=== PATIENT | female | born 1960 | race Caucasian/White ===

== ENCOUNTER 2018-06-04 10:36 | Inpatient (IN) ==
[2018-06-04] MEDS ORDERED: Sod Chloride 0.9% Inj 1,000 ML IV.SIG ONE (10:54)
--- NOTE | 2018-06-04 11:08 | ED ---
HPI General Chief complaint: Extremity Injury, Upper Stated complaint: Fall Time Seen by Provider: 06/04/18 10:48 Source: patient, EMS and old records reviewed History of Present Illness HPI narrative: The patient is a 58-year-old female presenting with complaint of right shoulder pain after a fall. After talking to the patient and her as well as discussing with case management it appears that the patient had some kind of a adverse event in the the facility several year and was either a stroke or a CODE BLUE. Since then the patient has been having multiple falls atrophy of the lower extremities weakness not being able to walk appropriately and falls almost on a daily basis distress she was advised to follow-up with orthopedic surgeon. She was on her way to the. She sustained a fall a few days ago resulting to a fracture of her right humerus. Today she was supposed to follow-up with her orthopedic surgeon but she fell again and was brought in by EMS. Patient is not able to provide much information. She appears confused but nontoxic. did not arrive until 2 hours after she was here. Onset (ago): hour(s) (1) Location: upper extremity Radiation: non-radiation Severity: severe Severity scale (1-10): 9 Quality: sharp Pain Consistency: constant Relieving factors: immobilization Exacerbating factors: movement Associated symptoms: confusion Related Data Home Medications Medication Instructions Recorded Confirmed allopurinol 100 mg PO BID 05/28/18 05/28/18 aspirin 81 mg PO DAILY 05/28/18 05/28/18 buspirone 5 mg PO TID 05/28/18 05/28/18 calcium carbonate [Calcium 600] 600 mg PO BID 05/28/18 05/28/18 divalproex [Depakote] 500 mg PO TID 05/28/18 05/28/18 donepezil 10 mg PO DAILY 05/28/18 06/04/18 hydrocodone-acetaminophen [[place]] 1 tab PO Q6H PRN 05/28/18 06/04/18 levothyroxine 25 mcg PO DAILY 05/28/18 06/04/18 oxybutynin chloride 5 mg PO BID 05/28/18 06/04/18 sotalol 80 mg PO Q12H 05/28/18 06/04/18 thyroid (pork) [[place] Thyroid] 60 mg PO DAILY 05/28/18 06/04/18 tizanidine 2 mg PO TID PRN 05/28/18 06/04/18 venlafaxine [Effexor XR] 75 mg PO DAILY 05/28/18 06/04/18 Allergies Allergy/AdvReac Type Severity Reaction Status Date / Time No Known Allergies Allergy Verified 05/28/18 10:30 Review of Systems ROS Unobtainable ROS Unobtainable: unobtainable due to mental condition [facility] Medical History Medical History Gout (Acute) Thyroid disease (Acute) Back pain (Acute) Alzheimer disease (Acute) Atrial fibrillation (Acute) Social History Social History Substance History: No History of Abuse Smoking Status: Never smoker How Often Do You Have a Drink Containing Alcohol: Never Recent Travel in [facility] within the Last 8 Weeks: No Recent Out of Country Travel within the Last 8 Weeks: No Immunization History Tetanus Immunization: Unsure Exam Narrative Exam Narrative: GENERAL: Awake alert to person but not time or place. SKIN: Focused skin assessment warm/dry. HEAD: Atraumatic. Normocephalic. EYES: Pupils equal and round. No scleral icterus. No injection or drainage. ENT: No nasal bleeding or discharge. Mucous membranes pink and moist. NECK: Trachea midline. No JVD. CARDIOVASCULAR: Regular rate and rhythm. No murmur appreciated. RESPIRATORY: No accessory muscle use. Clear to auscultation. Breath sounds equal bilaterally. GASTROINTESTINAL: Abdomen soft, non-tender, nondistended. Hepatic and splenic margins not palpable. MUSCULOSKELETAL: No obvious deformities. No clubbing. No cyanosis. No edema. PSYCHIATRIC: unable to assess Neuro General: awake and CN's II-XI intact bilaterally Course Consultations Consultation #1: Dr. Blevins orthopedic surgery recommends a CT of the right shoulder. Time: 14:04 Consultation #2: Dr. Blevins return our call he does not feel that the patient is a good candidate for operative repair that will follow as an outpatient. Time: 18:02 Initial Documented Vital Signs Temperature 98.7 F 06/04/18 10:41 Pulse Rate 108 H 06/04/18 10:41 Respiratory Rate 20 06/04/18 10:41 Blood Pressure 114/76 06/04/18 10:41 Last Documented Vital Signs Temperature 98.7 F 06/04/18 10:41 Pulse Rate 90 06/04/18 15:43 Respiratory Rate 18 06/04/18 15:43 Blood Pressure 112/65 06/04/18 15:43 Pulse Oximetry 93 L 06/04/18 15:43 NIH Stroke Scale NIHSS Time Completed NIHSS Time Completed: 10:55 NIH Stroke Scale Level of Consciousness: 0-Alert Orientation Questions: 0-Answers both correct Responds to Commands: 0-Both tasks correct Gaze Eye Movement: 0-Horizontal movement WNL Visual Cid: 0-No visual field defect Facial Movement: 0-Normal Motor Functions Arm LEFT: 0-No drift Motor Functions Arm RIGHT: 0-No drift Motor Functions Leg LEFT: 2-Falls before 5 seconds Motor Functions Leg RIGHT: 2-Falls before 5 seconds Limb Ataxia: 0-No ataxia Sensory Loss: 0-No sensory loss Best Language: 0-Normal Articulation: 0-Normal Extinction or Inattention Sensory: 0-Absent Total: 4 Medical Decision Making MDM Narrative Medical decision making narrative: inconsistent past medical history regarding what has happened to her in the previous hospital. Patient with multiple problems and early onset Alzheimer which is very worrisome in her age. She has a very at this visit as she appears to have a urinary tract infection. Head CT was unremarkable. We did obtain a CT of the right shoulder as per request of orthopod and he does not feel like she needs to be surgically repaired. Medical Screen Exam Complete: Yes Emergency Medical Condition: Yes Medical Records Medical records reviewed: Yes I reviewed the patient's medical records. Lab Data Lab results reviewed: Yes I reviewed the patient's lab results. Result diagrams: 06/04/18 12:00 06/04/18 12:00 Lab Results 06/04/18 06/04/18 06/04/18 Range/Units 12:00 12:00 12:00 WBC 8.3 (4.0-11.0) th/mm3 RBC 2.89 L (4.00-5.30) mil/mm3 Hgb 10.4 L (11.6-15.3) gm/dL Hct 31.5 L (35.0-46.0) % MCV 109.1 H (80.0-100.0) fL MCH 35.9 H (27.0-34.0) pg MCHC 32.9 (32.0-36.0) % RDW 15.2 (11.6-17.2) % Plt Count 191 (150-450) th/mm3 MPV 10.2 (7.0-11.0) fL Neut % (Auto) 56.2 (16.0-70.0) % Lymph % (Auto) 21.4 (9.0-44.0) % [place] % (Auto) 19.8 H (0.0-8.0) % Eos % (Auto) 1.6 (0.0-4.0) % Baso % (Auto) 1.0 (0.0-2.0) % Neut # (Auto) 4.6 (1.8-7.7) th/mm3 Lymph # (Auto) 1.8 (1.0-4.8) th/mm3 [place] # (Auto) 1.6 H (0.0-0.9) th/mm3 Eos # (Auto) 0.1 (0.0-0.4) th/mm3 Baso # (Auto) 0.1 (0.0-0.2) th/mm3 WBC Differential . Differential Comment Auto diff final PT 12.4 H (9.8-11.6) sec INR 1.2 Ratio APTT 29.9 (24.3-30.1) sec Sodium 141 (136-145) meq/L Potassium 3.1 L (3.5-5.1) meq/L Chloride 102 (98-107) meq/L Carbon Dioxide 30.6 (21.0-32.0) meq/L Anion Gap 8 (5-15) meq/L BUN 26 H (7-18) mg/dL Creatinine 0.81 (0.50-1.00) mg/dL Estimated GFR 72 L (>89) mL/min Random Glucose 82 (74-106) mg/dL Calcium 8.7 (8.5-10.1) mg/dL Magnesium 2.1 (1.5-2.5) mg/dL Total Bilirubin 0.7 (0.2-1.0) mg/dL AST 26 (15-37) U/L ALT 20 (10-53) U/L Alkaline Phosphatase 98 (45-117) U/L Troponin I Less than 0.02 L (0.02-0.05) ng/mL B-Natriuretic Peptide (0-100) pg/mL Total Protein 6.9 (6.4-8.2) g/dL Albumin 2.2 L (3.4-5.0) g/dL Urine Color (Yellw/Straw) Urine Clarity (Clear) Urine pH (5.0-8.5) Ur Specific [place] (1.002-1.035) Urine Protein (Neg-Trace) mg/dL Urine Glucose (UA) (Negative) mg/dL Urine Ketones (Negative) mg/dL Urine Occult Blood (Negative) Urine Nitrate (Negative) Urine Bilirubin (Negative) Urine Urobilinogen (Less than 2) mg/dL Ur Leukocyte Esterase (Negative) Urine RBC (0-3) /hpf Urine WBC (0-5) /hpf Ur Squamous Epith Cells (0-5) /hpf Urine Bacteria (None) /hpf Urine Mucus (Occasional) /lpf Micro UA Comment Ur Microscopic Review Urine Culture Comments 06/04/18 06/04/18 Range/Units 12:00 13:33 WBC (4.0-11.0) th/mm3 RBC (4.00-5.30) mil/mm3 Hgb (11.6-15.3) gm/dL Hct (35.0-46.0) % MCV (80.0-100.0) fL MCH (27.0-34.0) pg MCHC (32.0-36.0) % RDW (11.6-17.2) % Plt Count (150-450) th/mm3 MPV (7.0-11.0) fL Neut % (Auto) (16.0-70.0) % Lymph % (Auto) (9.0-44.0) % [place] % (Auto) (0.0-8.0) % Eos % (Auto) (0.0-4.0) % Baso % (Auto) (0.0-2.0) % Neut # (Auto) (1.8-7.7) th/mm3 Lymph # (Auto) (1.0-4.8) th/mm3 [place] # (Auto) (0.0-0.9) th/mm3 Eos # (Auto) (0.0-0.4) th/mm3 Baso # (Auto) (0.0-0.2) th/mm3 WBC Differential Differential Comment PT (9.8-11.6) sec INR Ratio APTT (24.3-30.1) sec Sodium (136-145) meq/L Potassium (3.5-5.1) meq/L Chloride (98-107) meq/L Carbon Dioxide (21.0-32.0) meq/L Anion Gap (5-15) meq/L BUN (7-18) mg/dL Creatinine (0.50-1.00) mg/dL Estimated GFR (>89) mL/min Random Glucose (74-106) mg/dL Calcium (8.5-10.1) mg/dL Magnesium (1.5-2.5) mg/dL Total Bilirubin (0.2-1.0) mg/dL AST (15-37) U/L ALT (10-53) U/L Alkaline Phosphatase (45-117) U/L Troponin I (0.02-0.05) ng/mL B-Natriuretic Peptide 613 H (0-100) pg/mL Total Protein (6.4-8.2) g/dL Albumin (3.4-5.0) g/dL Urine Color Yellow (Yellw/Straw) Urine Clarity Clear (Clear) Urine pH 7.0 (5.0-8.5) Ur Specific [place] 1.016 (1.002-1.035) Urine Protein Negative (Neg-Trace) mg/dL Urine Glucose (UA) Negative (Negative) mg/dL Urine Ketones Trace H (Negative) mg/dL Urine Occult Blood Negative (Negative) Urine Nitrate Positive H (Negative) Urine Bilirubin Negative (Negative) Urine Urobilinogen 4 or greater (Less than 2) mg/dL Ur Leukocyte Esterase Trace H (Negative) Urine RBC 1 (0-3) /hpf Urine WBC 14 H (0-5) /hpf Ur Squamous Epith Cells 1 (0-5) /hpf Urine Bacteria Many H (None) /hpf Urine Mucus Few H (Occasional) /lpf Micro UA Comment Cath-culture ind Ur Microscopic Review Not Reportable Urine Culture Comments Cath-cult indicated Imaging Data Radiologist's impression: Head CT 06/04/18 10:54 CONCLUSION: 1. No acute intracranial abnormality.. 2. Mild periventricular and subcortical white matter small vessel ischemic changes bilaterally. Humerus X-Ray 06/04/18 10:54 CONCLUSION: Oblique slightly comminuted fracture of the right humeral neck and proximal shaft Shoulder X-Ray 06/04/18 10:54 CONCLUSION: Oblique proximal humeral fracture. Acromion clavicular joint is unremarkable Chest X-Ray 06/04/18 10:56 CONCLUSION: Negative examination. Shoulder CT 06/04/18 14:02 CONCLUSION: 1. Impacted humeral neck fracture as described above. There are 2 small bone fragment adjacent to the greater tuberosity. ECG Data Prior ECG tracings: available for review Interpretation: Sinus rhythm 70 bpm left atrial enlargement. Nonspecific ST-T wave abnormalities. No signs of acute ischemia. Discharge Plan Discharge Disposition Patient Disposition: 30 Still Patient Discharge Condition Condition: Good Discharge Details Diagnosis: Acute UTI, Alzheimer disease, Humeral fracture, Encephalopathy, Toxic metabolic encephalopathy Physicians Team ED Provider: Seamus Felipe Primary Care Provider: MARIA EUGENIA, Attending Provider: Jalyn Martin Other Providers: Shai Blevins Dalia Discharge Interventions Interventions: Vital Signs Last Done: 06/04/18 15:43 Status ED Status: Admitted Patient
--- NOTE | 2018-06-04 11:35 | XR ---
EXAM DATE: 06/04/2018 11:32 AM EDT AGE/SEX: 58 years / Female INDICATIONS: Fell today. CLINICAL DATA: This is the patient's initial encounter. Patient reports that signs and symptoms have been present for 1 day and indicates a pain score of 10/10. MEDICAL/SURGICAL HISTORY: . fell also 05-28-18 . broken right shoulder 05/2018 COMPARISON: [facility], SHOULDER LIMITED RIGHT 2V, 05/28/2018. . FINDINGS: There is an oblique fracture involving the right humeral neck. There is a small fracture associated w ith the greater tuberosity. The glenohumeral joint is preserved. CONCLUSION: Oblique slightly comminuted fracture of the right humeral neck and proximal shaft Electronically signed by: Junito Raza MD 06/04/2018 11:34 AM EDT
--- NOTE | 2018-06-04 11:45 | XR ---
EXAM DATE: 06/04/2018 11:41 AM EDT AGE/SEX: 58 years / Female INDICATIONS: Fell today. CLINICAL DATA: This is the patient's initial encounter. Patient reports that signs and symptoms have been present for 1 day and indicates a pain score of 10/10. MEDICAL/SURGICAL HISTORY: . falling lately. . broken shoulder 05-28-18 COMPARISON: No prior exams available for comparison. FINDINGS: A single AP view of the chest demonstrates the lungs to be symmetrically aerated without evidence of mass, infiltrate or effusion. The cardiomediastinal contours are unremarkable. Osseous structures a re intact. CONCLUSION: Negative examination. Electronically signed by: Brian Munson MD 06/04/2018 11:44 AM EDT
--- NOTE | 2018-06-04 11:46 | XR ---
EXAM DATE: 06/04/2018 11:35 AM EDT AGE/SEX: 58 years / Female INDICATIONS: Fell today. CLINICAL DATA: This is the patient's initial encounter. Patient reports that signs and symptoms have been present for 1 day and indicates a pain score of 10/10. MEDICAL/SURGICAL HISTORY: . fell 05/28/18 . broken right shoulder COMPARISON: [facility] [place], HUMERUS RIGHT MIN 2V, 06/04/2018. . FINDINGS: There is an oblique fracture of the proximal humeral shaft with a small bone fragment laterally. CONCLUSION: Oblique proximal humeral fracture. Acromion clavicular joint is unremarkable Electronically signed by: Junito Raza MD 06/04/2018 11:45 AM EDT
--- NOTE | 2018-06-04 11:51 | CT ---
EXAM DATE: 06/04/2018 11:47 AM EDT AGE/SEX: 58 years / Female INDICATIONS: Trauma, patient fell out of bed, hitting head. CLINICAL DATA: This is the patient's initial encounter. Patient reports that signs and symptoms have been present for 1 day and indicates a pain score of 4/10. MEDICAL/SURGICAL HISTORY: Alzheimer's disease. A-fib None. RADIATION DOSE: 66.34 CTDI (mGy) COMPARISON: No prior exams available for comparison. TECHNIQUE: CT of the head without contrast. Using automated exposure control and adjustment of the mA and/or kV according to patient size, radiation dose was kept as low as reasonably achievable to ob tain optimal diagnostic quality images. DICOM format image data is available electronically for revi ew and comparison. FINDINGS: Cerebrum: The ventricles are normal for age. No evidence of midline shift, mass lesion, hemorrhage or acute infarction. No extraaxial fluid collections are seen. Mild periventricular and subcortical white matter small vessel ischemic changes are noted bilaterally. Posterior Fossa: The cerebellum and brainstem are intact. The 4th ventricle is midline. The cerebe llopontine angle is unremarkable. Extracranial: The visualized portion of the orbits is intact. Skull: The calvaria is intact. No evidence of skull fracture. CONCLUSION: 1. No acute intracranial abnormality.. 2. Mild periventricular and subcortical white matter small vessel ischemic changes bilaterally. Electronically signed by: Brian Munson MD 06/04/2018 11:50 AM EDT
[2018-06-04 12:12] LABS: Baso # (Auto) 0.1 th/mm3 (0.0-0.2); Eos # (Auto) 0.1 th/mm3 (0.0-0.4); Eos % (Auto) 1.6 % (0.0-4.0); Hematocrit 31.5 % (35.0-46.0); Hemoglobin 10.4 gm/dL (11.6-15.3); Lymph # (Auto) 1.8 th/mm3 (1.0-4.8); Lymph % (Auto) 21.4 % (9.0-44.0); Mean Corpuscular HGB Conc 32.9 % (32.0-36.0); Mean Corpuscular Hemoglobin 35.9 pg (27.0-34.0); Mean Corpuscular Volume 109.1 fL (80.0-100.0); Mean Platelet Volume 10.2 fL (7.0-11.0); Mono # (Auto) 1.6 th/mm3 (0.0-0.9); Mono % (Auto) 19.8 % (0.0-8.0); Neut # (Auto) 4.6 th/mm3 (1.8-7.7); Neut % (Auto) 56.2 % (16.0-70.0); Platelet Count 191 th/mm3 (150-450); Red Blood Count 2.89 mil/mm3 (4.00-5.30); Red Cell Distribution Width 15.2 % (11.6-17.2); White Blood Count 8.3 th/mm3 (4.0-11.0)
[2018-06-04 12:25] LABS: Activated Partial Thrombo Time 29.9 sec (24.3-30.1); INR 1.2 Ratio; Prothrombin Time 12.4 sec (9.8-11.6)
[2018-06-04 12:37] LABS: Albumin 2.2 g/dL (3.4-5.0); Anion Gap 8 meq/L (5-15); Aspartate Aminotransferase 26 U/L (15-37); Blood Urea Nitrogen 26 mg/dL (7-18); Calcium 8.7 mg/dL (8.5-10.1); Carbon Dioxide 30.6 meq/L (21.0-32.0); Chloride 102 meq/L (98-107); Glomerular Filtration Rate 72 mL/min (>89); Glucose,Random 82 mg/dL (74-106); Magnesium 2.1 mg/dL (1.5-2.5); Potassium 3.1 meq/L (3.5-5.1); Sodium 141 meq/L (136-145)
[2018-06-04 12:39] LABS: Alanine Aminotransferase 20 U/L (10-53)
[2018-06-04 12:42] LABS: Alkaline Phosphatase 98 U/L (45-117); Total Protein 6.9 g/dL (6.4-8.2)
[2018-06-04 13:59] LABS: Bacteria,Urine Many /hpf; Bilirubin,Urine Negative (Negative); Clarity,Urine Clear (Clear); Color,Urine Yellow (Yellw/Straw); Glucose,Urine (UA) Negative (Negative); Leukocyte Esterase,Urine Trace (Negative); Mucus,Urine Few /lpf (Occasional); Nitrite,Urine Positive (Negative); Specific Gravity,Urine 1.016 (1.002-1.035); Squamous Epithelial Cell,Urine 1 /hpf (0-5); Urobilinogen,Urine 4 or Greater mg/dL (Less than 2)
--- NOTE | 2018-06-04 16:01 | CT ---
EXAM DATE: 06/04/2018 3:53 PM EDT AGE/SEX: 58 years / Female INDICATIONS: Fell out of bed, right shoulder pain. CLINICAL DATA: This is the patient's initial encounter. Patient reports that signs and symptoms have been present for 1 day and indicates a pain score of 4/10. MEDICAL/SURGICAL HISTORY: Alzheimer's disease. None. RADIATION DOSE: 12.36 CTDI (mGy) COMPARISON: No prior exams available for comparison. TECHNIQUE: Multiple contiguous axial images were acquired using a multirow detector CT scanner witho ut contrast. Multiplanar reconstruction was performed in the sagittal and coronal planes. Using aut omated exposure control and adjustment of the mA and/or kV according to patient size, radiation dose was kept as low as reasonably achievable to obtain optimal diagnostic quality images. DICOM format i mage data is available electronically for review and comparison. FINDINGS: Bones: There is an impacted oblique fracture of the humeral neck. There is a small bone fragment lat eral to the impacted fracture of the greater tuberosity. The humeral head articulating surface is unr emarkable. The glenoid is intact. The acromioclavicular joint is unremarkable. Joints: No significant arthropathy or bony hypertrophy is seen. Soft Tissues: Grossly unremarkable. Other: No foreign bodies seen. CONCLUSION: 1. Impacted humeral neck fracture as described above. There are 2 small bone fragment adjacent to th e greater tuberosity. Electronically signed by: Junito Raza MD 06/04/2018 4:00 PM EDT
--- NOTE | 2018-06-04 17:18 | P.HP ---
History of Present Illness Primary Care Physician: UNKNOWN History of Present Illness: The patient is a 58-year-old female presenting with complaint of right shoulder pain after a fall. Per family and records it appears that the patient had some kind of a adverse event in the the facility several years ago and was either a stroke or a CODE BLUE. Since then the patient has been having multiple falls atrophy of the lower extremities, weakness, not being able to walk appropriately and falls almost on a daily basis distress she was advised to follow-up with orthopedic surgeon. She sustained a fall a few days ago resulting to a fracture of her right humerus. Today she was supposed to follow- up with her orthopedic surgeon but she fell again and was brought in by EMS. Patient is not able to provide much information. She appears confused but nontoxic. did not arrive until 2 hours after she was in the ED. 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 - Medical History Medical History: Medical History (Last Reviewed 06/05/18 @ 17:03 by Jalyn Martin MD) Gout (Acute) Thyroid disease (Acute) Back pain (Acute) Alzheimer disease (Chronic) Atrial fibrillation (Acute) Bipolar 1 disorder - Surgical History Surgical History: Surgical History (Last Reviewed 06/05/18 @ 17:03 by Jalyn Martin MD) No history of previous surgery - Family History Family History: Family History (Last Updated 06/05/18 @ 17:04 by Jalyn Martin MD) Other HTN (hypertension) - Tobacco History Smoking Status: Never smoker - Alcohol History How Often Do You Have a Drink Containing Alcohol: Never - Substance Use History Substance History: No History of Abuse - Travel History Recent Travel in the [place] Within the Last 8 Weeks: No Recent Travel Out of the Country Within the Last 8 Weeks: No - Immunization History Tetanus Immunization: Unsure Medications and Allergies Active Medications: Active Medications Ceftriaxone Sodium 1,000 mg/ (Sodium Chloride) 100 mls @ 200 mls/hr IV.SIG ONCE ONE Stop: 06/04/18 17:20 Allergies Allergy/AdvReac Type Severity Reaction Status Date / Time No Known Allergies Allergy Verified 05/28/18 10:30 Home Medications Medication Instructions Recorded Confirmed Type allopurinol 100 mg PO BID 05/28/18 05/28/18 History aspirin 81 mg PO DAILY 05/28/18 05/28/18 History buspirone 5 mg PO TID 05/28/18 05/28/18 History calcium carbonate [Calcium 600] 600 mg PO BID 05/28/18 05/28/18 History divalproex [Depakote] 500 mg PO TID 05/28/18 05/28/18 History donepezil 10 mg PO DAILY 05/28/18 06/04/18 History hydrocodone-acetaminophen [[place]] 1 tab PO Q6H PRN 05/28/18 06/04/18 History levothyroxine 25 mcg PO DAILY 05/28/18 06/04/18 History oxybutynin chloride 5 mg PO BID 05/28/18 06/04/18 History sotalol 80 mg PO Q12H 05/28/18 06/04/18 History thyroid (pork) [[place] Thyroid] 60 mg PO DAILY 05/28/18 06/04/18 History tizanidine 2 mg PO TID PRN 05/28/18 06/04/18 History venlafaxine [Effexor XR] 75 mg PO DAILY 05/28/18 06/04/18 History Exam Vital signs: Vital Signs 06/04/18 10:41 06/04/18 10:48 06/04/18 15:43 Temperature 98.7 F Pulse Rate 108 H 94 H 90 Respiratory Rate 20 18 18 Blood Pressure 114/76 119/72 112/65 Pulse Oximetry 96 93 L Intake & Output 06/03/18 06/04/18 06/04/18 18:59 06:59 18:59 Intake Total 1000 / 1000 Balance 1000 / 1000 Weight 65.317 kg Intake: IV 1000 / 1000 NS Inj 1,000 ML @ Wide Open IV. 1000 / 1000 SIG BOLUS ONE Rx#:[id number] Narrative: GENERAL: Awake alert to person but not time or place. Pleasantly confused. SKIN: Focused skin assessment warm/dry. HEAD: Atraumatic. Normocephalic. EYES: Pupils equal and round. No scleral icterus. No injection or drainage. ENT: No nasal bleeding or discharge. Mucous membranes pink and moist. NECK: Trachea midline. No JVD. CARDIOVASCULAR: Regular rate and rhythm. No murmur appreciated. RESPIRATORY: No accessory muscle use. Clear to auscultation. Breath sounds equal bilaterally. GASTROINTESTINAL: Abdomen soft, non-tender, nondistended. Hepatic and splenic margins not palpable. MUSCULOSKELETAL: No obvious deformities. No clubbing. No cyanosis. No edema. Decrease ROM of right shoulder Results - Labs CBC & Chem 7: 06/05/18 07:01 06/05/18 07:01 Labs: Laboratory Results - last 24 hr 06/04/18 06/04/18 06/04/18 12:00 12:00 12:00 WBC 8.3 RBC 2.89 L Hgb 10.4 L Hct 31.5 L MCV 109.1 H MCH 35.9 H MCHC 32.9 RDW 15.2 Plt Count 191 MPV 10.2 Neut % (Auto) 56.2 Lymph % (Auto) 21.4 [place] % (Auto) 19.8 H Eos % (Auto) 1.6 Baso % (Auto) 1.0 Neut # (Auto) 4.6 Lymph # (Auto) 1.8 [place] # (Auto) 1.6 H Eos # (Auto) 0.1 Baso # (Auto) 0.1 WBC Differential . Differential Comment Auto diff final PT 12.4 H INR 1.2 APTT 29.9 Sodium 141 Potassium 3.1 L Chloride 102 Carbon Dioxide 30.6 Anion Gap 8 BUN 26 H Creatinine 0.81 Estimated GFR 72 L Random Glucose 82 Calcium 8.7 Magnesium 2.1 Total Bilirubin 0.7 AST 26 ALT 20 Alkaline Phosphatase 98 Troponin I Less than 0.02 L B-Natriuretic Peptide Total Protein 6.9 Albumin 2.2 L Urine Color Urine Clarity Urine pH Ur Specific [place] Urine Protein Urine Glucose (UA) Urine Ketones Urine Occult Blood Urine Nitrate Urine Bilirubin Urine Urobilinogen Ur Leukocyte Esterase Urine RBC Urine WBC Ur Squamous Epith Cells Urine Bacteria Urine Mucus Micro UA Comment Ur Microscopic Review Urine Culture Comments 06/04/18 06/04/18 12:00 13:33 WBC RBC Hgb Hct MCV MCH MCHC RDW Plt Count MPV Neut % (Auto) Lymph % (Auto) [place] % (Auto) Eos % (Auto) Baso % (Auto) Neut # (Auto) Lymph # (Auto) [place] # (Auto) Eos # (Auto) Baso # (Auto) WBC Differential Differential Comment PT INR APTT Sodium Potassium Chloride Carbon Dioxide Anion Gap BUN Creatinine Estimated GFR Random Glucose Calcium Magnesium Total Bilirubin AST ALT Alkaline Phosphatase Troponin I B-Natriuretic Peptide 613 H Total Protein Albumin Urine Color Yellow Urine Clarity Clear Urine pH 7.0 Ur Specific [place] 1.016 Urine Protein Negative Urine Glucose (UA) Negative Urine Ketones Trace H Urine Occult Blood Negative Urine Nitrate Positive H Urine Bilirubin Negative Urine Urobilinogen 4 or greater Ur Leukocyte Esterase Trace H Urine RBC 1 Urine WBC 14 H Ur Squamous Epith Cells 1 Urine Bacteria Many H Urine Mucus Few H Micro UA Comment Cath-culture ind Ur Microscopic Review Not Reportable Urine Culture Comments Cath-cult indicated - Imaging Impressions Head CT 06/04/18 10:54 CONCLUSION: 1. No acute intracranial abnormality.. 2. Mild periventricular and subcortical white matter small vessel ischemic changes bilaterally. Humerus X-Ray 06/04/18 10:54 CONCLUSION: Oblique slightly comminuted fracture of the right humeral neck and proximal shaft Shoulder X-Ray 06/04/18 10:54 CONCLUSION: Oblique proximal humeral fracture. Acromion clavicular joint is unremarkable Chest X-Ray 06/04/18 10:56 CONCLUSION: Negative examination. Shoulder CT 06/04/18 14:02 CONCLUSION: 1. Impacted humeral neck fracture as described above. There are 2 small bone fragment adjacent to the greater tuberosity. Caprini VTE Risk Assessment Caprini VTE Risk Assessment: Moderate/High Risk (score >= 2) Caprini Risk Assessment Model: Point Value = 1 Point Value = 2 Point Value = 3 Point Value = 5 Age 41-60 Minor surgery BMI > 25 kg/m2 Swollen legs Varicose veins or History of unexplained or recurrent spontaneous Oral contraceptives or hormone replacement Sepsis (< 1 month) Serious lung disease, including pneumonia (< 1 month) Abnormal pulmonary function Acute myocardial infarction Congestive heart failure (< 1 month) History of inflammatory bowel disease Medical patient at bed rest Age 61-74 Arthroscopic surgery Major open surgery (> 45 min) Laparoscopic surgery (> 45 min) Malignancy Confined to bed (> 72 hours) Immobilizing plaster cast Central venous access Age >= 75 History of VTE Family history of VTE Factor V Leiden Prothrombin [id number] Lupus anticoagulant Anticardiolipin antibodies Elevated serum homocysteine Heparin-induced thrombocytopenia Other congenital or acquired thrombophilia Stroke (< 1 month) Elective arthroplasty Hip, pelvis, or leg fracture Acute spinal cord injury (< 1 month) Prophylaxis Regimen: Total Risk Factor Score Risk Level Prophylaxis Regimen 0-1 Low Early ambulation 2 Moderate Order ONE of the following: *Sequential Compression Device (SCD) *Heparin 5000 units SQ BID 3-4 Higher Order ONE of the following medications: *Heparin 5000 units SQ TID *Enoxaparin/Lovenox 40 mg SQ daily (WT < 150 kg, CrCl > 30 mL/min) *Enoxaparin/Lovenox 30 mg SQ daily (WT < 150 kg, CrCl > 10-29 mL/min) *Enoxaparin/Lovenox 30 mg SQ BID (WT < 150 kg, CrCl > 30 mL/min) AND/OR *Sequential Compression Device (SCD) 5 or more Highest Order ONE of the following medications: *Heparin 5000 units SQ TID (Preferred with Epidurals) *Enoxaparin/Lovenox 40 mg SQ daily (WT < 150 kg, CrCl > 30 mL/min) *Enoxaparin/Lovenox 30 mg SQ daily (WT < 150 kg, CrCl > 10-29 mL/min) *Enoxaparin/Lovenox 30 mg SQ BID (WT < 150 kg, CrCl > 30 mL/min) AND *Sequential Compression Device (SCD) Assessment and Plan - Plan Weakness and Multiple falls Acute encephalopathy UTI Seizures on depakote Thyroid disease Back pain Alzheimer disease Atrial fibrillation Depression/anxiety Gout Imaging reviewed Head CT head reviewed 1. No acute intracranial abnormality.. 2. Mild periventricular and subcortical white matter small vessel ischemic changes bilaterally. Humerus X-Ray reviewed Oblique slightly comminuted fracture of the right humeral neck and proximal shaft Shoulder X-Ray reviewed Oblique proximal humeral fracture. Acromion clavicular joint is unremarkable Ortho consulted Chest X-Ray reviewed Negative examination. Will consult neurology PT/OT/ST Monitor on telemetry IVF . Monitor VS Neurochecks and seizure precautions Will do EEG Check depakote level Keep normoglycemic normotensive Start rocephyn IV for UTI , monitor u cultures. Patient with leukocytosis but no signs of urosepsis Hold narcotics or benzos Will check TSH, cbc, lipid profile, a1c, b12 Reconcile meds and Restart home meds as appropriate DVT ppx lovenox Discussed Condition With: pt, nurse. ED physician and CM
[2018-06-04] MEDS ORDERED: Bisacodyl 10 MG Supp RECTAL PRN (17:21)
[2018-06-04] MEDS ORDERED: Acetaminophen 325 MG Tablet PO PRN (17:21)
[2018-06-04] MEDS: Enoxaparin Inj 40 MG/0.4 ML Syringe SQ SCH (19:20)
[2018-06-04] MEDS: Senna/Docusate Sodium 8.6/50 MG Tablet PO SCH (21:37)
[2018-06-04] MEDS: Sod Chloride 0.9% Inj 1,000 ML IV.CONT SCH (22:06)
[2018-06-05] MEDS ORDERED: Dextrose 50% in Water Syringe 50 ML ONE (00:10)
[2018-06-05] MEDS ORDERED: Dextrose 50% in Water 50 ML Vial IV.PUSH PRN (00:11)
[2018-06-05] MEDS ORDERED: Metoprolol Inj 5 MG/5 ML Vial IV.PUSH PRN ×2 (00:25→02:50)
[2018-06-05] MEDS: Dextrose 5%/NaCl 0.9% Inj 1,000 ML IV.CONT SCH ×2 (01:21→13:23)
[2018-06-05] MEDS: Sod Chloride 0.9% Inj 1,000 ML IV.CONT SCH ×2 (06:31→16:53)
[2018-06-05 07:37] LABS: Baso % (Auto) 0.5 % (0.0-2.0); Eos # (Auto) 0.1 th/mm3 (0.0-0.4); Eos % (Auto) 0.8 % (0.0-4.0); Hematocrit 30.2 % (35.0-46.0); Lymph % (Auto) 12.8 % (9.0-44.0); Mean Corpuscular HGB Conc 33.1 % (32.0-36.0); Mean Corpuscular Volume 108.8 fL (80.0-100.0); Mean Platelet Volume 10.1 fL (7.0-11.0); Mono # (Auto) 1.9 th/mm3 (0.0-0.9); Neut % (Auto) 61.9 % (16.0-70.0); Platelet Count 211 th/mm3 (150-450); Red Blood Count 2.78 mil/mm3 (4.00-5.30); Red Cell Distribution Width 15.1 % (11.6-17.2)
[2018-06-05 08:00] LABS: Alanine Aminotransferase 17 U/L (10-53); Alkaline Phosphatase 94 U/L (45-117); Anion Gap 6 meq/L (5-15); Aspartate Aminotransferase 23 U/L (15-37); Blood Urea Nitrogen 17 mg/dL (7-18); Calcium 8.3 mg/dL (8.5-10.1); Carbon Dioxide 29.5 meq/L (21.0-32.0); Chloride 107 meq/L (98-107); Glomerular Filtration Rate 76 mL/min (>89); Glucose,Random 125 mg/dL (74-106); Potassium 3.7 meq/L (3.5-5.1); Sodium 142 meq/L (136-145); Total Protein 6.5 g/dL (6.4-8.2)
--- NOTE | 2018-06-05 09:53 | P.PN ---
Subjective Interval history: The patient is in bed she appears chronically ill. at bedside all questions answered to the best of my ability. The patient was noted tachycardic. She was nothing by mouth and did not receive her sotalol. She had labetalol IV. She passed swallow evaluation and home medications were restarted. No seizures. Patient denies any headaches or change in vision. Still feels with generalized weakness no focal motor deficit. No nausea vomiting no diarrhea or constipation. She is not coughing. Physical Exam Vital signs: Vital Signs 06/04/18 10:41 06/04/18 10:48 06/04/18 15:43 Temperature 98.7 F Pulse Rate 108 H 94 H 90 Respiratory Rate 18 Blood Pressure 114/76 119/72 112/65 Pulse Oximetry 96 93 L 06/04/18 19:33 06/04/18 20:28 06/04/18 21:07 Temperature 98.5 F Pulse Rate 72 76 73 Respiratory Rate 18 17 Blood Pressure 133/65 123/61 Pulse Oximetry 94 L 92 L 06/04/18 21:44 06/05/18 00:00 06/05/18 00:14 Temperature 98.2 F Pulse Rate 75 76 Respiratory Rate 17 Blood Pressure 107/77 Pulse Oximetry 96 96 06/05/18 03:58 06/05/18 04:00 06/05/18 08:00 Temperature 98.0 F Pulse Rate 66 74 Respiratory Rate 17 Blood Pressure 162/70 H Pulse Oximetry 92 L 97 06/05/18 08:39 Temperature Pulse Rate Respiratory Rate 16 Blood Pressure Pulse Oximetry Intake & Output 06/04/18 06/05/18 06/05/18 18:59 06:59 18:59 Intake Total 1100 / 1100 250 / 250 Balance 1100 / 1100 250 / 250 Weight 65.317 kg 65.31 kg Intake: IV 1100 / 1100 250 / 250 [id number] Syringe 50 ML @ 0 mls/hr . 50 / 50 ROUTE .STK-MED ONE Rx#:[id number] NS Inj 1,000 ML @ 100 mls/hr IV 200 / 200 .CONT .Q10H NELLIE Rx#:[id number] NS Inj 1,000 ML @ Wide Open IV. 1000 / 1000 SIG BOLUS ONE Rx#:[id number] Rocephin Inj 1,000 MG In NS Inj 100 / 100 100 ML @ 200 mls/hr IV.SIG ONCE ONE Rx#:[id number] Oral 0 / 0 Other: # Incontinent Voids 5 Date of Last Bowel Movement 06/02/18 06/02/18 # Bowel Movements 0 Weight On Admission 65.31 kg Narrative: GENERAL: Awake alert to person but not time or place. Pleasantly confused. CARDIOVASCULAR: Tachycardic. Regular rate and rhythm. No murmur appreciated. RESPIRATORY: No accessory muscle use. Clear to auscultation. Breath sounds equal bilaterally. GASTROINTESTINAL: Abdomen soft, non-tender, nondistended. Hepatic and splenic margins not palpable. MUSCULOSKELETAL: No obvious deformities. No clubbing. No cyanosis. No edema. Decrease ROM of right shoulder Results - Labs CBC & Chem 7: 06/05/18 07:01 06/05/18 07:01 Laboratory Results - last 24 hr 06/04/18 06/04/18 06/04/18 12:00 12:00 12:00 WBC 8.3 RBC 2.89 L Hgb 10.4 L Hct 31.5 L MCV 109.1 H MCH 35.9 H MCHC 32.9 RDW 15.2 Plt Count 191 MPV 10.2 Neut % (Auto) 56.2 Lymph % (Auto) 21.4 [place] % (Auto) 19.8 H Eos % (Auto) 1.6 Baso % (Auto) 1.0 Neut # (Auto) 4.6 Lymph # (Auto) 1.8 [place] # (Auto) 1.6 H Eos # (Auto) 0.1 Baso # (Auto) 0.1 WBC Differential . Differential Comment Auto diff final PT 12.4 H INR 1.2 APTT 29.9 Sodium 141 Potassium 3.1 L Chloride 102 Carbon Dioxide 30.6 Anion Gap 8 BUN 26 H Creatinine 0.81 Estimated GFR 72 L POC Glucose Random Glucose 82 Calcium 8.7 Magnesium 2.1 Total Bilirubin 0.7 AST 26 ALT 20 Alkaline Phosphatase 98 Troponin I Less than 0.02 L B-Natriuretic Peptide Total Protein 6.9 Albumin 2.2 L Vitamin B12 Urine Color Urine Clarity Urine pH Ur Specific [place] Urine Protein Urine Glucose (UA) Urine Ketones Urine Occult Blood Urine Nitrate Urine Bilirubin Urine Urobilinogen Ur Leukocyte Esterase Urine RBC Urine WBC Ur Squamous Epith Cells Urine Bacteria Urine Mucus Micro UA Comment Ur Microscopic Review Urine Culture Comments 06/04/18 06/04/18 06/04/18 12:00 12:00 13:33 WBC RBC Hgb Hct MCV MCH MCHC RDW Plt Count MPV Neut % (Auto) Lymph % (Auto) [place] % (Auto) Eos % (Auto) Baso % (Auto) Neut # (Auto) Lymph # (Auto) [place] # (Auto) Eos # (Auto) Baso # (Auto) WBC Differential Differential Comment PT INR APTT Sodium Potassium Chloride Carbon Dioxide Anion Gap BUN Creatinine Estimated GFR POC Glucose Random Glucose Calcium Magnesium Total Bilirubin AST ALT Alkaline Phosphatase Troponin I B-Natriuretic Peptide 613 H Total Protein Albumin Vitamin B12 1089 H Urine Color Yellow Urine Clarity Clear Urine pH 7.0 Ur Specific [place] 1.016 Urine Protein Negative Urine Glucose (UA) Negative Urine Ketones Trace H Urine Occult Blood Negative Urine Nitrate Positive H Urine Bilirubin Negative Urine Urobilinogen 4 or greater Ur Leukocyte Esterase Trace H Urine RBC 1 Urine WBC 14 H Ur Squamous Epith Cells 1 Urine Bacteria Many H Urine Mucus Few H Micro UA Comment Cath-culture ind Ur Microscopic Review Not Reportable Urine Culture Comments Cath-cult indicated 06/05/18 06/05/18 06/05/18 00:04 00:06 00:29 WBC RBC Hgb Hct MCV MCH MCHC RDW Plt Count MPV Neut % (Auto) Lymph % (Auto) [place] % (Auto) Eos % (Auto) Baso % (Auto) Neut # (Auto) Lymph # (Auto) [place] # (Auto) Eos # (Auto) Baso # (Auto) WBC Differential Differential Comment PT INR APTT Sodium Potassium Chloride Carbon Dioxide Anion Gap BUN Creatinine Estimated GFR POC Glucose 29 L* 32 L* 49 L* Random Glucose Calcium Magnesium Total Bilirubin AST ALT Alkaline Phosphatase Troponin I B-Natriuretic Peptide Total Protein Albumin Vitamin B12 Urine Color Urine Clarity Urine pH Ur Specific [place] Urine Protein Urine Glucose (UA) Urine Ketones Urine Occult Blood Urine Nitrate Urine Bilirubin Urine Urobilinogen Ur Leukocyte Esterase Urine RBC Urine WBC Ur Squamous Epith Cells Urine Bacteria Urine Mucus Micro UA Comment Ur Microscopic Review Urine Culture Comments 06/05/18 06/05/18 06/05/18 00:46 00:50 01:43 WBC RBC Hgb Hct MCV MCH MCHC RDW Plt Count MPV Neut % (Auto) Lymph % (Auto) [place] % (Auto) Eos % (Auto) Baso % (Auto) Neut # (Auto) Lymph # (Auto) [place] # (Auto) Eos # (Auto) Baso # (Auto) WBC Differential Differential Comment PT INR APTT Sodium Potassium Chloride Carbon Dioxide Anion Gap BUN Creatinine Estimated GFR POC Glucose 68 182 H Random Glucose 229 H D Calcium Magnesium Total Bilirubin AST ALT Alkaline Phosphatase Troponin I B-Natriuretic Peptide Total Protein Albumin Vitamin B12 Urine Color Urine Clarity Urine pH Ur Specific [place] Urine Protein Urine Glucose (UA) Urine Ketones Urine Occult Blood Urine Nitrate Urine Bilirubin Urine Urobilinogen Ur Leukocyte Esterase Urine RBC Urine WBC Ur Squamous Epith Cells Urine Bacteria Urine Mucus Micro UA Comment Ur Microscopic Review Urine Culture Comments 06/05/18 06/05/18 06/05/18 06:08 07:01 07:01 WBC 8.0 RBC 2.78 L Hgb 10.0 L Hct 30.2 L MCV 108.8 H MCH 36.0 H MCHC 33.1 RDW 15.1 Plt Count 211 MPV 10.1 Neut % (Auto) 61.9 Lymph % (Auto) 12.8 [place] % (Auto) 24.0 H Eos % (Auto) 0.8 Baso % (Auto) 0.5 Neut # (Auto) 5.0 Lymph # (Auto) 1.0 [place] # (Auto) 1.9 H Eos # (Auto) 0.1 Baso # (Auto) 0.0 WBC Differential . Differential Comment Auto diff final PT INR APTT Sodium 142 Potassium 3.7 Chloride 107 Carbon Dioxide 29.5 Anion Gap 6 BUN 17 Creatinine 0.78 Estimated GFR 76 L POC Glucose 94 Random Glucose 125 H D Calcium 8.3 L Magnesium Total Bilirubin 0.5 AST 23 ALT 17 Alkaline Phosphatase 94 Troponin I B-Natriuretic Peptide Total Protein 6.5 Albumin 2.0 L Vitamin B12 Urine Color Urine Clarity Urine pH Ur Specific [place] Urine Protein Urine Glucose (UA) Urine Ketones Urine Occult Blood Urine Nitrate Urine Bilirubin Urine Urobilinogen Ur Leukocyte Esterase Urine RBC Urine WBC Ur Squamous Epith Cells Urine Bacteria Urine Mucus Micro UA Comment Ur Microscopic Review Urine Culture Comments - Imaging Impressions Head CT 06/04/18 10:54 CONCLUSION: 1. No acute intracranial abnormality.. 2. Mild periventricular and subcortical white matter small vessel ischemic changes bilaterally. Humerus X-Ray 06/04/18 10:54 CONCLUSION: Oblique slightly comminuted fracture of the right humeral neck and proximal shaft Shoulder X-Ray 06/04/18 10:54 CONCLUSION: Oblique proximal humeral fracture. Acromion clavicular joint is unremarkable Chest X-Ray 06/04/18 10:56 CONCLUSION: Negative examination. Shoulder CT 06/04/18 14:02 CONCLUSION: 1. Impacted humeral neck fracture as described above. There are 2 small bone fragment adjacent to the greater tuberosity. Assessment and Plan - Plan Weakness and Multiple falls Acute encephalopathy UTI Seizures on depakote Thyroid disease Back pain Alzheimer disease Atrial fibrillation Depression/anxiety Gout History of Afib restart sotalol monitor on telemetry Imaging reviewed Head CT head reviewed 1. No acute intracranial abnormality.. 2. Mild periventricular and subcortical white matter small vessel ischemic changes bilaterally. Humerus X-Ray reviewed Oblique slightly comminuted fracture of the right humeral neck and proximal shaft Shoulder X-Ray reviewed Oblique proximal humeral fracture. Acromion clavicular joint is unremarkable Ortho consulted Chest X-Ray reviewed Negative examination. Will consult neurology PT/OT/ST Monitor on telemetry IVF . Monitor VS Neurochecks and seizure precautions Will do EEG Check depakote level therapeutic level. Continue Depakote Keep normoglycemic normotensive Start rocephyn IV for UTI , monitor u cultures. Patient with leukocytosis but no signs of urosepsis Hold narcotics or benzos Will check TSH, cbc, lipid profile, a1c, b12 Past swallow evaluation advance diet per speech therapy recommendations Reconcile meds and Restart home meds as appropriate DVT ppx lovenox Discussed with the patient, at bedside, nurse.
[2018-06-05] MEDS ORDERED: Metoprolol Inj 5 MG/5 ML Vial IV.PUSH ONE (09:55)
[2018-06-05] MEDS: Senna/Docusate Sodium 8.6/50 MG Tablet PO SCH ×2 (09:57→20:06)
[2018-06-05 14:15] LABS: Free T4 (Free Thyroxine) 0.88 ng/dL (0.76-1.46); Thyroid Stimulating Hormone 0.863 uIU/mL (0.358-3.740)
--- NOTE | 2018-06-05 14:34 | P.CONNEU ---
History of Present Illness Service: Neurology Consult date: 06/05/18 Requesting Physician: Jalyn Martin Reason for Consult: Falls Primary Care Provider: UNKNOWN Chief Complaint: Falls History of Present Illness: 58 y/o female presented to hospital with fall. She fell and injured her right arm. She is a poor historian and history is obtained from her and the chart. She had a fall but is unsure how it happened. She has a history of falls starting in 2004. She also notes unsteadiness of gait and memory loss. She is following with a neurologist outpatient. She has tremor with action and at rest. She has never been on a medication for tremors that she is aware of. Her is unsure of her medications as well. She does note some numbness/ tingling in her feet. She has frequent falls. She is unsure if she has loses consciousness. No hx of seizure. No known hx of TIA or stroke. According to the chart she has hx of A-fib Review of Systems unobtainable due to mental condition PMFSH - History History Provided By: Patient - Medical History Medical History: Medical History (Last Reviewed 06/05/18 @ 14:01 by Tejal Silva) Gout (Acute) Thyroid disease (Acute) Back pain (Acute) Alzheimer disease (Chronic) Atrial fibrillation (Acute) - Surgical History Surgical History: Surgical History (Last Reviewed 06/05/18 @ 14:01 by Tejal Silva) No history of previous surgery - Tobacco History Second Hand Smoke Exposure: No Tobacco Use In Past 30 Days: No Smoking Status: Never smoker - Alcohol History How Often Do You Have a Drink Containing Alcohol: Never - Substance Use History Substance History: No History of Abuse - Travel History Recent Travel in the [place] Within the Last 8 Weeks: No Recent Travel Out of the Country Within the Last 8 Weeks: No - Immunization History Tetanus Immunization: Unsure Hx Influenza Vaccine This Season: No Medications and Allergies Allergies Allergy/AdvReac Type Severity Reaction Status Date / Time No Known Allergies Allergy Verified 05/28/18 10:30 Home Medications Medication Instructions Recorded Confirmed Type allopurinol 100 mg PO BID 05/28/18 05/28/18 History aspirin 81 mg PO DAILY 05/28/18 05/28/18 History buspirone 5 mg PO TID 05/28/18 05/28/18 History calcium carbonate [Calcium 600] 600 mg PO BID 05/28/18 05/28/18 History divalproex [Depakote] 500 mg PO TID 05/28/18 05/28/18 History donepezil 10 mg PO DAILY 05/28/18 06/04/18 History hydrocodone-acetaminophen [[place]] 1 tab PO Q6H PRN 05/28/18 06/04/18 History levothyroxine 25 mcg PO DAILY 05/28/18 06/04/18 History oxybutynin chloride 5 mg PO BID 05/28/18 06/04/18 History sotalol 80 mg PO Q12H 05/28/18 06/04/18 History thyroid (pork) [[place] Thyroid] 60 mg PO DAILY 05/28/18 06/04/18 History tizanidine 2 mg PO TID PRN 05/28/18 06/04/18 History venlafaxine [Effexor XR] 75 mg PO DAILY 05/28/18 06/04/18 History Active Medications: Active Medications Acetaminophen (Tylenol) 650 mg PO Q4H PRN PRN Reason: Temp > 100.4 Last Admin: 06/05/18 08:09 Dose: 650 mg Al Hydroxide/Mg Hydroxide (Milk Of Marco Liq) 30 ml PO Q12H PRN PRN Reason: Mild Constipation Aspirin (Aspirin Chew) 81 mg PO DAILY NELLIE Bisacodyl (Dulcolax Supp) 10 mg RECTAL DAILY PRN PRN Reason: SEVERE CONSITIPATION Dextrose (D50w Vial) 50 ml IV.PUSH UNSCH PRN PRN Reason: PER HYPOGLYCEMIA PROTOCOL Divalproex Sodium (Depakote Dr) 500 mg PO TID [facility] Donepezil HCl (Aricept) 10 mg PO DAILY [facility] Enoxaparin Sodium (Lovenox Inj) 40 mg SQ Q24H [facility] Last Admin: 06/04/18 19:20 Dose: 40 mg Glucagon (Glucagon Inj) 1 mg OTHER PRN PRN PRN Reason: for Hypoglycemia Protocol Sodium Chloride (Ns Inj) 1,000 mls @ 100 mls/hr IV.CONT .Q10H [facility] Last Admin: 06/05/18 06:31 Dose: Not Given Dextrose/Sodium Chloride (D5w/Normal Saline Inj) 1,000 mls @ 100 mls/hr IV.CONT .Q10H [facility] Last Admin: 06/05/18 13:23 Dose: 100 mls/hr Lactulose (Lactulose Liq) 30 ml PO DAILY PRN PRN Reason: SEVERE CONSITIPATION Levothyroxine Sodium (Synthroid) 25 mcg PO DAILY@0600 [facility] Metoprolol Tartrate (Lopressor Inj) 5 mg IV.PUSH ONCE PRN PRN Reason: HR sustained > 130 Miscellaneous (Pill Splitter) 1 each OTHER UNSCH [facility] Ondansetron HCl (Zofran Inj) 4 mg IV.PUSH Q6H PRN PRN Reason: NAUSEA OR VOMITING Oxybutynin Chloride (Ditropan) 5 mg PO BID [facility] Senna/Docusate Sodium (Leena-Colace) 1 tab PO BID [facility] Last Admin: 06/05/18 09:57 Dose: Not Given Sennosides (Senokot) 17.2 mg PO Q12H PRN PRN Reason: Moderate Constipation Sodium Chloride (Ns Flush) 2 ml IV.FLUSH BID [facility] Sodium Chloride (Ns Flush) 2 ml IV.FLUSH PRN PRN PRN Reason: FLUSH AFTER USING IV ACCESS Sotalol HCl (Betapace) 80 mg PO Q12HR [facility] Last Admin: 06/05/18 13:38 Dose: 80 mg Thyroid ([place] Thyroid) 60 mg PO DAILY [facility] Tizanidine HCl (Zanaflex) 2 mg PO TID PRN PRN Reason: Anxiety Venlafaxine HCl (Effexor Xr) 75 mg PO DAILY [facility] Exam Vital signs: Vital Signs 06/04/18 15:43 06/04/18 19:33 06/04/18 20:28 Temperature 98.5 F Pulse Rate 90 72 76 Respiratory Rate 18 18 17 Blood Pressure 112/65 133/65 123/61 Pulse Oximetry 93 L 94 L 92 L 06/04/18 21:07 06/04/18 21:44 06/05/18 00:00 Temperature 98.2 F Pulse Rate 73 75 Respiratory Rate 17 Blood Pressure 107/77 Pulse Oximetry 96 96 06/05/18 00:14 06/05/18 03:58 06/05/18 04:00 Temperature 98.0 F Pulse Rate 76 66 74 Respiratory Rate 17 Blood Pressure 162/70 H Pulse Oximetry 92 L 06/05/18 08:00 06/05/18 08:39 Temperature 98 F Pulse Rate 62 Respiratory Rate 18 16 Blood Pressure 146/67 H Pulse Oximetry 96 Intake & Output 06/04/18 06/05/18 06/05/18 18:59 06:59 18:59 Intake Total 1100 / 1100 250 / 250 1000 / 1000 Balance 1100 / 1100 250 / 250 1000 / 1000 Weight 65.317 kg 65.31 kg Intake: IV 1100 / 1100 250 / 250 1000 / 1000 D50W Syringe 50 ML @ 0 mls/hr . 50 / 50 ROUTE .STK-MED ONE Rx#:[id number] D5W/Normal Saline Inj 1,000 ML 1000 / 1000 @ 100 mls/hr IV.CONT .Q10H NELLIE Rx#:[id number] NS Inj 1,000 ML @ 100 mls/hr IV 200 / 200 .CONT .Q10H NELLIE Rx#:[id number] NS Inj 1,000 ML @ Wide Open IV. 1000 / 1000 SIG BOLUS ONE Rx#:[id number] Rocephin Inj 1,000 MG In NS Inj 100 / 100 100 ML @ 200 mls/hr IV.SIG ONCE ONE Rx#:[id number] Oral 0 / 0 Other: # Incontinent Voids 5 Date of Last Bowel Movement 06/02/18 06/02/18 # Bowel Movements 0 Weight On Admission 65.31 kg - Routine Neurological Exam RRR, no bruit, nonlabored respirations She is alert to self, she is unsure of the date or which hospital she is in she knows her anniversary but not the year she was she follows simple commands right UE in sling rest and action tremor noted in LUE, mild rest tremor in RUE CN II-XII intact, no facial asymmetry, eomi, PERRL motor: cannot test RUE, moving all extremities against gravity, increased tone in the LUE reflexes brisk, few beats unsustained clonus at the right ankle, neg meadows's, brisk in uppers as well toes equiv gait withheld sensation unreliable Results - Labs CBC & Chem 7: 06/05/18 07:01 06/05/18 07:01 Labs: Laboratory Results - last 24 hr 06/04/18 06/04/18 06/05/18 12:00 13:33 00:04 WBC RBC Hgb Hct MCV MCH MCHC RDW Plt Count MPV Neut % (Auto) Lymph % (Auto) [place] % (Auto) Eos % (Auto) Baso % (Auto) Neut # (Auto) Lymph # (Auto) [place] # (Auto) Eos # (Auto) Baso # (Auto) WBC Differential Differential Comment Sodium Potassium Chloride Carbon Dioxide Anion Gap BUN Creatinine Estimated GFR POC Glucose 29 L* Random Glucose Calcium Total Bilirubin AST ALT Alkaline Phosphatase Ammonia Total Protein Albumin Vitamin B12 1089 H TSH Free T4 Urine Color Yellow Urine Clarity Clear Urine pH 7.0 Ur Specific [place] 1.016 Urine Protein Negative Urine Glucose (UA) Negative Urine Ketones Trace H Urine Occult Blood Negative Urine Nitrate Positive H Urine Bilirubin Negative Urine Urobilinogen 4 or greater Ur Leukocyte Esterase Trace H Urine RBC 1 Urine WBC 14 H Ur Squamous Epith Cells 1 Urine Bacteria Many H Urine Mucus Few H Micro UA Comment Cath-culture ind Urine Culture Comments Cath-cult indicated 06/05/18 06/05/18 06/05/18 00:06 00:29 00:46 WBC RBC Hgb Hct MCV MCH MCHC RDW Plt Count MPV Neut % (Auto) Lymph % (Auto) [place] % (Auto) Eos % (Auto) Baso % (Auto) Neut # (Auto) Lymph # (Auto) [place] # (Auto) Eos # (Auto) Baso # (Auto) WBC Differential Differential Comment Sodium Potassium Chloride Carbon Dioxide Anion Gap BUN Creatinine Estimated GFR POC Glucose 32 L* 49 L* Random Glucose 229 H D Calcium Total Bilirubin AST ALT Alkaline Phosphatase Ammonia Total Protein Albumin Vitamin B12 TSH Free T4 Urine Color Urine Clarity Urine pH Ur Specific [place] Urine Protein Urine Glucose (UA) Urine Ketones Urine Occult Blood Urine Nitrate Urine Bilirubin Urine Urobilinogen Ur Leukocyte Esterase Urine RBC Urine WBC Ur Squamous Epith Cells Urine Bacteria Urine Mucus Micro UA Comment Urine Culture Comments 06/05/18 06/05/18 06/05/18 00:50 01:43 06:08 WBC RBC Hgb Hct MCV MCH MCHC RDW Plt Count MPV Neut % (Auto) Lymph % (Auto) [place] % (Auto) Eos % (Auto) Baso % (Auto) Neut # (Auto) Lymph # (Auto) [place] # (Auto) Eos # (Auto) Baso # (Auto) WBC Differential Differential Comment Sodium Potassium Chloride Carbon Dioxide Anion Gap BUN Creatinine Estimated GFR POC Glucose 68 182 H 94 Random Glucose Calcium Total Bilirubin AST ALT Alkaline Phosphatase Ammonia Total Protein Albumin Vitamin B12 TSH Free T4 Urine Color Urine Clarity Urine pH Ur Specific [place] Urine Protein Urine Glucose (UA) Urine Ketones Urine Occult Blood Urine Nitrate Urine Bilirubin Urine Urobilinogen Ur Leukocyte Esterase Urine RBC Urine WBC Ur Squamous Epith Cells Urine Bacteria Urine Mucus Micro UA Comment Urine Culture Comments 06/05/18 06/05/18 06/05/18 07:01 07:01 11:57 WBC 8.0 RBC 2.78 L Hgb 10.0 L Hct 30.2 L MCV 108.8 H MCH 36.0 H MCHC 33.1 RDW 15.1 Plt Count 211 MPV 10.1 Neut % (Auto) 61.9 Lymph % (Auto) 12.8 [place] % (Auto) 24.0 H Eos % (Auto) 0.8 Baso % (Auto) 0.5 Neut # (Auto) 5.0 Lymph # (Auto) 1.0 [place] # (Auto) 1.9 H Eos # (Auto) 0.1 Baso # (Auto) 0.0 WBC Differential . Differential Comment Auto diff final Sodium 142 Potassium 3.7 Chloride 107 Carbon Dioxide 29.5 Anion Gap 6 BUN 17 Creatinine 0.78 Estimated GFR 76 L POC Glucose 90 Random Glucose 125 H D Calcium 8.3 L Total Bilirubin 0.5 AST 23 ALT 17 Alkaline Phosphatase 94 Ammonia Total Protein 6.5 Albumin 2.0 L Vitamin B12 TSH Free T4 Urine Color Urine Clarity Urine pH Ur Specific [place] Urine Protein Urine Glucose (UA) Urine Ketones Urine Occult Blood Urine Nitrate Urine Bilirubin Urine Urobilinogen Ur Leukocyte Esterase Urine RBC Urine WBC Ur Squamous Epith Cells Urine Bacteria Urine Mucus Micro UA Comment Urine Culture Comments 06/05/18 06/05/18 13:33 13:33 WBC RBC Hgb Hct MCV MCH MCHC RDW Plt Count MPV Neut % (Auto) Lymph % (Auto) [place] % (Auto) Eos % (Auto) Baso % (Auto) Neut # (Auto) Lymph # (Auto) [place] # (Auto) Eos # (Auto) Baso # (Auto) WBC Differential Differential Comment Sodium Potassium Chloride Carbon Dioxide Anion Gap BUN Creatinine Estimated GFR POC Glucose Random Glucose Calcium Total Bilirubin AST ALT Alkaline Phosphatase Ammonia 13 Total Protein Albumin Vitamin B12 TSH 0.863 Free T4 0.88 Urine Color Urine Clarity Urine pH Ur Specific [place] Urine Protein Urine Glucose (UA) Urine Ketones Urine Occult Blood Urine Nitrate Urine Bilirubin Urine Urobilinogen Ur Leukocyte Esterase Urine RBC Urine WBC Ur Squamous Epith Cells Urine Bacteria Urine Mucus Micro UA Comment Urine Culture Comments - Imaging Impressions Shoulder CT 06/04/18 14:02 CONCLUSION: 1. Impacted humeral neck fracture as described above. There are 2 small bone fragment adjacent to the greater tuberosity. Review/Management - Diagnosis (1) Gait disorder Code(s): R26.9 - Unspecified abnormalities of gait and mobility Status: Chronic Current Visit: Yes (2) Tremor Code(s): R25.1 - Tremor, unspecified Status: Chronic Current Visit: Yes (3) Toxic metabolic encephalopathy Code(s): G92 - Toxic encephalopathy Status: Acute Current Visit: Yes (4) Alzheimer disease Code(s): G30.9 - Alzheimer's disease, unspecified; F02.80 - Dementia in other diseases classified elsewhere without behavioral disturbance Status: Chronic Current Visit: Yes - Review/Management Plan: gait disorder and frequent falls likely multifactoral Reflexes are brisk, pt has resting and action tremor will check MRI brain, MRA brain, CUS check MRI Cspine to rule out myelopathy 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 if parkinsonism is related to VPA- pt unsure why she is taking the VPA monitor orthostatic BP labs for causes of neuropathy and memory loss, check VPA level continue donepezil pt to work with PT Addendum pt seen d/w examined with PA vpa level abx for uti mri brain and c spine consider mysoline 25mg hs x 1 week then bid and increase if tremor improves PT eval for gait. check orthostatics. (4) Alzheimer disease Qualifiers: Alzheimer's disease onset: early-onset Dementia behavioral disturbance: with behavioral disturbance Qualified Code(s): G30.0 - Alzheimer's disease with early onset; F02.81 - Dementia in other diseases classified elsewhere with behavioral disturbance
[2018-06-05] MEDS: Divalproex 500 MG DR Tablet PO SCH ×2 (16:28→17:08)
[2018-06-05] MEDS ORDERED: Labetalol HCl Inj 100 MG/20 ML Vial IV.PUSH ONE (16:30)
[2018-06-05] MEDS: Enoxaparin Inj 40 MG/0.4 ML Syringe SQ SCH (17:06)
--- NOTE | 2018-06-05 17:28 | US ---
EXAM DATE: 06/05/2018 5:21 PM EDT AGE/SEX: 58 years / Female INDICATIONS: Syncope. CLINICAL DATA: This is the patient's initial encounter. Patient reports that signs and symptoms have been present for 1 day and indicates a pain score of 0/10. MEDICAL/SURGICAL HISTORY: Alzheimer's disease. Atrial fibrillation. GOUT. Thyroid disease. Non e. COMPARISON: No prior exams available for comparison. VELOCITY PARAMETERS: ICA/CCA Ratio: Right 1.5 , Left 1.9 ICA: Right 88 cm/sec, Left 74 cm/sec CCA: Right 60 cm/sec, Left 40 cm/sec ECA: Right 35 cm/sec, Left 55 cm/sec Vertebral: Right 33 cm/sec antegrade, Left 31 cm/sec antegrade FINDINGS: Right Carotid: Mild arteriosclerotic plaque is visualized.The waveforms are within normal limits. Left Carotid: No significant plaque is visualized. The waveforms are within normal limits. Other: None. CONCLUSION: 1. Right Internal Carotid Artery: Findings indicate <50% stenosis. 2. Left Internal Carotid Artery: No significant stenosis or atherosclerotic plaque is visualized. Electronically signed by: Junito Raza MD 06/05/2018 5:26 PM EDT
[2018-06-05] MEDS ORDERED: dilTIAZem Inj 125 MG in Sodium Chlor 0.9% Inj 100 ML IV.CONT PRN (18:00)
--- NOTE | 2018-06-05 20:22 | P.PNCC ---
Critical Care Event Note Code activated: No Narrative: I received consult for patient for "medical management". I called Dr. Martin to obtain background information regarding patient and reason for consult. She states patient was transferred for A fib RVR and cardizem drip. She states she did NOT place an hospital carrier consult and believes the consult was ordered in error and requests cancellation. Currently patient is on cardizem drip at 5 mg/ hr and heart rate is not controlled, nurse is titrating up. Patient is alert, with sats 97% on 2 L NC. Will reassess heart rate later and determine if further intervention is necessary. <Na Cagle - Last Filed: 06/05/18 20:22> Code activated: No Narrative: This case had a high probability of a clinically significant, sudden, or life threatening deterioration of this patient's condition which required my full and direct attention, intervention and personal management. Critical care time: less than 30 mins <Jalyn Martin - Last Filed: 06/07/18 15:43>
--- NOTE | 2018-06-05 20:50 | ECG ---
Date Performed: 06/04/2018 Time Performed: 17:50:59 PTAGE: 58 years EKG: Sinus rhythm POSSIBLE LEFT ATRIAL ENLARGEMENT NONSPECIFIC ST ABNORMALITY, CANNOT EXCLUDE ISCHEMIA BORDERLINE ECG NO PREVIOUS TRACING DOCTOR: Theo Nicolas Interpretating Date/Time 06/05/2018 20:50:09
--- NOTE | 2018-06-05 20:51 | ECG ---
Date Performed: 06/05/2018 Time Performed: 10:37:58 PTAGE: 58 years EKG: Sinus rhythm MINIMAL ST DEPRESSION Clinical correlation is recommended for ischemia Since the previous tracing, n o significant change noted BORDERLINE ECG PREVIOUS TRACING : 06/04/2018 17.50 DOCTOR: Theo Nicolas Interpretating Date/Time 06/05/2018 20:50:26
--- NOTE | 2018-06-05 21:20 | MG ---
cc: Casey Barkley MD ELECTROENCEPHALOGRAM RECORD NUMBER: [id number] DESCRIPTION: A 3-4 Hz posterior rhythm of 10-30 microvolts. Frequent movement artifact and eye movement artifact. Mild EEG variability and reactivity. Limited driving with photic stimulation. Single-lead EKG showing possible sinus tachycardia, some premature contractions. INTERPRETATION: Moderate encephalopathy. Myogenic and eye movement artifact. Clinical correlation. MD WARREN Yarbrough/chely , 09:05 PM , 09:09 PM
[2018-06-06] MEDS: Sod Chloride 0.9% Inj 1,000 ML IV.SIG SCH ×2 (00:45→01:50)
[2018-06-06] MEDS ORDERED: Sod Chloride 0.9% Inj 1,000 ML IV.SIG SCH (01:33)
[2018-06-06] MEDS ORDERED: Atropine Inj 1 MG/ML Vial IV.PUSH ONE (01:45)
--- NOTE | 2018-06-06 01:47 | P.CONCC ---
History of Present Illness Service: Critical Care Medicine Consult date: 06/06/18 Requesting Physician: Venessa Durant Reason for Consult: Bradycardia, hypotension Primary Care Provider: UNKNOWN Chief Complaint: Falls History of Present Illness: Date of admission 06/04/18 Date of critical care consult 06/06/18 History obtained from records. Patient is oriented 3 but is not able to provide a lot of detailed history. 58-year-old female with past medical history of Alzheimer's dementia, bipolar disorder, atrial fibrillation, hypothyroidism, gout. She has gait disorder (since 2004 per records) and has experienced multiple falls. She sustained a proximal humerus fracture on 05/28 and was discharged with orthopedic follow-up however she presented again to [facility] on after sustaining another fall at custodial. She was admitted to the [facility] and neurology consult was obtained. MRI and MRA brain and MRI C-spine were recommended and are pending. She has a history of paroxysmal atrial fibrillation for which she takes sotalol 80 mg p.o. twice daily. She is not on chronic anticoagulation, presumably secondary to frequent falls. She was in sinus rhythm upon admission but apparently had an episodes of A fib RVR that initially converted to sinus rhythm after metoprolol 5 mg IV. She then had recurrent A fib RVR that was treated with metoprolol 5 mg IV, labetalol 5 mg IV, Cardizem 15 mg IV and then initiation of Cardizem drip. The Cardizem drip was titrated to 15 mg/h and then she converted to sinus bradycardia with rate 30-40s and she was hypotensive with BP 64/35. Cardizem drip discontinued. BP initially responded to 1 L NS bolus however she became hypotensive again and then remained hypotensive following additional 1 L NS bolus. She denies CP, SOB, n, v, lightheadedness, fever, headache. 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 - Medical History Medical History: Medical History (Last Reviewed 06/06/18 @ 02:47 by Na Cagle MD) Gout (Acute) Thyroid disease (Acute) Back pain (Acute) Alzheimer disease (Chronic) Atrial fibrillation (Acute) Bipolar 1 disorder - Surgical History Surgical History: Surgical History (Last Reviewed 06/06/18 @ 02:47 by Na Cagle MD) No history of previous surgery - Family History Family History: Family History (Last Reviewed 06/26/18 @ 16:46 by Francisco Javier Marks MD) Father CAD (coronary artery disease) Emphysema of lung Mother CAD (coronary artery disease) Cancer - Social History I have reviewed the patient's Social History: Yes - Tobacco History Second Hand Smoke Exposure: No Tobacco Use In Past 30 Days: No Smoking Status: Never smoker - Alcohol History How Often Do You Have a Drink Containing Alcohol: Never - Substance Use History Substance History: No History of Abuse - Travel History Recent Travel in the [place] Within the Last 8 Weeks: No Recent Travel Out of the Country Within the Last 8 Weeks: No - Immunization History Tetanus Immunization: Unsure Hx Influenza Vaccine This Season: No Medications and Allergies Active Medications: Active Medications Acetaminophen (Tylenol) 650 mg PO Q4H PRN PRN Reason: Temp > 100.4 Last Admin: 06/05/18 08:09 Dose: 650 mg Hydrocodone Bitart/Acetaminophen ([place] 5/325) 1 tab PO Q4H PRN PRN Reason: PAIN 4-7 Hydrocodone Bitart/Acetaminophen ([place] 10/325) 2 tab PO Q4H PRN PRN Reason: PAIN 7-10 Al Hydroxide/Mg Hydroxide (Milk Of Magnesia Liq) 30 ml PO Q12H PRN PRN Reason: Mild Constipation Aspirin (Aspirin Chew) 81 mg PO DAILY [facility] Atropine Sulfate (Atropine Inj) 0.5 mg IV.PUSH ONCE ONE Stop: 06/06/18 01:46 Bisacodyl (Dulcolax Supp) 10 mg RECTAL DAILY PRN PRN Reason: SEVERE CONSITIPATION Dextrose (D50w Vial) 50 ml IV.PUSH UNSCH PRN PRN Reason: PER HYPOGLYCEMIA PROTOCOL Divalproex Sodium (Depakote Dr) 500 mg PO TID [facility] Last Admin: 06/05/18 17:08 Dose: 500 mg Donepezil HCl (Aricept) 10 mg PO DAILY [facility] Enoxaparin Sodium (Lovenox Inj) 40 mg SQ Q24H [facility] Last Admin: 06/05/18 17:06 Dose: 40 mg Glucagon (Glucagon Inj) 1 mg OTHER PRN PRN PRN Reason: for Hypoglycemia Protocol Sodium Chloride (Ns Inj) 1,000 mls @ 100 mls/hr IV.CONT .Q10H [facility] Last Admin: 06/05/18 16:53 Dose: 100 mls/hr Dextrose/Sodium Chloride (D5w/Normal Saline Inj) 1,000 mls @ 100 mls/hr IV.CONT .Q10H [facility] Last Admin: 06/05/18 13:23 Dose: 100 mls/hr Diltiazem HCl 125 mg/ Sodium (Chloride) 125 mls @ 5 mls/hr IV.CONT TITRATE PRN ; Protocol PRN Reason: Per Protocol Last Titration: 06/05/18 23:30 Dose: 0 mg/hr, 0 mls/hr Sodium Chloride (Ns Inj) 1,000 mls @ 0 mls/hr IV.SIG BOLUS [facility] Last Admin: 06/06/18 00:45 Dose: 999 mls/hr Sodium Chloride (Ns Inj) 1,000 mls @ 0 mls/hr IV.SIG BOLUS [facility] Lactulose (Lactulose Liq) 30 ml PO DAILY PRN PRN Reason: SEVERE CONSITIPATION Levothyroxine Sodium (Synthroid) 25 mcg PO DAILY@0600 [facility] Metoprolol Tartrate (Lopressor Inj) 5 mg IV.PUSH ONCE PRN PRN Reason: HR sustained > 130 Miscellaneous (Pill Splitter) 1 each OTHER UNSCH [facility] Ondansetron HCl (Zofran Inj) 4 mg IV.PUSH Q6H PRN PRN Reason: NAUSEA OR VOMITING Oxybutynin Chloride (Ditropan) 5 mg PO BID [facility] Last Admin: 06/06/18 00:42 Dose: Not Given Senna/Docusate Sodium (Leena-Colace) 1 tab PO BID [facility] Last Admin: 06/05/18 20:06 Dose: Not Given Sennosides (Senokot) 17.2 mg PO Q12H PRN PRN Reason: Moderate Constipation Sodium Chloride (Ns Flush) 2 ml IV.FLUSH BID [facility] Last Admin: 06/05/18 20:06 Dose: 2 ml Sodium Chloride (Ns Flush) 2 ml IV.FLUSH PRN PRN PRN Reason: FLUSH AFTER USING IV ACCESS Sotalol HCl (Betapace) 80 mg PO Q12HR [facility] Last Admin: 06/05/18 20:05 Dose: 80 mg Thyroid ([place] Thyroid) 60 mg PO DAILY [facility] Tizanidine HCl (Zanaflex) 2 mg PO TID PRN PRN Reason: Anxiety Last Admin: 06/05/18 21:40 Dose: 2 mg Venlafaxine HCl (Effexor Xr) 75 mg PO DAILY [facility] Allergies Allergy/AdvReac Type Severity Reaction Status Date / Time No Known Allergies Allergy Verified 05/28/18 10:30 Home Medications Medication Instructions Recorded Confirmed Type allopurinol 100 mg PO BID 05/28/18 06/25/18 History calcium carbonate [Calcium 600] 600 mg PO BID 05/28/18 06/25/18 History divalproex [Depakote] 500 mg PO TID 05/28/18 06/25/18 History donepezil 10 mg PO DAILY 05/28/18 06/25/18 History hydrocodone-acetaminophen [[place]] 1 tab PO Q6H PRN 05/28/18 06/25/18 History levothyroxine 25 mcg PO DAILY 05/28/18 06/25/18 History oxybutynin chloride 5 mg PO BID 05/28/18 06/25/18 History thyroid (pork) [[place] Thyroid] 60 mg PO DAILY 05/28/18 06/25/18 History venlafaxine [Effexor XR] 75 mg PO DAILY 05/28/18 06/25/18 History amiodarone [Pacerone] 200 mg PO DAILY 06/25/18 06/25/18 History apixaban [Eliquis] 5 mg PO BID 06/25/18 06/25/18 History clonazepam [Klonopin] 0.5 mg PO Q12HR 06/25/18 06/25/18 History ferrous sulfate [FeroSul] 325 mg PO DAILY 06/25/18 06/25/18 History metoprolol tartrate 25 mg PO BID 06/25/18 06/25/18 History Physical Exam Vital signs: Vital Signs 06/05/18 03:58 06/05/18 04:00 06/05/18 08:00 Temperature 98.0 F 98 F Pulse Rate 66 74 62 Respiratory Rate 17 18 Blood Pressure 162/70 H 146/67 H Pulse Oximetry 92 L 96 06/05/18 08:39 06/05/18 12:00 06/05/18 16:00 Temperature 98 F 97.5 F L Pulse Rate 54 L 138 H Respiratory Rate 16 18 16 Blood Pressure 161/72 H 147/85 H Pulse Oximetry 97 06/05/18 19:45 Temperature Pulse Rate Respiratory Rate Blood Pressure Pulse Oximetry 97 Intake & Output 06/05/18 06/05/18 06/06/18 06:59 18:59 06:59 Intake Total 250 / 250 1800 / 1800 Balance 250 / 250 1800 / 1800 Weight 65.31 kg Intake: IV 250 / 250 1800 / 1800 D50W Syringe 50 ML @ 0 mls/hr . 50 / [address] Rx#:[id number] D5W/Normal Saline Inj 1,000 ML 1000 / 1000 @ 100 mls/hr IV.CONT .Q10H [facility] Rx#:[id number] NS Inj 1,000 ML @ 100 mls/hr IV 200 / 200 800 / 800 .CONT .Q10H [facility] Rx#:[id number] Oral 0 / 0 Other: # Voids 1 # Incontinent Voids 5 Date of Last Bowel Movement 06/02/18 06/02/18 # Bowel Movements 0 Weight On Admission 65.31 kg Narrative: GENERAL: Elderly female who [place] [facility] [place], she is awake but lethargic. She is conversant and answers questions of orientation appropriately. SKIN: Warm and dry. HEAD: Atraumatic. Normocephalic. EYES: Pupils equal and round. No scleral icterus. No injection or drainage. ENT: No nasal bleeding or discharge. Mucous membranes dry NECK: Trachea midline. No JVD. CARDIOVASCULAR: Regular rate and rhythm, sinus bradycardia on the monitor.. No murmurs rubs or gallops. RESPIRATORY: No accessory muscle use. Clear to auscultation. Breath sounds equal bilaterally. On 2 L nasal cannula. GASTROINTESTINAL: Abdomen soft, non-tender, nondistended. Bowel sounds present. Hepatic and splenic margins not palpable. MUSCULOSKELETAL: Extremities without clubbing, cyanosis, or edema. Right upper extremity in sling. Ecchymosis right proximal humerus. NEUROLOGICAL: Awake and alert. No obvious cranial nerve deficits. Moves all extremities to command, normal science analyst strength. Strength is 4+ out of 5 plantarflexion bilateral lower extremities. DTRs are 3+ patellar. +clonus. Assessment and Plan - Problem List (1) Atrial fibrillation with RVR Code(s): I48.91 - Unspecified atrial fibrillation Status: Chronic (2) Symptomatic bradycardia Code(s): R00.1 - Bradycardia, unspecified Status: Acute (3) Acute UTI Code(s): N39.0 - Urinary tract infection, site not specified Status: Acute (4) Encephalopathy Code(s): G93.40 - Encephalopathy, unspecified Status: Resolved (5) Gait disorder Code(s): R26.9 - Unspecified abnormalities of gait and mobility Status: Chronic (6) Thyroid disease Code(s): E07.9 - Disorder of thyroid, unspecified Status: Chronic - Assessment and Plan Plan: NEURO: Dementia Continue Aricept 10 mg p.o. daily Bipolar disorder Continue Depakote 500 mg p.o. 3 times daily. This may be for mood although indication is not entirely clear. Continue Zanaflex 2 mg p.o. 3 times daily. Continue Effexor ER 75 mg p.o. daily. Generalized weakness Gait disorder Multiple falls CT brainno acute abnormality. Small vessel ischemic changes. Neurology following. MRI/MRA brain and MRI C-spine pending. EEG 06/05moderate encephalopathy RESP: Nasal cannula wean as tolerated CV: Atrial fibrillation with RVR Now symptomatic sinus bradycardia with hypotension Bradycardia and hypotension immediately upon conversion to sinus rhythm on betablockers and calcium channel blockers. Received atropine 0.5 mg IV, glucagon 2.5 mg IV, and trial transcutaneous pacing. She remained hypotensive even with rate in 70s. Initiated dopamine which ultimately was titrated to 20 mcg/kg/min to maintain mean arterial pressure greater than 65. Holding beta blockers and calcium channel blockers. Cardiology has previously been consulted.. She may ultimately require backup pacemaker in order to tolerate rate control agents. Continue aspirin 81 mg daily. LR 100 mL/h. Follow-up 2D echo. Obtain lactic acid. GI: Heart healthy diet LFT WNL FEN/RENAL: Creatinine normal. Monitor intake and output and BMP. ID: UTI Urine culture 06/04 with gram-negative rods. Blood culture from 06/04 was negative 24 hours. Will obtain new set of blood cultures. Initiate antimicrobial therapy with cefepime 2 g IV every 8 hours. HEME: Monitor CBC. Hemoglobin 7.8 from 10 after receiving 2 L normal saline. Monitor for evidence of bleeding. ENDO: Hypoglycemia Given half an amp of D50 25. Continue diet. f/u cortisol. Hypothyroidism Continue [place] Thyroid 60 milligrams daily. Obtain TSH MSK: Subacute right proximal humerus fracture Noted orthopedic consult has been placed. Upper extremity remains in a sling. PROPH: Lovenox 40 mg subcu daily for DVT prophylaxis. Protonix 40 mg p.o. daily for stress ulcer prophylaxis. ACCESS: Has peripheral IV. Right IJ central venous line placed due to vasopressor requirement 06/06 #1 Discussed with Yanira Cordova. Discussed with bedside nurse. Patient is critically ill with hypotension requiring initiation of vasopressors. CCT 45 minutes exclusive of separately billable procedures
[2018-06-06] MEDS ORDERED: DOPamine 400 MG/250 ML Premix 400 MG/250 ML BAG IV.CONT ONE (03:13)
[2018-06-06 04:35] LABS: Hematocrit 23.8 % (35.0-46.0); Hemoglobin 7.8 gm/dL (11.6-15.3); Mean Corpuscular HGB Conc 32.8 % (32.0-36.0); Mean Corpuscular Hemoglobin 36.2 pg (27.0-34.0); Mean Corpuscular Volume 110.2 fL (80.0-100.0); Mean Platelet Volume 9.6 fL (7.0-11.0); Platelet Count 201 th/mm3 (150-450); Red Blood Count 2.16 mil/mm3 (4.00-5.30); Red Cell Distribution Width 15.1 % (11.6-17.2); White Blood Count 10.6 th/mm3 (4.0-11.0)
[2018-06-06 04:55] LABS: Anion Gap 5 meq/L (5-15); Chloride 119 meq/L (98-107); Potassium 3.5 meq/L (3.5-5.1); Sodium 150 meq/L (136-145)
[2018-06-06 04:57] LABS: Alanine Aminotransferase 15 U/L (10-53); Albumin 1.5 g/dL (3.4-5.0); Aspartate Aminotransferase 25 U/L (15-37); Blood Urea Nitrogen 12 mg/dL (7-18); Calcium 7.1 mg/dL (8.5-10.1); Cholesterol 94 mg/dL (120-200); Glomerular Filtration Rate Greater Than 89 mL/min (>89); Glucose,Random 51 mg/dL (74-106); Triglycerides 75 mg/dL (42-150)
[2018-06-06 04:58] LABS: Alkaline Phosphatase 69 U/L (45-117); HDL Cholesterol 24.7 mg/dL (40.0-60.0); LDL Cholesterol,Calculated 54 mg/dL (0-99); Total Protein 4.8 g/dL (6.4-8.2)
[2018-06-06] MEDS: Dextrose 5%/NaCl 0.9% Inj 1,000 ML IV.CONT SCH ×3 (06:01→18:22)
--- NOTE | 2018-06-06 07:53 | P.PCN ---
Date of procedure: 06/06/18 Procedure: DATE: 06/06/18 CENTRAL LINE PLACEMENT: Right internal jugular vein. INDICATION: Central venous access CONSENT Procedure was done emergently as patient is in shock and in need of central venous access. She does not seem capacitated for medical decision-making. I attempted to contact her but there is no answer. DESCRIPTION OF THE PROCEDURE The patient was placed in supine position, Trendelenburg the skin was cleansed with Chloraprep x3. Additional barrier precautions included large sterile drape, sterile gloves, sterile gown, face mask, and hat. 1 % lidocaine was used for local anesthesia. Under direct ultrasound guidance and on second attempt, the vein was accessed with an introducer needle. The guide wire was advanced and visualized in intravenous position by ultrasound. The tract was dilated. Using Seldinger technique a 7 [place] 20 cm antimicrobial coated triple -lumen catheter was advanced to a depth of 18 centimeters. The guide wire was removed. All ports had good return of dark venous blood and flushed easily with saline. The central line was secured with 2.0 silk because Stat-lock would not adhere adequately due to proximity to the hairline. A sterile dressing with antibiotic disc was applied. ESTIMATED BLOOD LOSS: Minimal COMPLICATIONS: No apparent complications. STAT chest x-ray is pending.
--- NOTE | 2018-06-06 08:08 | MB ---
cc: ,Td Blevins DATE: 06/05/2018 CHIEF COMPLAINT: Right arm pain. CONSULTING PHYSICIAN: Na Cagle MD HISTORY OF PRESENT ILLNESS: Ms. House is a 58-year-old right-hand dominant female with a significant past medical history. This includes generalized weakness, history of multiple falls, seizures, on Depakote. She presents to the [place] emergency department after sustaining another fall. She was previously scheduled to see me as an outpatient for reports of a proximal humerus fracture. She was admitted on 06/04/2018 after she re-presented to the ER with history of recurrent fall history of recurrent fall and altered mental status. Orthopedic consultation was requested. On presentation at bedside, the patient endorses pain rated 8/10 to the right proximal humerus. She denies any other type of musculoskeletal pain. She denies paresthesias to the hand. She denies other complaint. REVIEW OF SYSTEMS: Unable to obtain due to altered mental status. PAST MEDICAL HISTORY: Significant for gout, thyroid disease, back pain, Alzheimer's, chronic atrial fibrillation, acute bipolar disorder, and history of seizures. PAST SURGICAL HISTORY: No history of previous surgery. FAMILY HISTORY: Noncontributory. SOCIAL HISTORY: Denies tobacco or alcohol use. MEDICATIONS: Please see hospital list for a full list of home medications, these include: 1. Allopurinol. 2. Aspirin. 3. Buspirone. 4. Donepezil. 5. Depakote. 6. [place]. 7. Levothyroxine. 8. Oxybutynin. 9. Sotalol. 10. Tizanidine and 11. Venlafaxine. ALLERGIES: NO KNOWN DRUG ALLERGIES PHYSICAL EXAMINATION: VITAL Signs: On 06/05/2018 at 9:20 at time of consult, temperature is 97.5, pulse rate 138, blood pressure 147/75, respiratory rate 16. GENERAL: She is alert. She is not oriented to person or place. She is oriented to time. ABDOMEN: Mild mild diffuse abdominal tenderness on palpation. CARDIAC: In atrial fibrillation with heart rate of 138. LUNGS: Nonlabored breathing. Not tachypneic. NEUROLOGIC: Sensation intact to the upper and lower extremities on screening evaluation. MUSCULOSKELETAL: Screening evaluation of in the bilateral lower extremities demonstrates no tenderness on passive range of motion of the joints and on palpation of the joints. There is tenderness to palpation with surrounding ecchymoses and edema of the right proximal humerus. There is no tenderness about the elbow, wrist or hand. Sensation is intact in the axillary, musculocutaneous, median, radial, ulnar nerve distribution to the right upper extremity. There is a 2+ radial pulse. Motor strength: Distal motor strength is intact with positive EPL/FPL/FDS/FDP/EDC/finger abduction/adduction . IMAGING: Three views of the right shoulder, along with a right shoulder CT scan were reviewed. This demonstrates a surgical neck fracture of the proximal humerus. Overall alignment is preserved. There is proximal migration of the shaft segment into the metaphysis with involution of the shaft segment, there is no involvement of the articular head component. The shoulder joint is well reduced. ASSESSMENT: A 58-year-old right-hand dominant female with multiple medical comorbidities including seizure with recurrent falls, presents to the ER with acute altered mental status. Known history of Alzheimer's. Orthopedic surgery consultation requested for proximal humerus fracture, surgical neck, minimally displaced. PLAN: I had a thorough discussion with Ed and her nursing staff at bedside. On review of the imaging, her proximal wrist remains in acceptable alignment. Given her complicated past medical history, we have elected to proceed with nonoperative management of her fracture. Her fracture is in acceptable alignment and I anticipate that it would heal as such. We do recommend close orthopedic followup. She should follow up in our clinic within 1 week's time for repeat x-rays to ensure that there has been no interval displacement. If there has been significant interval displacement, she may convert to open reduction and internal fixation. However, for now, I would consider that nonoperative treatment would be an appropriate course of action. She should be immobilized in a sling for comfort. She should come out of the sling to work on elbow range of motion. This should be guided by occupational and physical therapy. She should be strict nonweightbearing to the right upper extremity. No use of the right upper extremity. Again, orthopedic surgery to follow her as an outpatient with clinic followup in 1-2 weeks. She should call Dr. Blevins at the orthopedic clinic at [phone] to arrange for a followup appointment. All questions and concerns were addressed at bedside. Td Blevins MD, CM/alicia , 07:13 AM , 07:25 AM
--- NOTE | 2018-06-06 08:20 | XR ---
EXAM DATE: 06/06/2018 8:14 AM EDT AGE/SEX: 58 years / Female INDICATIONS: Central line placement. CLINICAL DATA: This is the patient's initial encounter. Patient reports that signs and symptoms have been present for 1 day and indicates a pain score of 4/10. MEDICAL/SURGICAL HISTORY: . Shoulder fracture, 05-28-18. None. [place] [facility] [place]. . FINDINGS: Right internal jugular central line has its tip in the superior vena cava. There is no pneumothorax. The heart is normal. The pulmonary vascular pattern is normal. The lungs are clear. Degenerative ellis ges are noted throughout the thoracic spine. CONCLUSION: Right internal jugular central line has its tip in superior vena cava. There is no pneumothorax. Electronically signed by: Brian Munson MD 06/06/2018 8:19 AM EDT
[2018-06-06] MEDS: DOPamine 800 MG/500 ML Premix 800 MG/500 ML PLAST..BAG IV.CONT PRN ×2 (11:40→20:11)
[2018-06-06] MEDS: Senna/Docusate Sodium 8.6/50 MG Tablet PO SCH ×2 (11:41→20:08)
[2018-06-06] MEDS: Thyroid 60 MG Tablet PO SCH (11:41)
[2018-06-06] MEDS: Divalproex 500 MG DR Tablet PO SCH ×3 (11:41→17:35)
[2018-06-06] MEDS: Venlafaxine XR 75 MG Capsule PO SCH (11:42)
--- NOTE | 2018-06-06 11:48 | MR ---
EXAM DATE: 06/06/2018 11:39 AM EDT AGE/SEX: 58 years / Female INDICATIONS: . Unsteady gait. CLINICAL DATA: This is the patient's initial encounter. Patient reports that signs and symptoms have been present for 4 - 6 days and indicates a pain score of 0/10. MEDICAL/SURGICAL HISTORY: Alzheimer's disease. Afib. Gout. Thyroid disease. None. COMPARISON: No prior exams available for comparison. TECHNIQUE: Multiplanar, multisequence MRI examination of the cervical spine was performed without co ntrast. FINDINGS: Vertebrae: Normal vertebral body height. Homogeneous marrow signal. Alignment: Normal. Cord: Normal configuration and signal. Post Fossa: The cerebellar tonsils are normal in position. C2-C3: The thecal sac has a normal configuration. There is no evidence of disc herniation or spinal canal stenosis. The neural foramina are patent bilaterally. C3-C4: There is minimal circumferential spinal stenosis secondary to diffuse disc bulge, uncovertebr al joint spurring and facet joint hypertrophy bilaterally. Mild bilateral foraminal narrowing is note d. C4-C5: There is minimal circumferential spinal stenosis secondary to diffuse disc bulge, uncovertebr al joint spurring and facet joint hypertrophy bilaterally. Mild bilateral foraminal narrowing is note d. C5-C6: There is minimal circumferential spinal stenosis secondary to diffuse disc bulge, uncovertebr al joint spurring and facet joint hypertrophy bilaterally. Mild bilateral foraminal narrowing is note d. C6-C7: There is minimal circumferential spinal stenosis secondary to diffuse disc bulge, uncovertebr al joint spurring and facet joint hypertrophy bilaterally. Mild bilateral foraminal narrowing is note d. C7-T1: No epidural impressions seen. CONCLUSION: 1. Minimal circumferential spinal stenosis and mild bilateral foraminal narrowing at C3 3-4, C4-5, C 5-6 and C6-7. Electronically signed by: Brian Munson MD 06/06/2018 11:47 AM EDT
[2018-06-06] MEDS ORDERED: Gadobutrol PF 7.5 MMOL/7.5 ML Vial (for RAD) IV.SIG ONE (11:54)
--- NOTE | 2018-06-06 12:14 | MR ---
EXAM DATE: 06/06/2018 12:01 PM EDT AGE/SEX: 58 years / Female INDICATIONS: Altered mental status. CLINICAL DATA: This is the patient's initial encounter. Patient reports that signs and symptoms have been present for 3 days and indicates a pain score of 0/10. MEDICAL/SURGICAL HISTORY: Alzheimer's disease. A-fib. Thyroid disease. None. COMPARISON: [facility] [place] HEAD W & W/O CONTRAST, 06/06/2018. . TECHNIQUE: 3D [id number] MRA was performed. Source images, multiplanar STS MIP, and 3D volum e MIP reconstructions were reviewed. FINDINGS: There is excellent visualization of the major intracranial arteries out to the second-order branch ve ssels. There is no evidence for aneurysm, vessel truncation or stenosis, and no evidence for vascula r malformation. CONCLUSION: 1. Negative MRA of the brain Electronically signed by: Rickey Montemayor MD 06/06/2018 12:12 PM EDT
[2018-06-06 12:15] LABS: Baso # (Auto) 0.1 th/mm3 (0.0-0.2); Baso % (Auto) 0.5 % (0.0-2.0); Eos # (Auto) 0.2 th/mm3 (0.0-0.4); Eos % (Auto) 1.2 % (0.0-4.0); Hemoglobin 9.3 gm/dL (11.6-15.3); Lymph # (Auto) 1.2 th/mm3 (1.0-4.8); Lymph % (Auto) 8.6 % (9.0-44.0); Mean Corpuscular HGB Conc 33.3 % (32.0-36.0); Mean Corpuscular Hemoglobin 35.8 pg (27.0-34.0); Mean Corpuscular Volume 107.4 fL (80.0-100.0); Mean Platelet Volume 9.5 fL (7.0-11.0); Mono % (Auto) 29.7 % (0.0-8.0); Neut # (Auto) 8.1 th/mm3 (1.8-7.7); Platelet Count 280 th/mm3 (150-450); Red Blood Count 2.61 mil/mm3 (4.00-5.30); White Blood Count 13.5 th/mm3 (4.0-11.0)
--- NOTE | 2018-06-06 12:22 | MR ---
EXAM DATE: 06/06/2018 12:05 PM EDT AGE/SEX: 58 years / Female INDICATIONS: Altered mental status. CLINICAL DATA: This is the patient's initial encounter. Patient reports that signs and symptoms have been present for 4 - 6 days and indicates a pain score of 0/10. MEDICAL/SURGICAL HISTORY: Alzheimer's disease. Thyroid disease. Gout. None. [place] [facility] [place]. [facility] [place], [place]. . TECHNIQUE: Multiplanar, multisequence examination of the brain was performed without and with 6.5 ml Gadavist (gadobutrol) contrast as a single exam dose. FINDINGS: Cerebrum: The ventricles, sulci and cisterns are prominent for the patient's age consistent with atr ophy. No evidence of midline shift, mass lesion, hemorrhage or acute infarction. No extraaxial fluid collections are seen. The pituitary gland and suprasellar cistern are normal in configuration. White Matter: Mild periventricular white matter small vessel ischemic changes are noted bilaterally. Posterior Fossa: The cerebellum and brainstem are intact. The 4th ventricle is midline. The cerebel lopontine angle is unremarkable. The cerebellar tonsils are normal in position. Diffusion Imaging: No focal areas of restricted diffusion are seen. No evidence of acute infarction . Extracranial: The visualized portions of the orbits and paranasal sinuses are unremarkable. Post Contrast: No abnormal areas of parenchymal or dural enhancement. No evidence of blood-brain ba rrier breakdown. CONCLUSION: 1. Cerebral atrophy. 2. Mild periventricular white matter small vessel ischemic changes bilaterally. 3. No acute infarct, acute hemorrhage, midline shift or extra-axial fluid collections. Electronically signed by: Brian Munson MD 06/06/2018 12:21 PM EDT
[2018-06-06 13:20] LABS: Eosinophils 2 % (0-4); Lymphocytes 6 % (9-44); Monocytes 22 % (0-8); Myelocytes 1 % (0-0); Platelet Estimate Normal (Normal); Platelet Morphology Normal (Normal)
[2018-06-06 13:34] LABS: Hemoglobin A1c 5.2 % (4.3-6.0)
--- NOTE | 2018-06-06 13:36 | ECHRPT ---
Indication: afib , aflutter CONCLUSIONS Wall thickness is normal. Normal left ventricular size. The left ventricular systolic function is hyperdynamic with an estimated ejection fraction in the ra nge of 65- 70%. Trace mitral valve regurgitation. There is mild tricuspid valve regurgitation. The estimated pulmonary arterial pressure is 45 mmHg. Trivial pericardial effusion. BP: / HR: Rhythm: MEASUREMENTS (Male / Female) Normal Values Technical Quality: 2D ECHO LV Diastolic Diameter PLAX 3.8 cm 4.2 - 5.9 / 3.9 - 5.3 cm LV Systolic Diameter PLAX 2.2 cm IVS Diastolic Thickness 1.0 cm 0.6 - 1.0 / 0.6 - 0.9 cm LVPW Diastolic Thickness 0.9 cm 0.6 - 1.0 / 0.6 - 0.9 cm LV Relative Wall Thickness 0.5 RV Internal Dim ED PLAX 2.5 cm LVOT Diameter 1.5 cm LV Ejection Fraction MOD 4C 55.2 % LV Ejection Fraction 4C AL 58.5 % M-MODE Aortic Root Diameter MM 2.5 cm LA Systolic Diameter MM 3.7 cm LA Ao Ratio MM 1.5 AV Cusp Separation MM 1.8 cm DOPPLER AV Peak Velocity 129.0 cm/s AV Peak Gradient 6.7 mmHg LVOT Peak Velocity 109.0 cm/s LVOT Peak Gradient 4.8 mmHg AV Area Cont Eq pk 1.5 cm Mitral E Point Velocity 72.6 cm/s Mitral A Point Velocity 75.0 cm/s Mitral E to A Ratio 1.0 LV E' Lateral Velocity 11.7 cm/s Mitral E to LV E' Lateral Ratio 6.2 LV E' Septal Velocity 9.3 cm/s Mitral E to LV E' Septal Ratio 7.8 TR Peak Velocity 296.0 cm/s TR Peak Gradient 35.0 mmHg Right Atrial Pressure 10.0 mmHg Pulmonary Artery Systolic Pressu 45.0 mmHg Right Ventricular Systolic Press 45.0 mmHg PV Peak Velocity 130.0 cm/s PV Peak Gradient 6.8 mmHg FINDINGS LEFT VENTRICLE Wall thickness is normal. Normal left ventricular size. The left ventricular systolic function is hyperdynamic with an estimated ejection fraction in the ra nge of 65- 70%. RIGHT VENTRICLE Normal right ventricular size and systolic function. LEFT ATRIUM The left atrial size is normal. RIGHT ATRIUM The right atrial size is normal. ATRIAL SEPTUM Normal atrial septal thickness without atrial level shunting by limited color doppler interrogation. AORTA The aortic root and proximal ascending aorta are normal in size on limited imaging. MITRAL VALVE Trace mitral valve regurgitation. AORTIC VALVE Trileaflet aortic valve. No aortic valve stenosis or regurgitation. TRICUSPID VALVE There is mild tricuspid valve regurgitation. The estimated pulmonary arterial pressure is 45 mmHg. PULMONARY VALVE No pulmonary valve regurgitation or stenosis. VESSELS The inferior vena cava is normal in size. PERICARDIUM Trivial pericardial effusion. Juinto Calvo MD, FACC (Electronically Signed) Final Date:06 June 2018 13:35
[2018-06-06] MEDS: Sod Chloride 0.9% Inj 1,000 ML IV.CONT SCH ×3 (13:37→23:17)
--- NOTE | 2018-06-06 14:49 | P.CONCA ---
History of Present Illness Service: Cardiology Consult date: 06/06/18 Requesting Physician: Jalyn Martin Reason for Consult: Atrial fib with rapid ventricular response Primary Care Provider: UNKNOWN Chief Complaint: Falls History of Present Illness: This is a 58-year-old female who presented to the emergency department with complaints of right shoulder pain after a fall. She has a history of thyroid disease, back pain, Alzheimer's, atrial fib, bipolar 1 disorder and multiple falls. She is a very poor historian and no family is available at this time, information is retrieved from the chart. She has a history of falling almost on a daily basis, few days ago she fell and fractured her right humerus. Today she was to follow-up with orthopedics but but she fell again and was brought to the emergency department by EMS. At this time she is unavailable to provide much information concerning her health condition, she appears mildly confused. She does deny any chest pain, pressure, palpitations, edema or shortness of breath. She does complain of moderate pain in her right arm and right leg. Right arm is currently ecchymotic and in a sling. 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 - Medical History Medical History: Medical History (Last Reviewed 06/06/18 @ 08:49 by JAI Emanuel) Gout (Acute) Thyroid disease (Acute) Back pain (Acute) Alzheimer disease (Chronic) Atrial fibrillation (Acute) Bipolar 1 disorder - Surgical History Surgical History: Surgical History (Last Reviewed 06/06/18 @ 02:47 by Na Cagle MD) No history of previous surgery - Family History Family History: Family History (Last Updated 06/05/18 @ 17:04 by Jalyn Martin MD) Other HTN (hypertension) - Tobacco History Second Hand Smoke Exposure: No Tobacco Use In Past 30 Days: No Smoking Status: Never smoker - Alcohol History How Often Do You Have a Drink Containing Alcohol: Never - Substance Use History Substance History: No History of Abuse - Travel History Recent Travel in the [place] Within the Last 8 Weeks: No Recent Travel Out of the Country Within the Last 8 Weeks: No - Immunization History Tetanus Immunization: Unsure Hx Influenza Vaccine This Season: No Medications and Allergies Allergies Allergy/AdvReac Type Severity Reaction Status Date / Time No Known Allergies Allergy Verified 05/28/18 10:30 Home Medications Medication Instructions Recorded Confirmed Type allopurinol 100 mg PO BID 05/28/18 05/28/18 History aspirin 81 mg PO DAILY 05/28/18 05/28/18 History buspirone 5 mg PO TID 05/28/18 05/28/18 History calcium carbonate [Calcium 600] 600 mg PO BID 05/28/18 05/28/18 History divalproex [Depakote] 500 mg PO TID 05/28/18 05/28/18 History donepezil 10 mg PO DAILY 05/28/18 06/04/18 History hydrocodone-acetaminophen [[place]] 1 tab PO Q6H PRN 05/28/18 06/04/18 History levothyroxine 25 mcg PO DAILY 05/28/18 06/04/18 History oxybutynin chloride 5 mg PO BID 05/28/18 06/04/18 History sotalol 80 mg PO Q12H 05/28/18 06/04/18 History thyroid (pork) [[address] Thyroid] 60 mg PO DAILY 05/28/18 06/04/18 History tizanidine 2 mg PO TID PRN 05/28/18 06/04/18 History venlafaxine [Effexor XR] 75 mg PO DAILY 05/28/18 06/04/18 History Active Medications: Active Medications Acetaminophen (Tylenol) 650 mg PO Q4H PRN PRN Reason: Temp > 100.4 Last Admin: 06/05/18 08:09 Dose: 650 mg Hydrocodone Bitart/Acetaminophen ([place] 5/325) 1 tab PO Q4H PRN PRN Reason: PAIN 4-7 Hydrocodone Bitart/Acetaminophen ([place] 10/325) 2 tab PO Q4H PRN PRN Reason: PAIN 7-10 Al Hydroxide/Mg Hydroxide (Milk Of Magnesia Liq) 30 ml PO Q12H PRN PRN Reason: Mild Constipation Aspirin (Aspirin Chew) 81 mg PO DAILY [facility] Last Admin: 06/06/18 13:37 Dose: 81 mg Bisacodyl (Dulcolax Supp) 10 mg RECTAL DAILY PRN PRN Reason: SEVERE CONSITIPATION Dextrose (D50w Vial) 50 ml IV.PUSH UNSCH PRN PRN Reason: PER HYPOGLYCEMIA PROTOCOL Last Admin: 06/06/18 06:00 Dose: 50 ml Divalproex Sodium (Depakote Dr) 500 mg PO TID [facility] Last Admin: 06/06/18 13:43 Dose: Not Given Donepezil HCl (Aricept) 10 mg PO DAILY [facility] Last Admin: 06/06/18 11:42 Dose: 10 mg Enoxaparin Sodium (Lovenox Inj) 40 mg SQ Q24H [facility] Last Admin: 06/05/18 17:06 Dose: 40 mg Glucagon (Glucagon Inj) 1 mg OTHER PRN PRN PRN Reason: for Hypoglycemia Protocol Sodium Chloride (Ns Inj) 1,000 mls @ 100 mls/hr IV.CONT .Q10H [facility] Last Admin: 06/06/18 13:38 Dose: Not Given Dextrose/Sodium Chloride (D5w/Normal Saline Inj) 1,000 mls @ 100 mls/hr IV.CONT .Q10H [facility] Last Admin: 06/06/18 11:46 Dose: 100 mls/hr Diltiazem HCl 125 mg/ Sodium (Chloride) 125 mls @ 5 mls/hr IV.CONT TITRATE PRN ; Protocol PRN Reason: Per Protocol Last Titration: 06/05/18 23:30 Dose: 0 mg/hr, 0 mls/hr Sodium Chloride (Ns Inj) 1,000 mls @ 0 mls/hr IV.SIG BOLUS [facility] Last Admin: 06/06/18 01:50 Dose: 999 mls/hr Sodium Chloride (Ns Inj) 1,000 mls @ 0 mls/hr IV.SIG BOLUS [facility] Dopamine HCl/Dextrose (Dopamine 800 Mg/500 Ml Premix) 800 mg in 500 mls @ 2.449 mls/hr IV.CONT TITRATE PRN; Protocol PRN Reason: Per Protocol Last Admin: 06/06/18 11:40 Dose: 1 mcg/kg/min, 2.45 mls/hr Lactated Ringer's (Lr 1000 Ml Inj) 1,000 mls @ 100 mls/hr IV.CONT .Q10H [facility] Last Admin: 06/06/18 13:32 Dose: 100 mls/hr Cefepime HCl 2,000 mg/ Sodium (Chloride) 100 mls @ 200 mls/hr IV.SIG Q8H [facility] Last Admin: 06/06/18 13:43 Dose: 200 mls/hr Lactulose (Lactulose Liq) 30 ml PO DAILY PRN PRN Reason: SEVERE CONSITIPATION Levothyroxine Sodium (Synthroid) 25 mcg PO DAILY@0600 [facility] Last Admin: 06/06/18 13:37 Dose: 25 mcg Metoprolol Tartrate (Lopressor Inj) 5 mg IV.PUSH ONCE PRN PRN Reason: HR sustained > 130 Miscellaneous (Pill Splitter) 1 each OTHER [facility] Ondansetron HCl (Zofran Inj) 4 mg IV.PUSH Q6H PRN PRN Reason: NAUSEA OR VOMITING Oxybutynin Chloride (Ditropan) 5 mg PO BID [facility] Last Admin: 06/06/18 11:41 Dose: 5 mg Pantoprazole Sodium (Protonix) 40 mg PO DAILY [facility] Last Admin: 06/06/18 11:41 Dose: 40 mg Senna/Docusate Sodium (Leena-Colace) 1 tab PO BID [facility] Last Admin: 06/06/18 11:41 Dose: 1 tab Sennosides (Senokot) 17.2 mg PO Q12H PRN PRN Reason: Moderate Constipation Sodium Chloride (Ns Flush) 2 ml IV.FLUSH BID [facility] Last Admin: 06/06/18 11:45 Dose: Not Given Sodium Chloride (Ns Flush) 2 ml IV.FLUSH PRN PRN PRN Reason: FLUSH AFTER USING IV ACCESS Sotalol HCl (Betapace) 80 mg PO Q12HR [facility] Last Admin: 06/05/18 20:05 Dose: 80 mg Terbutaline Sulfate (Brethine Inj) 1 mg SQ ONCE PRN PRN Reason: Extravasation Thyroid ([address] Thyroid) 60 mg PO DAILY [facility] Last Admin: 06/06/18 11:41 Dose: 60 mg Tizanidine HCl (Zanaflex) 2 mg PO TID PRN PRN Reason: Anxiety Last Admin: 06/05/18 21:40 Dose: 2 mg Venlafaxine HCl (Effexor Xr) 75 mg PO DAILY [facility] Last Admin: 06/06/18 11:42 Dose: 75 mg Exam Vital signs: Vital Signs 06/05/18 16:00 06/05/18 19:45 06/05/18 20:00 Temperature 97.5 F L Pulse Rate 138 H 149 H Respiratory Rate 16 Blood Pressure 147/85 H Pulse Oximetry 97 06/06/18 01:19 06/06/18 01:25 06/06/18 01:30 Temperature Pulse Rate 41 L 39 L 40 L Respiratory Rate 28 H 24 28 H Blood Pressure 70/40 L 61/37 L Pulse Oximetry 100 100 100 06/06/18 01:45 06/06/18 01:51 06/06/18 01:55 Temperature Pulse Rate 41 L 43 L 50 L Respiratory Rate 27 H 19 20 Blood Pressure 68/43 L 120/87 178/109 H Pulse Oximetry 100 83 L 06/06/18 02:00 06/06/18 02:03 06/06/18 02:15 Temperature Pulse Rate 55 L 54 L 57 L Respiratory Rate 21 20 23 Blood Pressure 77/46 L 81/52 L Pulse Oximetry 96 100 100 06/06/18 02:30 06/06/18 02:45 06/06/18 03:00 Temperature Pulse Rate 56 L 57 L 52 L Respiratory Rate 16 15 14 Blood Pressure 78/51 L 75/47 L 74/46 L Pulse Oximetry 100 100 100 06/06/18 03:02 06/06/18 03:04 06/06/18 03:05 Temperature Pulse Rate 52 L 90 84 Respiratory Rate 14 19 17 Blood Pressure 70/44 L 75/45 L 80/44 L Pulse Oximetry 100 100 100 06/06/18 03:06 06/06/18 03:21 06/06/18 03:30 Temperature Pulse Rate 66 50 L 50 L Respiratory Rate 17 20 19 Blood Pressure 74/45 L 75/45 L 74/50 L Pulse Oximetry 100 100 100 06/06/18 03:31 06/06/18 03:58 06/06/18 04:00 Temperature 98.1 F Pulse Rate 50 L 49 L 49 L Respiratory Rate 17 19 17 Blood Pressure 73/49 L 78/48 L 79/49 L Pulse Oximetry 100 100 100 06/06/18 04:27 06/06/18 04:30 06/06/18 04:45 Temperature Pulse Rate 59 L 70 75 Respiratory Rate 20 22 25 H Blood Pressure 78/43 L 83/46 L 89/48 L Pulse Oximetry 100 100 100 06/06/18 05:00 06/06/18 05:18 06/06/18 05:30 Temperature Pulse Rate 80 84 78 Respiratory Rate 22 26 H 24 Blood Pressure 84/52 L 89/48 L 77/39 L Pulse Oximetry 100 100 100 06/06/18 05:45 06/06/18 06:00 06/06/18 06:15 Temperature Pulse Rate 78 73 79 Respiratory Rate 17 15 20 Blood Pressure 88/48 L 82/44 L 90/50 L Pulse Oximetry 100 100 98 06/06/18 06:30 06/06/18 06:45 06/06/18 07:00 Temperature Pulse Rate 78 77 79 Respiratory Rate 26 H 27 H 30 H Blood Pressure 97/55 L 93/50 L 96/58 L Pulse Oximetry 100 100 97 06/06/18 07:15 06/06/18 08:08 Temperature Pulse Rate 80 Respiratory Rate 19 Blood Pressure 108/53 L Pulse Oximetry 100 97 Intake & Output 06/05/18 06/06/18 06/06/18 18:59 06:59 18:59 Intake Total 1800 / 1800 3360 / 3360 2100 / 2100 Output Total 350 / 350 Balance 1800 / 1800 3010 / 3010 2100 / 2100 Weight 69.7 kg Intake: IV 1800 / 1800 3000 / 3000 2100 / 2100 D5W/Normal Saline Inj 1,000 ML 1000 / 1000 1000 / 1000 1000 / 1000 @ 100 mls/hr IV.CONT .Q10H [facility] Rx#:[id number] LR 1000 mL Inj 1,000 ML @ 100 1000 / 1000 mls/hr IV.CONT .Q10H [facility] Rx#: [id number] NS Inj 1,000 ML @ 100 mls/hr IV 800 / 800 1000 / 1000 .CONT .Q10H [facility] Rx#:[id number] Maxipime Inj 2,000 MG In NS Inj 100 / 100 100 ML @ 200 mls/hr IV.SIG Q8H [facility] Rx#:[id number] NS Inj 1,000 ML @ Wide Open IV. 1000 / 1000 SIG BOLUS [facility] Rx#:[id number] Oral 360 / 360 Output: Urine 350 / 350 Other: # Voids 1 2 Date of Last Bowel Movement 06/02/18 06/06/18 # Bowel Movements 1 - Constitutional no acute distress - Routine HEENT Exam Head: Present: normocephalic Eye: Present: PERRL ENT: Present: mucous membranes moist - Routine Neck Exam Present: supple - Routine Respiratory Exam Present: CTA bilaterally - Routine Cardiovascular Exam Present: S1, S2. Absent: murmur, gallop, rubs - Routine Abdominal Exam Present: normoactive bowel sounds - Routine Extremities Exam Present: pulses intact, normal capillary refill Comments: Right arm is in a sling with bruising and mild swelling, She has a right fractured humerus. - Routine Skin Exam Comments: multiple bruising all over body due to falls. - Routine Neurological Exam Present: alert mild confusion Results 06/06/18 14:30 06/06/18 07:14 Cardiac Enzymes 06/05/18 06/06/18 06/06/18 Range/Units 07:01 04:18 04:18 AST 23 25 (15-37) U/L Troponin I Less than 0.02 L (0.02-0.05) ng/mL Lipids 06/06/18 Range/Units 04:18 Triglycerides 75 (42-150) mg/dL Cholesterol 94 L (120-200) mg/dL HDL Cholesterol 24.7 L (40.0-60.0) mg/dL Cholesterol/HDL Ratio 3.80 Ratio CBC 06/05/18 06/06/18 06/06/18 Range/Units 07:01 04:18 07:14 WBC 8.0 10.6 (4.0-11.0) th/mm3 RBC 2.78 L 2.16 L (4.00-5.30) mil/mm3 Hgb 10.0 L 7.8 L D 9.6 L (11.6-15.3) gm/dL Hct 30.2 L 23.8 L (35.0-46.0) % Plt Count 211 201 (150-450) th/mm3 Neut # (Auto) 5.0 (1.8-7.7) th/mm3 Lymph # (Auto) 1.0 (1.0-4.8) th/mm3 [place] # (Auto) 1.9 H (0.0-0.9) th/mm3 Eos # (Auto) 0.1 (0.0-0.4) th/mm3 Baso # (Auto) 0.0 (0.0-0.2) th/mm3 06/06/18 Range/Units 11:51 WBC 13.5 H (4.0-11.0) th/mm3 RBC 2.61 L (4.00-5.30) mil/mm3 Hgb 9.3 L (11.6-15.3) gm/dL Hct 28.0 L (35.0-46.0) % Plt Count 280 D (150-450) th/mm3 Neut # (Auto) 8.1 H (1.8-7.7) th/mm3 Lymph # (Auto) 1.2 (1.0-4.8) th/mm3 [place] # (Auto) 4.0 H (0.0-0.9) th/mm3 Eos # (Auto) 0.2 (0.0-0.4) th/mm3 Baso # (Auto) 0.1 (0.0-0.2) th/mm3 Comprehensive Metabolic Panel 06/05/18 06/06/18 06/06/18 Range/Units 07:01 04:18 04:18 Sodium 142 150 H Cancelled (136-145) meq/L Potassium 3.7 3.5 Cancelled (3.5-5.1) meq/L Chloride 107 119 H D Cancelled (98-107) meq/L Carbon Dioxide 29.5 26.0 Cancelled (21.0-32.0) meq/L BUN 17 12 Cancelled (7-18) mg/dL Creatinine 0.78 0.67 Cancelled (0.50-1.00) mg/dL Calcium 8.3 L 7.1 L* D Cancelled (8.5-10.1) mg/dL AST 23 25 (15-37) U/L ALT 17 15 (10-53) U/L Alkaline Phosphatase 94 69 (45-117) U/L Total Protein 6.5 4.8 L D (6.4-8.2) g/dL Albumin 2.0 L 1.5 L (3.4-5.0) g/dL Intake and Output 06/05/18 06/06/18 06/06/18 22:59 06:59 14:59 Intake Total 1800 / 1800 2360 / 2360 2099 Output Total 350 / 350 Balance 1800 / 1800 2009 Intake: IV 1800 / 1800 1999 / 1999 D5W/Normal Saline Inj 1,000 ML 1000 / 1000 1000 / 1000 @ 100 mls/hr IV.CONT .Q10H [facility] Rx#:[id number] LR 1000 mL Inj 1,000 ML @ 100 1000 / 1000 mls/hr IV.CONT .Q10H [facility] Rx#: [id number] NS Inj 1,000 ML @ 100 mls/hr IV 800 / 800 1000 / 1000 .CONT .Q10H [facility] Rx#:[id number] Maxipime Inj 2,000 MG In NS Inj 100 / 100 100 ML @ 200 mls/hr IV.SIG Q8H [facility] Rx#:[id number] NS Inj 1,000 ML @ Wide Open IV. 1000 / 1000 SIG BOLUS [facility] Rx#:[id number] Oral 360 / 360 Output: Urine 350 / 350 Other: # Voids 1 2 Date of Last Bowel Movement 06/05/18 06/06/18 # Bowel Movements 1 Weight 69.7 kg - Imaging and Cardiology Imaging: Impressions Shoulder CT 06/04/18 14:02 CONCLUSION: 1. Impacted humeral neck fracture as described above. There are 2 small bone fragment adjacent to the greater tuberosity. Carotid Doppler Study 06/05/18 00:00 CONCLUSION: 1. Right Internal Carotid Artery: Findings indicate <50% stenosis. 2. Left Internal Carotid Artery: No significant stenosis or atherosclerotic plaque is visualized. Cervical Spine MRI 06/06/18 00:00 CONCLUSION: 1. Minimal circumferential spinal stenosis and mild bilateral foraminal narrowing at C3 3-4, C4-5, C5-6 and C6-7. Head MRI 06/06/18 07:13 CONCLUSION: 1. Cerebral atrophy. 2. Mild periventricular white matter small vessel ischemic changes bilaterally. 3. No acute infarct, acute hemorrhage, midline shift or extra-axial fluid collections. Head MRA 06/06/18 07:14 CONCLUSION: 1. Negative MRA of the brain Chest X-Ray 06/06/18 07:49 CONCLUSION: Right internal jugular central line has its tip in superior vena cava. There is no pneumothorax. Assessment and Plan - Assessment (1) Atrial fibrillation with RVR Code(s): I48.91 - Unspecified atrial fibrillation Status: Acute (2) Humeral fracture Code(s): S42.309A - Unspecified fracture of shaft of humerus, unspecified arm, initial encounter for closed fracture Status: Acute (3) Acute UTI Code(s): N39.0 - Urinary tract infection, site not specified Status: Acute (4) Encephalopathy Code(s): G93.40 - Encephalopathy, unspecified Status: Acute (5) Toxic metabolic encephalopathy Code(s): G92 - Toxic encephalopathy Status: Acute (6) Gait disorder Code(s): R26.9 - Unspecified abnormalities of gait and mobility Status: Chronic (7) Tremor Code(s): R25.1 - Tremor, unspecified Status: Chronic (8) Symptomatic bradycardia Code(s): R00.1 - Bradycardia, unspecified Status: Acute - Plan The patient has recent history of paroxysmal atrial fibrillation with RVR; she is on Lovenox and aspirin. She is currently in sinus rhythm. Echocardiogram 06-06-18 shows ejection fraction 65-70%, trace mitral regurgitation and mild tricuspid valve regurgitation. She was hypotensive last night and is currently on dopamine at 20 mcg/kg/min; we will wean dopamine as tolerated. We will continue with current cardiac treatment plan and adjust as needed. We will continue to monitor on telemetry. Neuro evaluation in progress. Orthopedic evaluation in progress. We will follow during her hospitalization. The patient was seen and evaluated by Dr. Zimmer who participated in care, management and decision-making. - Attending Attestation Patient seen and examined. I reviewed and agree with the evaluation and plan as presented. Continue ICU care. She is back in SR. Wean off dopamine as tolerated. We will continue to follow. (2) Humeral fracture Qualifiers: Encounter type: subsequent encounter Humerus Location: proximal Fracture type: closed Fracture morphology: other fracture Fracture alignment: nondisplaced Laterality: right Fracture healing: with routine healing Qualified Code(s): S42.294D - Other nondisplaced fracture of upper end of right humerus, subsequent encounter for fracture with routine healing
[2018-06-06] MEDS: Enoxaparin Inj 40 MG/0.4 ML Syringe SQ SCH (17:34)
[2018-06-06] MEDS ORDERED: Amiodarone Inj 150 MG in Dextrose 5% in Water Inj 97 ML IV.SIG ONE ×2 (19:07)
[2018-06-07 05:32] LABS: Hematocrit 25.5 % (35.0-46.0); Hemoglobin 8.5 gm/dL (11.6-15.3); Mean Corpuscular HGB Conc 33.3 % (32.0-36.0); Mean Corpuscular Volume 107.9 fL (80.0-100.0); Mean Platelet Volume 9.3 fL (7.0-11.0); Platelet Count 272 th/mm3 (150-450); Red Blood Count 2.36 mil/mm3 (4.00-5.30); Red Cell Distribution Width 15.2 % (11.6-17.2); White Blood Count 12.4 th/mm3 (4.0-11.0)
[2018-06-07 05:51] LABS: Calcium 7.5 mg/dL (8.5-10.1); Carbon Dioxide 25.4 meq/L (21.0-32.0); Magnesium 1.8 mg/dL (1.5-2.5); Potassium 3.2 meq/L (3.5-5.1)
[2018-06-07] MEDS ORDERED: Sodium Phosphate Inj 30 MMOL in Sodium Chlor 0.9% Inj 250 ML IV.SIG PRN (06:35)
[2018-06-07] MEDS ORDERED: Magnesium Oxide 400 MG Tablet PO PRN (06:35)
[2018-06-07] MEDS ORDERED: Magnesium Sulfate Inj 4 GM in Sodium Chlor 0.9% Inj 92 ML IV.SIG PRN (06:35)
[2018-06-07] MEDS ORDERED: Potassium Chloride 25 MEQ Effervescent Tablet PO PRN (06:35)
[2018-06-07] MEDS ORDERED: Magnesium Sulfate Inj 2 GM in Sodium Chlor 0.9% Inj 96 ML IV.SIG PRN (06:35)
[2018-06-07] MEDS ORDERED: Potassium Chlor 40 mEq Premix 40 MEQ/100 ML PIGGYBACK IV.SIG PRN (06:35)
[2018-06-07] MEDS ORDERED: Potassium Phosphate 500 MG Soluble Tablet PO PRN ×2 (06:35)
[2018-06-07] MEDS ORDERED: Potassium Phosphate Inj 30 MMOL in Sodium Chlor 0.9% Inj 250 ML IV.SIG PRN (06:35)
[2018-06-07] MEDS ORDERED: Potassium Chlor 20 mEq Premix 20 MEQ/100 ML PIGGYBACK IV.SIG PRN ×2 (06:35)
[2018-06-07] MEDS: Dextrose 5%/NaCl 0.9% Inj 1,000 ML IV.CONT SCH (07:27)
[2018-06-07] MEDS: Sod Chloride 0.9% Inj 1,000 ML IV.CONT SCH (07:27)
[2018-06-07] MEDS: Senna/Docusate Sodium 8.6/50 MG Tablet PO SCH ×2 (08:13→21:35)
[2018-06-07] MEDS: Potassium Chlor 40 mEq Premix 40 MEQ/100 ML PIGGYBACK IV.SIG PRN ×2 (08:13→12:45)
[2018-06-07] MEDS: Thyroid 60 MG Tablet PO SCH (08:13)
[2018-06-07] MEDS: Venlafaxine XR 75 MG Capsule PO SCH (08:14)
--- NOTE | 2018-06-07 08:16 | P.PNCA ---
Subjective Interval history: 58-year-old female with past medical history of Alzheimer's dementia, bipolar disorder, atrial fibrillation, hypothyroidism, gout. She sustained a proximal humerus fracture on 05/28 and was discharged with orthopedic follow-up however she presented again to [facility] on 06/04 after sustaining another fall at assisted. She has a history of paroxysmal atrial fibrillation for which she takes sotalol 80 mg p.o. twice daily. She is not on chronic anticoagulation, due to increased fall/bleeding risk. She is currently in Afib RVR, on amio drip and dopamine drip. She denies any acute cardiac complaints. Admits to pain all over from recent fall. Medications and Allergies Active Medications: Active Medications Acetaminophen (Tylenol) 650 mg PO Q4H PRN PRN Reason: Temp > 100.4 Last Admin: 06/05/18 08:09 Dose: 650 mg Hydrocodone Bitart/Acetaminophen ([place] 5/325) 1 tab PO Q4H PRN PRN Reason: PAIN 4-7 Last Admin: 06/06/18 17:34 Dose: 1 tab Hydrocodone Bitart/Acetaminophen ([place] 10/325) 2 tab PO Q4H PRN PRN Reason: PAIN 7-10 Last Admin: 06/06/18 22:34 Dose: 2 tab Al Hydroxide/Mg Hydroxide (Milk Of Marco Forman) 30 ml PO Q12H PRN PRN Reason: Mild Constipation Aspirin (Aspirin Chew) 81 mg PO DAILY [facility] Last Admin: 06/06/18 13:37 Dose: 81 mg Bisacodyl (Dulcolax Supp) 10 mg RECTAL DAILY PRN PRN Reason: SEVERE CONSITIPATION Dextrose (D50w Vial) 50 ml IV.PUSH UNSCH PRN PRN Reason: PER HYPOGLYCEMIA PROTOCOL Last Admin: 06/06/18 06:00 Dose: 50 ml Divalproex Sodium (Depakote Dr) 500 mg PO TID [facility] Last Admin: 06/06/18 17:35 Dose: 500 mg Donepezil HCl (Aricept) 10 mg PO DAILY [facility] Last Admin: 06/06/18 11:42 Dose: 10 mg Enoxaparin Sodium (Lovenox Inj) 40 mg SQ Q24H [facility] Last Admin: 06/06/18 17:34 Dose: 40 mg Glucagon (Glucagon Inj) 1 mg OTHER PRN PRN PRN Reason: for Hypoglycemia Protocol Sodium Chloride (Ns Inj) 1,000 mls @ 100 mls/hr IV.CONT .Q10H NELLIE Last Admin: 06/07/18 07:27 Dose: 100 mls/hr Dextrose/Sodium Chloride (D5w/Normal Saline Inj) 1,000 mls @ 100 mls/hr IV.CONT .Q10H NELLIE Last Admin: 06/07/18 07:27 Dose: Not Given Diltiazem HCl 125 mg/ Sodium (Chloride) 125 mls @ 5 mls/hr IV.CONT TITRATE PRN ; Protocol PRN Reason: Per Protocol Last Titration: 06/05/18 23:30 Dose: 0 mg/hr, 0 mls/hr Sodium Chloride (Ns Inj) 1,000 mls @ 0 mls/hr IV.SIG BOLUS NELLIE Last Admin: 06/06/18 01:50 Dose: 999 mls/hr Sodium Chloride (Ns Inj) 1,000 mls @ 0 mls/hr IV.SIG BOLUS NELLIE Dopamine HCl/Dextrose (Dopamine 800 Mg/500 Ml Premix) 800 mg in 500 mls @ 2.449 mls/hr IV.CONT TITRATE PRN; Protocol PRN Reason: Per Protocol Last Titration: 06/07/18 07:00 Dose: 1 mcg/kg/min, 2.45 mls/hr Lactated Ringer's (Lr 1000 Ml Inj) 1,000 mls @ 100 mls/hr IV.CONT .Q10H NELLIE Last Admin: 06/07/18 07:27 Dose: Not Given Cefepime HCl 2,000 mg/ Sodium (Chloride) 100 mls @ 200 mls/hr IV.SIG Q8H NELLIE Last Infusion: 06/07/18 07:00 Dose: Infused Amiodarone HCl 450 mg/ (Dextrose) 250 mls @ 33.33 mls/hr IV.CONT TITRATE PRN; Protocol PRN Reason: Per Protocol Last Admin: 06/07/18 06:01 Dose: 0.5 mg/min, 16.66 mls/hr Potassium Chloride (Kcl 40 Meq Premix Inj) 40 meq in 100 mls @ 25 mls/hr IV.SIG Q2H PRN PRN Reason: For Potassium 2.8 - 3.2 mEq/L Potassium Chloride (Kcl 20 Meq Premix Inj) 20 meq in 100 mls @ 50 mls/hr IV.SIG Q2H PRN PRN Reason: For Potassium 3.3 - 3.5 mEq/L Potassium Chloride (Kcl 40 Meq Premix Inj) 40 meq in 100 mls @ 25 mls/hr IV.SIG UNSCH PRN PRN Reason: For Potassium 3.3 - 3.5 mEq/L Sodium Phosphate 30 mmol/ (Sodium Chloride) 260 mls @ 42 mls/hr IV.SIG UNSCH PRN PRN Reason: For Phosphorus < 2.5 mg/dL Potassium Phosphate 30 mmol/ (Sodium Chloride) 260 mls @ 42 mls/hr IV.SIG UNSCH PRN PRN Reason: SEE LABEL COMMENTS Magnesium Sulfate 4 gm/ Sodium (Chloride) 100 mls @ 50 mls/hr IV.SIG UNSCH PRN PRN Reason: For Magnesium 0.9 - 1.1 mg/dL Potassium Chloride (Kcl 20 Meq Premix Inj) 20 meq in 100 mls @ 50 mls/hr IV.SIG Q2H PRN PRN Reason: For Potassium 2.8 - 3.2 mEq/L Magnesium Sulfate 2 gm/ Sodium (Chloride) 100 mls @ 50 mls/hr IV.SIG UNSCH PRN PRN Reason: For Magnesium 1.2 - 1.6 mg/dL Lactulose (Lactulose Liq) 30 ml PO DAILY PRN PRN Reason: SEVERE CONSITIPATION Levothyroxine Sodium (Synthroid) 25 mcg PO DAILY@0600 [facility] Last Admin: 06/07/18 06:05 Dose: 25 mcg Magnesium Oxide (Mag-Ox) 800 mg PO UNSCH PRN PRN Reason: For Magnesium 1.2 - 1.6 mg/dL Metoprolol Tartrate (Lopressor Inj) 5 mg IV.PUSH ONCE PRN PRN Reason: HR sustained > 130 Miscellaneous (Pill Splitter) 1 each OTHER [facility] Ondansetron HCl (Zofran Inj) 4 mg IV.PUSH Q6H PRN PRN Reason: NAUSEA OR VOMITING Oxybutynin Chloride (Ditropan) 5 mg PO BID [facility] Last Admin: 06/06/18 20:08 Dose: 5 mg Pantoprazole Sodium (Protonix) 40 mg PO DAILY [facility] Last Admin: 06/06/18 11:41 Dose: 40 mg Potassium Bicarb/Potassium Chloride (K-Lyte Cl Eff) 50 meq PO UNSCH PRN PRN Reason: For Potassium 3.3 - 3.5 mEq/L Potassium Phosphate (K-Phos Original) 2,000 mg PO Q4H PRN PRN Reason: Phosphorus Less Than 2.5 mg/dL Potassium Phosphate (K-Phos Original) 2,000 mg PO UNSCH PRN PRN Reason: SEE LABEL COMMENTS Senna/Docusate Sodium (Leena-Colace) 1 tab PO BID [facility] Last Admin: 06/06/18 20:08 Dose: 1 tab Sennosides (Senokot) 17.2 mg PO Q12H PRN PRN Reason: Moderate Constipation Sodium Chloride (Ns Flush) 2 ml IV.FLUSH BID [facility] Last Admin: 06/06/18 20:08 Dose: 2 ml Sodium Chloride (Ns Flush) 2 ml IV.FLUSH PRN PRN PRN Reason: FLUSH AFTER USING IV ACCESS Sotalol HCl (Betapace) 80 mg PO Q12HR [facility] Last Admin: 06/05/18 20:05 Dose: 80 mg Terbutaline Sulfate (Brethine Inj) 1 mg SQ ONCE PRN PRN Reason: Extravasation Thyroid ([place] Thyroid) 60 mg PO DAILY [facility] Last Admin: 06/06/18 11:41 Dose: 60 mg Tizanidine HCl (Zanaflex) 2 mg PO TID PRN PRN Reason: Anxiety Last Admin: 06/05/18 21:40 Dose: 2 mg Venlafaxine HCl (Effexor Xr) 75 mg PO DAILY [facility] Last Admin: 06/06/18 11:42 Dose: 75 mg Allergies Allergy/AdvReac Type Severity Reaction Status Date / Time No Known Allergies Allergy Verified 05/28/18 10:30 Home Medications Medication Instructions Recorded Confirmed Type allopurinol 100 mg PO BID 05/28/18 05/28/18 History aspirin 81 mg PO DAILY 05/28/18 05/28/18 History buspirone 5 mg PO TID 05/28/18 05/28/18 History calcium carbonate [Calcium 600] 600 mg PO BID 05/28/18 05/28/18 History divalproex [Depakote] 500 mg PO TID 05/28/18 05/28/18 History donepezil 10 mg PO DAILY 05/28/18 06/04/18 History hydrocodone-acetaminophen [[place]] 1 tab PO Q6H PRN 05/28/18 06/04/18 History levothyroxine 25 mcg PO DAILY 05/28/18 06/04/18 History oxybutynin chloride 5 mg PO BID 05/28/18 06/04/18 History sotalol 80 mg PO Q12H 05/28/18 06/04/18 History thyroid (pork) [[place] Thyroid] 60 mg PO DAILY 05/28/18 06/04/18 History tizanidine 2 mg PO TID PRN 05/28/18 06/04/18 History venlafaxine [Effexor XR] 75 mg PO DAILY 05/28/18 06/04/18 History Physical Exam Vital signs: Vital Signs 06/06/18 08:25 06/06/18 08:31 06/06/18 08:45 Temperature Pulse Rate 74 73 78 Respiratory Rate 33 H 39 H 46 H Blood Pressure 103/55 L 126/58 L 106/69 Pulse Oximetry 06/06/18 09:00 06/06/18 09:15 06/06/18 09:30 Temperature Pulse Rate 83 82 85 Respiratory Rate 25 H 31 H 26 H Blood Pressure 114/73 122/69 126/60 Pulse Oximetry 06/06/18 09:46 06/06/18 11:21 06/06/18 12:00 Temperature Pulse Rate 91 H 87 97 H Respiratory Rate 20 29 H 28 H Blood Pressure 125/60 Pulse Oximetry 87 L 06/06/18 13:00 06/06/18 14:00 06/06/18 14:18 Temperature Pulse Rate 106 H 87 87 Respiratory Rate 31 H 32 H 26 H Blood Pressure 108/61 Pulse Oximetry 87 L 79 L 82 L 06/06/18 16:00 06/06/18 18:00 06/06/18 18:04 Temperature 98.9 F Pulse Rate 80 72 80 Respiratory Rate 30 H 27 H 28 H Blood Pressure 93/57 L Pulse Oximetry 77 L 78 L 06/06/18 19:00 06/06/18 20:00 06/06/18 20:07 Temperature 98.8 F Pulse Rate 178 H 85 Respiratory Rate 21 24 Blood Pressure 74/52 L 92/51 L Pulse Oximetry 100 98 100 06/06/18 20:30 06/06/18 21:00 06/06/18 21:30 Temperature Pulse Rate 90 92 H 87 Respiratory Rate 27 H 25 H 21 Blood Pressure 98/68 L 116/56 L 99/54 L Pulse Oximetry 98 97 93 L 06/06/18 22:00 06/06/18 22:30 06/06/18 22:34 Temperature Pulse Rate 88 85 Respiratory Rate 26 H 23 20 Blood Pressure 98/55 L 107/57 L Pulse Oximetry 94 L 100 06/06/18 23:00 06/06/18 23:30 06/07/18 00:00 Temperature 97.9 F Pulse Rate 76 76 70 Respiratory Rate 35 H 22 18 Blood Pressure 103/51 L 94/56 L 103/53 L Pulse Oximetry 99 100 99 06/07/18 00:30 06/07/18 01:00 06/07/18 01:30 Temperature Pulse Rate 78 71 59 L Respiratory Rate 28 H 18 23 Blood Pressure 103/55 L 109/56 L 118/56 L Pulse Oximetry 99 99 98 06/07/18 02:00 Temperature Pulse Rate 52 L Respiratory Rate 28 H Blood Pressure 108/54 L Pulse Oximetry 100 Intake & Output 06/06/18 06/07/18 06/07/18 18:59 06:59 18:59 Intake Total 3050 / 3050 1970 / 1970 1100 / 1100 Output Total 300 / 300 450 / 450 Balance 2750 / 2750 1520 / 1520 1100 / 1100 Weight 69.3 kg Intake: IV 2200 / 2200 1850 / 1850 1100 / 1100 Cordarone Inj 450 MG In D5W Inj 250 / 250 241 ML @ 1 MG/MIN 33.33 mls/hr IV.CONT TITRATE PRN Rx#: [id number] DOPamine 800 MG/500 ML Premix 500 / 500 800 mg In 500 ml @ 1 MCG/KG/MIN 2.449 mls/hr IV.CONT TITRATE PRN Rx#:[id number] D5W/Normal Saline Inj 1,000 ML 1000 / 1000 @ 100 mls/hr IV.CONT .Q10H NELLIE Rx#:[id number] LR 1000 mL Inj 1,000 ML @ 100 1000 / 1000 mls/hr IV.CONT .Q10H NELLIE Rx#: [id number] NS Inj 1,000 ML @ 100 mls/hr IV 1000 / 1000 1000 / 1000 .CONT .Q10H NELLIE Rx#:[id number] Maxipime Inj 2,000 MG In NS Inj 200 / 200 100 / 100 100 / 100 100 ML @ 200 mls/hr IV.SIG Q8H [facility] Rx#:[id number] Oral 850 / 850 120 / 120 Output: Urine 300 / 300 450 / 450 Other: # Voids 2 # Incontinent Voids 3 Date of Last Bowel Movement 06/06/18 06/06/18 # Bowel Movements 1 0 - Constitutional mild distress - Routine HEENT Exam Head: Present: normocephalic Eye: Present: PERRL, normal accommodation ENT: Present: mucous membranes moist - Routine Neck Exam Present: supple - Routine Respiratory Exam Present: CTA bilaterally - Routine Cardiovascular Exam Present: tachycardia, irregularly irregular - Routine Abdominal Exam Present: soft - Routine Skin Exam Present: intact, ecchymosis - Routine Neurological Exam Present: alert - Detailed Neurological Exam: Coma Scale Eye Opening: Spontaneous Verbal Response: Oriented Motor Response: Obey commands [place] Coma Scale Total: 15 - Routine Psychiatric Exam Present: normal affect Results 06/07/18 04:38 06/07/18 04:38 Cardiac Enzymes 06/06/18 06/06/18 Range/Units 04:18 04:18 AST 25 (15-37) U/L Troponin I Less than 0.02 L (0.02-0.05) ng/mL Lipids 06/06/18 Range/Units 04:18 Triglycerides 75 (42-150) mg/dL Cholesterol 94 L (120-200) mg/dL HDL Cholesterol 24.7 L (40.0-60.0) mg/dL Cholesterol/HDL Ratio 3.80 Ratio CBC 06/06/18 06/06/18 06/06/18 Range/Units 04:18 07:14 11:51 WBC 10.6 13.5 H (4.0-11.0) th/mm3 RBC 2.16 L 2.61 L (4.00-5.30) mil/mm3 Hgb 7.8 L D 9.6 L 9.3 L (11.6-15.3) gm/dL Hct 23.8 L 28.0 L (35.0-46.0) % Plt Count 201 280 D (150-450) th/mm3 Neut # (Auto) 8.1 H (1.8-7.7) th/mm3 Lymph # (Auto) 1.2 (1.0-4.8) th/mm3 [place] # (Auto) 4.0 H (0.0-0.9) th/mm3 Eos # (Auto) 0.2 (0.0-0.4) th/mm3 Baso # (Auto) 0.1 (0.0-0.2) th/mm3 06/06/18 06/06/18 06/07/18 Range/Units 14:30 19:30 04:38 WBC 12.4 H (4.0-11.0) th/mm3 RBC 2.36 L (4.00-5.30) mil/mm3 Hgb 8.3 L 7.5 L 8.5 L (11.6-15.3) gm/dL Hct 25.5 L (35.0-46.0) % Plt Count 272 (150-450) th/mm3 Neut # (Auto) (1.8-7.7) th/mm3 Lymph # (Auto) (1.0-4.8) th/mm3 [place] # (Auto) (0.0-0.9) th/mm3 Eos # (Auto) (0.0-0.4) th/mm3 Baso # (Auto) (0.0-0.2) th/mm3 Comprehensive Metabolic Panel 06/06/18 06/06/18 06/07/18 Range/Units 04:18 04:18 04:38 Sodium 150 H Cancelled 149 H (136-145) meq/L Potassium 3.5 Cancelled 3.2 L (3.5-5.1) meq/L Chloride 119 H D Cancelled 114 H (98-107) meq/L Carbon Dioxide 26.0 Cancelled 25.4 (21.0-32.0) meq/L BUN 12 Cancelled 12 (7-18) mg/dL Creatinine 0.67 Cancelled 0.74 (0.50-1.00) mg/dL Calcium 7.1 L* D Cancelled 7.5 L (8.5-10.1) mg/dL AST 25 (15-37) U/L ALT 15 (10-53) U/L Alkaline Phosphatase 69 (45-117) U/L Total Protein 4.8 L D (6.4-8.2) g/dL Albumin 1.5 L (3.4-5.0) g/dL Intake and Output 09/06/07/18 06/07/18 22:59 06:59 14:59 Intake Total 1450 / 1450 1370 / 1370 1100 / 1100 Output Total 300 / 300 450 / 450 Balance 1150 / 1150 920 / 920 1100 / 1100 Intake: IV 600 / 600 1250 / 1250 1100 / 1100 Cordarone Inj 450 MG In D5W Inj 250 / 250 241 ML @ 1 MG/MIN 33.33 mls/hr IV.CONT TITRATE PRN Rx#: [id number] DOPamine 800 MG/500 ML Premix 500 / 500 800 mg In 500 ml @ 1 MCG/KG/MIN 2.449 mls/hr IV.CONT TITRATE PRN Rx#:[id number] NS Inj 1,000 ML @ 100 mls/hr IV 1000 / 1000 1000 / 1000 .CONT .Q10H [facility]LL[facility] Rx#:[id number] Maxipime Inj 2,000 MG In NS Inj 100 / 100 100 / 100 100 ML @ 200 mls/hr IV.SIG Q8H [facility] Rx#:[id number] Oral 850 / 850 120 / 120 Output: Urine 300 / 300 450 / 450 Other: # Voids 2 # Incontinent Voids 3 Date of Last Bowel Movement 06/06/18 06/06/18 # Bowel Movements 1 0 Weight 69.3 kg - Imaging and Cardiology Imaging: Impressions Carotid Doppler Study 06/05/18 00:00 CONCLUSION: 1. Right Internal Carotid Artery: Findings indicate <50% stenosis. 2. Left Internal Carotid Artery: No significant stenosis or atherosclerotic plaque is visualized. Cervical Spine MRI 06/06/18 00:00 CONCLUSION: 1. Minimal circumferential spinal stenosis and mild bilateral foraminal narrowing at C3 3-4, C4-5, C5-6 and C6-7. Head MRI 06/06/18 07:13 CONCLUSION: 1. Cerebral atrophy. 2. Mild periventricular white matter small vessel ischemic changes bilaterally. 3. No acute infarct, acute hemorrhage, midline shift or extra-axial fluid collections. Head MRA 06/06/18 07:14 CONCLUSION: 1. Negative MRA of the brain Chest X-Ray 06/06/18 07:49 CONCLUSION: Right internal jugular central line has its tip in superior vena cava. There is no pneumothorax. Assessment and Plan - Plan Assessment Paroxysmal atrial fibrillation with RVR; she is on Lovenox and aspirin. She is currently in sinus rhythm. Mechanical Fall-resulting in right proximal humerus fracture Hypotension Hypokalemia Echocardiogram 06-06-18 shows ejection fraction 65-70%, trace mitral regurgitation and mild tricuspid valve regurgitation. Plan -Currently on Amio drip, aspirin and lovenox injection daily. Telemetry shows Afib RVR. -She was hypotensive last night and is currently on dopamine, will wean to MAP of 65 or SBP of 90. -Replace electrolytes and monitor closely. The patient was seen and evaluated by Dr. Collins who participated in care, management and decision-making. Code Status: Full Code Discussed Condition With: Nurse
[2018-06-07] MEDS: DOPamine 800 MG/500 ML Premix 800 MG/500 ML PLAST..BAG IV.CONT PRN (08:23)
[2018-06-07] MEDS: Divalproex 500 MG DR Tablet PO SCH ×3 (08:35→19:15)
--- NOTE | 2018-06-07 09:03 | P.PNCC ---
Subjective Subjective Remarks/Hospital Course: Hospital Course: 58-year-old female with past medical history of Alzheimer's dementia, bipolar disorder, atrial fibrillation, hypothyroidism, gout. She has gait disorder (since 2004 per records) and has experienced multiple falls. She sustained a proximal humerus fracture on 05/28 and was discharged with orthopedic follow-up however she presented again to [facility] and neurology consult was obtained. MRI and MRA brain and MRI C-spine were recommended and are pending. She has a history of paroxysmal atrial fibrillation for which she takes sotalol 80 mg p.o. twice daily. She is not on chronic anticoagulation, presumably secondary to frequent falls. She was in sinus rhythm upon admission but apparently had an episodes of A fib RVR that initially converted to sinus rhythm after metoprolol 5 mg IV. She then had recurrent A fib RVR that was treated with metoprolol 5 mg IV, labetalol 5 mg IV, Cardizem 15 mg IV and then initiation of Cardizem drip. The Cardizem drip was titrated to 15 mg/h and then she converted to sinus bradycardia with rate 30-40s and she was hypotensive with BP 64/35. Cardizem drip discontinued. BP initially responded to 1 L NS bolus however she became hypotensive again and then remained hypotensive following additional 1 L NS bolus. She denies CP, SOB, n, v, lightheadedness, fever, headache. Subjective: 06/07: on dopamine at 1 mcg/kg/min. back in sinus rhythm. paroxysmal afib throughout the night overnight. complains of shoulder pain on the shoulder that she fell on. hypokalemic this AM and actively replacing. Objective Vital Signs / I&O: Vital Signs 06/06/18 09:00 06/06/18 09:15 06/06/18 09:30 Temperature Pulse Rate 83 82 85 Respiratory Rate 25 H 31 H 26 H Blood Pressure 114/73 122/69 126/60 Pulse Oximetry 06/06/18 09:46 06/06/18 11:21 06/06/18 12:00 Temperature Pulse Rate 91 H 87 97 H Respiratory Rate 20 29 H 28 H Blood Pressure 125/60 Pulse Oximetry 87 L 06/06/18 13:00 06/06/18 14:00 06/06/18 14:18 Temperature Pulse Rate 106 H 87 87 Respiratory Rate 31 H 32 H 26 H Blood Pressure 108/61 Pulse Oximetry 87 L 79 L 82 L 06/06/18 16:00 06/06/18 18:00 06/06/18 18:04 Temperature 37.2 C Pulse Rate 80 72 80 Respiratory Rate 30 H 27 H 28 H Blood Pressure 93/57 L Pulse Oximetry 77 L 78 L 06/06/18 19:00 06/06/18 20:00 06/06/18 20:07 Temperature 37.1 C Pulse Rate 178 H 85 Respiratory Rate 21 24 Blood Pressure 74/52 L 92/51 L Pulse Oximetry 100 98 100 06/06/18 20:30 06/06/18 21:00 06/06/18 21:30 Temperature Pulse Rate 90 92 H 87 Respiratory Rate 27 H 25 H 21 Blood Pressure 98/68 L 116/56 L 99/54 L Pulse Oximetry 98 97 93 L 06/06/18 22:00 06/06/18 22:30 06/06/18 22:34 Temperature Pulse Rate 88 85 Respiratory Rate 26 H 23 20 Blood Pressure 98/55 L 107/57 L Pulse Oximetry 94 L 100 06/06/18 23:00 06/06/18 23:30 06/07/18 00:00 Temperature 36.6 C Pulse Rate 76 76 70 Respiratory Rate 35 H 22 18 Blood Pressure 103/51 L 94/56 L 103/53 L Pulse Oximetry 99 100 99 06/07/18 00:30 06/07/18 01:00 06/07/18 01:30 Temperature Pulse Rate 78 71 59 L Respiratory Rate 28 H 18 23 Blood Pressure 103/55 L 109/56 L 118/56 L Pulse Oximetry 99 99 98 06/07/18 02:00 06/07/18 08:49 Temperature Pulse Rate 52 L Respiratory Rate 28 H 18 Blood Pressure 108/54 L Pulse Oximetry 100 Intake & Output 06/06/18 06/07/18 06/07/18 18:59 06:59 18:59 Intake Total 3050 / 3050 2970 / 2970 1600 / 1600 Output Total 300 / 300 450 / 450 Balance 2750 / 2750 2520 / 2520 1600 / 1600 Weight 69.3 kg Intake: IV 2200 / 2200 2850 / 2850 1600 / 1600 Cordarone Inj 450 MG In D5W Inj 250 / 250 241 ML @ 1 MG/MIN 33.33 mls/hr IV.CONT TITRATE PRN Rx#: [id number] DOPamine 800 MG/500 ML Premix 500 / 500 500 / 500 800 mg In 500 ml @ 1 MCG/KG/MIN 2.449 mls/hr IV.CONT TITRATE PRN Rx#:[id number] D5W/Normal Saline Inj 1,000 ML 1000 / 1000 @ 100 mls/hr IV.CONT .Q10H [facility] Rx#:[id number] LR 1000 mL Inj 1,000 ML @ 100 1000 / 1000 1000 / 1000 mls/hr IV.CONT .Q10H [facility] Rx#: [id number] NS Inj 1,000 ML @ 100 mls/hr IV 1000 / 1000 1000 / 1000 .CONT .Q10H [facility] Rx#:[id number] Maxipime Inj 2,000 MG In NS Inj 200 / 200 100 / 100 100 / 100 100 ML @ 200 mls/hr IV.SIG Q8H [facility] Rx#:[id number] Oral 850 / 850 120 / 120 Output: Urine 300 / 300 450 / 450 Other: # Voids 2 # Incontinent Voids 3 Date of Last Bowel Movement 06/06/18 06/06/18 # Bowel Movements 1 0 Result Diagrams: 06/07/18 04:38 06/07/18 04:38 Objective Remarks: gen: middle-aged female who appears older than stated age, lying in bed heent: bandages to forehead, no active bleeding. mucous membranes moist. pupils equal and reactive. neck: no jvd. trachea midline. chest: equal chest rise. unlabored. nc o2. cv: HR 68, regular rhythm. sinus on my evaluation. dopamine at 1 mcg/kg/min. bp 100/60. abd: soft, nontender, nondistended, no guarding. extr: no edema. distal pulses 2+. neuro: RASS 0. CAM-. follows commands. Assessment and Plan - Problem List (1) Atrial fibrillation with RVR Code(s): I48.91 - Unspecified atrial fibrillation Status: Acute (2) Symptomatic bradycardia Code(s): R00.1 - Bradycardia, unspecified Status: Acute (3) Acute UTI Code(s): N39.0 - Urinary tract infection, site not specified Status: Acute (4) Encephalopathy Code(s): G93.40 - Encephalopathy, unspecified Status: Acute (5) Gait disorder Code(s): R26.9 - Unspecified abnormalities of gait and mobility Status: Chronic (6) Thyroid disease Code(s): E07.9 - Disorder of thyroid, unspecified Status: Acute - Assessment and Plan Plan: Assessment: 58yF with paroxysmal afib and humerus fracture, now more hemodynamically stable. continue to wean off dopamine as tolerated. convert to PO amiodarone. can d/c CVL if off vasopressors. non-operative management for humerus fracture per ortho. OOB with PT. NEURO: Dementia Continue Aricept 10 mg p.o. daily Bipolar disorder Continue Depakote 500 mg p.o. 3 times daily. This may be for mood although indication is not entirely clear. Continue Zanaflex 2 mg p.o. 3 times daily. Continue Effexor ER 75 mg p.o. daily. Generalized weakness Gait disorder Multiple falls CT brainno acute abnormality. Small vessel ischemic changes. Neurology following. MRI/MRA brain and MRI C-spine negative. EEG 06/05moderate encephalopathy RESP: Nasal cannula wean as tolerated CV: Atrial fibrillation with RVR Now symptomatic sinus bradycardia with hypotension- resolving. Bradycardia and hypotension immediately upon conversion to sinus rhythm on betablockers and calcium channel blockers. Received atropine 0.5 mg IV, glucagon 2.5 mg IV, and trial transcutaneous pacing. She remained hypotensive even with rate in 70s. Initiated dopamine which ultimately was titrated to 20 mcg/kg/min to maintain mean arterial pressure greater than 65. Holding beta blockers and calcium channel blockers. Cardiology has previously been consulted. She may ultimately require backup pacemaker in order to tolerate rate control agents. Continue aspirin 81 mg daily. wean off dopamine as tolerated convert to PO amiodarone watch HR carefully aggressive electrolyte replacement. SL IVF GI: Heart healthy diet LFT WNL FEN/RENAL: Creatinine normal. Monitor intake and output and BMP. 2gm mgso4 iv x 1 80 meq kcl iv x 1 1gm cacl2. daily electrolytes aggressive replacement. ID: UTI Urine culture 06/04 with Klebsiella. Blood culture from 06/04 remain negative. d/c cefepime and start rocephin 1gm iv q24h for full 7 day course of abx therapy. HEME: Monitor CBC. Hemoglobin 7.8 from 10 after receiving 2 L normal saline. Monitor for evidence of bleeding. ENDO: Hypoglycemia- resolved. Continue diet. cortisol appropriate. Hypothyroidism Continue [place] Thyroid 60 milligrams daily. TSH elevated, free T4 normal: Sick euthyroid. no changes needed to regimen. needs recheck in outpatient setting in 6 weeks-3 months. MSK: Subacute right proximal humerus fracture Noted orthopedic consult has been placed. Upper extremity remains in a sling. plan for non-operative management per ortho. PROPH: Lovenox 40 mg subcu daily for DVT prophylaxis. Protonix 40 mg p.o. daily for stress ulcer prophylaxis. ACCESS: Has peripheral IV. Right IJ central venous line placed due to vasopressor requirement 06/06 #2: can d/c if off vasopressors. dispo: if she remains off vasopressors, can transfer out of ICU.
[2018-06-07] MEDS ORDERED: Calcium Chloride Inj 1 GM in Dextrose 5% in Water Inj 100 ML IV.SIG ONE ×2 (10:00)
[2018-06-07] MEDS: Mag Sulf 1 gm/100 ml Premix 100 ML IV.SIG SCH ×2 (12:48→19:15)
[2018-06-07] MEDS: Amiodarone 200 MG Tablet PO SCH ×2 (12:49→21:31)
--- NOTE | 2018-06-07 12:56 | ECG ---
Date Performed: 06/06/2018 Time Performed: 02:24:40 PTAGE: 58 years EKG: Sinus rhythm Prolonged QT interval Septal T wave changes are nonspecific Borderline ECG Compared to PREVIOUS TRACING , previously AFib DOCTOR: Herminio Mcneill Interpretating Date/Time 06/07/2018 12:55:30
--- NOTE | 2018-06-07 13:30 | ECG ---
Date Performed: 06/05/2018 Time Performed: 16:21:09 PTAGE: 58 years EKG: ATRIAL FIBRILLATION WITH RAPID VENTRICULAR RESPONSE WITH ABERRANT CONDUCTION OR VENTRICULAR PREMATURE COMPLEXES NONSPECIFIC ST & T-WAVE ABNORMALITY ABNORMAL RHYTHM ECG PREVIOUS TRACING : 06/05/2018 10.37 Compared to previous tracing, now in AFib with RVR DOCTOR: Herminio Mcneill Interpretating Date/Time 06/07/2018 13:29:10
[2018-06-07] MEDS: Enoxaparin Inj 40 MG/0.4 ML Syringe SQ SCH (19:15)
[2018-06-08 04:58] LABS: Hematocrit 27.1 % (35.0-46.0); Hemoglobin 8.8 gm/dL (11.6-15.3); Mean Corpuscular HGB Conc 32.6 % (32.0-36.0); Mean Corpuscular Hemoglobin 35.5 pg (27.0-34.0); Mean Platelet Volume 9.8 fL (7.0-11.0); Platelet Count 313 th/mm3 (150-450); Red Blood Count 2.49 mil/mm3 (4.00-5.30); Red Cell Distribution Width 14.8 % (11.6-17.2); White Blood Count 13.5 th/mm3 (4.0-11.0)
[2018-06-08 05:24] LABS: Calcium 8.2 mg/dL (8.5-10.1); Carbon Dioxide 26.6 meq/L (21.0-32.0); Magnesium 2.2 mg/dL (1.5-2.5); Potassium 4.1 meq/L (3.5-5.1)
[2018-06-08 05:25] LABS: Phosphorus 3.9 mg/dL (2.5-4.9)
[2018-06-08] MEDS ORDERED: Phenylephrine Inj 40 MG in Dextrose 5% in Water Inj 496 ML IV.CONT PRN ×2 (06:23)
--- NOTE | 2018-06-08 06:29 | P.PNCC ---
Subjective Subjective Remarks/Hospital Course: Hospital Course: 58-year-old female with past medical history of Alzheimer's dementia, bipolar disorder, atrial fibrillation, hypothyroidism, gout. She has gait disorder (since 2004 per records) and has experienced multiple falls. She sustained a proximal humerus fracture on 05/28 and was discharged with orthopedic follow-up however she presented again to [facility] on after sustaining another fall at retirement. [facility] and neurology consult was obtained. MRI and MRA brain and MRI C-spine were recommended and are pending. She has a history of paroxysmal atrial fibrillation for which she takes sotalol 80 mg p.o. twice daily. She is not on chronic anticoagulation, presumably secondary to frequent falls. She was in sinus rhythm upon admission but apparently had an episodes of A fib RVR that initially converted to sinus rhythm after metoprolol 5 mg IV. She then had recurrent A fib RVR that was treated with metoprolol 5 mg IV, labetalol 5 mg IV, Cardizem 15 mg IV and then initiation of Cardizem drip. The Cardizem drip was titrated to 15 mg/h and then she converted to sinus bradycardia with rate 30-40s and she was hypotensive with BP 64/35. Cardizem drip discontinued. BP initially responded to 1 L NS bolus however she became hypotensive again and then remained hypotensive following additional 1 L NS bolus. She denies CP, SOB, n, v, lightheadedness, fever, headache. Subjective: 06/07: on dopamine at 1 mcg/kg/min. back in sinus rhythm. paroxysmal afib throughout the night overnight. complains of shoulder pain on the shoulder that she fell on. hypokalemic this AM and actively replacing. 06/08: back into afib RVR and back on vasopressors. I have stopped the dopamine as it appears it is causing the atrial dysrhythmias. started phenylephrine. agree with continuing amiodarone infusion. still on 400mg po q12h amiodarone. cardiology guiding anti-arrhythmic therapy. electrolytes improved. Objective Vital Signs / I&O: Vital Signs 06/07/18 08:00 06/07/18 08:49 06/07/18 12:00 Temperature 36.9 C 36.6 C Pulse Rate 130 H 54 L Respiratory Rate 18 18 22 Blood Pressure 108/70 114/56 L Pulse Oximetry 96 100 06/07/18 12:30 06/07/18 14:30 06/07/18 15:00 Temperature Pulse Rate 137 H 145 H Respiratory Rate 16 19 17 Blood Pressure 112/72 101/66 Pulse Oximetry 97 100 06/07/18 15:30 06/07/18 16:00 06/07/18 16:30 Temperature 37.0 C Pulse Rate 145 H 136 H 63 Respiratory Rate 30 H 12 11 L Blood Pressure 120/56 L 106/74 104/58 L Pulse Oximetry 80 L 99 97 06/07/18 17:00 06/07/18 17:30 06/07/18 18:00 Temperature Pulse Rate 64 63 60 Respiratory Rate 15 15 21 Blood Pressure 104/56 L 106/57 L 87/54 L Pulse Oximetry 100 100 100 06/07/18 18:31 06/07/18 19:00 06/07/18 19:26 Temperature Pulse Rate 57 L 60 61 Respiratory Rate 17 22 20 Blood Pressure 124/66 105/62 100/60 Pulse Oximetry 100 100 100 06/07/18 19:30 06/07/18 19:46 06/07/18 20:00 Temperature Pulse Rate 58 L 63 57 L Respiratory Rate 14 21 21 Blood Pressure 106/57 L 107/67 105/57 L Pulse Oximetry 100 100 100 06/07/18 20:15 06/07/18 20:30 06/07/18 20:45 Temperature Pulse Rate 55 L 54 L 54 L Respiratory Rate 18 26 H 29 H Blood Pressure 96/53 L 96/52 L 103/65 Pulse Oximetry 100 100 100 06/07/18 20:56 06/07/18 21:00 06/07/18 21:15 Temperature Pulse Rate 59 L 55 L 57 L Respiratory Rate 25 H 20 25 H Blood Pressure 95/52 L 89/51 L 89/50 L Pulse Oximetry 99 100 100 06/07/18 21:30 06/07/18 21:45 06/07/18 22:00 Temperature Pulse Rate 70 86 69 Respiratory Rate 19 23 20 Blood Pressure 85/53 L 134/59 L 117/57 L Pulse Oximetry 100 100 100 06/07/18 22:15 06/07/18 22:30 06/07/18 22:45 Temperature Pulse Rate 74 80 83 Respiratory Rate 25 H 18 20 Blood Pressure 116/59 L 118/61 118/61 Pulse Oximetry 100 100 100 06/07/18 23:00 06/07/18 23:15 06/07/18 23:30 Temperature Pulse Rate 83 76 85 Respiratory Rate 23 17 24 Blood Pressure 119/61 120/63 121/64 Pulse Oximetry 100 100 100 06/07/18 23:45 06/08/18 00:00 06/08/18 00:15 Temperature 36.8 C Pulse Rate 77 75 68 Respiratory Rate 15 23 20 Blood Pressure 121/63 118/58 L 119/56 L Pulse Oximetry 100 100 100 06/08/18 00:30 06/08/18 00:45 06/08/18 01:00 Temperature Pulse Rate 79 79 71 Respiratory Rate 20 19 19 Blood Pressure 121/62 126/66 123/64 Pulse Oximetry 100 100 100 06/08/18 01:15 06/08/18 01:30 06/08/18 01:45 Temperature Pulse Rate 71 71 73 Respiratory Rate 23 18 24 Blood Pressure 124/61 119/63 130/64 Pulse Oximetry 100 100 100 06/08/18 02:00 06/08/18 02:15 06/08/18 02:30 Temperature Pulse Rate 67 67 66 Respiratory Rate 19 29 H 24 Blood Pressure 124/64 127/66 127/68 Pulse Oximetry 100 100 100 06/08/18 02:37 06/08/18 02:45 06/08/18 03:00 Temperature Pulse Rate 68 63 Respiratory Rate 20 24 19 Blood Pressure 119/61 108/55 L Pulse Oximetry 100 100 06/08/18 03:15 06/08/18 03:30 06/08/18 03:45 Temperature Pulse Rate 83 64 75 Respiratory Rate 19 16 22 Blood Pressure 116/60 126/60 118/63 Pulse Oximetry 100 99 100 06/08/18 04:00 06/08/18 04:15 06/08/18 04:30 Temperature 36.8 C Pulse Rate 65 68 66 Respiratory Rate 20 17 22 Blood Pressure 137/62 137/65 139/68 Pulse Oximetry 100 100 100 Intake & Output 06/07/18 06/07/18 06/08/18 06:59 18:59 06:59 Intake Total 2970 / 2970 4710 / 4710 Output Total 450 / 450 1999 / 1999 Balance 2520 / 2520 2710 / 2710 Weight 69.3 kg 71.8 kg Intake: IV 2850 / 2850 4110 / 4110 Cordarone Inj 450 MG In D5W Inj 250 / 250 241 ML @ 1 MG/MIN 33.33 mls/hr IV.CONT TITRATE PRN Rx#: [id number] DOPamine 800 MG/500 ML Premix 500 / 500 500 / 500 800 mg In 500 ml @ 1 MCG/KG/MIN 2.449 mls/hr IV.CONT TITRATE PRN Rx#:[id number] LR 1000 mL Inj 1,000 ML @ 100 1000 / 1000 1000 / 1000 mls/hr IV.CONT .Q10H NELLIE Rx#: [id number] NS Inj 1,000 ML @ 100 mls/hr IV 1000 / 1000 1999 / 1999 .CONT .Q10H NELLIE Rx#:[id number] Calcium Chloride Inj 1 GM In 110 / 110 D5W Inj 100 ML @ 110 mls/hr IV. SIG ONCE ONE Rx#:[id number] Maxipime Inj 2,000 MG In NS Inj 100 / 100 100 / 100 100 ML @ 200 mls/hr IV.SIG Q8H NELLIE Rx#:[id number] Magnesium Sulfate 1 gm/D5W 100 100 / 100 ml Premix 100 ML @ 100 mls/hr IV.SIG Q1H NELLIE Rx#:[id number] KCl 40 mEq Premix Inj 40 meq In 200 / 200 100 ml @ 25 mls/hr IV.SIG Q2H PRN Rx#:[id number] Rocephin Inj 1,000 MG In NS Inj 100 / 100 100 ML @ 200 mls/hr IV.SIG Q24H NELLIE Rx#:[id number] Oral 120 / 120 600 / 600 Output: Urine 450 / 450 1999 Other: # Voids 2 Date of Last Bowel Movement 06/06/18 06/06/18 06/06/18 # Bowel Movements 0 0 Result Diagrams: 06/08/18 04:18 06/08/18 04:18 Objective Remarks: gen: middle-aged female who appears older than stated age, lying in bed heent: bandages to forehead, no active bleeding. mucous membranes moist. pupils equal and reactive. neck: no jvd. trachea midline. chest: equal chest rise. unlabored. nc o2. cv: HR 68, regular rhythm. sinus on my evaluation. dopamine at 1 mcg/kg/min. bp 100/60. abd: soft, nontender, nondistended, no guarding. extr: no edema. distal pulses 2+. neuro: RASS 0. CAM-. follows commands. Assessment and Plan - Problem List (1) Atrial fibrillation with RVR Code(s): I48.91 - Unspecified atrial fibrillation Status: Acute (2) Symptomatic bradycardia Code(s): R00.1 - Bradycardia, unspecified Status: Acute (3) Acute UTI Code(s): N39.0 - Urinary tract infection, site not specified Status: Acute (4) Encephalopathy Code(s): G93.40 - Encephalopathy, unspecified Status: Acute (5) Gait disorder Code(s): R26.9 - Unspecified abnormalities of gait and mobility Status: Chronic (6) Thyroid disease Code(s): E07.9 - Disorder of thyroid, unspecified Status: Acute - Assessment and Plan Plan: Assessment: 58yF with paroxysmal afib and humerus fracture. non-operative management for humerus fracture per ortho. OOB with PT. NEURO: Dementia Continue Aricept 10 mg p.o. daily Bipolar disorder Continue Depakote 500 mg p.o. 3 times daily. This may be for mood although indication is not entirely clear. Continue Zanaflex 2 mg p.o. 3 times daily. Continue Effexor ER 75 mg p.o. daily. Generalized weakness Gait disorder Multiple falls CT brainno acute abnormality. Small vessel ischemic changes. Neurology following. MRI/MRA brain and MRI C-spine negative. EEG 06/05moderate encephalopathy RESP: Nasal cannula wean as tolerated CV: Atrial fibrillation with RVR Now symptomatic sinus bradycardia with hypotension- resolving. Bradycardia and hypotension immediately upon conversion to sinus rhythm on betablockers and calcium channel blockers. Received atropine 0.5 mg IV, glucagon 2.5 mg IV, and trial transcutaneous pacing. She remained hypotensive even with rate in 70s. Initiated dopamine which ultimately was titrated to 20 mcg/kg/min to maintain mean arterial pressure greater than 65. Holding beta blockers and calcium channel blockers. Cardiology has previously been consulted. She may ultimately require backup pacemaker in order to tolerate rate control agents. Continue aspirin 81 mg daily. d/c dopamine start phenylephrine continue amio infusion per cardiology remainder of anti-arrhythmics per cardiology continue PO amiodarone 400mg q12h. aggressive electrolyte replacement. SL IVF GI: Heart healthy diet LFT WNL FEN/RENAL: Creatinine normal. Monitor intake and output and BMP. 20 meq kcl po x 1 daily electrolytes aggressive replacement. ID: UTI Urine culture 06/04 with Klebsiella. Blood culture from 06/04 remain negative. rocephin 1gm iv q24h for full 7 day course of abx therapy. HEME: Monitor CBC. Hemoglobin 7.8 from 10 after receiving 2 L normal saline. Monitor for evidence of bleeding. ENDO: Hypoglycemia- resolved. Continue diet. cortisol appropriate. Hypothyroidism Continue [place] Thyroid 60 milligrams daily. TSH elevated, free T4 normal: Sick euthyroid. no changes needed to regimen. needs recheck in outpatient setting in 6 weeks-3 months. MSK: Subacute right proximal humerus fracture Noted orthopedic consult has been placed. Upper extremity remains in a sling. plan for non-operative management per ortho. PROPH: Lovenox 40 mg subcu daily for DVT prophylaxis. Protonix 40 mg p.o. daily for stress ulcer prophylaxis. ACCESS: Has peripheral IV. Right IJ central venous line placed due to vasopressor requirement 06/06 #3: can d/c if off vasopressors. dispo: if she remains off vasopressors, can transfer out of ICU.
[2018-06-08] MEDS: Amiodarone 200 MG Tablet PO SCH ×2 (08:56→20:10)
[2018-06-08] MEDS: Thyroid 60 MG Tablet PO SCH (08:56)
[2018-06-08] MEDS: Divalproex 500 MG DR Tablet PO SCH ×3 (08:56→18:33)
[2018-06-08] MEDS: Senna/Docusate Sodium 8.6/50 MG Tablet PO SCH ×2 (08:57→20:09)
[2018-06-08] MEDS: Venlafaxine XR 75 MG Capsule PO SCH (08:57)
--- NOTE | 2018-06-08 09:04 | P.PNCA ---
Subjective Interval history: Patient sitting up in bed eating breakfast, denies any acute complaints, no chest pain or SOB. Continues in Afib RVR this AM. On Amio drip and PO Amio. BP improved will stop phenylephrine. Medications and Allergies Allergies Allergy/AdvReac Type Severity Reaction Status Date / Time No Known Allergies Allergy Verified 05/28/18 10:30 Home Medications Medication Instructions Recorded Confirmed Type allopurinol 100 mg PO BID 05/28/18 05/28/18 History aspirin 81 mg PO DAILY 05/28/18 05/28/18 History buspirone 5 mg PO TID 05/28/18 05/28/18 History calcium carbonate [Calcium 600] 600 mg PO BID 05/28/18 05/28/18 History divalproex [Depakote] 500 mg PO TID 05/28/18 05/28/18 History donepezil 10 mg PO DAILY 05/28/18 06/04/18 History hydrocodone-acetaminophen [[place]] 1 tab PO Q6H PRN 05/28/18 06/04/18 History levothyroxine 25 mcg PO DAILY 05/28/18 06/04/18 History oxybutynin chloride 5 mg PO BID 05/28/18 06/04/18 History sotalol 80 mg PO Q12H 05/28/18 06/04/18 History thyroid (pork) [[place] Thyroid] 60 mg PO DAILY 05/28/18 06/04/18 History tizanidine 2 mg PO TID PRN 05/28/18 06/04/18 History venlafaxine [Effexor XR] 75 mg PO DAILY 05/28/18 06/04/18 History Active Medications: Active Medications Acetaminophen (Tylenol) 650 mg PO Q4H PRN PRN Reason: Temp > 100.4 Last Admin: 06/05/18 08:09 Dose: 650 mg Hydrocodone Bitart/Acetaminophen ([place] 5/325) 1 tab PO Q4H PRN PRN Reason: PAIN 4-7 Last Admin: 06/06/18 17:34 Dose: 1 tab Hydrocodone Bitart/Acetaminophen ([place] 10/325) 2 tab PO Q4H PRN PRN Reason: PAIN 7-10 Last Admin: 06/08/18 02:37 Dose: 2 tab Al Hydroxide/Mg Hydroxide (Milk Of Magnesia Liq) 30 ml PO Q12H PRN PRN Reason: Mild Constipation Amiodarone HCl (Cordarone) 400 mg PO Q12HR [facility] Last Admin: 06/07/18 21:31 Dose: 400 mg Aspirin (Aspirin Chew) 81 mg PO DAILY [facility] Last Admin: 06/07/18 08:13 Dose: 81 mg Bisacodyl (Dulcolax Supp) 10 mg RECTAL DAILY PRN PRN Reason: SEVERE CONSITIPATION Dextrose (D50w Vial) 50 ml IV.PUSH UNSCH PRN PRN Reason: PER HYPOGLYCEMIA PROTOCOL Last Admin: 06/06/18 06:00 Dose: 50 ml Divalproex Sodium (Depakote Dr) 500 mg PO TID [facility] Last Admin: 06/07/18 19:15 Dose: 500 mg Donepezil HCl (Aricept) 10 mg PO DAILY [facility] Last Admin: 06/07/18 08:13 Dose: 10 mg Enoxaparin Sodium (Lovenox Inj) 40 mg SQ Q24H [facility] Last Admin: 06/07/18 19:15 Dose: 40 mg Glucagon (Glucagon Inj) 1 mg OTHER PRN PRN PRN Reason: for Hypoglycemia Protocol Potassium Chloride (Kcl 40 Meq Premix Inj) 40 meq in 100 mls @ 25 mls/hr IV.SIG Q2H PRN PRN Reason: For Potassium 2.8 - 3.2 mEq/L Last Infusion: 06/07/18 16:45 Dose: Infused Potassium Chloride (Kcl 20 Meq Premix Inj) 20 meq in 100 mls @ 50 mls/hr IV.SIG Q2H PRN PRN Reason: For Potassium 3.3 - 3.5 mEq/L Potassium Chloride (Kcl 40 Meq Premix Inj) 40 meq in 100 mls @ 25 mls/hr IV.SIG UNSCH PRN PRN Reason: For Potassium 3.3 - 3.5 mEq/L Sodium Phosphate 30 mmol/ (Sodium Chloride) 260 mls @ 42 mls/hr IV.SIG UNSCH PRN PRN Reason: For Phosphorus < 2.5 mg/dL Potassium Phosphate 30 mmol/ (Sodium Chloride) 260 mls @ 42 mls/hr IV.SIG UNSCH PRN PRN Reason: SEE LABEL COMMENTS Magnesium Sulfate 4 gm/ Sodium (Chloride) 100 mls @ 50 mls/hr IV.SIG UNSCH PRN PRN Reason: For Magnesium 0.9 - 1.1 mg/dL Potassium Chloride (Kcl 20 Meq Premix Inj) 20 meq in 100 mls @ 50 mls/hr IV.SIG Q2H PRN PRN Reason: For Potassium 2.8 - 3.2 mEq/L Magnesium Sulfate 2 gm/ Sodium (Chloride) 100 mls @ 50 mls/hr IV.SIG UNSCH PRN PRN Reason: For Magnesium 1.2 - 1.6 mg/dL Ceftriaxone Sodium 1,000 mg/ (Sodium Chloride) 100 mls @ 200 mls/hr IV.SIG Q24H [facility] Stop: 06/13/18 09:59 Last Infusion: 06/07/18 13:20 Dose: Infused Amiodarone HCl 450 mg/ (Dextrose) 250 mls @ 33.33 mls/hr IV.CONT TITRATE PRN; Protocol PRN Reason: Per Protocol Last Admin: 06/08/18 01:48 Dose: 1 mg/min, 33.33 mls/hr Phenylephrine HCl 40 mg/ (Dextrose) 500 mls @ 30 mls/hr IV.CONT TITRATE PRN; Protocol PRN Reason: Per Protocol Last Admin: 06/08/18 06:40 Dose: 40 mcg/min, 30 mls/hr Lactulose (Lactulose Liq) 30 ml PO DAILY PRN PRN Reason: SEVERE CONSITIPATION Levothyroxine Sodium (Synthroid) 25 mcg PO DAILY@0600 [facility] Last Admin: 06/08/18 05:31 Dose: 25 mcg Magnesium Oxide (Mag-Ox) 800 mg PO UNSCH PRN PRN Reason: For Magnesium 1.2 - 1.6 mg/dL Miscellaneous (Pill Splitter) 1 each [facility] Ondansetron HCl (Zofran Inj) 4 mg IV.PUSH Q6H PRN PRN Reason: NAUSEA OR VOMITING Last Admin: 06/07/18 21:46 Dose: 4 mg Oxybutynin Chloride (Ditropan) 5 mg PO BID [facility] Last Admin: 06/07/18 21:30 Dose: 5 mg Pantoprazole Sodium (Protonix) 40 mg PO DAILY [facility] Last Admin: 06/07/18 08:14 Dose: 40 mg Potassium Bicarb/Potassium Chloride (K-Lyte Cl Eff) 50 meq PO UNSCH PRN PRN Reason: For Potassium 3.3 - 3.5 mEq/L Potassium Phosphate (K-Phos Original) 2,000 mg PO Q4H PRN PRN Reason: Phosphorus Less Than 2.5 mg/dL Potassium Phosphate (K-Phos Original) 2,000 mg PO UNSCH PRN PRN Reason: SEE LABEL COMMENTS Senna/Docusate Sodium (Leena-Colace) 1 tab PO BID [facility] Last Admin: 06/07/18 21:35 Dose: Not Given Sennosides (Senokot) 17.2 mg PO Q12H PRN PRN Reason: Moderate Constipation Sodium Chloride (Ns Flush) 2 ml IV.FLUSH BID [facility] Last Admin: 06/07/18 21:35 Dose: 2 ml Sodium Chloride (Ns Flush) 2 ml IV.FLUSH PRN PRN PRN Reason: FLUSH AFTER USING IV ACCESS Sotalol HCl (Betapace) 80 mg PO Q12HR [facility] Last Admin: 06/05/18 20:05 Dose: 80 mg Thyroid ([place] Thyroid) 60 mg PO DAILY [facility] Last Admin: 06/07/18 08:13 Dose: 60 mg Tizanidine HCl (Zanaflex) 2 mg PO TID PRN PRN Reason: Anxiety Last Admin: 06/05/18 21:40 Dose: 2 mg Venlafaxine HCl (Effexor Xr) 75 mg PO DAILY [facility] Last Admin: 06/07/18 08:14 Dose: 75 mg Physical Exam Vital signs: Vital Signs 06/07/18 12:00 06/07/18 12:30 06/07/18 14:30 Temperature 98 F Pulse Rate 54 L 137 H Respiratory Rate 22 16 19 Blood Pressure 114/56 L 112/72 Pulse Oximetry 100 97 06/07/18 15:00 06/07/18 15:30 06/07/18 16:00 Temperature 98.6 F Pulse Rate 145 H 145 H 136 H Respiratory Rate 17 30 H 12 Blood Pressure 101/66 120/56 L 106/74 Pulse Oximetry 100 80 L 99 06/07/18 16:30 06/07/18 17:00 06/07/18 17:30 Temperature Pulse Rate 63 64 63 Respiratory Rate 11 L 15 15 Blood Pressure 104/58 L 104/56 L 106/57 L Pulse Oximetry 97 100 100 06/07/18 18:00 06/07/18 18:31 06/07/18 19:00 Temperature Pulse Rate 60 57 L 60 Respiratory Rate 21 17 22 Blood Pressure 87/54 L 124/66 105/62 Pulse Oximetry 100 100 100 06/07/18 19:26 06/07/18 19:30 06/07/18 19:46 Temperature Pulse Rate 61 58 L 63 Respiratory Rate 20 14 21 Blood Pressure 100/60 106/57 L 107/67 Pulse Oximetry 100 100 100 06/07/18 20:00 06/07/18 20:15 06/07/18 20:30 Temperature Pulse Rate 57 L 55 L 54 L Respiratory Rate 21 18 26 H Blood Pressure 105/57 L 96/53 L 96/52 L Pulse Oximetry 100 100 100 06/07/18 20:45 06/07/18 20:56 06/07/18 21:00 Temperature Pulse Rate 54 L 59 L 55 L Respiratory Rate 29 H 25 H 20 Blood Pressure 103/65 95/52 L 89/51 L Pulse Oximetry 100 99 100 06/07/18 21:15 06/07/18 21:30 06/07/18 21:45 Temperature Pulse Rate 57 L 70 86 Respiratory Rate 25 H 19 23 Blood Pressure 89/50 L 85/53 L 134/59 L Pulse Oximetry 100 100 100 06/07/18 22:00 06/07/18 22:15 06/07/18 22:30 Temperature Pulse Rate 69 74 80 Respiratory Rate 20 25 H 18 Blood Pressure 117/57 L 116/59 L 118/61 Pulse Oximetry 100 100 100 06/07/18 22:45 06/07/18 23:00 06/07/18 23:15 Temperature Pulse Rate 83 83 76 Respiratory Rate 20 23 17 Blood Pressure 118/61 119/61 120/63 Pulse Oximetry 100 100 100 06/07/18 23:30 06/07/18 23:45 06/08/18 00:00 Temperature 98.2 F Pulse Rate 85 77 75 Respiratory Rate 24 15 23 Blood Pressure 121/64 121/63 118/58 L Pulse Oximetry 100 100 100 06/08/18 00:15 06/08/18 00:30 06/08/18 00:45 Temperature Pulse Rate 68 79 79 Respiratory Rate 20 20 19 Blood Pressure 119/56 L 121/62 126/66 Pulse Oximetry 100 100 100 06/08/18 01:00 06/08/18 01:15 06/08/18 01:30 Temperature Pulse Rate 71 71 71 Respiratory Rate 19 23 18 Blood Pressure 123/64 124/61 119/63 Pulse Oximetry 100 100 100 06/08/18 01:45 06/08/18 02:00 06/08/18 02:15 Temperature Pulse Rate 73 67 67 Respiratory Rate 24 19 29 H Blood Pressure 130/64 124/64 127/66 Pulse Oximetry 100 100 100 06/08/18 02:30 06/08/18 02:37 06/08/18 02:45 Temperature Pulse Rate 66 68 Respiratory Rate 24 20 24 Blood Pressure 127/68 119/61 Pulse Oximetry 100 100 06/08/18 03:00 06/08/18 03:15 06/08/18 03:30 Temperature Pulse Rate 63 83 64 Respiratory Rate 19 19 16 Blood Pressure 108/55 L 116/60 126/60 Pulse Oximetry 100 100 99 06/08/18 03:45 06/08/18 04:00 06/08/18 04:15 Temperature 98.3 F Pulse Rate 75 65 68 Respiratory Rate 22 20 17 Blood Pressure 118/63 137/62 137/65 Pulse Oximetry 100 100 100 06/08/18 04:30 Temperature Pulse Rate 66 Respiratory Rate 22 Blood Pressure 139/68 Pulse Oximetry 100 Intake & Output 06/07/18 06/08/18 06/08/18 18:59 06:59 18:59 Intake Total 4710 / 4710 240 / 240 Output Total 1999 350 / 350 Balance 2710 / 2710 -110 / -110 Weight 71.8 kg Intake: IV 4110 / 4110 DOPamine 800 MG/500 ML Premix 500 / 500 800 mg In 500 ml @ 1 MCG/KG/MIN 2.449 mls/hr IV.CONT TITRATE PRN Rx#:[id number] LR 1000 mL Inj 1,000 ML @ 100 1000 / 1000 mls/hr IV.CONT .Q10H [facility] Rx#: [id number] NS Inj 1,000 ML @ 100 mls/hr IV 1999 .CONT .Q10H [facility] Rx#:[id number] Calcium Chloride Inj 1 GM In 110 / 110 D5W Inj 100 ML @ 110 mls/hr IV. SIG ONCE ONE Rx#:[id number] Maxipime Inj 2,000 MG In NS Inj 100 / 100 100 ML @ 200 mls/hr IV.SIG Q8H [facility] Rx#:[id number] Magnesium Sulfate 1 gm/D5W 100 100 / 100 ml Premix 100 ML @ 100 mls/hr IV.SIG Q1H [facility] Rx#:[id number] KCl 40 mEq Premix Inj 40 meq In 200 / 200 100 ml @ 25 mls/hr IV.SIG Q2H PRN Rx#:[id number] Rocephin Inj 1,000 MG In NS Inj 100 / 100 100 ML @ 200 mls/hr IV.SIG Q24H [facility] Rx#:[id number] Oral 600 / 600 240 / 240 Output: Urine 2000 / 2000 350 / 350 Other: # Voids 2 Date of Last Bowel Movement 06/06/18 06/06/18 # Bowel Movements 0 0 - Constitutional no acute distress - Routine HEENT Exam Head: Present: normocephalic Eye: Present: PERRL, normal accommodation ENT: Present: mucous membranes moist - Routine Neck Exam Present: supple - Routine Respiratory Exam Present: diminished air movement - Routine Cardiovascular Exam Present: tachycardia, irregularly irregular - Routine Abdominal Exam Present: soft - Routine Extremities Exam Comments: bruising right upper arm - Routine Skin Exam Present: intact - Routine Neurological Exam Present: alert, oriented X3 - Detailed Neurological Exam: Coma Scale Eye Opening: Spontaneous Verbal Response: Oriented Motor Response: Obey commands [place] Coma Scale Total: 15 - Routine Psychiatric Exam Present: normal affect Results 06/08/18 04:18 06/08/18 04:18 CBC 06/06/18 06/06/18 06/06/18 Range/Units 11:51 14:30 19:30 WBC 13.5 H (4.0-11.0) th/mm3 RBC 2.61 L (4.00-5.30) mil/mm3 Hgb 9.3 L 8.3 L 7.5 L (11.6-15.3) gm/dL Hct 28.0 L (35.0-46.0) % Plt Count 280 D (150-450) th/mm3 Neut # (Auto) 8.1 H (1.8-7.7) th/mm3 Lymph # (Auto) 1.2 (1.0-4.8) th/mm3 [place] # (Auto) 4.0 H (0.0-0.9) th/mm3 Eos # (Auto) 0.2 (0.0-0.4) th/mm3 Baso # (Auto) 0.1 (0.0-0.2) th/mm3 06/07/18 06/08/18 Range/Units 04:38 04:18 WBC 12.4 H 13.5 H (4.0-11.0) th/mm3 RBC 2.36 L 2.49 L (4.00-5.30) mil/mm3 Hgb 8.5 L 8.8 L (11.6-15.3) gm/dL Hct 25.5 L 27.1 L (35.0-46.0) % Plt Count 272 313 (150-450) th/mm3 Neut # (Auto) (1.8-7.7) th/mm3 Lymph # (Auto) (1.0-4.8) th/mm3 [place] # (Auto) (0.0-0.9) th/mm3 Eos # (Auto) (0.0-0.4) th/mm3 Baso # (Auto) (0.0-0.2) th/mm3 Comprehensive Metabolic Panel 06/07/18 06/07/18 06/08/18 Range/Units 04:38 22:50 04:18 Sodium 149 H 146 H (136-145) meq/L Potassium 3.2 L 4.1 D 4.1 (3.5-5.1) meq/L Chloride 114 H 110 H (98-107) meq/L Carbon Dioxide 25.4 26.6 (21.0-32.0) meq/L BUN 12 11 (7-18) mg/dL Creatinine 0.74 0.85 (0.50-1.00) mg/dL Calcium 7.5 L 8.2 L (8.5-10.1) mg/dL Intake and Output 06/07/18 06/08/18 06/08/18 22:59 06:59 14:59 Intake Total 2700 / 2700 240 / 240 Output Total 1999 / 1999 350 / 350 Balance 700 / 700 -110 / -110 Intake: IV 2099 / 2099 LR 1000 mL Inj 1,000 ML @ 100 1000 / 1000 mls/hr IV.CONT .Q10H [facility] Rx#: [id number] NS Inj 1,000 ML @ 100 mls/hr IV 1000 / 1000 .CONT .Q10H [facility] Rx#:[id number] KCl 40 mEq Premix Inj 40 meq In 100 / 100 100 ml @ 25 mls/hr IV.SIG Q2H PRN Rx#:[id number] Oral 600 / 600 240 / 240 Output: Urine 2000 / 2000 350 / 350 Other: # Voids 2 Date of Last Bowel Movement 06/06/18 06/06/18 # Bowel Movements 0 0 Weight 71.8 kg - Imaging and Cardiology Imaging: Impressions Cervical Spine MRI 06/06/18 00:00 CONCLUSION: 1. Minimal circumferential spinal stenosis and mild bilateral foraminal narrowing at C3 3-4, C4-5, C5-6 and C6-7. Head MRI 06/06/18 07:13 CONCLUSION: 1. Cerebral atrophy. 2. Mild periventricular white matter small vessel ischemic changes bilaterally. 3. No acute infarct, acute hemorrhage, midline shift or extra-axial fluid collections. Head MRA 06/06/18 07:14 CONCLUSION: 1. Negative MRA of the brain Assessment and Plan - Plan Assessment Paroxysmal atrial fibrillation with RVR; she is on Lovenox and aspirin. She is currently in sinus rhythm. Mechanical Fall-resulting in right proximal humerus fracture Hypotension Hypokalemia Echocardiogram 06-06-18 shows ejection fraction 65-70%, trace mitral regurgitation and mild tricuspid valve regurgitation. Plan - Back in afib RVR and back on vasopressors. 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 Agree with continuing amiodarone infusion. Still on 400mg po q12h amiodarone. c. -Replace electrolytes and monitor closely, electrolytes improving. Dr. Zimmer will see patient tomorrow. The patient was seen and evaluated by Dr. Collins who participated in care, management and decision-making. The exam, history, and the medical decision-making described in the above note were completed with the assistance of the mid-level provider. I reviewed and agree with the findings presented. I attest that I had a [id number] encounter with the patient on the same day, and personally performed and documented my assessment and findings in the medical record. Overall better Afib Code Status: Full Code Discussed Condition With: Nurse
[2018-06-08] MEDS: Enoxaparin Inj 40 MG/0.4 ML Syringe SQ SCH (18:33)
[2018-06-09 05:17] LABS: Hematocrit 22.8 % (35.0-46.0); Hemoglobin 7.4 gm/dL (11.6-15.3); Mean Corpuscular HGB Conc 32.4 % (32.0-36.0); Mean Corpuscular Hemoglobin 35.8 pg (27.0-34.0); Mean Corpuscular Volume 110.3 fL (80.0-100.0); Mean Platelet Volume 9.5 fL (7.0-11.0); Platelet Count 276 th/mm3 (150-450); Red Blood Count 2.07 mil/mm3 (4.00-5.30); Red Cell Distribution Width 15.7 % (11.6-17.2); White Blood Count 12.6 th/mm3 (4.0-11.0)
[2018-06-09 05:43] LABS: Calcium 7.9 mg/dL (8.5-10.1); Carbon Dioxide 28.9 meq/L (21.0-32.0); Magnesium 2.1 mg/dL (1.5-2.5); Phosphorus 3.7 mg/dL (2.5-4.9); Potassium 4.4 meq/L (3.5-5.1)
[2018-06-09] MEDS: Thyroid 60 MG Tablet PO SCH (09:39)
[2018-06-09] MEDS: Senna/Docusate Sodium 8.6/50 MG Tablet PO SCH ×2 (09:39→20:07)
[2018-06-09] MEDS: Venlafaxine XR 75 MG Capsule PO SCH (09:39)
[2018-06-09] MEDS: Divalproex 500 MG DR Tablet PO SCH ×3 (09:39→17:30)
[2018-06-09] MEDS: Amiodarone 200 MG Tablet PO SCH ×2 (09:39→20:10)
--- NOTE | 2018-06-09 09:59 | P.PNIM ---
Subjective Interval history: 58-year-old female with past medical history of Alzheimer's dementia, bipolar disorder, atrial fibrillation, hypothyroidism, gout. She has gait disorder (since 2004 per records) and has experienced multiple falls. She sustained a proximal humerus fracture on 05/28 and was discharged with orthopedic follow-up however she presented again to [facility] on after sustaining another fall at snf. [facility]. MRI and MRA brain and MRI C-spine were recommended and are pending. She has a history of paroxysmal atrial fibrillation for which she takes sotalol 80 mg p.o. twice daily. She is not on chronic anticoagulation, presumably secondary to frequent falls. She was in sinus rhythm upon admission but apparently had an episodes of A fib RVR that initially converted to sinus rhythm after metoprolol 5 mg IV. She then had recurrent A fib RVR that was treated with metoprolol 5 mg IV, labetalol 5 mg IV, Cardizem 15 mg IV and then initiation of Cardizem drip. The Cardizem drip was titrated to 15 mg/h and then she converted to sinus bradycardia with rate 30-40s and she was hypotensive with BP 64/35. Cardizem drip discontinued. BP initially responded to 1 L NS bolus however she became hypotensive again and then remained hypotensive following additional 1 L NS bolus. She denies CP, SOB, n, v, lightheadedness, fever, headache. Subjective: 06/07: on dopamine at 1 mcg/kg/min. back in sinus rhythm. paroxysmal afib throughout the night overnight. complains of shoulder pain on the shoulder that she fell on. hypokalemic this AM and actively replacing. 06/08: back into afib RVR and back on vasopressors. I have stopped the dopamine as it appears it is causing the atrial dysrhythmias. started phenylephrine. agree with continuing amiodarone infusion. still on 400mg po q12h amiodarone. cardiology guiding anti-arrhythmic therapy. electrolytes improved. 06-09 TRANSFERRED BACK TO OUR SERVICE ON PO AMIODARONE NOW NEEDS PT AND OT TRANSFER OUT OF ICU ON TELE DW RN AND PT Physical Exam Vital signs: Vital Signs 06/08/18 10:00 06/08/18 10:01 06/08/18 10:15 Temperature Pulse Rate 125 H 126 H 67 Respiratory Rate 15 13 18 Blood Pressure 101/62 98/58 L Pulse Oximetry 93 L 93 L 96 06/08/18 10:30 06/08/18 10:45 06/08/18 10:56 Temperature Pulse Rate 63 63 Respiratory Rate 18 23 16 Blood Pressure 94/53 L 96/55 L Pulse Oximetry 92 L 98 06/08/18 11:00 06/08/18 11:15 06/08/18 11:30 Temperature Pulse Rate 61 64 62 Respiratory Rate 23 23 19 Blood Pressure 98/55 L 86/54 L 82/52 L Pulse Oximetry 99 97 97 06/08/18 11:45 06/08/18 12:00 06/08/18 12:15 Temperature 98.4 F Pulse Rate 62 63 68 Respiratory Rate 16 18 24 Blood Pressure 84/53 L 86/53 L 86/51 L Pulse Oximetry 96 97 97 06/08/18 12:30 06/08/18 12:45 06/08/18 12:57 Temperature Pulse Rate 62 63 67 Respiratory Rate 18 19 30 H Blood Pressure 86/52 L 78/52 L 81/52 L Pulse Oximetry 96 96 96 06/08/18 14:00 06/08/18 14:01 06/08/18 15:00 Temperature Pulse Rate 63 63 64 Respiratory Rate 23 20 18 Blood Pressure 84/50 L 89/52 L Pulse Oximetry 96 96 96 06/08/18 15:11 06/08/18 16:00 06/08/18 17:00 Temperature Pulse Rate 66 70 Respiratory Rate 16 27 H 23 Blood Pressure 82/47 L 81/46 L Pulse Oximetry 95 95 06/08/18 18:00 06/08/18 19:00 06/08/18 19:03 Temperature Pulse Rate 76 71 72 Respiratory Rate 38 H 15 23 Blood Pressure 75/50 L 77/52 L 80/51 L Pulse Oximetry 96 94 L 95 06/08/18 19:52 06/08/18 20:00 06/08/18 20:01 Temperature 99.3 F Pulse Rate 70 70 Respiratory Rate 27 H 24 Blood Pressure 95/53 L Pulse Oximetry 93 L 94 L 94 L 06/08/18 20:10 06/08/18 21:00 06/08/18 21:48 Temperature Pulse Rate 65 Respiratory Rate 16 20 Blood Pressure 84/48 L Pulse Oximetry 93 L 99 06/08/18 22:00 06/08/18 23:00 06/09/18 00:00 Temperature 99.1 F Pulse Rate 63 62 111 H Respiratory Rate 19 18 17 Blood Pressure 86/54 L 93/52 L 97/63 L Pulse Oximetry 93 L 100 95 06/09/18 01:00 06/09/18 01:30 06/09/18 01:37 Temperature Pulse Rate 115 H 64 Respiratory Rate 16 17 Blood Pressure 101/70 89/54 L Pulse Oximetry 94 L 94 L 99 06/09/18 02:00 06/09/18 02:30 06/09/18 03:00 Temperature Pulse Rate 63 62 115 H Respiratory Rate 23 22 20 Blood Pressure 103/56 L 96/67 L 106/72 Pulse Oximetry 99 100 99 06/09/18 03:30 06/09/18 04:00 06/09/18 04:30 Temperature 99.1 F Pulse Rate 117 H 121 H 64 Respiratory Rate 18 16 22 Blood Pressure 99/72 L 101/66 95/66 L Pulse Oximetry 100 97 93 L 06/09/18 05:00 06/09/18 06:00 06/09/18 08:00 Temperature Pulse Rate 63 59 L Respiratory Rate 24 Blood Pressure 109/56 L Pulse Oximetry 98 95 Intake & Output 06/08/18 06/09/18 06/09/18 18:59 06:59 18:59 Intake Total 3224 / 3224 850 / 850 Output Total 850 / 850 1450 / 1450 Balance 2374 / 2374 -600 / -600 Weight 71.2 kg Intake: IV 2274 / 2274 250 / 250 Cordarone Inj 450 MG In D5W Inj 500 / 500 250 / 250 241 ML @ 1 MG/MIN 33.33 mls/hr IV.CONT TITRATE PRN Rx#: [id number] DOPamine 800 MG/500 ML Premix 277 / 277 800 mg In 500 ml @ 1 MCG/KG/MIN 2.449 mls/hr IV.CONT TITRATE PRN Rx#:[id number] Neosynephrine Inj 40 MG In D5W 147 / 147 Inj 496 ML @ 40 MCG/MIN 30 mls/ hr IV.CONT TITRATE PRN Rx#: [id number] Rocephin Inj 1,000 MG In NS Inj 100 / 100 100 ML @ 200 mls/hr IV.SIG Q24H NELLIE Rx#:[id number] Oral 950 / 950 600 / 600 Output: Urine 850 / 850 1450 / 1450 Other: # Bowel Movements 0 Narrative: GENERAL: Awake alert talkative and cooperative appears older than stated age SKIN: Warm and dry. HEAD: Atraumatic. Normocephalic. EYES: Pupils equal and round. No scleral icterus. No injection or drainage. ENT: No nasal bleeding or discharge. Mucous membranes pink and moist. NECK: Trachea midline. No JVD. CARDIOVASCULAR: IRRegular rate and rhythm. S1-S2 no S3 or S4 RESPIRATORY: No accessory muscle use. Clear to auscultation. Breath sounds equal bilaterally. GASTROINTESTINAL: Abdomen soft, non-tender, nondistended. Hepatic and splenic margins not palpable. MUSCULOSKELETAL: Extremities without clubbing, cyanosis, or edema. No obvious deformities. Right upper extremity in sling NEUROLOGICAL: Awake and alert. No obvious cranial nerve deficits. Motor grossly within normal limits. Five out of 5 muscle strength in the arms and legs. Normal speech. Right upper extremity is in sling PSYCHIATRIC: INAppropriate mood and affect; insight and judgment ABnormal. Results - Labs CBC & Chem 7: 06/09/18 04:50 06/09/18 04:50 Laboratory Results - last 24 hr 06/08/18 06/08/18 06/09/18 12:39 17:47 00:23 WBC RBC Hgb Hct MCV MCH MCHC RDW Plt Count MPV Sodium Potassium Chloride Carbon Dioxide Anion Gap BUN Creatinine Estimated GFR POC Glucose 99 113 H 84 Random Glucose Calcium Phosphorus Magnesium 06/09/18 06/09/18 06/09/18 04:50 04:50 05:14 WBC 12.6 H RBC 2.07 L Hgb 7.4 L Hct 22.8 L MCV 110.3 H MCH 35.8 H MCHC 32.4 RDW 15.7 Plt Count 276 MPV 9.5 Sodium 144 Potassium 4.4 Chloride 107 Carbon Dioxide 28.9 Anion Gap 8 BUN 10 Creatinine 0.86 Estimated GFR 68 L POC Glucose 73 Random Glucose 80 Calcium 7.9 L Phosphorus 3.7 Magnesium 2.1 Microbiology 06/06/18 04:18 Blood - Peripheral Aerobic Blood Culture - Preliminary No growth in 2 days 06/06/18 04:18 Blood - Peripheral Anaerobic Blood Culture - Preliminary No growth in 2 days 06/06/18 04:00 Blood - Peripheral Aerobic Blood Culture - Preliminary No growth in 2 days 06/06/18 04:00 Blood - Peripheral Anaerobic Blood Culture - Preliminary No growth in 2 days 06/04/18 17:05 Blood - Peripheral Aerobic Blood Culture - Preliminary No growth in 4 days 06/04/18 17:05 Blood - Peripheral Anaerobic Blood Culture - Preliminary No growth in 4 days 06/04/18 17:13 Blood - Peripheral Aerobic Blood Culture - Preliminary No growth in 4 days 06/04/18 17:13 Blood - Peripheral Anaerobic Blood Culture - Preliminary No growth in 4 days Assessment and Plan - Plan Assessment: 58yF with paroxysmal afib and humerus fracture. non-operative management for humerus fracture per ortho. OOB with PT. NEURO: Dementia Continue Aricept 10 mg p.o. daily Bipolar disorder Continue Depakote 500 mg p.o. 3 times daily. This may be for mood although indication is not entirely clear. Continue Zanaflex 2 mg p.o. 3 times daily. Continue Effexor ER 75 mg p.o. daily. Generalized weakness Gait disorder Multiple falls CT brainno acute abnormality. Small vessel ischemic changes. Neurology following. MRI/MRA brain and MRI C-spine negative. EEG 06/05moderate encephalopathy RESP: Nasal cannula wean as tolerated CV: Atrial fibrillation with RVR Now symptomatic sinus bradycardia with hypotension- resolving. Bradycardia and hypotension immediately upon conversion to sinus rhythm on betablockers and calcium channel blockers. Received atropine 0.5 mg IV, glucagon 2.5 mg IV, and trial transcutaneous pacing. She remained hypotensive even with rate in 70s. Initiated dopamine which ultimately was titrated to 20 mcg/kg/min to maintain mean arterial pressure greater than 65. Holding beta blockers and calcium channel blockers. Cardiology has previously been consulted. She may ultimately require backup pacemaker in order to tolerate rate control agents. Continue aspirin 81 mg daily. Off pressors off amiodarone drip now on p.o. amiodarone d/c dopamine start phenylephrine--off pressors continue amio infusion per cardiology-switched to p.o. amiodarone remainder of anti-arrhythmics per cardiology continue PO amiodarone 400mg q12h. aggressive electrolyte replacement. SL IVF GI: Heart healthy diet LFT WNL FEN/RENAL: Creatinine normal. Monitor intake and output and BMP. 20 meq kcl po x 1 daily electrolytes aggressive replacement. A.m. labs ID: UTI Urine culture 06/04 with Klebsiella. Blood culture from 06/04 remain negative. Rocephin 1gm iv q24h for full 7 day course of abx therapy. HEME: Monitor CBC. Hemoglobin 7.8 from 10 after receiving 2 L normal saline. Monitor for evidence of bleeding. ENDO: Hypoglycemia- resolved. Continue diet. cortisol appropriate. Hypothyroidism Continue [place] Thyroid 60 milligrams daily. TSH elevated, free T4 normal: Sick euthyroid. no changes needed to regimen. needs recheck in outpatient setting in 6 weeks-3 months. MSK: Subacute right proximal humerus fracture Noted orthopedic consult has been placed. Upper extremity remains in a sling. plan for non-operative management per ortho. PROPH: Lovenox 40 mg subcu daily for DVT prophylaxis. Protonix 40 mg p.o. daily for stress ulcer prophylaxis. ACCESS: Has peripheral IV. Right IJ central venous line placed due to vasopressor requirement 06/06 #3: can d/c if off vasopressors. Code Status: Full code Discussed Condition With: Patient and insurance administrative assistant Planning: Transfer out of ICU
--- NOTE | 2018-06-09 15:55 | P.PNCA ---
Subjective Interval history: Patient denies any chest pain, pressure, palpitations, dizziness or shortness of breath at this time. Patient states that she feels better and is in no acute distress. Patient does appear to be in better spirits today, smiling and laughing. Medications and Allergies Allergies Allergy/AdvReac Type Severity Reaction Status Date / Time No Known Allergies Allergy Verified 05/28/18 10:30 Home Medications Medication Instructions Recorded Confirmed Type allopurinol 100 mg PO BID 05/28/18 05/28/18 History aspirin 81 mg PO DAILY 05/28/18 05/28/18 History buspirone 5 mg PO TID 05/28/18 05/28/18 History calcium carbonate [Calcium 600] 600 mg PO BID 05/28/18 05/28/18 History divalproex [Depakote] 500 mg PO TID 05/28/18 05/28/18 History donepezil 10 mg PO DAILY 05/28/18 06/04/18 History hydrocodone-acetaminophen [[place]] 1 tab PO Q6H PRN 05/28/18 06/04/18 History levothyroxine 25 mcg PO DAILY 05/28/18 06/04/18 History oxybutynin chloride 5 mg PO BID 05/28/18 06/04/18 History sotalol 80 mg PO Q12H 05/28/18 06/04/18 History thyroid (pork) [[place] Thyroid] 60 mg PO DAILY 05/28/18 06/04/18 History tizanidine 2 mg PO TID PRN 05/28/18 06/04/18 History venlafaxine [Effexor XR] 75 mg PO DAILY 05/28/18 06/04/18 History Active Medications: Active Medications Acetaminophen (Tylenol) 650 mg PO Q4H PRN PRN Reason: Temp > 100.4 Last Admin: 06/05/18 08:09 Dose: 650 mg Hydrocodone Bitart/Acetaminophen ([place] 5/325) 1 tab PO Q4H PRN PRN Reason: PAIN 4-7 Last Admin: 06/09/18 09:38 Dose: 1 tab Hydrocodone Bitart/Acetaminophen ([place] 10/325) 1 tab PO Q4H PRN PRN Reason: PAIN 8-10 Last Admin: 06/09/18 11:54 Dose: 1 tab Al Hydroxide/Mg Hydroxide (Milk Of Marco Forman) 30 ml PO Q12H PRN PRN Reason: Mild Constipation Amiodarone HCl (Cordarone) 400 mg PO Q12HR [facility] Last Admin: 06/09/18 09:39 Dose: 400 mg Aspirin (Aspirin Chew) 81 mg PO DAILY [facility] Last Admin: 06/09/18 09:39 Dose: 81 mg Bisacodyl (Dulcolax Supp) 10 mg RECTAL DAILY PRN PRN Reason: SEVERE CONSITIPATION Dextrose (D50w Vial) 50 ml IV.PUSH UNSCH PRN PRN Reason: PER HYPOGLYCEMIA PROTOCOL Last Admin: 06/06/18 06:00 Dose: 50 ml Divalproex Sodium (Depakote Dr) 500 mg PO TID [facility] Last Admin: 06/09/18 13:35 Dose: 500 mg Donepezil HCl (Aricept) 10 mg PO DAILY [facility] Last Admin: 06/09/18 09:39 Dose: 10 mg Enoxaparin Sodium (Lovenox Inj) 40 mg SQ Q24H [facility] Last Admin: 06/08/18 18:33 Dose: 40 mg Glucagon (Glucagon Inj) 1 mg OTHER PRN PRN PRN Reason: for Hypoglycemia Protocol Potassium Chloride (Kcl 40 Meq Premix Inj) 40 meq in 100 mls @ 25 mls/hr IV.SIG Q2H PRN PRN Reason: For Potassium 2.8 - 3.2 mEq/L Last Infusion: 06/07/18 16:45 Dose: Infused Potassium Chloride (Kcl 20 Meq Premix Inj) 20 meq in 100 mls @ 50 mls/hr IV.SIG Q2H PRN PRN Reason: For Potassium 3.3 - 3.5 mEq/L Potassium Chloride (Kcl 40 Meq Premix Inj) 40 meq in 100 mls @ 25 mls/hr IV.SIG UNSCH PRN PRN Reason: For Potassium 3.3 - 3.5 mEq/L Sodium Phosphate 30 mmol/ (Sodium Chloride) 260 mls @ 42 mls/hr IV.SIG UNSCH PRN PRN Reason: For Phosphorus < 2.5 mg/dL Potassium Phosphate 30 mmol/ (Sodium Chloride) 260 mls @ 42 mls/hr IV.SIG UNSCH PRN PRN Reason: SEE LABEL COMMENTS Magnesium Sulfate 4 gm/ Sodium (Chloride) 100 mls @ 50 mls/hr IV.SIG UNSCH PRN PRN Reason: For Magnesium 0.9 - 1.1 mg/dL Potassium Chloride (Kcl 20 Meq Premix Inj) 20 meq in 100 mls @ 50 mls/hr IV.SIG Q2H PRN PRN Reason: For Potassium 2.8 - 3.2 mEq/L Magnesium Sulfate 2 gm/ Sodium (Chloride) 100 mls @ 50 mls/hr IV.SIG UNSCH PRN PRN Reason: For Magnesium 1.2 - 1.6 mg/dL Ceftriaxone Sodium 1,000 mg/ (Sodium Chloride) 100 mls @ 200 mls/hr IV.SIG Q24H [facility] Stop: 06/13/18 09:59 Last Infusion: 06/09/18 10:09 Dose: Infused Amiodarone HCl 450 mg/ (Dextrose) 250 mls @ 33.33 mls/hr IV.CONT TITRATE PRN; Protocol PRN Reason: Per Protocol Last Titration: 06/09/18 10:07 Dose: 0 mg/min, 0 mls/hr Phenylephrine HCl 40 mg/ (Dextrose) 500 mls @ 30 mls/hr IV.CONT TITRATE PRN; Protocol PRN Reason: Per Protocol Last Titration: 06/08/18 11:02 Dose: 0 mcg/min, 0 mls/hr Lactulose (Lactulose Liq) 30 ml PO DAILY PRN PRN Reason: SEVERE CONSITIPATION Levothyroxine Sodium (Synthroid) 25 mcg PO DAILY@0600 [facility] Last Admin: 06/09/18 05:14 Dose: 25 mcg Magnesium Oxide (Mag-Ox) 800 mg PO UNSCH PRN PRN Reason: For Magnesium 1.2 - 1.6 mg/dL Miscellaneous (Pill Splitter) [facility] Ondansetron HCl (Zofran Inj) 4 mg IV.PUSH Q6H PRN PRN Reason: NAUSEA OR VOMITING Last Admin: 06/07/18 21:46 Dose: 4 mg Oxybutynin Chloride (Ditropan) 5 mg PO BID [facility] Last Admin: 06/09/18 09:39 Dose: 5 mg Pantoprazole Sodium (Protonix) 40 mg PO DAILY [facility] Last Admin: 06/09/18 09:39 Dose: 40 mg Potassium Bicarb/Potassium Chloride (K-Lyte Cl Eff) 50 meq PO UNSCH PRN PRN Reason: For Potassium 3.3 - 3.5 mEq/L Potassium Phosphate (K-Phos Original) 2,000 mg PO Q4H PRN PRN Reason: Phosphorus Less Than 2.5 mg/dL Potassium Phosphate (K-Phos Original) 2,000 mg PO UNSCH PRN PRN Reason: SEE LABEL COMMENTS Senna/Docusate Sodium (Leena-Colace) 1 tab PO BID [facility] Last Admin: 06/09/18 09:39 Dose: 1 tab Sennosides (Senokot) 17.2 mg PO Q12H PRN PRN Reason: Moderate Constipation Sodium Chloride (Ns Flush) 2 ml IV.FLUSH BID [facility] Last Admin: 06/09/18 09:39 Dose: 2 ml Sodium Chloride (Ns Flush) 2 ml IV.FLUSH PRN PRN PRN Reason: FLUSH AFTER USING IV ACCESS Sotalol HCl (Betapace) 80 mg PO Q12HR [facility] Last Admin: 06/05/18 20:05 Dose: 80 mg Thyroid ([place] Thyroid) 60 mg PO DAILY [facility] Last Admin: 06/09/18 09:39 Dose: 60 mg Tizanidine HCl (Zanaflex) 2 mg PO TID PRN PRN Reason: Anxiety Last Admin: 06/05/18 21:40 Dose: 2 mg Venlafaxine HCl (Effexor Xr) 75 mg PO DAILY [facility] Last Admin: 06/09/18 09:39 Dose: 75 mg Physical Exam Vital signs: Vital Signs 06/08/18 16:00 06/08/18 17:00 06/08/18 18:00 Temperature Pulse Rate 66 70 76 Respiratory Rate 27 H 23 38 H Blood Pressure 82/47 L 81/46 L 75/50 L Pulse Oximetry 95 95 96 06/08/18 19:00 06/08/18 19:03 06/08/18 19:52 Temperature Pulse Rate 71 72 Respiratory Rate 15 23 Blood Pressure 77/52 L 80/51 L Pulse Oximetry 94 L 95 93 L 06/08/18 20:00 06/08/18 20:01 06/08/18 20:10 Temperature 99.3 F Pulse Rate 70 70 Respiratory Rate 27 H 24 16 Blood Pressure 95/53 L Pulse Oximetry 94 L 94 L 06/08/18 21:00 06/08/18 21:48 06/08/18 22:00 Temperature Pulse Rate 65 63 Respiratory Rate 20 19 Blood Pressure 84/48 L 86/54 L Pulse Oximetry 93 L 99 93 L 06/08/18 23:00 06/09/18 00:00 06/09/18 01:00 Temperature 99.1 F Pulse Rate 62 111 H 115 H Respiratory Rate 18 17 16 Blood Pressure 93/52 L 97/63 L 101/70 Pulse Oximetry 100 95 94 L 06/09/18 01:30 06/09/18 01:37 06/09/18 02:00 Temperature Pulse Rate 64 63 Respiratory Rate 17 23 Blood Pressure 89/54 L 103/56 L Pulse Oximetry 94 L 99 99 06/09/18 02:30 06/09/18 03:00 06/09/18 03:30 Temperature Pulse Rate 62 115 H 117 H Respiratory Rate 22 20 18 Blood Pressure 96/67 L 106/72 99/72 L Pulse Oximetry 100 99 100 06/09/18 04:00 06/09/18 04:30 06/09/18 05:00 Temperature 99.1 F Pulse Rate 121 H 64 63 Respiratory Rate 16 22 24 Blood Pressure 101/66 95/66 L 109/56 L Pulse Oximetry 97 93 L 98 06/09/18 06:00 06/09/18 08:00 06/09/18 10:00 Temperature 98.5 F Pulse Rate 59 L 61 63 Respiratory Rate 19 Blood Pressure 100/66 Pulse Oximetry 99 06/09/18 11:54 06/09/18 12:00 06/09/18 13:07 Temperature 99.4 F Pulse Rate 63 Respiratory Rate 20 21 19 Blood Pressure 108/63 Pulse Oximetry 100 06/09/18 14:00 Temperature Pulse Rate 84 Respiratory Rate Blood Pressure Pulse Oximetry Intake & Output 06/08/18 06/09/18 06/09/18 18:59 06:59 18:59 Intake Total 3224 / 3224 850 / 850 300 / 300 Output Total 850 / 850 1450 / 1450 Balance 2374 / 2374 -600 / -600 300 / 300 Weight 71.2 kg Intake: IV 2274 / 2274 250 / 250 300 / 300 Cordarone Inj 450 MG In D5W Inj 500 / 500 250 / 250 200 / 200 241 ML @ 1 MG/MIN 33.33 mls/hr IV.CONT TITRATE PRN Rx#: [id number] DOPamine 800 MG/500 ML Premix 277 / 277 800 mg In 500 ml @ 1 MCG/KG/MIN 2.449 mls/hr IV.CONT TITRATE PRN Rx#:[id number] Neosynephrine Inj 40 MG In D5W 147 / 147 Inj 496 ML @ 40 MCG/MIN 30 mls/ hr IV.CONT TITRATE PRN Rx#: [id number] Rocephin Inj 1,000 MG In NS Inj 100 / 100 100 / 100 100 ML @ 200 mls/hr IV.SIG Q24H NELLIE Rx#:[id number] Oral 950 / 950 600 / 600 Output: Urine 850 / 850 1450 / 1450 Other: Date of Last Bowel Movement 06/06/18 # Bowel Movements 0 - Constitutional no acute distress - Routine HEENT Exam Head: Present: normocephalic Eye: Present: PERRL ENT: Present: mucous membranes moist - Routine Neck Exam Present: full ROM - Routine Respiratory Exam Present: CTA bilaterally - Routine Cardiovascular Exam Present: S1, S2. Absent: murmur, gallop, rubs, S3, S4 - Routine Abdominal Exam Present: normoactive bowel sounds - Routine Extremities Exam Present: edema, full ROM, pulses intact, normal capillary refill. Absent: cyanosis, clubbing Comments: 1+ edema lower extremities. - Routine Skin Exam Present: intact - Routine Neurological Exam Present: oriented X3 - Detailed Neurological Exam: Coma Scale Eye Opening: Spontaneous Verbal Response: Oriented Motor Response: Obey commands [place] Coma Scale Total: 15 - Routine Psychiatric Exam Present: normal affect Results 06/09/18 04:50 06/09/18 04:50 CBC 06/08/18 06/09/18 Range/Units 04:18 04:50 WBC 13.5 H 12.6 H (4.0-11.0) th/mm3 RBC 2.49 L 2.07 L (4.00-5.30) mil/mm3 Hgb 8.8 L 7.4 L (11.6-15.3) gm/dL Hct 27.1 L 22.8 L (35.0-46.0) % Plt Count 313 276 (150-450) th/mm3 Comprehensive Metabolic Panel 06/07/18 06/08/18 06/09/18 Range/Units 22:50 04:18 04:50 Sodium 146 H 144 (136-145) meq/L Potassium 4.1 D 4.1 4.4 (3.5-5.1) meq/L Chloride 110 H 107 (98-107) meq/L Carbon Dioxide 26.6 28.9 (21.0-32.0) meq/L BUN 11 10 (7-18) mg/dL Creatinine 0.85 0.86 (0.50-1.00) mg/dL Calcium 8.2 L 7.9 L (8.5-10.1) mg/dL Intake and Output 06/09/18 06/09/18 06/09/18 06:59 14:59 22:59 Intake Total 850 / 850 300 / 300 Output Total 1450 / 1450 Balance -600 / -600 300 / 300 Intake: IV 250 / 250 300 / 300 Cordarone Inj 450 MG In D5W Inj 250 / 250 200 / 200 241 ML @ 1 MG/MIN 33.33 mls/hr IV.CONT TITRATE PRN Rx#: [id number] Rocephin Inj 1,000 MG In NS Inj 100 / 100 100 ML @ 200 mls/hr IV.SIG Q24H NELLIE Rx#:[id number] Oral 600 / 600 Output: Urine 1450 / 1450 Other: Date of Last Bowel Movement 06/06/18 # Bowel Movements 0 Weight 71.2 kg Assessment and Plan - Assessment (1) Atrial fibrillation with RVR Code(s): I48.91 - Unspecified atrial fibrillation Status: Acute (2) Symptomatic bradycardia Code(s): R00.1 - Bradycardia, unspecified Status: Acute (3) Humeral fracture Code(s): S42.309A - Unspecified fracture of shaft of humerus, unspecified arm, initial encounter for closed fracture Status: Acute (4) Encephalopathy Code(s): G93.40 - Encephalopathy, unspecified Status: Acute (5) Toxic metabolic encephalopathy Code(s): G92 - Toxic encephalopathy Status: Acute (6) Gait disorder Code(s): R26.9 - Unspecified abnormalities of gait and mobility Status: Chronic (7) Tremor Code(s): R25.1 - Tremor, unspecified Status: Chronic (8) Acute UTI Code(s): N39.0 - Urinary tract infection, site not specified Status: Acute - Plan The patient has paroxysmal atrial fibrillation with RVR, she is on Lovenox and aspirin. She is currently in SR on telemetry. Recent fall which resulted in a right proximal humerus fracture, arm is in a sling. Patient currently on amiodarone drip and was started on amiodarone 400 mg. We will stop amiodarone drip and continue with amiodarone 400 mg twice daily. Echocardiogram 06-06-18 shows ejection fraction 65-70%, trace mitral regurgitation and mild tricuspid valve regurgitation. Continue with current cardiac treatment plan and adjust as needed. We will continue to follow patient during hospitalization. Patient was seen and evaluated by Dr. Zimmer who participated in care, management and decision-making. - Attending Attestation Patient seen and examined. I reviewed and agree with the evaluation and plan as presented. Tele with SR and infrequent episodes of AF. Continue amio loading. Transfer to tele. (3) Humeral fracture Qualifiers: Encounter type: subsequent encounter Humerus Location: proximal Fracture type: closed Fracture morphology: other fracture Fracture alignment: nondisplaced Laterality: right Fracture healing: with routine healing Qualified Code(s): S42.294D - Other nondisplaced fracture of upper end of right humerus, subsequent encounter for fracture with routine healing
[2018-06-09] MEDS: Enoxaparin Inj 40 MG/0.4 ML Syringe SQ SCH (17:31)
[2018-06-10 05:03] LABS: Hematocrit 22.8 % (35.0-46.0); Hemoglobin 7.4 gm/dL (11.6-15.3); Mean Corpuscular HGB Conc 32.5 % (32.0-36.0); Mean Corpuscular Hemoglobin 35.9 pg (27.0-34.0); Mean Corpuscular Volume 110.4 fL (80.0-100.0); Platelet Count 299 th/mm3 (150-450); Red Blood Count 2.07 mil/mm3 (4.00-5.30); Red Cell Distribution Width 15.6 % (11.6-17.2); White Blood Count 11.7 th/mm3 (4.0-11.0)
[2018-06-10 05:23] LABS: Alanine Aminotransferase 16 U/L (10-53); Albumin 1.6 g/dL (3.4-5.0); Anion Gap 7 meq/L (5-15); Aspartate Aminotransferase 23 U/L (15-37); Blood Urea Nitrogen 7 mg/dL (7-18); Calcium 7.7 mg/dL (8.5-10.1); Carbon Dioxide 31.6 meq/L (21.0-32.0); Chloride 106 meq/L (98-107); Glomerular Filtration Rate 77 mL/min (>89); Glucose,Random 77 mg/dL (74-106); Magnesium 2.1 mg/dL (1.5-2.5); Phosphorus 3.6 mg/dL (2.5-4.9); Potassium 4.2 meq/L (3.5-5.1); Sodium 145 meq/L (136-145)
[2018-06-10 05:31] LABS: Alkaline Phosphatase 100 U/L (45-117); Free T4 (Free Thyroxine) 1.32 ng/dL (0.76-1.46); Total Protein 5.2 g/dL (6.4-8.2)
[2018-06-10 06:14] LABS: Eosinophils 3 % (0-4); Lymphocytes 10 % (9-44); Metamyelocytes 1 % (0-1); Monocytes 16 % (0-8); Promyelocyte 1 % (0-0)
[2018-06-10 06:15] LABS: Platelet Estimate Normal (Normal); Platelet Morphology Normal (Normal)
[2018-06-10 06:16] LABS: Spherocytes Occ
[2018-06-10] MEDS: Senna/Docusate Sodium 8.6/50 MG Tablet PO SCH ×2 (09:21→20:44)
[2018-06-10] MEDS: Amiodarone 200 MG Tablet PO SCH ×2 (09:21→20:44)
[2018-06-10] MEDS: Venlafaxine XR 75 MG Capsule PO SCH (09:21)
[2018-06-10] MEDS: Divalproex 500 MG DR Tablet PO SCH ×3 (09:21→18:52)
[2018-06-10] MEDS: Thyroid 60 MG Tablet PO SCH (09:21)
--- NOTE | 2018-06-10 09:35 | P.PNCA ---
Subjective Interval history: Patient is very sleepy this morning. Denies any chest pain, pressure, palpitations, dizziness, edema or shortness of breath. Patient still complains of right arm pain due to fracture. Right arm remains in a sling. Medications and Allergies Allergies Allergy/AdvReac Type Severity Reaction Status Date / Time No Known Allergies Allergy Verified 05/28/18 10:30 Home Medications Medication Instructions Recorded Confirmed Type allopurinol 100 mg PO BID 05/28/18 05/28/18 History aspirin 81 mg PO DAILY 05/28/18 05/28/18 History buspirone 5 mg PO TID 05/28/18 05/28/18 History calcium carbonate [Calcium 600] 600 mg PO BID 05/28/18 05/28/18 History divalproex [Depakote] 500 mg PO TID 05/28/18 05/28/18 History donepezil 10 mg PO DAILY 05/28/18 06/04/18 History hydrocodone-acetaminophen [[place]] 1 tab PO Q6H PRN 05/28/18 06/04/18 History levothyroxine 25 mcg PO DAILY 05/28/18 06/04/18 History oxybutynin chloride 5 mg PO BID 05/28/18 06/04/18 History sotalol 80 mg PO Q12H 05/28/18 06/04/18 History thyroid (pork) [[place] Thyroid] 60 mg PO DAILY 05/28/18 06/04/18 History tizanidine 2 mg PO TID PRN 05/28/18 06/04/18 History venlafaxine [Effexor XR] 75 mg PO DAILY 05/28/18 06/04/18 History Active Medications: Active Medications Acetaminophen (Tylenol) 650 mg PO Q4H PRN PRN Reason: Temp > 100.4 Last Admin: 06/05/18 08:09 Dose: 650 mg Hydrocodone Bitart/Acetaminophen ([place] 5/325) 1 tab PO Q4H PRN PRN Reason: PAIN 4-7 Last Admin: 06/10/18 03:47 Dose: 1 tab Hydrocodone Bitart/Acetaminophen ([place] 10/325) 1 tab PO Q4H PRN PRN Reason: PAIN 8-10 Last Admin: 06/10/18 09:27 Dose: 1 tab Al Hydroxide/Mg Hydroxide (Milk Of Magnesia Liq) 30 ml PO Q12H PRN PRN Reason: Mild Constipation Amiodarone HCl (Cordarone) 400 mg PO Q12HR [facility] Last Admin: 06/10/18 09:21 Dose: 400 mg Aspirin (Aspirin Chew) 81 mg PO DAILY [facility] Last Admin: 06/10/18 09:21 Dose: 81 mg Bisacodyl (Dulcolax Supp) 10 mg RECTAL DAILY PRN PRN Reason: SEVERE CONSITIPATION Dextrose (D50w Vial) 50 ml IV.PUSH UNSCH PRN PRN Reason: PER HYPOGLYCEMIA PROTOCOL Last Admin: 06/06/18 06:00 Dose: 50 ml Divalproex Sodium (Depakote Dr) 500 mg PO TID [facility] Last Admin: 06/10/18 09:21 Dose: 500 mg Donepezil HCl (Aricept) 10 mg PO DAILY [facility] Last Admin: 06/10/18 09:21 Dose: 10 mg Enoxaparin Sodium (Lovenox Inj) 40 mg SQ Q24H [facility] Last Admin: 06/09/18 17:31 Dose: 40 mg Glucagon (Glucagon Inj) 1 mg OTHER PRN PRN PRN Reason: for Hypoglycemia Protocol Potassium Chloride (Kcl 40 Meq Premix Inj) 40 meq in 100 mls @ 25 mls/hr IV.SIG Q2H PRN PRN Reason: For Potassium 2.8 - 3.2 mEq/L Last Infusion: 06/07/18 16:45 Dose: Infused Potassium Chloride (Kcl 20 Meq Premix Inj) 20 meq in 100 mls @ 50 mls/hr IV.SIG Q2H PRN PRN Reason: For Potassium 3.3 - 3.5 mEq/L Potassium Chloride (Kcl 40 Meq Premix Inj) 40 meq in 100 mls @ 25 mls/hr IV.SIG UNSCH PRN PRN Reason: For Potassium 3.3 - 3.5 mEq/L Sodium Phosphate 30 mmol/ (Sodium Chloride) 260 mls @ 42 mls/hr IV.SIG UNSCH PRN PRN Reason: For Phosphorus < 2.5 mg/dL Potassium Phosphate 30 mmol/ (Sodium Chloride) 260 mls @ 42 mls/hr IV.SIG UNSCH PRN PRN Reason: SEE LABEL COMMENTS Magnesium Sulfate 4 gm/ Sodium (Chloride) 100 mls @ 50 mls/hr IV.SIG UNSCH PRN PRN Reason: For Magnesium 0.9 - 1.1 mg/dL Potassium Chloride (Kcl 20 Meq Premix Inj) 20 meq in 100 mls @ 50 mls/hr IV.SIG Q2H PRN PRN Reason: For Potassium 2.8 - 3.2 mEq/L Magnesium Sulfate 2 gm/ Sodium (Chloride) 100 mls @ 50 mls/hr IV.SIG UNSCH PRN PRN Reason: For Magnesium 1.2 - 1.6 mg/dL Ceftriaxone Sodium 1,000 mg/ (Sodium Chloride) 100 mls @ 200 mls/hr IV.SIG Q24H [facility] Stop: 06/13/18 09:59 Last Admin: 06/10/18 09:20 Dose: 200 mls/hr Amiodarone HCl 450 mg/ (Dextrose) 250 mls @ 33.33 mls/hr IV.CONT TITRATE PRN; Protocol PRN Reason: Per Protocol Last Titration: 06/09/18 10:07 Dose: 0 mg/min, 0 mls/hr Phenylephrine HCl 40 mg/ (Dextrose) 500 mls @ 30 mls/hr IV.CONT TITRATE PRN; Protocol PRN Reason: Per Protocol Last Titration: 06/08/18 11:02 Dose: 0 mcg/min, 0 mls/hr Lactulose (Lactulose Liq) 30 ml PO DAILY PRN PRN Reason: SEVERE CONSITIPATION Levothyroxine Sodium (Synthroid) 25 mcg PO DAILY@0600 [facility] Last Admin: 06/10/18 05:39 Dose: 25 mcg Magnesium Oxide (Mag-Ox) 800 mg PO UNSCH PRN PRN Reason: For Magnesium 1.2 - 1.6 mg/dL Miscellaneous (Pill Splitter) 1 each OTHER UNSCH [facility] Ondansetron HCl (Zofran Inj) 4 mg IV.PUSH Q6H PRN PRN Reason: NAUSEA OR VOMITING Last Admin: 06/07/18 21:46 Dose: 4 mg Oxybutynin Chloride (Ditropan) 5 mg PO BID [facility] Last Admin: 06/10/18 09:21 Dose: 5 mg Pantoprazole Sodium (Protonix) 40 mg PO DAILY [facility] Last Admin: 06/10/18 09:21 Dose: 40 mg Potassium Bicarb/Potassium Chloride (K-Lyte Cl Eff) 50 meq PO UNSCH PRN PRN Reason: For Potassium 3.3 - 3.5 mEq/L Potassium Phosphate (K-Phos Original) 2,000 mg PO Q4H PRN PRN Reason: Phosphorus Less Than 2.5 mg/dL Potassium Phosphate (K-Phos Original) 2,000 mg PO UNSCH PRN PRN Reason: SEE LABEL COMMENTS Senna/Docusate Sodium (Leena-Colace) 1 tab PO BID [facility] Last Admin: 06/10/18 09:21 Dose: 1 tab Sennosides (Senokot) 17.2 mg PO Q12H PRN PRN Reason: Moderate Constipation Sodium Chloride (Ns Flush) 2 ml IV.FLUSH BID [facility] Last Admin: 06/10/18 09:22 Dose: 2 ml Sodium Chloride (Ns Flush) 2 ml IV.FLUSH PRN PRN PRN Reason: FLUSH AFTER USING IV ACCESS Sotalol HCl (Betapace) 80 mg PO Q12HR [facility] Last Admin: 06/05/18 20:05 Dose: 80 mg Thyroid ([place] Thyroid) 60 mg PO DAILY [facility] Last Admin: 06/10/18 09:21 Dose: 60 mg Tizanidine HCl (Zanaflex) 2 mg PO TID PRN PRN Reason: Anxiety Last Admin: 06/05/18 21:40 Dose: 2 mg Venlafaxine HCl (Effexor Xr) 75 mg PO DAILY [facility] Last Admin: 06/10/18 09:21 Dose: 75 mg Physical Exam Vital signs: Vital Signs 06/09/18 10:00 06/09/18 11:54 06/09/18 12:00 Temperature 99.4 F Pulse Rate 63 63 Respiratory Rate 20 21 Blood Pressure 108/63 Pulse Oximetry 100 06/09/18 13:00 06/09/18 13:07 06/09/18 13:31 Temperature Pulse Rate 132 H 65 Respiratory Rate 36 H 19 25 H Blood Pressure 119/70 145/63 H Pulse Oximetry 96 93 L 06/09/18 14:00 06/09/18 14:30 06/09/18 15:01 Temperature Pulse Rate 84 76 87 Respiratory Rate 29 H 30 H 26 H Blood Pressure 130/75 116/64 125/67 Pulse Oximetry 96 06/09/18 15:30 06/09/18 16:00 06/09/18 16:01 Temperature 98.1 F Pulse Rate 129 H 140 H 143 H Respiratory Rate 15 30 H 23 Blood Pressure 110/68 107/57 L 121/71 Pulse Oximetry 98 06/09/18 16:12 06/09/18 16:30 06/09/18 17:00 Temperature Pulse Rate 75 74 Respiratory Rate 17 24 26 H Blood Pressure 105/55 L 113/55 L Pulse Oximetry 06/09/18 17:30 06/09/18 18:00 06/09/18 18:01 Temperature Pulse Rate 75 73 76 Respiratory Rate 31 H 21 28 H Blood Pressure 110/62 107/57 L Pulse Oximetry 06/09/18 18:31 06/09/18 19:00 06/09/18 19:30 Temperature Pulse Rate 75 69 72 Respiratory Rate 27 H 35 H 19 Blood Pressure 111/83 105/55 L 106/56 L Pulse Oximetry 95 06/09/18 20:00 06/09/18 20:30 06/09/18 21:01 Temperature 99.1 F Pulse Rate 79 71 73 Respiratory Rate 17 25 H 38 H Blood Pressure 106/55 L 95/57 L 123/58 L Pulse Oximetry 83 L 65 L 79 L 06/09/18 21:30 06/09/18 22:00 06/09/18 22:17 Temperature Pulse Rate 73 76 Respiratory Rate 20 20 Blood Pressure 106/62 100/58 L Pulse Oximetry 86 L 91 L 95 06/09/18 22:30 06/09/18 23:01 06/09/18 23:30 Temperature Pulse Rate 72 72 68 Respiratory Rate 31 H 25 H 22 Blood Pressure 98/61 L 116/58 L 106/63 Pulse Oximetry 94 L 88 L 85 L 06/10/18 00:00 06/10/18 00:30 06/10/18 01:00 Temperature 99 F Pulse Rate 72 80 70 Respiratory Rate 37 H 28 H 19 Blood Pressure 107/63 117/69 112/71 Pulse Oximetry 97 84 L 96 06/10/18 01:30 06/10/18 02:00 06/10/18 02:20 Temperature Pulse Rate 74 74 72 Respiratory Rate 37 H 30 H 16 Blood Pressure 111/57 L 136/63 Pulse Oximetry 96 91 L 06/10/18 02:30 06/10/18 03:00 06/10/18 03:33 Temperature Pulse Rate 68 73 68 Respiratory Rate 57 H 21 16 Blood Pressure 128/63 121/58 L 120/60 Pulse Oximetry 96 97 97 06/10/18 04:00 06/10/18 06:00 06/10/18 07:45 Temperature 99 F Pulse Rate 69 65 Respiratory Rate 21 Blood Pressure 121/79 Pulse Oximetry 97 98 06/10/18 08:00 06/10/18 09:27 Temperature Pulse Rate Respiratory Rate 16 16 Blood Pressure Pulse Oximetry Intake & Output 06/09/18 06/10/18 06/10/18 18:59 06:59 18:59 Intake Total 800 / 800 600 / 600 Output Total 1400 / 1400 1600 / 1600 Balance -600 / -600 -1000 / -1000 Weight 69.6 kg Intake: IV 300 / 300 Cordarone Inj 450 MG In D5W Inj 200 / 200 241 ML @ 1 MG/MIN 33.33 mls/hr IV.CONT TITRATE PRN Rx#: [id number] Rocephin Inj 1,000 MG In NS Inj 100 / 100 100 ML @ 200 mls/hr IV.SIG Q24H [facility] Rx#:[id number] Oral 500 / 500 600 / 600 Output: Urine 1400 / 1400 1600 / 1600 Other: Date of Last Bowel Movement 06/06/18 # Bowel Movements 0 - Constitutional no acute distress - Routine HEENT Exam Head: Present: normocephalic Eye: Present: PERRL ENT: Present: mucous membranes moist - Routine Neck Exam Present: supple - Routine Respiratory Exam Present: CTA bilaterally - Routine Cardiovascular Exam Present: S1, S2. Absent: murmur, gallop, rubs - Routine Abdominal Exam Present: normoactive bowel sounds - Routine Extremities Exam Present: full ROM, pulses intact, normal capillary refill. Absent: cyanosis, clubbing, edema Comments: Patient has limited range of motion on the right arm due to fracture of the humerus. Right arm is in a sling. - Routine Skin Exam Present: intact - Routine Neurological Exam Present: oriented X3 - Detailed Neurological Exam: Coma Scale Eye Opening: Spontaneous Verbal Response: Oriented Motor Response: [place]bey commands [place] Coma Scale Total: 15 - Routine Psychiatric Exam Present: normal affect Results 06/10/18 03:50 06/10/18 03:50 Cardiac Enzymes 06/10/18 Range/Units 03:50 AST 23 (15-37) U/L CBC 06/09/18 06/10/18 Range/Units 04:50 03:50 WBC 12.6 H 11.7 H (4.0-11.0) th/mm3 RBC 2.07 L 2.07 L (4.00-5.30) mil/mm3 Hgb 7.4 L 7.4 L (11.6-15.3) gm/dL Hct 22.8 L 22.8 L (35.0-46.0) % Plt Count 276 299 (150-450) th/mm3 Comprehensive Metabolic Panel 06/09/18 06/10/18 Range/Units 04:50 03:50 Sodium 144 145 (136-145) meq/L Potassium 4.4 4.2 (3.5-5.1) meq/L Chloride 107 106 (98-107) meq/L Carbon Dioxide 28.9 31.6 (21.0-32.0) meq/L BUN 10 7 (7-18) mg/dL Creatinine 0.86 0.77 (0.50-1.00) mg/dL Calcium 7.9 L 7.7 L (8.5-10.1) mg/dL AST 23 (15-37) U/L ALT 16 (10-53) U/L Alkaline Phosphatase 100 (45-117) U/L Total Protein 5.2 L (6.4-8.2) g/dL Albumin 1.6 L (3.4-5.0) g/dL Intake and Output 06/09/18 06/10/18 06/10/18 22:59 06:59 14:59 Intake Total 500 / 500 600 / 600 Output Total 1400 / 1400 1600 / 1600 Balance -900 / -900 -1000 / -1000 Intake: Oral 500 / 500 600 / 600 Output: Urine 1400 / 1400 1600 / 1600 Other: # Bowel Movements 0 Weight 69.6 kg Assessment and Plan - Assessment (1) Atrial fibrillation with RVR Code(s): I48.91 - Unspecified atrial fibrillation Status: Acute (2) Symptomatic bradycardia Code(s): R00.1 - Bradycardia, unspecified Status: Acute (3) Humeral fracture Code(s): S42.309A - Unspecified fracture of shaft of humerus, unspecified arm, initial encounter for closed fracture Status: Acute (4) Encephalopathy Code(s): G93.40 - Encephalopathy, unspecified Status: Acute (5) Toxic metabolic encephalopathy Code(s): G92 - Toxic encephalopathy Status: Acute (6) Gait disorder Code(s): R26.9 - Unspecified abnormalities of gait and mobility Status: Chronic (7) Tremor Code(s): R25.1 - Tremor, unspecified Status: Chronic (8) Acute UTI Code(s): N39.0 - Urinary tract infection, site not specified Status: Acute - Plan Patient is currently in sinus rhythm on telemetry with no episodes of atrial fibrillation with RVR. Continue treatment with Lovenox and aspirin for anticoagulation. Continue amiodarone loading 400 mg twice daily for 7 days, then 200 mg daily. Recent fall which resulted in a right proximal humerus fracture, arm is in a sling. Echocardiogram 06-06-18 shows ejection fraction 65-70%, trace mitral regurgitation and mild tricuspid valve regurgitation. Continue with current cardiac treatment plan and adjust as needed. We will continue to follow patient during her hospitalization. Patient was seen and evaluated by Dr. Zimmer who participated in care, management and decision making. - Attending Attestation Patient seen and examined. I reviewed and agree with the evaluation and plan as presented. Continue amio loading. No recurrent AF. Increase activity. (3) Humeral fracture Qualifiers: Encounter type: subsequent encounter Humerus Location: proximal Fracture type: closed Fracture morphology: other fracture Fracture alignment: nondisplaced Laterality: right Fracture healing: with routine healing Qualified Code(s): S42.294D - Other nondisplaced fracture of upper end of right humerus, subsequent encounter for fracture with routine healing
--- NOTE | 2018-06-10 09:55 | P.PNIM ---
Subjective Interval history: 58-year-old female with past medical history of Alzheimer's dementia, bipolar disorder, atrial fibrillation, hypothyroidism, gout. She has gait disorder (since 2004 per records) and has experienced multiple falls. She sustained a proximal humerus fracture on 05/28 and was discharged with orthopedic follow-up however she presented again to [facility] on after sustaining another fall at correction. She was admitted to the [facility] and neurology consult was obtained. MRI and MRA brain and MRI C-spine were recommended and are pending. She has a history of paroxysmal atrial fibrillation for which she takes sotalol 80 mg p.o. twice daily. She is not on chronic anticoagulation, presumably secondary to frequent falls. She was in sinus rhythm upon admission but apparently had an episodes of A fib RVR that initially converted to sinus rhythm after metoprolol 5 mg IV. She then had recurrent A fib RVR that was treated with metoprolol 5 mg IV, labetalol 5 mg IV, Cardizem 15 mg IV and then initiation of Cardizem drip. The Cardizem drip was titrated to 15 mg/h and then she converted to sinus bradycardia with rate 30-40s and she was hypotensive with BP 64/35. Cardizem drip discontinued. BP initially responded to 1 L NS bolus however she became hypotensive again and then remained hypotensive following additional 1 L NS bolus. She denies CP, SOB, n, v, lightheadedness, fever, headache. Subjective: 06/07: on dopamine at 1 mcg/kg/min. back in sinus rhythm. paroxysmal afib throughout the night overnight. complains of shoulder pain on the shoulder that she fell on. hypokalemic this AM and actively replacing. 06/08: back into afib RVR and back on vasopressors. I have stopped the dopamine as it appears it is causing the atrial dysrhythmias. started phenylephrine. agree with continuing amiodarone infusion. still on 400mg po q12h amiodarone. cardiology guiding anti-arrhythmic therapy. electrolytes improved. 06-09 TRANSFERRED BACK TO OUR SERVICE ON PO AMIODARONE NOW NEEDS PT AND OT TRANSFER OUT OF ICU ON TELE DW RN AND PT 06-10 NEEDS PT AND OT ON PO AMIODARONE INCREASE ACTIVITY MAY NOT HAVE SNF BENEFITS INCREASE ACTIVITY Physical Exam Vital signs: Vital Signs 06/09/18 10:00 06/09/18 11:54 06/09/18 12:00 Temperature 99.4 F Pulse Rate 63 63 Respiratory Rate 20 21 Blood Pressure 108/63 Pulse Oximetry 100 06/09/18 13:00 06/09/18 13:07 06/09/18 13:31 Temperature Pulse Rate 132 H 65 Respiratory Rate 36 H 19 25 H Blood Pressure 119/70 145/63 H Pulse Oximetry 96 93 L 06/09/18 14:00 06/09/18 14:30 06/09/18 15:01 Temperature Pulse Rate 84 76 87 Respiratory Rate 29 H 30 H 26 H Blood Pressure 130/75 116/64 125/67 Pulse Oximetry 96 06/09/18 15:30 06/09/18 16:00 06/09/18 16:01 Temperature 98.1 F Pulse Rate 129 H 140 H 143 H Respiratory Rate 15 30 H 23 Blood Pressure 110/68 107/57 L 121/71 Pulse Oximetry 98 06/09/18 16:12 06/09/18 16:30 06/09/18 17:00 Temperature Pulse Rate 75 74 Respiratory Rate 17 24 26 H Blood Pressure 105/55 L 113/55 L Pulse Oximetry 06/09/18 17:30 06/09/18 18:00 06/09/18 18:01 Temperature Pulse Rate 75 73 76 Respiratory Rate 31 H 21 28 H Blood Pressure 110/62 107/57 L Pulse Oximetry 06/09/18 18:31 06/09/18 19:00 06/09/18 19:30 Temperature Pulse Rate 75 69 72 Respiratory Rate 27 H 35 H 19 Blood Pressure 111/83 105/55 L 106/56 L Pulse Oximetry 95 06/09/18 20:00 06/09/18 20:30 06/09/18 21:01 Temperature 99.1 F Pulse Rate 79 71 73 Respiratory Rate 17 25 H 38 H Blood Pressure 106/55 L 95/57 L 123/58 L Pulse Oximetry 83 L 65 L 79 L 06/09/18 21:30 06/09/18 22:00 06/09/18 22:17 Temperature Pulse Rate 73 76 Respiratory Rate 20 20 Blood Pressure 106/62 100/58 L Pulse Oximetry 86 L 91 L 95 06/09/18 22:30 06/09/18 23:01 06/09/18 23:30 Temperature Pulse Rate 72 72 68 Respiratory Rate 31 H 25 H 22 Blood Pressure 98/61 L 116/58 L 106/63 Pulse Oximetry 94 L 88 L 85 L 06/10/18 00:00 06/10/18 00:30 06/10/18 01:00 Temperature 99 F Pulse Rate 72 80 70 Respiratory Rate 37 H 28 H 19 Blood Pressure 107/63 117/69 112/71 Pulse Oximetry 97 84 L 96 06/10/18 01:30 06/10/18 02:00 06/10/18 02:20 Temperature Pulse Rate 74 74 72 Respiratory Rate 37 H 30 H 16 Blood Pressure 111/57 L 136/63 Pulse Oximetry 96 91 L 06/10/18 02:30 06/10/18 03:00 06/10/18 03:33 Temperature Pulse Rate 68 73 68 Respiratory Rate 57 H 21 16 Blood Pressure 128/63 121/58 L 120/60 Pulse Oximetry 96 97 97 06/10/18 04:00 06/10/18 06:00 06/10/18 07:45 Temperature 99 F Pulse Rate 69 65 Respiratory Rate 21 Blood Pressure 121/79 Pulse Oximetry 97 98 06/10/18 08:00 06/10/18 09:27 Temperature 98.8 F Pulse Rate 58 L Respiratory Rate 18 16 Blood Pressure 107/54 L Pulse Oximetry 95 Intake & Output 06/09/18 06/10/18 06/10/18 18:59 06:59 18:59 Intake Total 800 / 800 600 / 600 Output Total 1400 / 1400 1600 / 1600 Balance -600 / -600 -1000 / -1000 Weight 69.6 kg Intake: IV 300 / 300 Cordarone Inj 450 MG In D5W Inj 200 / 200 241 ML @ 1 MG/MIN 33.33 mls/hr IV.CONT TITRATE PRN Rx#: [id number] Rocephin Inj 1,000 MG In NS Inj 100 / 100 100 ML @ 200 mls/hr IV.SIG Q24H [facility] Rx#:[id number] Oral 500 / 500 600 / 600 Output: Urine 1400 / 1400 1600 / 1600 Other: Date of Last Bowel Movement 06/06/18 # Bowel Movements 0 Narrative: GENERAL: Awake alert talkative and cooperative appears older than stated age SKIN: Warm and dry. HEAD: Atraumatic. Normocephalic. EYES: Pupils equal and round. No scleral icterus. No injection or drainage. ENT: No nasal bleeding or discharge. Mucous membranes pink and moist. NECK: Trachea midline. No JVD. CARDIOVASCULAR: IRRegular rate and rhythm. S1-S2 no S3 or S4 RESPIRATORY: No accessory muscle use. Clear to auscultation. Breath sounds equal bilaterally. GASTROINTESTINAL: Abdomen soft, non-tender, nondistended. Hepatic and splenic margins not palpable. MUSCULOSKELETAL: Extremities without clubbing, cyanosis, or edema. No obvious deformities. Right upper extremity in sling NEUROLOGICAL: Awake and alert. No obvious cranial nerve deficits. Motor grossly within normal limits. Five out of 5 muscle strength in the arms and legs. Normal speech. Right upper extremity is in sling PSYCHIATRIC: INAppropriate mood and affect; insight and judgment ABnormal. Results - Labs CBC & Chem 7: 06/10/18 03:50 06/10/18 03:50 Laboratory Results - last 24 hr 06/09/18 06/09/18 06/10/18 11:46 18:53 00:52 WBC RBC Hgb Hct MCV MCH MCHC RDW Plt Count MPV Prelim Diff (Auto) WBC Differential Seg Neuts % (Manual) Band Neuts % (Manual) Lymphocytes % (Manual) Monocytes % (Manual) Eosinophils % (Manual) Metamyelocytes % (Man) Promyelocytes % (Man) Abs Neuts (Manual) Differential Comment Platelet Estimate Platelet Morphology Spherocytes Sodium Potassium Chloride Carbon Dioxide Anion Gap BUN Creatinine Estimated GFR POC Glucose 74 93 105 Random Glucose Calcium Phosphorus Magnesium Total Bilirubin AST ALT Alkaline Phosphatase Total Protein Albumin TSH Free T4 06/10/18 06/10/18 06/10/18 03:50 03:50 05:38 WBC 11.7 H RBC 2.07 L Hgb 7.4 L Hct 22.8 L MCV 110.4 H MCH 35.9 H MCHC 32.5 RDW 15.6 Plt Count 299 MPV 10.0 Prelim Diff (Auto) Manual diff required WBC Differential Manual diff final Seg Neuts % (Manual) 66 Band Neuts % (Manual) 3 Lymphocytes % (Manual) 10 Monocytes % (Manual) 16 H Eosinophils % (Manual) 3 Metamyelocytes % (Man) 1 Promyelocytes % (Man) 1 H Abs Neuts (Manual) 8.3 H Differential Comment . Platelet Estimate Normal Platelet Morphology Normal Spherocytes Occ H Sodium 145 Potassium 4.2 Chloride 106 Carbon Dioxide 31.6 Anion Gap 7 BUN 7 Creatinine 0.77 Estimated GFR 77 L POC Glucose 97 Random Glucose 77 Calcium 7.7 L Phosphorus 3.6 Magnesium 2.1 Total Bilirubin 0.3 AST 23 ALT 16 Alkaline Phosphatase 100 Total Protein 5.2 L Albumin 1.6 L TSH 3.930 H Free T4 1.32 Microbiology 06/06/18 04:18 Blood - Peripheral Aerobic Blood Culture - Preliminary No growth in 3 days 06/06/18 04:18 Blood - Peripheral Anaerobic Blood Culture - Preliminary No growth in 3 days 06/06/18 04:00 Blood - Peripheral Aerobic Blood Culture - Preliminary No growth in 3 days 06/06/18 04:00 Blood - Peripheral Anaerobic Blood Culture - Preliminary No growth in 3 days 06/04/18 17:05 Blood - Peripheral Aerobic Blood Culture - Final No growth in 5 days 06/04/18 17:05 Blood - Peripheral Anaerobic Blood Culture - Final No growth in 5 days 06/04/18 17:13 Blood - Peripheral Aerobic Blood Culture - Final No growth in 5 days 06/04/18 17:13 Blood - Peripheral Anaerobic Blood Culture - Final No growth in 5 days - Imaging ITS Impressions Head CT 06/04/18 10:54 CONCLUSION: 1. No acute intracranial abnormality.. 2. Mild periventricular and subcortical white matter small vessel ischemic changes bilaterally. Humerus X-Ray 06/04/18 10:54 CONCLUSION: Oblique slightly comminuted fracture of the right humeral neck and proximal shaft Shoulder X-Ray 06/04/18 10:54 CONCLUSION: Oblique proximal humeral fracture. Acromion clavicular joint is unremarkable Shoulder CT 06/04/18 14:02 CONCLUSION: 1. Impacted humeral neck fracture as described above. There are 2 small bone fragment adjacent to the greater tuberosity. Carotid Doppler Study 06/05/18 00:00 CONCLUSION: 1. Right Internal Carotid Artery: Findings indicate <50% stenosis. 2. Left Internal Carotid Artery: No significant stenosis or atherosclerotic plaque is visualized. Cervical Spine MRI 06/06/18 00:00 CONCLUSION: 1. Minimal circumferential spinal stenosis and mild bilateral foraminal narrowing at C3 3-4, C4-5, C5-6 and C6-7. Head MRI 06/06/18 07:13 CONCLUSION: 1. Cerebral atrophy. 2. Mild periventricular white matter small vessel ischemic changes bilaterally. 3. No acute infarct, acute hemorrhage, midline shift or extra-axial fluid collections. Head MRA 06/06/18 07:14 CONCLUSION: 1. Negative MRA of the brain Chest X-Ray 06/06/18 07:49 CONCLUSION: Right internal jugular central line has its tip in superior vena cava. There is no pneumothorax. - Procedures NONE Assessment and Plan - Plan Assessment: 58yF with paroxysmal afib and humerus fracture. non-operative management for humerus fracture per ortho. OOB with PT. NEURO: Dementia Continue Aricept 10 mg p.o. daily Bipolar disorder Continue Depakote 500 mg p.o. 3 times daily. This may be for mood although indication is not entirely clear. Continue Zanaflex 2 mg p.o. 3 times daily. Continue Effexor ER 75 mg p.o. daily. Generalized weakness Gait disorder Multiple falls CT brainno acute abnormality. Small vessel ischemic changes. Neurology following. MRI/MRA brain and MRI C-spine negative. EEG 06/05moderate encephalopathy RESP: Nasal cannula wean as tolerated CV: Atrial fibrillation with RVR Now symptomatic sinus bradycardia with hypotension- resolving. Bradycardia and hypotension immediately upon conversion to sinus rhythm on betablockers and calcium channel blockers. Received atropine 0.5 mg IV, glucagon 2.5 mg IV, and trial transcutaneous pacing. She remained hypotensive even with rate in 70s. Initiated dopamine which ultimately was titrated to 20 mcg/kg/min to maintain mean arterial pressure greater than 65. Holding beta blockers and calcium channel blockers. Cardiology has previously been consulted. She may ultimately require backup pacemaker in order to tolerate rate control agents. Continue aspirin 81 mg daily. Off pressors off amiodarone drip now on p.o. amiodarone d/c dopamine start phenylephrine--off pressors continue amio infusion per cardiology-switched to p.o. amiodarone remainder of anti-arrhythmics per cardiology continue PO amiodarone 400mg q12h. aggressive electrolyte replacement. SL IVF GI: Heart healthy diet LFT WNL FEN/RENAL: Creatinine normal. Monitor intake and output and BMP. 20 meq kcl po x 1 daily electrolytes aggressive replacement. A.m. labs ID: [id number] Urine culture 06/04 with Klebsiella. Blood culture from 06/04 remain negative. Rocephin 1gm iv q24h for full 7 day course of abx therapy. HEME: Monitor CBC. Hemoglobin 7.8 from 10 after receiving 2 L normal saline. Monitor for evidence of bleeding. ENDO: Hypoglycemia- resolved. Continue diet. cortisol appropriate. Hypothyroidism Continue [place] Thyroid 60 milligrams daily. TSH elevated, free T4 normal: Sick euthyroid. no changes needed to regimen. needs recheck in outpatient setting in 6 weeks-3 months. MSK: Subacute right proximal humerus fracture Noted orthopedic consult has been placed. Upper extremity remains in a sling. plan for non-operative management per ortho. PROPH: Lovenox 40 mg subcu daily for DVT prophylaxis. Protonix 40 mg p.o. daily for stress ulcer prophylaxis. ACCESS: Has peripheral IV. Right IJ central venous line placed due to vasopressor requirement 06/06 #3: can d/c if off vasopressors. DC RIGHT IJ Code Status: FULL CODE Discussed Condition With: RN AND PT Discharge Planning: Transfer out of ICU
[2018-06-10 16:16] LABS: Hemoglobin A1c 5.3 % (4.3-6.0)
[2018-06-10] MEDS: Enoxaparin Inj 40 MG/0.4 ML Syringe SQ SCH (18:53)
[2018-06-11 04:20] LABS: Baso # (Auto) 0.1 th/mm3 (0.0-0.2); Baso % (Auto) 1.3 % (0.0-2.0); Eos # (Auto) 0.3 th/mm3 (0.0-0.4); Hematocrit 23.4 % (35.0-46.0); Hemoglobin 7.7 gm/dL (11.6-15.3); Lymph # (Auto) 1.7 th/mm3 (1.0-4.8); Lymph % (Auto) 17.4 % (9.0-44.0); Mean Corpuscular HGB Conc 32.9 % (32.0-36.0); Mean Corpuscular Hemoglobin 36.1 pg (27.0-34.0); Mean Corpuscular Volume 109.9 fL (80.0-100.0); Mean Platelet Volume 10.2 fL (7.0-11.0); Mono # (Auto) 1.9 th/mm3 (0.0-0.9); Mono % (Auto) 19.9 % (0.0-8.0); Neut # (Auto) 5.6 th/mm3 (1.8-7.7); Neut % (Auto) 58.4 % (16.0-70.0); Platelet Count 299 th/mm3 (150-450); Red Blood Count 2.13 mil/mm3 (4.00-5.30); Red Cell Distribution Width 15.6 % (11.6-17.2); White Blood Count 9.6 th/mm3 (4.0-11.0)
[2018-06-11 04:46] LABS: Albumin 1.6 g/dL (3.4-5.0); Anion Gap 7 meq/L (5-15); Aspartate Aminotransferase 22 U/L (15-37); Blood Urea Nitrogen 9 mg/dL (7-18); Carbon Dioxide 34.2 meq/L (21.0-32.0); Chloride 102 meq/L (98-107); Glomerular Filtration Rate 68 mL/min (>89); Glucose,Random 91 mg/dL (74-106); Magnesium 1.9 mg/dL (1.5-2.5); Sodium 143 meq/L (136-145)
[2018-06-11 04:47] LABS: Alanine Aminotransferase 15 U/L (10-53); Phosphorus 3.3 mg/dL (2.5-4.9)
[2018-06-11 04:49] LABS: Alkaline Phosphatase 108 U/L (45-117); Total Protein 5.2 g/dL (6.4-8.2)
--- NOTE | 2018-06-11 09:48 | P.PNIM ---
Subjective Interval history: 58-year-old female with past medical history of Alzheimer's dementia, bipolar disorder, atrial fibrillation, hypothyroidism, gout. She has gait disorder (since 2004 per records) and has experienced multiple falls. She sustained a proximal humerus fracture on 05/28 and was discharged with orthopedic follow-up however she presented again to [facility] MRI and MRA brain and MRI C-spine were recommended and are pending. She has a history of paroxysmal atrial fibrillation for which she takes sotalol 80 mg p.o. twice daily. She is not on chronic anticoagulation, presumably secondary to frequent falls. She was in sinus rhythm upon admission but apparently had an episodes of A fib RVR that initially converted to sinus rhythm after metoprolol 5 mg IV. She then had recurrent A fib RVR that was treated with metoprolol 5 mg IV, labetalol 5 mg IV, Cardizem 15 mg IV and then initiation of Cardizem drip. The Cardizem drip was titrated to 15 mg/h and then she converted to sinus bradycardia with rate 30-40s and she was hypotensive with BP 64/35. Cardizem drip discontinued. BP initially responded to 1 L NS bolus however she became hypotensive again and then remained hypotensive following additional 1 L NS bolus. She denies CP, SOB, n, v, lightheadedness, fever, headache. Subjective: 06/07: on dopamine at 1 mcg/kg/min. back in sinus rhythm. paroxysmal afib throughout the night overnight. complains of shoulder pain on the shoulder that she fell on. hypokalemic this AM and actively replacing. 06/08: back into afib RVR and back on vasopressors. I have stopped the dopamine as it appears it is causing the atrial dysrhythmias. started phenylephrine. agree with continuing amiodarone infusion. still on 400mg po q12h amiodarone. cardiology guiding anti-arrhythmic therapy. electrolytes improved. 06-09 TRANSFERRED BACK TO OUR SERVICE ON PO AMIODARONE NOW NEEDS PT AND OT TRANSFER OUT OF ICU ON TELE DW RN AND PT 06-10 NEEDS PT AND OT ON PO AMIODARONE INCREASE ACTIVITY MAY NOT HAVE SNF BENEFITS INCREASE ACTIVITY 06-11 PATIENT IS NOT VERY MOBILE PT RECOMMENDS REHAB NOT SURE IF HER INSURANCE WILL COVER NEEDS PT AND OT DAILY TRANSFER OUT OF ICU AM LABS Physical Exam Vital signs: Vital Signs 06/10/18 10:00 06/10/18 10:30 06/10/18 11:00 Temperature Pulse Rate 63 72 67 Respiratory Rate 27 H 19 26 H Blood Pressure 118/60 129/68 111/58 L Pulse Oximetry 98 98 91 L 06/10/18 11:30 06/10/18 12:00 06/10/18 12:26 Temperature 98.4 F Pulse Rate 67 124 H 77 Respiratory Rate 19 48 H 27 H Blood Pressure 112/59 L 119/63 111/57 L Pulse Oximetry 91 L 95 06/10/18 12:30 06/10/18 13:00 06/10/18 13:30 Temperature Pulse Rate 74 59 L 56 L Respiratory Rate 22 29 H 19 Blood Pressure 119/63 95/50 L 126/61 Pulse Oximetry 93 L 98 99 06/10/18 14:00 06/10/18 14:09 06/10/18 14:30 Temperature Pulse Rate 66 65 Respiratory Rate 24 19 22 Blood Pressure 121/67 123/61 Pulse Oximetry 94 L 97 06/10/18 15:00 06/10/18 15:30 06/10/18 16:00 Temperature 98.8 F Pulse Rate 67 65 79 Respiratory Rate 19 15 26 H Blood Pressure 122/65 114/59 L 133/55 L Pulse Oximetry 95 96 95 06/10/18 16:02 06/10/18 16:30 06/10/18 17:01 Temperature Pulse Rate 74 62 64 Respiratory Rate 22 22 15 Blood Pressure 133/55 L 112/61 128/59 L Pulse Oximetry 94 L 98 89 L 06/10/18 17:30 06/10/18 18:00 06/10/18 18:30 Temperature Pulse Rate 66 63 69 Respiratory Rate 19 18 18 Blood Pressure 118/57 L 119/61 138/64 Pulse Oximetry 89 L 97 97 06/10/18 18:52 06/10/18 19:00 06/10/18 19:30 Temperature Pulse Rate 72 67 Respiratory Rate 24 17 18 Blood Pressure 112/58 L 110/56 L Pulse Oximetry 96 96 06/10/18 19:41 06/10/18 20:00 06/10/18 20:30 Temperature 98.8 F Pulse Rate 71 64 Respiratory Rate 22 26 H 25 H Blood Pressure 106/85 100/58 L Pulse Oximetry 94 L 97 06/10/18 21:01 06/10/18 21:02 06/10/18 21:30 Temperature Pulse Rate 68 66 Respiratory Rate 32 H 23 Blood Pressure 115/54 L 111/55 L Pulse Oximetry 96 96 96 06/10/18 22:00 06/10/18 22:30 06/10/18 23:00 Temperature Pulse Rate 66 64 68 Respiratory Rate 21 15 12 Blood Pressure 104/56 L 103/54 L 110/57 L Pulse Oximetry 88 L 95 95 06/10/18 23:30 06/11/18 00:00 06/11/18 00:31 Temperature Pulse Rate 70 67 77 Respiratory Rate 17 26 H 29 H Blood Pressure 117/56 L 105/66 139/71 Pulse Oximetry 90 L 97 97 06/11/18 01:00 06/11/18 01:30 06/11/18 02:00 Temperature Pulse Rate 77 69 64 Respiratory Rate 18 20 17 Blood Pressure 129/62 110/64 111/57 L Pulse Oximetry 96 91 L 91 L 06/11/18 02:30 06/11/18 03:00 06/11/18 03:30 Temperature Pulse Rate 61 63 70 Respiratory Rate 21 18 25 H Blood Pressure 110/55 L 112/57 L 111/65 Pulse Oximetry 97 97 97 06/11/18 04:00 06/11/18 04:31 06/11/18 05:00 Temperature Pulse Rate 59 L 67 59 L Respiratory Rate 12 24 15 Blood Pressure 101/56 L 115/57 L 126/69 Pulse Oximetry 100 90 L 100 06/11/18 05:30 06/11/18 06:00 06/11/18 06:30 Temperature Pulse Rate 67 67 65 Respiratory Rate 14 19 19 Blood Pressure 130/67 134/65 126/71 Pulse Oximetry 100 99 99 06/11/18 08:16 Temperature Pulse Rate Respiratory Rate Blood Pressure Pulse Oximetry 97 Intake & Output 06/10/18 06/11/18 06/11/18 18:59 06:59 18:59 Intake Total 700 / 700 500 / 500 Output Total 1300 / 1300 700 / 700 Balance -600 / -600 -200 / -200 Weight 67.2 kg Intake: IV 100 / 100 Rocephin Inj 1,000 MG In NS Inj 100 / 100 100 ML @ 200 mls/hr IV.SIG Q24H [facility] Rx#:[id number] Oral 600 / 600 500 / 500 Output: Urine 1300 / 1300 700 / 700 Narrative: GENERAL: Awake alert talkative and cooperative appears older than stated age SKIN: Warm and dry. HEAD: Atraumatic. Normocephalic. EYES: Pupils equal and round. No scleral icterus. No injection or drainage. ENT: No nasal bleeding or discharge. Mucous membranes pink and moist. NECK: Trachea midline. No JVD. CARDIOVASCULAR: IRRegular rate and rhythm. S1-S2 no S3 or S4 RESPIRATORY: No accessory muscle use. Clear to auscultation. Breath sounds equal bilaterally. GASTROINTESTINAL: Abdomen soft, non-tender, nondistended. Hepatic and splenic margins not palpable. MUSCULOSKELETAL: Extremities without clubbing, cyanosis, or edema. No obvious deformities. Right upper extremity in sling NEUROLOGICAL: Awake and alert. No obvious cranial nerve deficits. Motor grossly within normal limits. 3 out of 5 muscle strength in the arms and legs. Normal speech. Right upper extremity is in sling PSYCHIATRIC: INAppropriate mood and affect; insight and judgment ABnormal. Results - Labs CBC & Chem 7: 06/11/18 02:51 06/11/18 02:51 Laboratory Results - last 24 hr 06/10/18 06/10/18 06/10/18 03:50 14:04 23:37 WBC RBC Hgb Hct MCV MCH MCHC RDW Plt Count MPV Neut % (Auto) Lymph % (Auto) [place] % (Auto) Eos % (Auto) Baso % (Auto) Neut # (Auto) Lymph # (Auto) [place] # (Auto) Eos # (Auto) Baso # (Auto) WBC Differential Differential Comment Sodium Potassium Chloride Carbon Dioxide Anion Gap BUN Creatinine Estimated GFR POC Glucose 112 H 96 Random Glucose Hemoglobin A1c 5.3 Calcium Phosphorus Magnesium Total Bilirubin AST ALT Alkaline Phosphatase Total Protein Albumin 06/11/18 06/11/18 02:51 02:51 WBC 9.6 RBC 2.13 L Hgb 7.7 L Hct 23.4 L MCV 109.9 H MCH 36.1 H MCHC 32.9 RDW 15.6 Plt Count 299 MPV 10.2 Neut % (Auto) 58.4 Lymph % (Auto) 17.4 [place] % (Auto) 19.9 H Eos % (Auto) 3.0 Baso % (Auto) 1.3 Neut # (Auto) 5.6 Lymph # (Auto) 1.7 [place] # (Auto) 1.9 H Eos # (Auto) 0.3 Baso # (Auto) 0.1 WBC Differential . Differential Comment Auto diff final Sodium 143 Potassium 4.0 Chloride 102 Carbon Dioxide 34.2 H Anion Gap 7 BUN 9 Creatinine 0.85 Estimated GFR 68 L POC Glucose Random Glucose 91 Hemoglobin A1c Calcium 8.0 L Phosphorus 3.3 Magnesium 1.9 Total Bilirubin 0.2 AST 22 ALT 15 Alkaline Phosphatase 108 Total Protein 5.2 L Albumin 1.6 L Microbiology 06/06/18 04:18 Blood - Peripheral Aerobic Blood Culture - Preliminary No growth in 4 days 06/06/18 04:18 Blood - Peripheral Anaerobic Blood Culture - Preliminary No growth in 4 days 06/06/18 04:00 Blood - Peripheral Aerobic Blood Culture - Preliminary No growth in 4 days 06/06/18 04:00 Blood - Peripheral Anaerobic Blood Culture - Preliminary No growth in 4 days - Procedures NONE Assessment and Plan - Plan Assessment: 58yF with paroxysmal afib and humerus fracture. non-operative management for humerus fracture per ortho. OOB with PT. NEURO: Dementia Continue Aricept 10 mg p.o. daily Bipolar disorder Continue Depakote 500 mg p.o. 3 times daily. This may be for mood although indication is not entirely clear. Continue Zanaflex 2 mg p.o. 3 times daily. Continue Effexor ER 75 mg p.o. daily. Generalized weakness Gait disorder Multiple falls CT brainno acute abnormality. Small vessel ischemic changes. Neurology following. MRI/MRA brain and MRI C-spine negative. EEG 06/05moderate encephalopathy RESP: Nasal cannula wean as tolerated CV: Atrial fibrillation with RVR Now symptomatic sinus bradycardia with hypotension- resolving. Bradycardia and hypotension immediately upon conversion to sinus rhythm on betablockers and calcium channel blockers. Received atropine 0.5 mg IV, glucagon 2.5 mg IV, and trial transcutaneous pacing. She remained hypotensive even with rate in 70s. Initiated dopamine which ultimately was titrated to 20 mcg/kg/min to maintain mean arterial pressure greater than 65. Holding beta blockers and calcium channel blockers. Cardiology has previously been consulted. She may ultimately require backup pacemaker in order to tolerate rate control agents. Continue aspirin 81 mg daily. Off pressors off amiodarone drip now on p.o. amiodarone d/c dopamine start phenylephrine--off pressors continue amio infusion per cardiology-switched to p.o. amiodarone remainder of anti-arrhythmics per cardiology continue PO amiodarone 400mg q12h. aggressive electrolyte replacement. SL IVF GI: Heart healthy diet LFT WNL FEN/RENAL: Creatinine normal. Monitor intake and output and BMP. 20 meq kcl po x 1 daily electrolytes aggressive replacement. A.m. labs ID: [id number] Urine culture 06/04 with Klebsiella. Blood culture from 06/04 remain negative. Rocephin 1gm iv q24h for full 7 day course of abx therapy. KLEBSIELLA OXYTOCA CONTINUE ON ROCEPHIN HEME: Monitor CBC. Hemoglobin 7.8 from 10 after receiving 2 L normal saline. Monitor for evidence of bleeding. ENDO: Hypoglycemia- resolved. Continue diet. cortisol appropriate. Hypothyroidism Continue [place] Thyroid 60 milligrams daily. TSH elevated, free T4 normal: Sick euthyroid. no changes needed to regimen. needs recheck in outpatient setting in 6 weeks-3 months. MSK: Subacute right proximal humerus fracture Noted orthopedic consult has been placed. Upper extremity remains in a sling. plan for non-operative management per ortho. PROPH: Lovenox 40 mg subcu daily for DVT prophylaxis. Protonix 40 mg p.o. daily for stress ulcer prophylaxis. ACCESS: Has peripheral IV. Right IJ central venous line placed due to vasopressor requirement 06/06 can d/c if off vasopressors. DC RIGHT IJ Code Status: FULL CODE Discussed Condition With: RN AND PT Discharge Planning: Transfer out of ICU NEEDS PT AND OT DAILY
[2018-06-11] MEDS: Amiodarone 200 MG Tablet PO SCH ×2 (10:05→20:00)
[2018-06-11] MEDS: Senna/Docusate Sodium 8.6/50 MG Tablet PO SCH ×2 (10:05→20:00)
[2018-06-11] MEDS: Thyroid 60 MG Tablet PO SCH (10:05)
[2018-06-11] MEDS: Divalproex 500 MG DR Tablet PO SCH ×3 (10:05→18:09)
[2018-06-11] MEDS: Venlafaxine XR 75 MG Capsule PO SCH (10:06)
[2018-06-11] MEDS ORDERED: Digoxin Inj 500 MCG/2 ML Ampul IV.PUSH ONE (12:15)
--- NOTE | 2018-06-11 15:11 | P.PNCA ---
Subjective Interval history: Patient denies any chest pain, pressure, palpitations, edema, dizziness or shortness of breath. Patient does complain of right arm pain due to fracture of the humerus, status post mechanical fall at home. Medications and Allergies Allergies Allergy/AdvReac Type Severity Reaction Status Date / Time No Known Allergies Allergy Verified 05/28/18 10:30 Home Medications Medication Instructions Recorded Confirmed Type allopurinol 100 mg PO BID 05/28/18 05/28/18 History aspirin 81 mg PO DAILY 05/28/18 05/28/18 History buspirone 5 mg PO TID 05/28/18 05/28/18 History calcium carbonate [Calcium 600] 600 mg PO BID 05/28/18 05/28/18 History divalproex [Depakote] 500 mg PO TID 05/28/18 05/28/18 History donepezil 10 mg PO DAILY 05/28/18 06/04/18 History hydrocodone-acetaminophen [[place]] 1 tab PO Q6H PRN 05/28/18 06/04/18 History levothyroxine 25 mcg PO DAILY 05/28/18 06/04/18 History oxybutynin chloride 5 mg PO BID 05/28/18 06/04/18 History sotalol 80 mg PO Q12H 05/28/18 06/04/18 History thyroid (pork) [[place] Thyroid] 60 mg PO DAILY 05/28/18 06/04/18 History tizanidine 2 mg PO TID PRN 05/28/18 06/04/18 History venlafaxine [Effexor XR] 75 mg PO DAILY 05/28/18 06/04/18 History Active Medications: Active Medications Acetaminophen (Tylenol) 650 mg PO Q4H PRN PRN Reason: Temp > 100.4 Last Admin: 06/05/18 08:09 Dose: 650 mg Hydrocodone Bitart/Acetaminophen ([place] 5/325) 1 tab PO Q4H PRN PRN Reason: PAIN 4-7 Last Admin: 06/10/18 03:47 Dose: 1 tab Hydrocodone Bitart/Acetaminophen ([place] 10/325) 1 tab PO Q4H PRN PRN Reason: PAIN 8-10 Last Admin: 06/11/18 03:29 Dose: 1 tab Al Hydroxide/Mg Hydroxide (Milk Of Magnesia Liq) 30 ml PO Q12H PRN PRN Reason: Mild Constipation Amiodarone HCl (Cordarone) 400 mg PO Q12HR [facility] Last Admin: 06/11/18 10:05 Dose: 400 mg Aspirin (Aspirin Chew) 81 mg PO DAILY [facility] Last Admin: 06/11/18 10:06 Dose: 81 mg Bisacodyl (Dulcolax Supp) 10 mg RECTAL DAILY PRN PRN Reason: SEVERE CONSITIPATION Dextrose (D50w Vial) 50 ml IV.PUSH UNSCH PRN PRN Reason: PER HYPOGLYCEMIA PROTOCOL Last Admin: 06/06/18 06:00 Dose: 50 ml Divalproex Sodium (Depakote Dr) 500 mg PO TID [facility] Last Admin: 06/11/18 13:07 Dose: 500 mg Donepezil HCl (Aricept) 10 mg PO DAILY [facility] Last Admin: 06/11/18 10:06 Dose: 10 mg Enoxaparin Sodium (Lovenox Inj) 40 mg SQ Q24H [facility] Last Admin: 06/10/18 18:53 Dose: 40 mg Glucagon (Glucagon Inj) 1 mg OTHER PRN PRN PRN Reason: for Hypoglycemia Protocol Potassium Chloride (Kcl 40 Meq Premix Inj) 40 meq in 100 mls @ 25 mls/hr IV.SIG Q2H PRN PRN Reason: For Potassium 2.8 - 3.2 mEq/L Last Infusion: 06/07/18 16:45 Dose: Infused Potassium Chloride (Kcl 20 Meq Premix Inj) 20 meq in 100 mls @ 50 mls/hr IV.SIG Q2H PRN PRN Reason: For Potassium 3.3 - 3.5 mEq/L Potassium Chloride (Kcl 40 Meq Premix Inj) 40 meq in 100 mls @ 25 mls/hr IV.SIG UNSCH PRN PRN Reason: For Potassium 3.3 - 3.5 mEq/L Sodium Phosphate 30 mmol/ (Sodium Chloride) 260 mls @ 42 mls/hr IV.SIG UNSCH PRN PRN Reason: For Phosphorus < 2.5 mg/dL Potassium Phosphate 30 mmol/ (Sodium Chloride) 260 mls @ 42 mls/hr IV.SIG UNSCH PRN PRN Reason: SEE LABEL COMMENTS Magnesium Sulfate 4 gm/ Sodium (Chloride) 100 mls @ 50 mls/hr IV.SIG UNSCH PRN PRN Reason: For Magnesium 0.9 - 1.1 mg/dL Potassium Chloride (Kcl 20 Meq Premix Inj) 20 meq in 100 mls @ 50 mls/hr IV.SIG Q2H PRN PRN Reason: For Potassium 2.8 - 3.2 mEq/L Magnesium Sulfate 2 gm/ Sodium (Chloride) 100 mls @ 50 mls/hr IV.SIG UNSCH PRN PRN Reason: For Magnesium 1.2 - 1.6 mg/dL Ceftriaxone Sodium 1,000 mg/ (Sodium Chloride) 100 mls @ 200 mls/hr IV.SIG Q24H [facility] Stop: 06/13/18 09:59 Last Admin: 06/11/18 10:07 Dose: 200 mls/hr Amiodarone HCl 450 mg/ (Dextrose) 250 mls @ 33.33 mls/hr IV.CONT TITRATE PRN; Protocol PRN Reason: Per Protocol Last Titration: 06/09/18 10:07 Dose: 0 mg/min, 0 mls/hr Phenylephrine HCl 40 mg/ (Dextrose) 500 mls @ 30 mls/hr IV.CONT TITRATE PRN; Protocol PRN Reason: Per Protocol Last Titration: 06/08/18 11:02 Dose: 0 mcg/min, 0 mls/hr Lactulose (Lactulose Liq) 30 ml PO DAILY PRN PRN Reason: SEVERE CONSITIPATION Levothyroxine Sodium (Synthroid) 25 mcg PO DAILY@0600 [facility] Last Admin: 06/11/18 06:03 Dose: 25 mcg Magnesium Oxide (Mag-Ox) 800 mg PO UNSCH PRN PRN Reason: For Magnesium 1.2 - 1.6 mg/dL Miscellaneous (Pill Splitter) 1 each [facility] Ondansetron HCl (Zofran Inj) 4 mg IV.PUSH Q6H PRN PRN Reason: NAUSEA OR VOMITING Last Admin: 06/07/18 21:46 Dose: 4 mg Oxybutynin Chloride (Ditropan) 5 mg PO BID [facility] Last Admin: 06/11/18 10:06 Dose: 5 mg Pantoprazole Sodium (Protonix) 40 mg PO DAILY [facility] Last Admin: 06/11/18 10:05 Dose: 40 mg Potassium Bicarb/Potassium Chloride (K-Lyte Cl Eff) 50 meq PO UNSCH PRN PRN Reason: For Potassium 3.3 - 3.5 mEq/L Potassium Phosphate (K-Phos Original) 2,000 mg PO Q4H PRN PRN Reason: Phosphorus Less Than 2.5 mg/dL Potassium Phosphate (K-Phos Original) 2,000 mg PO UNSCH PRN PRN Reason: SEE LABEL COMMENTS Senna/Docusate Sodium (Leena-Colace) 1 tab PO BID [facility] Last Admin: 06/11/18 10:05 Dose: 1 tab Sennosides (Senokot) 17.2 mg PO Q12H PRN PRN Reason: Moderate Constipation Sodium Chloride (Ns Flush) 2 ml IV.FLUSH BID [facility] Last Admin: 06/11/18 10:07 Dose: 2 ml Sodium Chloride (Ns Flush) 2 ml IV.FLUSH PRN PRN PRN Reason: FLUSH AFTER USING IV ACCESS Sotalol HCl (Betapace) 80 mg PO Q12HR [facility] Last Admin: 06/05/18 20:05 Dose: 80 mg Thyroid ([place] Thyroid) 60 mg PO DAILY [facility] Last Admin: 06/11/18 10:05 Dose: 60 mg Tizanidine HCl (Zanaflex) 2 mg PO TID PRN PRN Reason: Anxiety Last Admin: 06/05/18 21:40 Dose: 2 mg Venlafaxine HCl (Effexor Xr) 75 mg PO DAILY [facility] Last Admin: 06/11/18 10:06 Dose: 75 mg Physical Exam Vital signs: Vital Signs 06/10/18 15:30 06/10/18 16:00 06/10/18 16:02 Temperature 98.8 F Pulse Rate 65 79 74 Respiratory Rate 15 26 H 22 Blood Pressure 114/59 L 133/55 L 133/55 L Pulse Oximetry 96 95 94 L 06/10/18 16:30 06/10/18 17:01 06/10/18 17:30 Temperature Pulse Rate 62 64 66 Respiratory Rate 22 15 19 Blood Pressure 112/61 128/59 L 118/57 L Pulse Oximetry 98 89 L 89 L 06/10/18 18:00 06/10/18 18:30 06/10/18 18:52 Temperature Pulse Rate 63 69 Respiratory Rate 18 18 24 Blood Pressure 119/61 138/64 Pulse Oximetry 97 97 06/10/18 19:00 06/10/18 19:30 06/10/18 19:41 Temperature Pulse Rate 72 67 Respiratory Rate 17 18 22 Blood Pressure 112/58 L 110/56 L Pulse Oximetry 96 96 06/10/18 20:00 06/10/18 20:30 06/10/18 21:01 Temperature 98.8 F Pulse Rate 71 64 68 Respiratory Rate 26 H 25 H 32 H Blood Pressure 106/85 100/58 L 115/54 L Pulse Oximetry 94 L 97 96 06/10/18 21:02 06/10/18 21:30 06/10/18 22:00 Temperature Pulse Rate 66 66 Respiratory Rate 23 21 Blood Pressure 111/55 L 104/56 L Pulse Oximetry 96 96 88 L 06/10/18 22:30 06/10/18 23:00 06/10/18 23:30 Temperature Pulse Rate 64 68 70 Respiratory Rate 15 12 17 Blood Pressure 103/54 L 110/57 L 117/56 L Pulse Oximetry 95 95 90 L 06/11/18 00:00 06/11/18 00:31 06/11/18 01:00 Temperature Pulse Rate 67 77 77 Respiratory Rate 26 H 29 H 18 Blood Pressure 105/66 139/71 129/62 Pulse Oximetry 97 97 96 06/11/18 01:30 06/11/18 02:00 06/11/18 02:30 Temperature Pulse Rate 69 64 61 Respiratory Rate 20 17 21 Blood Pressure 110/64 111/57 L 110/55 L Pulse Oximetry 91 L 91 L 97 06/11/18 03:00 06/11/18 03:30 06/11/18 04:00 Temperature Pulse Rate 63 70 59 L Respiratory Rate 18 25 H 12 Blood Pressure 112/57 L 111/65 101/56 L Pulse Oximetry 97 97 100 06/11/18 04:31 06/11/18 05:00 06/11/18 05:30 Temperature Pulse Rate 67 59 L 67 Respiratory Rate 24 15 14 Blood Pressure 115/57 L 126/69 130/67 Pulse Oximetry 90 L 100 100 06/11/18 06:00 06/11/18 06:30 06/11/18 07:00 Temperature Pulse Rate 67 65 60 Respiratory Rate 19 19 25 H Blood Pressure 134/65 126/71 119/59 L Pulse Oximetry 99 99 97 06/11/18 07:30 06/11/18 08:00 06/11/18 08:16 Temperature Pulse Rate 58 L 66 Respiratory Rate 29 H 26 H Blood Pressure 122/60 124/65 Pulse Oximetry 99 99 97 06/11/18 08:30 06/11/18 09:00 06/11/18 09:30 Temperature Pulse Rate 61 55 L 57 L Respiratory Rate 28 H 42 H 31 H Blood Pressure 106/57 L 110/58 L 114/59 L Pulse Oximetry 98 98 97 06/11/18 10:00 06/11/18 11:00 06/11/18 12:00 Temperature Pulse Rate 66 64 144 H Respiratory Rate 28 H 16 20 Blood Pressure 113/62 116/71 Pulse Oximetry 98 97 06/11/18 13:09 06/11/18 13:30 06/11/18 14:00 Temperature Pulse Rate 76 78 68 Respiratory Rate 26 H 17 17 Blood Pressure 133/72 119/68 116/72 Pulse Oximetry 94 L 06/11/18 14:30 Temperature Pulse Rate 66 Respiratory Rate 25 H Blood Pressure 123/67 Pulse Oximetry 88 L Intake & Output 06/10/18 06/11/18 06/11/18 18:59 06:59 18:59 Intake Total 700 / 700 500 / 500 Output Total 1300 / 1300 700 / 700 Balance -600 / -600 -200 / -200 Weight 67.2 kg Intake: IV 100 / 100 Rocephin Inj 1,000 MG In NS Inj 100 / 100 100 ML @ 200 mls/hr IV.SIG Q24H [facility] Rx#:[id number] Oral 600 / 600 500 / 500 Output: Urine 1300 / 1300 700 / 700 - Constitutional no acute distress - Routine HEENT Exam Head: Present: normocephalic Eye: Present: PERRL ENT: Present: mucous membranes moist - Routine Neck Exam Present: full ROM - Routine Respiratory Exam Present: CTA bilaterally - Routine Cardiovascular Exam Present: S1, S2, bradycardia. Absent: murmur, gallop, rubs - Routine Abdominal Exam Present: normoactive bowel sounds - Routine Extremities Exam Present: edema, full ROM, pulses intact, normal capillary refill. Absent: cyanosis, clubbing Comments: Right arm is currently in a sling due to fracture of the humerus. - Routine Skin Exam Present: intact - Routine Neurological Exam Present: oriented X3 - Detailed Neurological Exam: Coma Scale Eye Opening: Spontaneous Verbal Response: Oriented Motor Response: Obey commands [place] Coma Scale Total: 15 - Routine Psychiatric Exam Present: normal affect Results 06/11/18 02:51 06/11/18 02:51 Cardiac Enzymes 06/10/18 06/11/18 Range/Units 03:50 02:51 AST 23 22 (15-37) U/L CBC 06/10/18 06/11/18 Range/Units 03:50 02:51 WBC 11.7 H 9.6 (4.0-11.0) th/mm3 RBC 2.07 L 2.13 L (4.00-5.30) mil/mm3 Hgb 7.4 L 7.7 L (11.6-15.3) gm/dL Hct 22.8 L 23.4 L (35.0-46.0) % Plt Count 299 299 (150-450) th/mm3 Neut # (Auto) 5.6 (1.8-7.7) th/mm3 Lymph # (Auto) 1.7 (1.0-4.8) th/mm3 [place] # (Auto) 1.9 H (0.0-0.9) th/mm3 Eos # (Auto) 0.3 (0.0-0.4) th/mm3 Baso # (Auto) 0.1 (0.0-0.2) th/mm3 Comprehensive Metabolic Panel 06/10/18 06/11/18 Range/Units 03:50 02:51 Sodium 145 143 (136-145) meq/L Potassium 4.2 4.0 (3.5-5.1) meq/L Chloride 106 102 (98-107) meq/L Carbon Dioxide 31.6 34.2 H (21.0-32.0) meq/L BUN 7 9 (7-18) mg/dL Creatinine 0.77 0.85 (0.50-1.00) mg/dL Calcium 7.7 L 8.0 L (8.5-10.1) mg/dL AST 23 22 (15-37) U/L ALT 16 15 (10-53) U/L Alkaline Phosphatase 100 108 (45-117) U/L Total Protein 5.2 L 5.2 L (6.4-8.2) g/dL Albumin 1.6 L 1.6 L (3.4-5.0) g/dL Intake and Output 06/11/18 06/11/18 06/11/18 06:59 14:59 22:59 Intake Total 500 / 500 Output Total 700 / 700 Balance -200 / -200 Intake: Oral 500 / 500 Output: Urine 700 / 700 Other: Weight 67.2 kg Assessment and Plan - Assessment (1) Atrial fibrillation with RVR Code(s): I48.91 - Unspecified atrial fibrillation Status: Acute (2) Symptomatic bradycardia Code(s): R00.1 - Bradycardia, unspecified Status: Acute (3) Humeral fracture Code(s): S42.309A - Unspecified fracture of shaft of humerus, unspecified arm, initial encounter for closed fracture Status: Acute (4) Encephalopathy Code(s): G93.40 - Encephalopathy, unspecified Status: Acute (5) Toxic metabolic encephalopathy Code(s): G92 - Toxic encephalopathy Status: Acute (6) Gait disorder Code(s): R26.9 - Unspecified abnormalities of gait and mobility Status: Chronic (7) Tremor Code(s): R25.1 - Tremor, unspecified Status: Chronic (8) Acute UTI Code(s): N39.0 - Urinary tract infection, site not specified Status: Acute - Plan Patient in sinus rhythm, still with episodes of paroxysmal a fib w RVR. Due to proximal atrial fib, continue treatment with Lovenox and aspirin for anticoagulation to decrease risk of stroke. Continue amiodarone loading 400 mg twice daily for 7 days, then 200 mg daily. Recent fall which resulted in a right proximal humerus fracture, arm is in a sling. Echocardiogram 06-06-18 shows ejection fraction 65-70%, trace mitral regurgitation and mild tricuspid valve regurgitation. Continue with current cardiac treatment plan and adjust as needed. We will continue to follow patient during her hospitalization. Patient was seen and evaluated by Dr. Zimmer who participated in care, management and decision making. - Attending Attestation Patient seen and examined. I reviewed and agree with the evaluation and plan as presented. Still with episodes of a fib w RVR. Continue amio loading. Transfer to floor with telemetry. (3) Humeral fracture Qualifiers: Encounter type: subsequent encounter Humerus Location: proximal Fracture type: closed Fracture morphology: other fracture Fracture alignment: nondisplaced Laterality: right Fracture healing: with routine healing Qualified Code(s): S42.294D - Other nondisplaced fracture of upper end of right humerus, subsequent encounter for fracture with routine healing
[2018-06-11 18:08] LABS: Magnesium 2.2 mg/dL (1.5-2.5); Phosphorus 3.4 mg/dL (2.5-4.9)
[2018-06-11] MEDS: Enoxaparin Inj 40 MG/0.4 ML Syringe SQ SCH (18:09)
[2018-06-11] MEDS ORDERED: Metoprolol Inj 5 MG/5 ML Vial IV.PUSH ONE (22:00)
[2018-06-12] MEDS ORDERED: Sod Chloride 0.9% Inj 1,000 ML IV.SIG SCH (00:45)
[2018-06-12 04:52] LABS: Baso # (Auto) 0.1 th/mm3 (0.0-0.2); Baso % (Auto) 0.8 % (0.0-2.0); Eos # (Auto) 0.3 th/mm3 (0.0-0.4); Eos % (Auto) 2.7 % (0.0-4.0); Hematocrit 24.7 % (35.0-46.0); Hemoglobin 7.9 gm/dL (11.6-15.3); Lymph # (Auto) 1.7 th/mm3 (1.0-4.8); Lymph % (Auto) 16.4 % (9.0-44.0); Mean Corpuscular HGB Conc 31.9 % (32.0-36.0); Mean Corpuscular Hemoglobin 35.6 pg (27.0-34.0); Mean Corpuscular Volume 111.7 fL (80.0-100.0); Mean Platelet Volume 10.2 fL (7.0-11.0); Mono % (Auto) 19.2 % (0.0-8.0); Neut # (Auto) 6.4 th/mm3 (1.8-7.7); Neut % (Auto) 60.9 % (16.0-70.0); Platelet Count 314 th/mm3 (150-450); Red Blood Count 2.21 mil/mm3 (4.00-5.30); Red Cell Distribution Width 16.1 % (11.6-17.2); White Blood Count 10.5 th/mm3 (4.0-11.0)
[2018-06-12 05:15] LABS: Alanine Aminotransferase 14 U/L (10-53); Albumin 1.5 g/dL (3.4-5.0); Anion Gap 4 meq/L (5-15); Aspartate Aminotransferase 20 U/L (15-37); Blood Urea Nitrogen 8 mg/dL (7-18); Calcium 7.6 mg/dL (8.5-10.1); Carbon Dioxide 35.7 meq/L (21.0-32.0); Chloride 104 meq/L (98-107); Glomerular Filtration Rate 76 mL/min (>89); Glucose,Random 86 mg/dL (74-106); Magnesium 2.1 mg/dL (1.5-2.5); Potassium 4.1 meq/L (3.5-5.1); Sodium 144 meq/L (136-145)
[2018-06-12 05:18] LABS: Alkaline Phosphatase 107 U/L (45-117); Phosphorus 3.3 mg/dL (2.5-4.9); Total Protein 4.9 g/dL (6.4-8.2)
[2018-06-12 08:15] LABS: Eosinophils 2 % (0-4); Lymphocytes 14 % (9-44); Monocytes 26 % (0-8); Platelet Estimate Normal (Normal); Platelet Morphology Normal (Normal); Promyelocyte 1 % (0-0); Stomatocytes 1+
[2018-06-12] MEDS: Venlafaxine XR 75 MG Capsule PO SCH (09:36)
[2018-06-12] MEDS: Thyroid 60 MG Tablet PO SCH (09:37)
[2018-06-12] MEDS: Amiodarone 200 MG Tablet PO SCH ×2 (09:37→21:35)
[2018-06-12] MEDS: Divalproex 500 MG DR Tablet PO SCH ×3 (09:37→18:16)
[2018-06-12] MEDS: Senna/Docusate Sodium 8.6/50 MG Tablet PO SCH ×2 (09:37→21:35)
--- NOTE | 2018-06-12 10:15 | P.PNIM ---
Subjective Interval history: 58-year-old female with past medical history of Alzheimer's dementia, bipolar disorder, atrial fibrillation, hypothyroidism, gout. She has gait disorder (since 2004 per records) and has experienced multiple falls. She sustained a proximal humerus fracture on 05/28 and was discharged with orthopedic follow-up however she presented again to [facility] on after sustaining another fall at half-way. [facility] obtained. MRI and MRA brain and MRI C-spine were recommended and are pending. She has a history of paroxysmal atrial fibrillation for which she takes sotalol 80 mg p.o. twice daily. She is not on chronic anticoagulation, presumably secondary to frequent falls. She was in sinus rhythm upon admission but apparently had an episodes of A fib RVR that initially converted to sinus rhythm after metoprolol 5 mg IV. She then had recurrent A fib RVR that was treated with metoprolol 5 mg IV, labetalol 5 mg IV, Cardizem 15 mg IV and then initiation of Cardizem drip. The Cardizem drip was titrated to 15 mg/h and then she converted to sinus bradycardia with rate 30-40s and she was hypotensive with BP 64/35. Cardizem drip discontinued. BP initially responded to 1 L NS bolus however she became hypotensive again and then remained hypotensive following additional 1 L NS bolus. She denies CP, SOB, n, v, lightheadedness, fever, headache. Subjective: 06/07: on dopamine at 1 mcg/kg/min. back in sinus rhythm. paroxysmal afib throughout the night overnight. complains of shoulder pain on the shoulder that she fell on. hypokalemic this AM and actively replacing. 06/08: back into afib RVR and back on vasopressors. I have stopped the dopamine as it appears it is causing the atrial dysrhythmias. started phenylephrine. agree with continuing amiodarone infusion. still on 400mg po q12h amiodarone. cardiology guiding anti-arrhythmic therapy. electrolytes improved. 06-09 TRANSFERRED BACK TO OUR SERVICE ON PO AMIODARONE NOW NEEDS PT AND OT TRANSFER OUT OF ICU ON TELE DW RN AND PT 06-10 NEEDS PT AND OT ON PO AMIODARONE INCREASE ACTIVITY MAY NOT HAVE SNF BENEFITS INCREASE ACTIVITY 06-11 PATIENT IS NOT VERY MOBILE PT RECOMMENDS REHAB NOT SURE IF HER INSURANCE WILL COVER NEEDS PT AND OT DAILY TRANSFER OUT OF ICU AM LABS 06-12 NEEDS PT AND OT VERY WEAK COULD USE SNF IF INSURANCE AUTHORIZES IT HEART RATE BETTER CONTROLLED TODAY CLEARED BY CARDIOLOGY FOR DISCHARGE AM LABS Physical Exam Vital signs: Vital Signs 06/11/18 11:00 06/11/18 12:00 06/11/18 13:09 Temperature Pulse Rate 64 144 H 76 Respiratory Rate 16 20 26 H Blood Pressure 116/71 133/72 Pulse Oximetry 97 06/11/18 13:30 06/11/18 14:00 06/11/18 14:30 Temperature Pulse Rate 78 68 66 Respiratory Rate 17 17 25 H Blood Pressure 119/68 116/72 123/67 Pulse Oximetry 94 L 88 L 06/11/18 15:01 06/11/18 15:31 06/11/18 16:00 Temperature Pulse Rate 70 88 66 Respiratory Rate 35 H 0 L 0 L Blood Pressure 147/68 H 155/74 H Pulse Oximetry 06/11/18 16:01 06/11/18 16:30 06/11/18 17:00 Temperature Pulse Rate 69 73 78 Respiratory Rate 0 L 0 L 0 L Blood Pressure 134/62 137/60 143/70 H Pulse Oximetry 06/11/18 17:30 06/11/18 17:32 06/11/18 18:00 Temperature Pulse Rate 75 69 Respiratory Rate 0 L 16 30 H Blood Pressure 141/63 H 125/60 Pulse Oximetry 06/11/18 18:30 06/11/18 19:01 06/11/18 19:23 Temperature Pulse Rate 81 76 75 Respiratory Rate 33 H 20 30 H Blood Pressure 127/79 142/101 H 146/69 H Pulse Oximetry 82 L 06/11/18 19:30 06/11/18 19:42 06/11/18 20:00 Temperature 99 F Pulse Rate 70 69 Respiratory Rate 23 36 H Blood Pressure 143/69 H 127/59 L Pulse Oximetry 97 98 99 06/11/18 20:30 06/11/18 21:00 06/11/18 21:30 Temperature Pulse Rate 140 H 143 H 145 H Respiratory Rate 19 19 17 Blood Pressure 140/78 137/64 128/77 Pulse Oximetry 100 98 95 06/11/18 22:00 06/11/18 22:30 06/11/18 23:00 Temperature Pulse Rate 150 H 69 60 Respiratory Rate 27 H 32 H 28 H Blood Pressure 113/76 115/63 97/61 L Pulse Oximetry 100 97 06/11/18 23:30 06/11/18 23:36 06/11/18 23:37 Temperature Pulse Rate 60 60 62 Respiratory Rate 39 H 29 H 29 H Blood Pressure 78/52 L 66/43 L 73/44 L Pulse Oximetry 98 98 97 06/11/18 23:38 06/11/18 23:39 06/11/18 23:40 Temperature Pulse Rate 64 62 59 L Respiratory Rate 31 H 26 H 34 H Blood Pressure 69/41 L 79/50 L 79/44 L Pulse Oximetry 97 97 98 06/11/18 23:42 06/11/18 23:44 06/11/18 23:49 Temperature Pulse Rate 58 L 58 L 59 L Respiratory Rate 31 H 18 23 Blood Pressure 76/46 L 69/44 L 76/42 L Pulse Oximetry 98 98 99 06/11/18 23:51 06/11/18 23:52 06/11/18 23:53 Temperature Pulse Rate 60 60 58 L Respiratory Rate 26 H 24 23 Blood Pressure 80/44 L 74/43 L 74/43 L Pulse Oximetry 99 100 100 06/11/18 23:54 06/11/18 23:58 06/12/18 00:00 Temperature Pulse Rate 59 L 57 L 57 L Respiratory Rate 23 25 H 21 Blood Pressure 69/49 L 77/40 L 75/44 L Pulse Oximetry 100 99 100 06/12/18 00:01 06/12/18 00:03 06/12/18 00:06 Temperature Pulse Rate 60 59 L 58 L Respiratory Rate 30 H 22 27 H Blood Pressure 74/42 L 75/43 L 69/43 L Pulse Oximetry 98 93 L 93 L 06/12/18 00:08 06/12/18 00:15 06/12/18 00:30 Temperature Pulse Rate 65 56 L 55 L Respiratory Rate 24 26 H 21 Blood Pressure 67/39 L 71/41 L 76/45 L Pulse Oximetry 91 L 90 L 94 L 06/12/18 00:45 06/12/18 01:00 06/12/18 01:03 Temperature Pulse Rate 55 L 56 L 57 L Respiratory Rate 25 H 20 18 Blood Pressure 78/45 L 76/40 L 75/43 L Pulse Oximetry 92 L 95 94 L 06/12/18 01:15 06/12/18 01:30 06/12/18 01:45 Temperature Pulse Rate 60 60 60 Respiratory Rate 17 16 20 Blood Pressure 83/46 L 81/48 L 85/50 L Pulse Oximetry 98 90 L 100 06/12/18 02:00 06/12/18 02:01 06/12/18 02:15 Temperature Pulse Rate 62 62 59 L Respiratory Rate 15 26 H 16 Blood Pressure 80/47 L 76/44 L 85/50 L Pulse Oximetry 100 97 100 06/12/18 02:30 06/12/18 02:45 06/12/18 03:00 Temperature Pulse Rate 58 L 57 L 57 L Respiratory Rate 16 20 17 Blood Pressure 83/45 L 83/50 L 79/48 L Pulse Oximetry 100 100 100 06/12/18 03:15 06/12/18 03:30 06/12/18 03:45 Temperature Pulse Rate 56 L 55 L 55 L Respiratory Rate 23 26 H 21 Blood Pressure 80/48 L 83/52 L 85/53 L Pulse Oximetry 100 100 100 06/12/18 04:00 06/12/18 04:15 06/12/18 04:30 Temperature Pulse Rate 54 L 54 L 51 L Respiratory Rate 23 25 H 18 Blood Pressure 82/48 L 91/54 L 89/51 L Pulse Oximetry 100 100 100 06/12/18 04:45 06/12/18 04:46 06/12/18 05:00 Temperature Pulse Rate 53 L 52 L 51 L Respiratory Rate 17 17 16 Blood Pressure 83/45 L 85/47 L 85/49 L Pulse Oximetry 100 100 100 06/12/18 05:15 06/12/18 05:30 06/12/18 05:45 Temperature Pulse Rate 51 L 61 66 Respiratory Rate 18 16 19 Blood Pressure 81/47 L 101/54 L 107/59 L Pulse Oximetry 100 86 L 98 06/12/18 06:00 06/12/18 06:15 06/12/18 08:21 Temperature Pulse Rate 52 L 51 L Respiratory Rate 12 23 Blood Pressure 96/53 L 88/53 L Pulse Oximetry 98 94 L 98 Intake & Output 06/11/18 06/12/18 06/12/18 18:59 06:59 18:59 Intake Total 100 / 100 1250 / 1250 Output Total 1999 600 / 600 Balance -1900 / -1900 650 / 650 Weight 68.9 kg Intake: IV 100 / 100 1000 / 1000 NS Inj 1,000 ML @ Wide Open IV. 1000 / 1000 SIG BOLUS NELLIE Rx#:[id number] Rocephin Inj 1,000 MG In NS Inj 100 / 100 100 ML @ 200 mls/hr IV.SIG Q24H NELLIE Rx#:[id number] Oral 250 / 250 Output: Urine 1999 600 / 600 Other: # Incontinent Voids 4 Narrative: GENERAL: Awake alert talkative and cooperative appears older than stated age SKIN: Warm and dry. HEAD: Atraumatic. Normocephalic. EYES: Pupils equal and round. No scleral icterus. No injection or drainage. ENT: No nasal bleeding or discharge. Mucous membranes pink and moist. NECK: Trachea midline. No JVD. CARDIOVASCULAR: IRRegular rate and rhythm. S1-S2 no S3 or S4 RESPIRATORY: No accessory muscle use. Clear to auscultation. Breath sounds equal bilaterally. GASTROINTESTINAL: Abdomen soft, non-tender, nondistended. Hepatic and splenic margins not palpable. MUSCULOSKELETAL: Extremities without clubbing, cyanosis, or edema. No obvious deformities. Right upper extremity in sling NEUROLOGICAL: Awake and alert. No obvious cranial nerve deficits. Motor grossly within normal limits. 3 out of 5 muscle strength in the arms and legs. Normal speech. Right upper extremity is in sling PSYCHIATRIC: INAppropriate mood and affect; insight and judgment ABnormal. Results - Labs CBC & Chem 7: 06/12/18 02:58 06/12/18 02:58 Laboratory Results - last 24 hr 06/11/18 06/11/18 06/12/18 16:20 18:11 00:23 WBC RBC Hgb Hct MCV MCH MCHC RDW Plt Count MPV Prelim Diff (Auto) Neut % (Auto) Lymph % (Auto) Menard % (Auto) Eos % (Auto) Baso % (Auto) Neut # (Auto) Lymph # (Auto) Menard # (Auto) Eos # (Auto) Baso # (Auto) WBC Differential Seg Neuts % (Manual) Band Neuts % (Manual) Lymphocytes % (Manual) Monocytes % (Manual) Eosinophils % (Manual) Promyelocytes % (Man) Abs Neuts (Manual) Differential Comment Platelet Estimate Platelet Morphology Stomatocytes Sodium Potassium Chloride Carbon Dioxide Anion Gap BUN Creatinine Estimated GFR POC Glucose 107 117 H Random Glucose Calcium Phosphorus 3.4 Magnesium 2.2 Total Bilirubin AST ALT Alkaline Phosphatase Total Protein Albumin 06/12/18 06/12/18 06/12/18 02:58 02:58 08:08 WBC 10.5 RBC 2.21 L Hgb 7.9 L Hct 24.7 L MCV 111.7 H MCH 35.6 H MCHC 31.9 L RDW 16.1 Plt Count 314 MPV 10.2 Prelim Diff (Auto) Slide review pending Neut % (Auto) 60.9 Lymph % (Auto) 16.4 Menard % (Auto) 19.2 H Eos % (Auto) 2.7 Baso % (Auto) 0.8 Neut # (Auto) 6.4 Lymph # (Auto) 1.7 Menard # (Auto) 2.0 H Eos # (Auto) 0.3 Baso # (Auto) 0.1 WBC Differential Manual diff final Seg Neuts % (Manual) 55 Band Neuts % (Manual) 2 Lymphocytes % (Manual) 14 Monocytes % (Manual) 26 H Eosinophils % (Manual) 2 Promyelocytes % (Man) 1 H Abs Neuts (Manual) 6.1 Differential Comment . Platelet Estimate Normal Platelet Morphology Normal Stomatocytes 1+ H Sodium 144 Potassium 4.1 Chloride 104 Carbon Dioxide 35.7 H Anion Gap 4 L BUN 8 Creatinine 0.78 Estimated GFR 76 L POC Glucose 98 Random Glucose 86 Calcium 7.6 L Phosphorus 3.3 Magnesium 2.1 Total Bilirubin 0.2 AST 20 ALT 14 Alkaline Phosphatase 107 Total Protein 4.9 L Albumin 1.5 L Microbiology 06/06/18 04:18 Blood - Peripheral Aerobic Blood Culture - Final No growth in 5 days 06/06/18 04:18 Blood - Peripheral Anaerobic Blood Culture - Final No growth in 5 days 06/06/18 04:00 Blood - Peripheral Aerobic Blood Culture - Final No growth in 5 days 06/06/18 04:00 Blood - Peripheral Anaerobic Blood Culture - Final No growth in 5 days - Imaging ITS Impressions Head CT 06/04/18 10:54 CONCLUSION: 1. No acute intracranial abnormality.. 2. Mild periventricular and subcortical white matter small vessel ischemic changes bilaterally. Humerus X-Ray 06/04/18 10:54 CONCLUSION: Oblique slightly comminuted fracture of the right humeral neck and proximal shaft Shoulder X-Ray 06/04/18 10:54 CONCLUSION: Oblique proximal humeral fracture. Acromion clavicular joint is unremarkable Shoulder CT 06/04/18 14:02 CONCLUSION: 1. Impacted humeral neck fracture as described above. There are 2 small bone fragment adjacent to the greater tuberosity. Carotid Doppler Study 06/05/18 00:00 CONCLUSION: 1. Right Internal Carotid Artery: Findings indicate <50% stenosis. 2. Left Internal Carotid Artery: No significant stenosis or atherosclerotic plaque is visualized. Cervical Spine MRI 06/06/18 00:00 CONCLUSION: 1. Minimal circumferential spinal stenosis and mild bilateral foraminal narrowing at C3 3-4, C4-5, C5-6 and C6-7. Head MRI 06/06/18 07:13 CONCLUSION: 1. Cerebral atrophy. 2. Mild periventricular white matter small vessel ischemic changes bilaterally. 3. No acute infarct, acute hemorrhage, midline shift or extra-axial fluid collections. Head MRA 06/06/18 07:14 CONCLUSION: 1. Negative MRA of the brain Chest X-Ray 06/06/18 07:49 CONCLUSION: Right internal jugular central line has its tip in superior vena cava. There is no pneumothorax. - Procedures NONE Assessment and Plan - Plan Assessment: 58yF with paroxysmal afib and humerus fracture. non-operative management for humerus fracture per ortho. OOB with PT. NEURO: Dementia Continue Aricept 10 mg p.o. daily Bipolar disorder Continue Depakote 500 mg p.o. 3 times daily. This may be for mood although indication is not entirely clear. Continue Zanaflex 2 mg p.o. 3 times daily. Continue Effexor ER 75 mg p.o. daily. Generalized weakness Gait disorder Multiple falls CT brainno acute abnormality. Small vessel ischemic changes. Neurology following. MRI/MRA brain and MRI C-spine negative. EEG 06/05moderate encephalopathy CONTINUE PT AND OT-COULD USE SNF IF ACCEPTED RESP: Nasal cannula wean as tolerated CV: Atrial fibrillation with RVR Now symptomatic sinus bradycardia with hypotension- resolving. Bradycardia and hypotension immediately upon conversion to sinus rhythm on betablockers and calcium channel blockers. Received atropine 0.5 mg IV, glucagon 2.5 mg IV, and trial transcutaneous pacing. She remained hypotensive even with rate in 70s. Initiated dopamine which ultimately was titrated to 20 mcg/kg/min to maintain mean arterial pressure greater than 65. Holding beta blockers and calcium channel blockers. Cardiology has previously been consulted. She may ultimately require backup pacemaker in order to tolerate rate control agents. Continue aspirin 81 mg daily. Off pressors off amiodarone drip now on p.o. amiodarone d/c dopamine start phenylephrine--off pressors continue amio infusion per cardiology-switched to p.o. amiodarone remainder of anti-arrhythmics per cardiology continue PO amiodarone 400mg q12h. aggressive electrolyte replacement. SL IVF GI: Heart healthy diet LFT WNL FEN/RENAL: Creatinine normal. Monitor intake and output and BMP. 20 meq kcl po x 1 daily electrolytes aggressive replacement. A.m. labs ID: [id number] Urine culture 06/04 with Klebsiella. Blood culture from 06/04 remain negative. Rocephin 1gm iv q24h for full 7 day course of abx therapy. KLEBSIELLA OXYTOCA CONTINUE ON ROCEPHIN HEME: Monitor CBC. Hemoglobin 7.8 from 10 after receiving 2 L normal saline. Monitor for evidence of bleeding. ENDO: Hypoglycemia- resolved. Continue diet. cortisol appropriate. Hypothyroidism Continue Reading Thyroid 60 milligrams daily. TSH elevated, free T4 normal: Sick euthyroid. no changes needed to regimen. needs recheck in outpatient setting in 6 weeks-3 months. MSK: Subacute right proximal humerus fracture Noted orthopedic consult has been placed. Upper extremity remains in a sling. plan for non-operative management per ortho. PROPH: Lovenox 40 mg subcu daily for DVT prophylaxis. Protonix 40 mg p.o. daily for stress ulcer prophylaxis. ACCESS: Has peripheral IV. Right IJ central venous line placed due to vasopressor requirement 06/06 can d/c if off vasopressors. DC RIGHT IJ Code Status: FULL CODE Discussed Condition With: RN AND PT AND CM Discharge Planning: Transfer out of ICU NEEDS PT AND OT DAILY COULD USE SNF IF ACCEPTED
--- NOTE | 2018-06-12 13:46 | P.PNCA ---
Subjective Interval history: Patient denies any chest pain, pressure, palpitations, dizziness, edema or shortness of breath. Patient is resting in bed and in no acute distress. Medications and Allergies Allergies Allergy/AdvReac Type Severity Reaction Status Date / Time No Known Allergies Allergy Verified 05/28/18 10:30 Home Medications Medication Instructions Recorded Confirmed Type allopurinol 100 mg PO BID 05/28/18 05/28/18 History aspirin 81 mg PO DAILY 05/28/18 05/28/18 History buspirone 5 mg PO TID 05/28/18 05/28/18 History calcium carbonate [Calcium 600] 600 mg PO BID 05/28/18 05/28/18 History divalproex [Depakote] 500 mg PO TID 05/28/18 05/28/18 History donepezil 10 mg PO DAILY 05/28/18 06/04/18 History hydrocodone-acetaminophen [[place]] 1 tab PO Q6H PRN 05/28/18 06/04/18 History levothyroxine 25 mcg PO DAILY 05/28/18 06/04/18 History oxybutynin chloride 5 mg PO BID 05/28/18 06/04/18 History sotalol 80 mg PO Q12H 05/28/18 06/04/18 History thyroid (pork) [[place] Thyroid] 60 mg PO DAILY 05/28/18 06/04/18 History tizanidine 2 mg PO TID PRN 05/28/18 06/04/18 History venlafaxine [Effexor XR] 75 mg PO DAILY 05/28/18 06/04/18 History Active Medications: Active Medications Acetaminophen (Tylenol) 650 mg PO Q4H PRN PRN Reason: Temp > 100.4 Last Admin: 06/05/18 08:09 Dose: 650 mg Hydrocodone Bitart/Acetaminophen ([place] 5/325) 1 tab PO Q4H PRN PRN Reason: PAIN 4-7 Last Admin: 06/10/18 03:47 Dose: 1 tab Hydrocodone Bitart/Acetaminophen ([place] 10/325) 1 tab PO Q4H PRN PRN Reason: PAIN 8-10 Last Admin: 06/12/18 13:13 Dose: 1 tab Al Hydroxide/Mg Hydroxide (Milk Of Magnesia Liq) 30 ml PO Q12H PRN PRN Reason: Mild Constipation Amiodarone HCl (Cordarone) 400 mg PO Q12HR [facility] Last Admin: 06/12/18 09:37 Dose: 400 mg Aspirin (Aspirin Chew) 81 mg PO DAILY [facility] Last Admin: 06/12/18 09:36 Dose: 81 mg Bisacodyl (Dulcolax Supp) 10 mg RECTAL DAILY PRN PRN Reason: SEVERE CONSITIPATION Dextrose (D50w Vial) 50 ml IV.PUSH UNSCH PRN PRN Reason: PER HYPOGLYCEMIA PROTOCOL Last Admin: 06/06/18 06:00 Dose: 50 ml Divalproex Sodium (Depakote Dr) 500 mg PO TID [facility] Last Admin: 06/12/18 13:13 Dose: 500 mg Donepezil HCl (Aricept) 10 mg PO DAILY [facility] Last Admin: 06/12/18 09:37 Dose: 10 mg Enoxaparin Sodium (Lovenox Inj) 40 mg SQ Q24H [facility] Last Admin: 06/11/18 18:09 Dose: 40 mg Glucagon (Glucagon Inj) 1 mg OTHER PRN PRN PRN Reason: for Hypoglycemia Protocol Potassium Chloride (Kcl 40 Meq Premix Inj) 40 meq in 100 mls @ 25 mls/hr IV.SIG Q2H PRN PRN Reason: For Potassium 2.8 - 3.2 mEq/L Last Infusion: 06/07/18 16:45 Dose: Infused Potassium Chloride (Kcl 20 Meq Premix Inj) 20 meq in 100 mls @ 50 mls/hr IV.SIG Q2H PRN PRN Reason: For Potassium 3.3 - 3.5 mEq/L Potassium Chloride (Kcl 40 Meq Premix Inj) 40 meq in 100 mls @ 25 mls/hr IV.SIG UNSCH PRN PRN Reason: For Potassium 3.3 - 3.5 mEq/L Sodium Phosphate 30 mmol/ (Sodium Chloride) 260 mls @ 42 mls/hr IV.SIG UNSCH PRN PRN Reason: For Phosphorus < 2.5 mg/dL Potassium Phosphate 30 mmol/ (Sodium Chloride) 260 mls @ 42 mls/hr IV.SIG UNSCH PRN PRN Reason: SEE LABEL COMMENTS Magnesium Sulfate 4 gm/ Sodium (Chloride) 100 mls @ 50 mls/hr IV.SIG UNSCH PRN PRN Reason: For Magnesium 0.9 - 1.1 mg/dL Potassium Chloride (Kcl 20 Meq Premix Inj) 20 meq in 100 mls @ 50 mls/hr IV.SIG Q2H PRN PRN Reason: For Potassium 2.8 - 3.2 mEq/L Magnesium Sulfate 2 gm/ Sodium (Chloride) 100 mls @ 50 mls/hr IV.SIG UNSCH PRN PRN Reason: For Magnesium 1.2 - 1.6 mg/dL Ceftriaxone Sodium 1,000 mg/ (Sodium Chloride) 100 mls @ 200 mls/hr IV.SIG Q24H [facility] Stop: 06/13/18 09:59 Last Infusion: 06/12/18 13:09 Dose: 0 mls/hr Amiodarone HCl 450 mg/ (Dextrose) 250 mls @ 33.33 mls/hr IV.CONT TITRATE PRN; Protocol PRN Reason: Per Protocol Last Titration: 06/09/18 10:07 Dose: 0 mg/min, 0 mls/hr Phenylephrine HCl 40 mg/ (Dextrose) 500 mls @ 30 mls/hr IV.CONT TITRATE PRN; Protocol PRN Reason: Per Protocol Last Titration: 06/08/18 11:02 Dose: 0 mcg/min, 0 mls/hr Sodium Chloride (Ns Inj) 1,000 mls @ 0 mls/hr IV.SIG BOLUS [facility] Last Infusion: 06/12/18 02:23 Dose: Infused Lactulose (Lactulose Liq) 30 ml PO DAILY PRN PRN Reason: SEVERE CONSITIPATION Levothyroxine Sodium (Synthroid) 25 mcg PO DAILY@0600 [facility] Last Admin: 06/12/18 05:51 Dose: 25 mcg Magnesium Oxide (Mag-Ox) 800 mg PO UNSCH PRN PRN Reason: For Magnesium 1.2 - 1.6 mg/dL Miscellaneous (Pill Splitter) 1 each OTHER [facility] Ondansetron HCl (Zofran Inj) 4 mg IV.PUSH Q6H PRN PRN Reason: NAUSEA OR VOMITING Last Admin: 06/07/18 21:46 Dose: 4 mg Oxybutynin Chloride (Ditropan) 5 mg PO BID [facility] Last Admin: 06/12/18 09:37 Dose: 5 mg Pantoprazole Sodium (Protonix) 40 mg PO DAILY [facility] Last Admin: 06/12/18 09:37 Dose: 40 mg Potassium Bicarb/Potassium Chloride (K-Lyte Cl Eff) 50 meq PO UNSCH PRN PRN Reason: For Potassium 3.3 - 3.5 mEq/L Potassium Phosphate (K-Phos Original) 2,000 mg PO Q4H PRN PRN Reason: Phosphorus Less Than 2.5 mg/dL Potassium Phosphate (K-Phos Original) 2,000 mg PO UNSCH PRN PRN Reason: SEE LABEL COMMENTS Senna/Docusate Sodium (Elena-Colace) 1 tab PO BID [facility] Last Admin: 06/12/18 09:37 Dose: 1 tab Sennosides (Senokot) 17.2 mg PO Q12H PRN PRN Reason: Moderate Constipation Sodium Chloride (Ns Flush) 2 ml IV.FLUSH BID [facility] Last Admin: 06/12/18 09:41 Dose: 2 ml Sodium Chloride (Ns Flush) 2 ml IV.FLUSH PRN PRN PRN Reason: FLUSH AFTER USING IV ACCESS Sotalol HCl (Betapace) 80 mg PO Q12HR [facility] Last Admin: 06/05/18 20:05 Dose: 80 mg Thyroid ([place] Thyroid) 60 mg PO DAILY [facility] Last Admin: 06/12/18 09:37 Dose: 60 mg Tizanidine HCl (Zanaflex) 2 mg PO TID PRN PRN Reason: Anxiety Last Admin: 06/11/18 21:44 Dose: 2 mg Venlafaxine HCl (Effexor Xr) 75 mg PO DAILY [facility] Last Admin: 06/12/18 09:36 Dose: 75 mg Physical Exam Vital signs: Vital Signs 06/11/18 14:00 06/11/18 14:30 06/11/18 15:01 Temperature Pulse Rate 68 66 70 Respiratory Rate 17 25 H 35 H Blood Pressure 116/72 123/67 147/68 H Pulse Oximetry 94 L 88 L 06/11/18 15:31 06/11/18 16:00 06/11/18 16:01 Temperature Pulse Rate 88 66 69 Respiratory Rate 0 L 0 L 0 L Blood Pressure 155/74 H 134/62 Pulse Oximetry 06/11/18 16:30 06/11/18 17:00 06/11/18 17:30 Temperature Pulse Rate 73 78 75 Respiratory Rate 0 L 0 L 0 L Blood Pressure 137/60 143/70 H 141/63 H Pulse Oximetry 06/11/18 17:32 06/11/18 18:00 06/11/18 18:30 Temperature Pulse Rate 69 81 Respiratory Rate 16 30 H 33 H Blood Pressure 125/60 127/79 Pulse Oximetry 06/11/18 19:01 06/11/18 19:23 06/11/18 19:30 Temperature Pulse Rate 76 75 70 Respiratory Rate 20 30 H 23 Blood Pressure 142/101 H 146/69 H 143/69 H Pulse Oximetry 82 L 97 06/11/18 19:42 06/11/18 20:00 06/11/18 20:30 Temperature 99 F Pulse Rate 69 140 H Respiratory Rate 36 H 19 Blood Pressure 127/59 L 140/78 Pulse Oximetry 98 99 100 06/11/18 21:00 06/11/18 21:30 06/11/18 22:00 Temperature Pulse Rate 143 H 145 H 150 H Respiratory Rate 19 17 27 H Blood Pressure 137/64 128/77 113/76 Pulse Oximetry 98 95 06/11/18 22:30 06/11/18 23:00 06/11/18 23:30 Temperature Pulse Rate 69 60 60 Respiratory Rate 32 H 28 H 39 H Blood Pressure 115/63 97/61 L 78/52 L Pulse Oximetry 100 97 98 06/11/18 23:36 06/11/18 23:37 06/11/18 23:38 Temperature Pulse Rate 60 62 64 Respiratory Rate 29 H 29 H 31 H Blood Pressure 66/43 L 73/44 L 69/41 L Pulse Oximetry 98 97 97 06/11/18 23:39 06/11/18 23:40 06/11/18 23:42 Temperature Pulse Rate 62 59 L 58 L Respiratory Rate 26 H 34 H 31 H Blood Pressure 79/50 L 79/44 L 76/46 L Pulse Oximetry 97 98 98 06/11/18 23:44 06/11/18 23:49 06/11/18 23:51 Temperature Pulse Rate 58 L 59 L 60 Respiratory Rate 18 23 26 H Blood Pressure 69/44 L 76/42 L 80/44 L Pulse Oximetry 98 99 99 06/11/18 23:52 06/11/18 23:53 06/11/18 23:54 Temperature Pulse Rate 60 58 L 59 L Respiratory Rate 24 23 23 Blood Pressure 74/43 L 74/43 L 69/49 L Pulse Oximetry 100 100 100 06/11/18 23:58 06/12/18 00:00 06/12/18 00:01 Temperature Pulse Rate 57 L 57 L 60 Respiratory Rate 25 H 21 30 H Blood Pressure 77/40 L 75/44 L 74/42 L Pulse Oximetry 99 100 98 06/12/18 00:03 06/12/18 00:06 06/12/18 00:08 Temperature Pulse Rate 59 L 58 L 65 Respiratory Rate 22 27 H 24 Blood Pressure 75/43 L 69/43 L 67/39 L Pulse Oximetry 93 L 93 L 91 L 06/12/18 00:15 06/12/18 00:30 06/12/18 00:45 Temperature Pulse Rate 56 L 55 L 55 L Respiratory Rate 26 H 21 25 H Blood Pressure 71/41 L 76/45 L 78/45 L Pulse Oximetry 90 L 94 L 92 L 06/12/18 01:00 06/12/18 01:03 06/12/18 01:15 Temperature Pulse Rate 56 L 57 L 60 Respiratory Rate 20 18 17 Blood Pressure 76/40 L 75/43 L 83/46 L Pulse Oximetry 95 94 L 98 06/12/18 01:30 06/12/18 01:45 06/12/18 02:00 Temperature Pulse Rate 60 60 62 Respiratory Rate 16 20 15 Blood Pressure 81/48 L 85/50 L 80/47 L Pulse Oximetry 90 L 100 100 06/12/18 02:01 06/12/18 02:15 06/12/18 02:30 Temperature Pulse Rate 62 59 L 58 L Respiratory Rate 26 H 16 16 Blood Pressure 76/44 L 85/50 L 83/45 L Pulse Oximetry 97 100 100 06/12/18 02:45 06/12/18 03:00 06/12/18 03:15 Temperature Pulse Rate 57 L 57 L 56 L Respiratory Rate 20 17 23 Blood Pressure 83/50 L 79/48 L 80/48 L Pulse Oximetry 100 100 100 06/12/18 03:30 06/12/18 03:45 06/12/18 04:00 Temperature Pulse Rate 55 L 55 L 54 L Respiratory Rate 26 H 21 23 Blood Pressure 83/52 L 85/53 L 82/48 L Pulse Oximetry 100 100 100 06/12/18 04:15 06/12/18 04:30 06/12/18 04:45 Temperature Pulse Rate 54 L 51 L 53 L Respiratory Rate 25 H 18 17 Blood Pressure 91/54 L 89/51 L 83/45 L Pulse Oximetry 100 100 100 06/12/18 04:46 06/12/18 05:00 06/12/18 05:15 Temperature Pulse Rate 52 L 51 L 51 L Respiratory Rate 17 16 18 Blood Pressure 85/47 L 85/49 L 81/47 L Pulse Oximetry 100 100 100 06/12/18 05:30 06/12/18 05:45 06/12/18 06:00 Temperature Pulse Rate 61 66 52 L Respiratory Rate 16 19 12 Blood Pressure 101/54 L 107/59 L 96/53 L Pulse Oximetry 86 L 98 98 06/12/18 06:15 06/12/18 06:30 06/12/18 06:45 Temperature Pulse Rate 51 L 50 L 52 L Respiratory Rate 23 26 H 22 Blood Pressure 88/53 L 93/55 L 93/51 L Pulse Oximetry 94 L 92 L 100 06/12/18 07:00 06/12/18 07:15 06/12/18 07:30 Temperature Pulse Rate 51 L 52 L 50 L Respiratory Rate 27 H 27 H 29 H Blood Pressure 92/54 L 92/55 L 92/51 L Pulse Oximetry 100 100 100 06/12/18 07:45 06/12/18 08:00 06/12/18 08:15 Temperature 98.7 F Pulse Rate 49 L 50 L 52 L Respiratory Rate 19 21 24 Blood Pressure 104/56 L 96/55 L 96/54 L Pulse Oximetry 100 100 100 06/12/18 08:21 06/12/18 08:30 06/12/18 08:45 Temperature Pulse Rate 52 L 57 L Respiratory Rate 22 15 Blood Pressure 94/55 L 106/59 L Pulse Oximetry 98 100 97 06/12/18 09:01 06/12/18 09:15 06/12/18 09:30 Temperature Pulse Rate 65 54 L 64 Respiratory Rate 23 19 25 H Blood Pressure 99/55 L 93/51 L 92/50 L Pulse Oximetry 98 96 99 06/12/18 09:46 06/12/18 10:00 06/12/18 10:15 Temperature Pulse Rate 65 63 70 Respiratory Rate 22 16 27 H Blood Pressure 166/69 H 128/57 L 105/58 L Pulse Oximetry 93 L 100 97 06/12/18 10:30 Temperature Pulse Rate 60 Respiratory Rate 22 Blood Pressure 98/54 L Pulse Oximetry Intake & Output 06/11/18 06/12/18 06/12/18 18:59 06:59 18:59 Intake Total 100 / 100 1250 / 1250 Output Total 1999 600 / 600 Balance -1900 / -1900 650 / 650 Weight 68.9 kg Intake: IV 100 / 100 1000 / 1000 NS Inj 1,000 ML @ Wide Open IV. 1000 / 1000 SIG BOLUS NELLIE Rx#:[id number] Rocephin Inj 1,000 MG In NS Inj 100 / 100 100 ML @ 200 mls/hr IV.SIG Q24H NELLIE Rx#:[id number] Oral 250 / 250 Output: Urine 1999 600 / 600 Other: # Incontinent Voids 4 Date of Last Bowel Movement 06/06/18 Narrative: GENERAL: This is a well-nourished, well-developed patient, in no apparent distress. Patient speaks in clear complete sentences. Patient is pleasant. HEENT: Head is atraumatic and normocephalic. Neck is supple without lymphadenopathy and trachea is midline. No JVD or carotid bruits. CARDIOVASCULAR: Regular rate and rhythm without murmurs, gallops, or rubs. RESPIRATORY: Clear to auscultation. Breath sounds equal bilaterally. No wheezes , rales, or rhonchi. Chest wall is nontender. No use of accessory muscles. GASTROINTESTINAL: Abdomen is nontender, nondistended. Abdomen soft. No obvious pulsatile mass or bruit. No CVA tenderness. Strong femoral pulses bilaterally. Normal bowel sounds in all quadrants. MUSCULOSKELETAL: Patient has limited range of motion of right arm due to fracture, arm is currently in a sling. All other extremities are equal in movement and strength. No calf tenderness or edema, no Homans sign. Strong pulses in upper and lower extremities. NEUROLOGICAL: Patient is alert and oriented. Cranial nerves 2-12 are grossly intact. No focal deficits and speech is clear. SKIN: No rash and turgor is normal. Results 06/12/18 02:58 06/12/18 02:58 Cardiac Enzymes 06/11/18 06/12/18 Range/Units 02:51 02:58 AST 22 20 (15-37) U/L CBC 06/11/18 06/12/18 Range/Units 02:51 02:58 WBC 9.6 10.5 (4.0-11.0) th/mm3 RBC 2.13 L 2.21 L (4.00-5.30) mil/mm3 Hgb 7.7 L 7.9 L (11.6-15.3) gm/dL Hct 23.4 L 24.7 L (35.0-46.0) % Plt Count 299 314 (150-450) th/mm3 Neut # (Auto) 5.6 6.4 (1.8-7.7) th/mm3 Lymph # (Auto) 1.7 1.7 (1.0-4.8) th/mm3 [place] # (Auto) 1.9 H 2.0 H (0.0-0.9) th/mm3 Eos # (Auto) 0.3 0.3 (0.0-0.4) th/mm3 Baso # (Auto) 0.1 0.1 (0.0-0.2) th/mm3 Comprehensive Metabolic Panel 06/11/18 06/12/18 Range/Units 02:51 02:58 Sodium 143 144 (136-145) meq/L Potassium 4.0 4.1 (3.5-5.1) meq/L Chloride 102 104 (98-107) meq/L Carbon Dioxide 34.2 H 35.7 H (21.0-32.0) meq/L BUN 9 8 (7-18) mg/dL Creatinine 0.85 0.78 (0.50-1.00) mg/dL Calcium 8.0 L 7.6 L (8.5-10.1) mg/dL AST 22 20 (15-37) U/L ALT 15 14 (10-53) U/L Alkaline Phosphatase 108 107 (45-117) U/L Total Protein 5.2 L 4.9 L (6.4-8.2) g/dL Albumin 1.6 L 1.5 L (3.4-5.0) g/dL Intake and Output 06/11/18 06/12/18 06/12/18 22:59 06:59 14:59 Intake Total 1250 / 1250 Output Total 1999 600 / 600 Balance -1999 / 650 / 650 Intake: IV 1000 / 1000 NS Inj 1,000 ML @ Wide Open IV. 1000 / 1000 SIG BOLUS NELLIE Rx#:[id number] Oral 250 / 250 Output: Urine 1999 600 / 600 Other: # Incontinent Voids 4 Date of Last Bowel Movement 06/06/18 Weight 68.9 kg Assessment and Plan - Assessment (1) Atrial fibrillation with RVR Code(s): I48.91 - Unspecified atrial fibrillation Status: Acute (2) Symptomatic bradycardia Code(s): R00.1 - Bradycardia, unspecified Status: Acute (3) Humeral fracture Code(s): S42.309A - Unspecified fracture of shaft of humerus, unspecified arm, initial encounter for closed fracture Status: Acute (4) Encephalopathy Code(s): G93.40 - Encephalopathy, unspecified Status: Acute (5) Toxic metabolic encephalopathy Code(s): G92 - Toxic encephalopathy Status: Acute (6) Gait disorder Code(s): R26.9 - Unspecified abnormalities of gait and mobility Status: Chronic (7) Tremor Code(s): R25.1 - Tremor, unspecified Status: Chronic (8) Acute UTI Code(s): N39.0 - Urinary tract infection, site not specified Status: Acute - Plan Patient having fewer episodes of atrial fibrillation with rapid ventricular response. Patient had episodes of sinus bradycardia and is currently in sinus rhythm on the monitor. Continue amiodarone loading 400 mg twice daily for 7 days, then 200 mg daily. Recent fall which resulted in a right proximal humerus fracture. Echocardiogram 06-06-18 shows ejection fraction 65-70%, trace mitral regurgitation and mild tricuspid valve regurgitation. We will continue with current cardiac treatment plan. We will continue to follow patient during her hospitalization. Patient was seen and evaluated by Dr. Zimmer who participated in care, management and decision making. - Attending Attestation Patient seen and examined. I reviewed and agree with the evaluation and plan as presented. Continue amio loading. Increase activity. Anticipate discharge soon. (3) Humeral fracture Qualifiers: Encounter type: subsequent encounter Humerus Location: proximal Fracture type: closed Fracture morphology: other fracture Fracture alignment: nondisplaced Laterality: right Fracture healing: with routine healing Qualified Code(s): S42.294D - Other nondisplaced fracture of upper end of right humerus, subsequent encounter for fracture with routine healing
[2018-06-12] MEDS: Enoxaparin Inj 40 MG/0.4 ML Syringe SQ SCH (18:16)
[2018-06-13 05:00] LABS: Baso % (Auto) 0.6 % (0.0-2.0); Eos # (Auto) 0.2 th/mm3 (0.0-0.4); Eos % (Auto) 2.8 % (0.0-4.0); Hematocrit 23.7 % (35.0-46.0); Hemoglobin 7.9 gm/dL (11.6-15.3); Lymph % (Auto) 23.8 % (9.0-44.0); Mean Corpuscular HGB Conc 33.3 % (32.0-36.0); Mean Corpuscular Hemoglobin 36.6 pg (27.0-34.0); Mean Corpuscular Volume 109.6 fL (80.0-100.0); Mean Platelet Volume 9.7 fL (7.0-11.0); Mono # (Auto) 1.5 th/mm3 (0.0-0.9); Mono % (Auto) 18.6 % (0.0-8.0); Neut # (Auto) 4.5 th/mm3 (1.8-7.7); Neut % (Auto) 54.2 % (16.0-70.0); Platelet Count 330 th/mm3 (150-450); Red Blood Count 2.16 mil/mm3 (4.00-5.30); Red Cell Distribution Width 15.7 % (11.6-17.2); White Blood Count 8.3 th/mm3 (4.0-11.0)
[2018-06-13 05:24] LABS: Albumin 1.5 g/dL (3.4-5.0); Anion Gap 6 meq/L (5-15); Aspartate Aminotransferase 20 U/L (15-37); Blood Urea Nitrogen 9 mg/dL (7-18); Calcium 7.8 mg/dL (8.5-10.1); Carbon Dioxide 35.1 meq/L (21.0-32.0); Chloride 102 meq/L (98-107); Glomerular Filtration Rate 77 mL/min (>89); Glucose,Random 92 mg/dL (74-106); Magnesium 2.3 mg/dL (1.5-2.5); Sodium 143 meq/L (136-145)
[2018-06-13 05:25] LABS: Alanine Aminotransferase 13 U/L (10-53); Phosphorus 3.2 mg/dL (2.5-4.9)
[2018-06-13 05:27] LABS: Alkaline Phosphatase 111 U/L (45-117); Total Protein 5.4 g/dL (6.4-8.2)
[2018-06-13 09:13] LABS: % Iron Saturation 20.7 % (20-50)
[2018-06-13] MEDS: Thyroid 60 MG Tablet PO SCH (09:31)
[2018-06-13] MEDS: Divalproex 500 MG DR Tablet PO SCH ×3 (09:32→17:39)
[2018-06-13] MEDS: Senna/Docusate Sodium 8.6/50 MG Tablet PO SCH ×2 (09:32→21:06)
[2018-06-13] MEDS: Venlafaxine XR 75 MG Capsule PO SCH (09:32)
[2018-06-13] MEDS: Amiodarone 200 MG Tablet PO SCH ×2 (09:32→21:06)
--- NOTE | 2018-06-13 15:22 | P.PN ---
Subjective Interval history: Patient is seen initially lying in bed. Reports that she is doing well but is somewhat constipated. Has not experienced any chest pain or palpitations. No shortness of breath. No nausea or vomiting. Does have some arm pain but it is currently controlled. Patient seen again in afternoon after nurse alerted heart rate sustained 150s- 160s. Patient completely asymptomatic however complaining of urgent need to move bowels. Had her perform several vagal maneuvers which reduced heart rate to 110- 120s. Patient subsequently had large bowel movement which dropped heart rate to [id number]. Nursing did notify cardiology. Physical Exam Vital signs: Vital Signs 06/12/18 16:00 06/12/18 17:46 06/12/18 19:40 Temperature 97.9 F Pulse Rate 73 64 Respiratory Rate 20 Blood Pressure 129/60 Pulse Oximetry 90 L 99 06/12/18 20:00 06/13/18 00:00 06/13/18 00:43 Temperature 98.7 F 98.4 F Pulse Rate 70 62 Respiratory Rate 16 12 20 Blood Pressure 102/59 L 124/60 Pulse Oximetry 94 L 97 06/13/18 04:00 06/13/18 05:52 06/13/18 08:00 Temperature 98.0 F 98.1 F Pulse Rate 65 65 Respiratory Rate 16 20 16 Blood Pressure 115/56 L 119/58 L Pulse Oximetry 94 L 96 06/13/18 11:09 06/13/18 12:15 Temperature Pulse Rate Respiratory Rate 22 Blood Pressure Pulse Oximetry 97 Intake & Output 06/12/18 06/13/18 06/13/18 18:59 06:59 18:59 Weight 68.9 kg Other: # Voids 1 Date of Last Bowel Movement 06/06/18 Narrative: GENERAL: Well-nourished, well-developed adult female in no apparent distress who appears older than stated age SKIN: Warm and dry. HEAD: Atraumatic. Normocephalic. EYES: Pupils equal and round. No scleral icterus. No injection or drainage. ENT: No nasal bleeding or discharge. Mucous membranes pink and moist. NECK: Trachea midline. No JVD. CARDIOVASCULAR: IRRegular rate and rhythm. RESPIRATORY: No accessory muscle use. Clear to auscultation. Breath sounds equal bilaterally. GASTROINTESTINAL: Abdomen soft, non-tender, nondistended. MUSCULOSKELETAL: Extremities without clubbing, cyanosis, or edema. No obvious deformities. Right upper extremity in sling NEUROLOGICAL: Awake and alert. No obvious cranial nerve deficits. Motor grossly within normal limits. 3 out of 5 muscle strength in the arms and legs. Normal speech. Right upper extremity is in sling PSYCHIATRIC: Talkative and pleasant; insight and judgment questionable. Results - Labs CBC & Chem 7: 06/13/18 04:37 06/13/18 04:37 Laboratory Results - last 24 hr 06/12/18 06/13/18 06/13/18 16:17 04:37 04:37 WBC 8.3 RBC 2.16 L Hgb 7.9 L Hct 23.7 L MCV 109.6 H MCH 36.6 H MCHC 33.3 RDW 15.7 Plt Count 330 MPV 9.7 Neut % (Auto) 54.2 Lymph % (Auto) 23.8 [place] % (Auto) 18.6 H Eos % (Auto) 2.8 Baso % (Auto) 0.6 Neut # (Auto) 4.5 Lymph # (Auto) 2.0 [place] # (Auto) 1.5 H Eos # (Auto) 0.2 Baso # (Auto) 0.0 WBC Differential . Differential Comment Auto diff final Sodium 143 Potassium 4.0 Chloride 102 Carbon Dioxide 35.1 H Anion Gap 6 BUN 9 Creatinine 0.77 Estimated GFR 77 L POC Glucose 140 H Random Glucose 92 Calcium 7.8 L Phosphorus 3.2 Magnesium 2.3 Iron TIBC % Saturation Total Bilirubin 0.2 AST 20 ALT 13 Alkaline Phosphatase 111 Total Protein 5.4 L Albumin 1.5 L 06/13/18 06/13/18 04:37 05:54 WBC RBC Hgb Hct MCV MCH MCHC RDW Plt Count MPV Neut % (Auto) Lymph % (Auto) [place] % (Auto) Eos % (Auto) Baso % (Auto) Neut # (Auto) Lymph # (Auto) [place] # (Auto) Eos # (Auto) Baso # (Auto) WBC Differential Differential Comment Sodium Potassium Chloride Carbon Dioxide Anion Gap BUN Creatinine Estimated GFR POC Glucose 100 Random Glucose Calcium Phosphorus Magnesium Iron 36 L TIBC 174 L % Saturation 20.7 Total Bilirubin AST ALT Alkaline Phosphatase Total Protein Albumin - Procedures NONE Assessment and Plan - Plan Assessment: 58yF with paroxysmal afib and humerus fracture. non-operative management for humerus fracture per ortho. OOB with PT. 06/13: Labs ordered and reviewed-stable but some anemia noted. Will order FOBT and iron study. Continue current medical plan. NEURO: Dementia Continue Aricept 10 mg p.o. daily Bipolar disorder Continue Depakote 500 mg p.o. 3 times daily. This may be for mood although indication is not entirely clear. Continue Zanaflex 2 mg p.o. 3 times daily. Continue Effexor ER 75 mg p.o. daily. Generalized weakness Gait disorder Multiple falls CT brainno acute abnormality. Small vessel ischemic changes. Neurology following. MRI/MRA brain and MRI C-spine negative. EEG 06/05moderate encephalopathy CONTINUE PT AND OT-COULD USE SNF IF ACCEPTED RESP: Nasal cannula wean as tolerated CV: Atrial fibrillation with RVR which become symptomatic sinus bradycardia with hypotension- resolved Bradycardia and hypotension immediately upon conversion to sinus rhythm on betablockers and calcium channel blockers. Received atropine 0.5 mg IV, glucagon 2.5 mg IV, and trial transcutaneous pacing. She remained hypotensive even with rate in 70s. Initiated dopamine which ultimately was titrated to 20 mcg/kg/min to maintain mean arterial pressure greater than 65. Holding beta blockers and calcium channel blockers. Cardiology has previously been consulted. She may ultimately require backup pacemaker in order to tolerate rate control agents. Continue aspirin 81 mg daily. Off pressors off amiodarone drip now on p.o. amiodarone -Cardio has cleared for DC FEN/RENAL: Creatinine normal. Monitor intake and output and BMP. 20 meq kcl po x 1 daily electrolytes aggressive replacement. A.m. labs ID: [id number] Urine culture 06/04 with Klebsiella. Blood culture from 06/04 remain negative. Treated with Rocephin; resolved HEME: Monitor CBC. Hemoglobin 7.8 from 10 after receiving 2 L normal saline. Monitor for evidence of bleeding. ENDO: Hypoglycemia- resolved. Continue diet. cortisol appropriate. Hypothyroidism Continue [place] Thyroid 60 milligrams daily. TSH elevated, free T4 normal: Sick euthyroid. no changes needed to regimen. needs recheck in outpatient setting in 6 weeks-3 months. MSK: Subacute right proximal humerus fracture Upper extremity remains in a sling. plan for non-operative management per ortho. PROPH: Lovenox 40 mg subcu daily for DVT prophylaxis. Protonix 40 mg p.o. daily for stress ulcer prophylaxis. Code Status: FULL CODE Discussed Condition With: RN AND PT AND CM and Dr. Cornelius Discharge Planning: NEEDS PT AND OT DAILY COULD USE SNF IF ACCEPTED
--- NOTE | 2018-06-13 15:26 | P.PNCA ---
Subjective Interval history: Patient currently denies any chest pain, pressure, palpitations, edema, dizziness or shortness of breath. Patient states that she is feeling much better at this time. Medications and Allergies Allergies Allergy/AdvReac Type Severity Reaction Status Date / Time No Known Allergies Allergy Verified 05/28/18 10:30 Home Medications Medication Instructions Recorded Confirmed Type allopurinol 100 mg PO BID 05/28/18 05/28/18 History aspirin 81 mg PO DAILY 05/28/18 05/28/18 History buspirone 5 mg PO TID 05/28/18 05/28/18 History calcium carbonate [Calcium 600] 600 mg PO BID 05/28/18 05/28/18 History divalproex [Depakote] 500 mg PO TID 05/28/18 05/28/18 History donepezil 10 mg PO DAILY 05/28/18 06/04/18 History hydrocodone-acetaminophen [[place]] 1 tab PO Q6H PRN 05/28/18 06/04/18 History levothyroxine 25 mcg PO DAILY 05/28/18 06/04/18 History oxybutynin chloride 5 mg PO BID 05/28/18 06/04/18 History sotalol 80 mg PO Q12H 05/28/18 06/04/18 History thyroid (pork) [[place] Thyroid] 60 mg PO DAILY 05/28/18 06/04/18 History tizanidine 2 mg PO TID PRN 05/28/18 06/04/18 History venlafaxine [Effexor XR] 75 mg PO DAILY 05/28/18 06/04/18 History Active Medications: Active Medications Acetaminophen (Tylenol) 650 mg PO Q4H PRN PRN Reason: Temp > 100.4 Last Admin: 06/05/18 08:09 Dose: 650 mg Hydrocodone Bitart/Acetaminophen ([place] 5/325) 1 tab PO Q4H PRN PRN Reason: PAIN 4-7 Last Admin: 06/10/18 03:47 Dose: 1 tab Hydrocodone Bitart/Acetaminophen ([place] 10/325) 1 tab PO Q4H PRN PRN Reason: PAIN 8-10 Last Admin: 06/13/18 12:15 Dose: 1 tab Al Hydroxide/Mg Hydroxide (Milk Of Magnesia Liq) 30 ml PO Q12H PRN PRN Reason: Mild Constipation Last Admin: 06/12/18 18:17 Dose: 30 ml Amiodarone HCl (Cordarone) 400 mg PO Q12HR [facility] Last Admin: 06/13/18 09:32 Dose: 400 mg Aspirin (Aspirin Chew) 81 mg PO DAILY [facility] Last Admin: 06/13/18 09:31 Dose: 81 mg Bisacodyl (Dulcolax Supp) 10 mg RECTAL DAILY PRN PRN Reason: SEVERE CONSITIPATION Dextrose (D50w Vial) 50 ml IV.PUSH UNSCH PRN PRN Reason: PER HYPOGLYCEMIA PROTOCOL Last Admin: 06/06/18 06:00 Dose: 50 ml Divalproex Sodium (Depakote Dr) 500 mg PO TID [facility] Last Admin: 06/13/18 12:22 Dose: 500 mg Donepezil HCl (Aricept) 10 mg PO DAILY [facility] Last Admin: 06/13/18 09:31 Dose: 10 mg Enoxaparin Sodium (Lovenox Inj) 40 mg SQ Q24H [facility] Last Admin: 06/12/18 18:16 Dose: 40 mg Glucagon (Glucagon Inj) 1 mg OTHER PRN PRN PRN Reason: for Hypoglycemia Protocol Amiodarone HCl 450 mg/ (Dextrose) 250 mls @ 33.33 mls/hr IV.CONT TITRATE PRN; Protocol PRN Reason: Per Protocol Last Titration: 06/09/18 10:07 Dose: 0 mg/min, 0 mls/hr Phenylephrine HCl 40 mg/ (Dextrose) 500 mls @ 30 mls/hr IV.CONT TITRATE PRN; Protocol PRN Reason: Per Protocol Last Titration: 06/08/18 11:02 Dose: 0 mcg/min, 0 mls/hr Sodium Chloride (Ns Inj) 1,000 mls @ 0 mls/hr IV.SIG BOLUS [facility] Last Infusion: 06/12/18 02:23 Dose: Infused Lactulose (Lactulose Liq) 30 ml PO DAILY PRN PRN Reason: SEVERE CONSITIPATION Levothyroxine Sodium (Synthroid) 25 mcg PO DAILY@0600 [facility] Last Admin: 06/13/18 05:52 Dose: 25 mcg Miscellaneous (Pill Splitter) 1 each OTHER UNSCH [facility] Ondansetron HCl (Zofran Inj) 4 mg IV.PUSH Q6H PRN PRN Reason: NAUSEA OR VOMITING Last Admin: 06/07/18 21:46 Dose: 4 mg Oxybutynin Chloride (Ditropan) 5 mg PO BID [facility] Last Admin: 06/13/18 09:32 Dose: 5 mg Pantoprazole Sodium (Protonix) 40 mg PO DAILY [facility] Last Admin: 06/13/18 09:32 Dose: 40 mg Senna/Docusate Sodium (Leena-Colace) 1 tab PO BID [facility] Last Admin: 06/13/18 09:32 Dose: 1 tab Sennosides (Senokot) 17.2 mg PO Q12H PRN PRN Reason: Moderate Constipation Sodium Chloride (Ns Flush) 2 ml IV.FLUSH BID [facility] Last Admin: 06/13/18 09:32 Dose: 2 ml Sodium Chloride (Ns Flush) 2 ml IV.FLUSH PRN PRN PRN Reason: FLUSH AFTER USING IV ACCESS Sotalol HCl (Betapace) 80 mg PO Q12HR [facility] Last Admin: 06/05/18 20:05 Dose: 80 mg Thyroid ([place] Thyroid) 60 mg PO DAILY [facility] Last Admin: 06/13/18 09:31 Dose: 60 mg Tizanidine HCl (Zanaflex) 2 mg PO TID PRN PRN Reason: Anxiety Last Admin: 06/11/18 21:44 Dose: 2 mg Venlafaxine HCl (Effexor Xr) 75 mg PO DAILY [facility] Last Admin: 06/13/18 09:32 Dose: 75 mg Physical Exam Vital signs: Vital Signs 06/12/18 16:00 06/12/18 17:46 06/12/18 19:40 Temperature 97.9 F Pulse Rate 73 64 Respiratory Rate 20 Blood Pressure 129/60 Pulse Oximetry 90 L 99 06/12/18 20:00 06/13/18 00:00 06/13/18 00:43 Temperature 98.7 F 98.4 F Pulse Rate 70 62 Respiratory Rate 16 12 20 Blood Pressure 102/59 L 124/60 Pulse Oximetry 94 L 97 06/13/18 04:00 06/13/18 05:52 06/13/18 08:00 Temperature 98.0 F 98.1 F Pulse Rate 65 65 Respiratory Rate 16 20 16 Blood Pressure 115/56 L 119/58 L Pulse Oximetry 94 L 96 06/13/18 11:09 09/28/18 12:15 Temperature Pulse Rate Respiratory Rate 22 Blood Pressure Pulse Oximetry 97 Intake & Output 06/12/18 06/13/18 06/13/18 18:59 06:59 18:59 Weight 68.9 kg Other: # Voids 1 Date of Last Bowel Movement 06/06/18 - Constitutional no acute distress - Routine HEENT Exam Head: Present: normocephalic Eye: Present: PERRL ENT: Present: mucous membranes moist - Routine Neck Exam Present: full ROM - Routine Respiratory Exam Present: CTA bilaterally - Routine Cardiovascular Exam Present: S1, S2. Absent: murmur, gallop, rubs - Routine Abdominal Exam Present: normoactive bowel sounds - Routine Extremities Exam Present: full ROM, pulses intact, normal capillary refill. Absent: cyanosis, clubbing, edema Comments: Right arm in a sling due to right humerus fracture. - Routine Skin Exam Present: intact - Routine Neurological Exam Present: oriented X3 - Detailed Neurological Exam: Coma Scale Eye Opening: Spontaneous Verbal Response: Oriented Motor Response: Obey commands Genna Coma Scale Total: 15 - Routine Psychiatric Exam Present: normal affect Results 06/13/18 04:37 06/13/18 04:37 Cardiac Enzymes 06/12/18 06/13/18 Range/Units 02:58 04:37 AST 20 20 (15-37) U/L CBC 06/12/18 06/13/18 Range/Units 02:58 04:37 WBC 10.5 8.3 (4.0-11.0) th/mm3 RBC 2.21 L 2.16 L (4.00-5.30) mil/mm3 Hgb 7.9 L 7.9 L (11.6-15.3) gm/dL Hct 24.7 L 23.7 L (35.0-46.0) % Plt Count 314 330 (150-450) th/mm3 Neut # (Auto) 6.4 4.5 (1.8-7.7) th/mm3 Lymph # (Auto) 1.7 2.0 (1.0-4.8) th/mm3 [place] # (Auto) 2.0 H 1.5 H (0.0-0.9) th/mm3 Eos # (Auto) 0.3 0.2 (0.0-0.4) th/mm3 Baso # (Auto) 0.1 0.0 (0.0-0.2) th/mm3 Comprehensive Metabolic Panel 06/12/18 06/13/18 Range/Units 02:58 04:37 Sodium 144 143 (136-145) meq/L Potassium 4.1 4.0 (3.5-5.1) meq/L Chloride 104 102 (98-107) meq/L Carbon Dioxide 35.7 H 35.1 H (21.0-32.0) meq/L BUN 8 9 (7-18) mg/dL Creatinine 0.78 0.77 (0.50-1.00) mg/dL Calcium 7.6 L 7.8 L (8.5-10.1) mg/dL AST 20 20 (15-37) U/L ALT 14 13 (10-53) U/L Alkaline Phosphatase 107 111 (45-117) U/L Total Protein 4.9 L 5.4 L (6.4-8.2) g/dL Albumin 1.5 L 1.5 L (3.4-5.0) g/dL Intake and Output 06/13/18 06/13/18 06/13/18 06:59 14:59 22:59 Other: Weight 68.9 kg Assessment and Plan - Assessment (1) Atrial fibrillation with RVR Code(s): I48.91 - Unspecified atrial fibrillation Status: Acute (2) Symptomatic bradycardia Code(s): R00.1 - Bradycardia, unspecified Status: Acute (3) Humeral fracture Code(s): S42.309A - Unspecified fracture of shaft of humerus, unspecified arm, initial encounter for closed fracture Status: Acute (4) Encephalopathy Code(s): G93.40 - Encephalopathy, unspecified Status: Acute (5) Toxic metabolic encephalopathy Code(s): G92 - Toxic encephalopathy Status: Acute (6) Gait disorder Code(s): R26.9 - Unspecified abnormalities of gait and mobility Status: Chronic (7) Tremor Code(s): R25.1 - Tremor, unspecified Status: Chronic (8) Acute UTI Code(s): N39.0 - Urinary tract infection, site not specified Status: Acute - Plan Patient having fewer episodes of atrial fibrillation with rapid ventricular response. Patient had episodes of sinus bradycardia and is currently in sinus rhythm on the monitor. Continue amiodarone loading 400 mg twice daily for 7 days, start 200mg QD on Saturday. Recent fall which resulted in a right proximal humerus fracture. Echocardiogram 06-06-18 shows ejection fraction 65-70%, trace mitral regurgitation and mild tricuspid valve regurgitation. We will continue with current cardiac treatment plan. We will continue to follow the patient during her hospitalization. Patient was seen and evaluated by Dr. Zimmer who participated in care, management and decision making. - Attending Attestation Patient seen and examined. I reviewed and agree with the evaluation and plan as presented. Continue amio to maintain SR. Anticipate discharge soon. (3) Humeral fracture Qualifiers: Encounter type: subsequent encounter Humerus Location: proximal Fracture type: closed Fracture morphology: other fracture Fracture alignment: nondisplaced Laterality: right Fracture healing: with routine healing Qualified Code(s): S42.294D - Other nondisplaced fracture of upper end of right humerus, subsequent encounter for fracture with routine healing
[2018-06-13] MEDS: Enoxaparin Inj 40 MG/0.4 ML Syringe SQ SCH (17:40)
[2018-06-14 06:14] LABS: Hematocrit 26.3 % (35.0-46.0); Hemoglobin 8.6 gm/dL (11.6-15.3); Mean Corpuscular HGB Conc 32.5 % (32.0-36.0); Mean Corpuscular Hemoglobin 35.9 pg (27.0-34.0); Mean Corpuscular Volume 110.5 fL (80.0-100.0); Mean Platelet Volume 10.1 fL (7.0-11.0); Platelet Count 356 th/mm3 (150-450); Red Blood Count 2.38 mil/mm3 (4.00-5.30); Red Cell Distribution Width 15.8 % (11.6-17.2); White Blood Count 8.1 th/mm3 (4.0-11.0)
[2018-06-14 06:35] LABS: Calcium 8.2 mg/dL (8.5-10.1); Magnesium 2.6 mg/dL (1.5-2.5); Phosphorus 3.4 mg/dL (2.5-4.9); Potassium 4.2 meq/L (3.5-5.1)
[2018-06-14] MEDS: Senna/Docusate Sodium 8.6/50 MG Tablet PO SCH ×2 (09:13→23:18)
[2018-06-14] MEDS: Venlafaxine XR 75 MG Capsule PO SCH (09:13)
[2018-06-14] MEDS: Amiodarone 200 MG Tablet PO SCH ×2 (09:13→23:18)
[2018-06-14] MEDS: Divalproex 500 MG DR Tablet PO SCH ×3 (09:14→17:20)
[2018-06-14] MEDS: Thyroid 60 MG Tablet PO SCH (09:14)
--- NOTE | 2018-06-14 12:10 | P.PN ---
Subjective Interval history: Patient seen sitting in bed eating breakfast. She is being assisted by the aid. Patient has no new concerns denies any palpitations but does complain of the "shakes". She said she gets these all the time whenever she has not eaten and she is already feeling better now that she is having breakfast. No chest pain or palpitations. No syncope or dizziness. Pain is well controlled. Physical Exam Vital signs: Vital Signs 06/13/18 12:15 06/13/18 16:00 06/13/18 16:15 Temperature 95.5 F L Pulse Rate 86 Respiratory Rate 22 16 22 Blood Pressure 135/94 H Pulse Oximetry 98 06/13/18 20:00 06/14/18 00:00 06/14/18 00:35 Temperature 98 F 98.1 F Pulse Rate 78 80 Respiratory Rate 16 16 Blood Pressure 128/92 H 126/86 Pulse Oximetry 98 98 97 06/14/18 02:37 06/14/18 04:00 06/14/18 08:00 Temperature 98 F 98 F Pulse Rate 76 79 Respiratory Rate 18 16 20 Blood Pressure 128/84 120/59 L Pulse Oximetry 98 96 Intake & Output 06/13/18 06/14/18 06/14/18 18:59 06:59 18:59 Intake Total 180 / 180 Output Total 800 / 800 Balance -620 / -620 Weight 68.9 kg Intake: Oral 180 / 180 Output: Urine 800 / 800 Other: Date of Last Bowel Movement 06/13/18 Narrative: GENERAL: Well-nourished, well-developed adult female in no apparent distress who appears older than stated age SKIN: Warm and dry. HEAD: Atraumatic. Normocephalic. EYES: Pupils equal and round. No scleral icterus. No injection or drainage. ENT: No nasal bleeding or discharge. Mucous membranes pink and moist. NECK: Trachea midline. No JVD. CARDIOVASCULAR: IRRegular rate and rhythm. RESPIRATORY: No accessory muscle use. Clear to auscultation. Breath sounds equal bilaterally. GASTROINTESTINAL: Abdomen soft, non-tender, nondistended. MUSCULOSKELETAL: Extremities without clubbing, cyanosis, or edema. No obvious deformities. Right upper extremity in sling NEUROLOGICAL: Awake and alert. No obvious cranial nerve deficits. Motor grossly within normal limits. 3 out of 5 muscle strength in the arms and legs. Normal speech. Right upper extremity is in sling PSYCHIATRIC: Talkative and pleasant; insight and judgment questionable. Results - Labs CBC & Chem 7: 06/14/18 04:55 06/14/18 04:55 Laboratory Results - last 24 hr 06/13/18 06/13/18 06/14/18 18:28 23:12 04:55 WBC 8.1 RBC 2.38 L Hgb 8.6 L Hct 26.3 L MCV 110.5 H MCH 35.9 H MCHC 32.5 RDW 15.8 Plt Count 356 MPV 10.1 Sodium Potassium Chloride Carbon Dioxide Anion Gap BUN Creatinine Estimated GFR POC Glucose 193 H 126 H Random Glucose Calcium Phosphorus Magnesium 06/14/18 06/14/18 04:55 05:28 WBC RBC Hgb Hct MCV MCH MCHC RDW Plt Count MPV Sodium 144 Potassium 4.2 Chloride 102 Carbon Dioxide 35.0 H Anion Gap 7 BUN 8 Creatinine 0.72 Estimated GFR 83 L POC Glucose 90 Random Glucose 85 Calcium 8.2 L Phosphorus 3.4 Magnesium 2.6 H - Procedures NONE Assessment and Plan - Plan Assessment: 58yF with paroxysmal afib and humerus fracture. non-operative management for humerus fracture per ortho. OOB with PT. 06/14: Stable. Added iron supplement for anemia. Continue current medical plan. NEURO: Dementia Continue Aricept 10 mg p.o. daily Bipolar disorder Continue Depakote 500 mg p.o. 3 times daily. This may be for mood although indication is not entirely clear. Continue Zanaflex 2 mg p.o. 3 times daily. Continue Effexor ER 75 mg p.o. daily. Generalized weakness Gait disorder Multiple falls CT brainno acute abnormality. Small vessel ischemic changes. Neurology following. MRI/MRA brain and MRI C-spine negative. EEG 06/05moderate encephalopathy CONTINUE PT AND OT-COULD USE SNF IF ACCEPTED RESP: Nasal cannula wean as tolerated CV: Atrial fibrillation with RVR which become symptomatic sinus bradycardia with hypotension- resolved Bradycardia and hypotension immediately upon conversion to sinus rhythm on betablockers and calcium channel blockers. Received atropine 0.5 mg IV, glucagon 2.5 mg IV, and trial transcutaneous pacing. She remained hypotensive even with rate in 70s. Initiated dopamine which ultimately was titrated to 20 mcg/kg/min to maintain mean arterial pressure greater than 65. Holding beta blockers and calcium channel blockers. Cardiology has previously been consulted. She may ultimately require backup pacemaker in order to tolerate rate control agents. Continue aspirin 81 mg daily. Off pressors off amiodarone drip now on p.o. amiodarone -Cardio has cleared for DC Anemia -Stable; add iron supplement -FOBT ordered; uncollected as of 06/14 FEN/RENAL: Creatinine normal. Monitor intake and output and BMP. 20 meq kcl po x 1 daily electrolytes aggressive replacement. A.m. labs ID: [id number] Urine culture 06/04 with Klebsiella. Blood culture from 06/04 remain negative. Treated with Rocephin; resolved ENDO: Hypoglycemia- resolved. Continue diet. cortisol appropriate. Hypothyroidism Continue [place] Thyroid 60 milligrams daily. TSH elevated, free T4 normal: Sick euthyroid. no changes needed to regimen. needs recheck in outpatient setting in 6 weeks-3 months. MSK: Subacute right proximal humerus fracture Upper extremity remains in a sling. plan for non-operative management per ortho. PROPH: Lovenox 40 mg subcu daily for DVT prophylaxis. Protonix 40 mg p.o. daily for stress ulcer prophylaxis. Code Status: FULL CODE Discussed Condition With: RN AND PT AND CM and Dr. Cornelius Discharge Planning: NEEDS PT AND OT DAILY COULD USE SNF IF ACCEPTED
[2018-06-14] MEDS: Enoxaparin Inj 40 MG/0.4 ML Syringe SQ SCH (17:20)
[2018-06-15] MEDS: Senna/Docusate Sodium 8.6/50 MG Tablet PO SCH ×2 (09:18→20:48)
[2018-06-15] MEDS: Venlafaxine XR 75 MG Capsule PO SCH (09:19)
[2018-06-15] MEDS: Ferrous Sulfate 325 MG Tablet PO SCH (09:19)
[2018-06-15] MEDS: Amiodarone 200 MG Tablet PO SCH ×2 (09:19→20:48)
[2018-06-15] MEDS: Thyroid 60 MG Tablet PO SCH (09:19)
[2018-06-15] MEDS: Divalproex 500 MG DR Tablet PO SCH ×3 (09:23→17:19)
--- NOTE | 2018-06-15 15:08 | P.PN ---
Subjective Interval history: Patient is seen sitting in bed eating breakfast. She has no new complaints other than the fact that her essential tremor which she has had for years is making it difficult to eat using her left hand. She is working with occupational therapy on this. No chest pain or shortness of breath. No nausea vomiting or diarrhea. Nursing reports no adverse events. Physical Exam Vital signs: Vital Signs 06/14/18 16:00 06/14/18 20:00 06/14/18 20:30 Temperature 97.9 F 98.3 F Pulse Rate 71 80 71 Respiratory Rate 20 18 Blood Pressure 109/59 L 128/56 L Pulse Oximetry 97 98 06/15/18 00:00 06/15/18 00:30 06/15/18 03:00 Temperature 98.2 F Pulse Rate 71 72 Respiratory Rate 18 18 Blood Pressure 119/58 L Pulse Oximetry 95 06/15/18 04:00 06/15/18 04:30 06/15/18 04:49 Temperature 98.3 F Pulse Rate 78 72 Respiratory Rate 18 18 Blood Pressure 117/60 Pulse Oximetry 98 06/15/18 08:00 06/15/18 12:00 Temperature 98.1 F 97.8 F Pulse Rate 74 70 Respiratory Rate 20 20 Blood Pressure 113/64 105/56 L Pulse Oximetry 94 L 99 Intake & Output 06/14/18 06/15/18 06/15/18 18:59 06:59 18:59 Intake Total 720 / 720 Output Total 800 / 800 Balance 720 / 720 -800 / -800 Weight 68.5 kg Intake: Oral 720 / 720 Output: Urine 800 / 800 Other: Date of Last Bowel Movement 06/14/18 Narrative: GENERAL: Well-nourished, well-developed adult female in no apparent distress who appears older than stated age SKIN: Warm and dry. HEAD: Atraumatic. Normocephalic. EYES: Pupils equal and round. No scleral icterus. No injection or drainage. ENT: No nasal bleeding or discharge. Mucous membranes pink and moist. NECK: Trachea midline. No JVD. CARDIOVASCULAR: IRRegular rate and rhythm. RESPIRATORY: No accessory muscle use. Clear to auscultation. Breath sounds equal bilaterally. GASTROINTESTINAL: Abdomen soft, non-tender, nondistended. MUSCULOSKELETAL: Extremities without clubbing, cyanosis, or edema. No obvious deformities. Right upper extremity in sling NEUROLOGICAL: Awake and alert. No obvious cranial nerve deficits. Motor grossly within normal limits. 3 out of 5 muscle strength in the arms and legs. Normal speech. Right upper extremity is in sling PSYCHIATRIC: Talkative and pleasant; insight and judgment questionable. Results - Labs CBC & Chem 7: 06/14/18 04:55 06/14/18 04:55 Laboratory Results - last 24 hr 06/14/18 17:18 POC Glucose 127 H - Procedures NONE Assessment and Plan - Plan Assessment: 58yF with paroxysmal afib and humerus fracture. non-operative management for humerus fracture per ortho. OOB with PT. 06/15: Stable. Continue current medical plan. NEURO: Dementia Continue Aricept 10 mg p.o. daily Bipolar disorder Continue Depakote 500 mg p.o. 3 times daily. This may be for mood although indication is not entirely clear. Continue Zanaflex 2 mg p.o. 3 times daily. Continue Effexor ER 75 mg p.o. daily. Generalized weakness Gait disorder Multiple falls CT brainno acute abnormality. Small vessel ischemic changes. Neurology following. MRI/MRA brain and MRI C-spine negative. EEG 06/05moderate encephalopathy CONTINUE PT AND OT-COULD USE SNF IF ACCEPTED RESP: Nasal cannula wean as tolerated CV: Atrial fibrillation with RVR which become symptomatic sinus bradycardia with hypotension- resolved Bradycardia and hypotension immediately upon conversion to sinus rhythm on betablockers and calcium channel blockers. Received atropine 0.5 mg IV, glucagon 2.5 mg IV, and trial transcutaneous pacing. She remained hypotensive even with rate in 70s. Initiated dopamine which ultimately was titrated to 20 mcg/kg/min to maintain mean arterial pressure greater than 65. Holding beta blockers and calcium channel blockers. Cardiology has previously been consulted. She may ultimately require backup pacemaker in order to tolerate rate control agents. Continue aspirin 81 mg daily. Off pressors off amiodarone drip now on p.o. amiodarone -Cardio has cleared for DC Anemia -Stable; add iron supplement -FOBT ordered; uncollected as of 06/14 FEN/RENAL: Creatinine normal. Monitor intake and output and BMP. 20 meq kcl po x 1 daily electrolytes aggressive replacement. A.m. labs ID: [id number] Urine culture 06/04 with Klebsiella. Blood culture from 06/04 remain negative. Treated with Rocephin; resolved ENDO: Hypoglycemia- resolved. Continue diet. cortisol appropriate. Hypothyroidism Continue [place] Thyroid 60 milligrams daily. TSH elevated, free T4 normal: Sick euthyroid. no changes needed to regimen. needs recheck in outpatient setting in 6 weeks-3 months. MSK: Subacute right proximal humerus fracture Upper extremity remains in a sling. plan for non-operative management per ortho. PROPH: Lovenox 40 mg subcu daily for DVT prophylaxis. Protonix 40 mg p.o. daily for stress ulcer prophylaxis. Code Status: FULL CODE Discussed Condition With: RN AND PT AND CM and Dr. Cornelius Discharge Planning: NEEDS PT AND OT DAILY COULD USE SNF IF ACCEPTED
[2018-06-15] MEDS: Enoxaparin Inj 40 MG/0.4 ML Syringe SQ SCH (17:20)
[2018-06-16] MEDS: Ferrous Sulfate 325 MG Tablet PO SCH (08:24)
[2018-06-16] MEDS: Thyroid 60 MG Tablet PO SCH (08:24)
[2018-06-16] MEDS: Amiodarone 200 MG Tablet PO SCH ×2 (08:24→21:14)
[2018-06-16] MEDS: Venlafaxine XR 75 MG Capsule PO SCH (08:24)
[2018-06-16] MEDS: Senna/Docusate Sodium 8.6/50 MG Tablet PO SCH ×2 (08:24→21:23)
[2018-06-16] MEDS: Divalproex 500 MG DR Tablet PO SCH ×3 (08:24→17:08)
--- NOTE | 2018-06-16 09:40 | P.PNCA ---
Subjective Interval history: Patient denies any chest pain, pressure, palpitations, dizziness, edema or shortness of breath. Patient does complain of increased pain in her right arm and shoulder due to humerus fracture, arm is currently in a sling. Medications and Allergies Allergies Allergy/AdvReac Type Severity Reaction Status Date / Time No Known Allergies Allergy Verified 05/28/18 10:30 Home Medications Medication Instructions Recorded Confirmed Type allopurinol 100 mg PO BID 05/28/18 05/28/18 History aspirin 81 mg PO DAILY 05/28/18 05/28/18 History buspirone 5 mg PO TID 05/28/18 05/28/18 History calcium carbonate [Calcium 600] 600 mg PO BID 05/28/18 05/28/18 History divalproex [Depakote] 500 mg PO TID 05/28/18 05/28/18 History donepezil 10 mg PO DAILY 05/28/18 06/04/18 History hydrocodone-acetaminophen [[place]] 1 tab PO Q6H PRN 05/28/18 06/04/18 History levothyroxine 25 mcg PO DAILY 05/28/18 06/04/18 History oxybutynin chloride 5 mg PO BID 05/28/18 06/04/18 History sotalol 80 mg PO Q12H 05/28/18 06/04/18 History thyroid (pork) [[place] Thyroid] 60 mg PO DAILY 05/28/18 06/04/18 History tizanidine 2 mg PO TID PRN 05/28/18 06/04/18 History venlafaxine [Effexor XR] 75 mg PO DAILY 05/28/18 06/04/18 History Active Medications: Active Medications Acetaminophen (Tylenol) 650 mg PO Q4H PRN PRN Reason: Temp > 100.4 Last Admin: 06/05/18 08:09 Dose: 650 mg Hydrocodone Bitart/Acetaminophen ([place] 5/325) 1 tab PO Q4H PRN PRN Reason: PAIN 4-7 Last Admin: 06/10/18 03:47 Dose: 1 tab Hydrocodone Bitart/Acetaminophen ([place] 10/325) 1 tab PO Q4H PRN PRN Reason: PAIN 8-10 Last Admin: 06/16/18 08:24 Dose: 1 tab Al Hydroxide/Mg Hydroxide (Milk Of Magnesia Liq) 30 ml PO Q12H PRN PRN Reason: Mild Constipation Last Admin: 06/12/18 18:17 Dose: 30 ml Amiodarone HCl (Cordarone) 400 mg PO Q12HR [facility] Stop: 06/21/18 09:00 Last Admin: 06/16/18 08:24 Dose: 400 mg Aspirin (Aspirin Chew) 81 mg PO DAILY [facility] Last Admin: 06/16/18 08:24 Dose: 81 mg Bisacodyl (Dulcolax Supp) 10 mg RECTAL DAILY PRN PRN Reason: SEVERE CONSITIPATION Dextrose (D50w Vial) 50 ml IV.PUSH UNSCH PRN PRN Reason: PER HYPOGLYCEMIA PROTOCOL Last Admin: 06/06/18 06:00 Dose: 50 ml Divalproex Sodium (Depakote Dr) 500 mg PO TID [facility] Last Admin: 06/16/18 08:24 Dose: 500 mg Donepezil HCl (Aricept) 10 mg PO DAILY [facility] Last Admin: 06/16/18 08:24 Dose: 10 mg Enoxaparin Sodium (Lovenox Inj) 40 mg SQ Q24H [facility] Last Admin: 06/15/18 17:20 Dose: 40 mg Ferrous Sulfate (Ferosul) 325 mg PO DAILY [facility] Last Admin: 06/16/18 08:24 Dose: 325 mg Glucagon (Glucagon Inj) 1 mg OTHER PRN PRN PRN Reason: for Hypoglycemia Protocol Amiodarone HCl 450 mg/ (Dextrose) 250 mls @ 33.33 mls/hr IV.CONT TITRATE PRN; Protocol PRN Reason: Per Protocol Last Titration: 06/09/18 10:07 Dose: 0 mg/min, 0 mls/hr Phenylephrine HCl 40 mg/ (Dextrose) 500 mls @ 30 mls/hr IV.CONT TITRATE PRN; Protocol PRN Reason: Per Protocol Last Titration: 06/08/18 11:02 Dose: 0 mcg/min, 0 mls/hr Sodium Chloride (Ns Inj) 1,000 mls @ 0 mls/hr IV.SIG BOLUS [facility] Last Infusion: 06/12/18 02:23 Dose: Infused Lactulose (Lactulose Liq) 30 ml PO DAILY PRN PRN Reason: SEVERE CONSITIPATION Levothyroxine Sodium (Synthroid) 25 mcg PO DAILY@0600 [facility] Last Admin: 06/16/18 05:34 Dose: 25 mcg Miscellaneous (Pill Splitter) 1 each OTHER [facility] Ondansetron HCl (Zofran Inj) 4 mg IV.PUSH Q6H PRN PRN Reason: NAUSEA OR VOMITING Last Admin: 06/07/18 21:46 Dose: 4 mg Oxybutynin Chloride (Ditropan) 5 mg PO BID [facility] Last Admin: 06/16/18 08:24 Dose: 5 mg Pantoprazole Sodium (Protonix) 40 mg PO DAILY [facility] Last Admin: 06/15/18 09:19 Dose: 40 mg Senna/Docusate Sodium (Leena-Colace) 1 tab PO BID [facility] Last Admin: 06/16/18 08:24 Dose: 1 tab Sennosides (Senokot) 17.2 mg PO Q12H PRN PRN Reason: Moderate Constipation Sodium Chloride (Ns Flush) 2 ml IV.FLUSH BID [facility] Last Admin: 06/15/18 20:48 Dose: 2 ml Sodium Chloride (Ns Flush) 2 ml IV.FLUSH PRN PRN PRN Reason: FLUSH AFTER USING IV ACCESS Sotalol HCl (Betapace) 80 mg PO Q12HR [facility] Last Admin: 06/05/18 20:05 Dose: 80 mg Thyroid ([place] Thyroid) 60 mg PO DAILY [facility] Last Admin: 06/16/18 08:24 Dose: 60 mg Tizanidine HCl (Zanaflex) 2 mg PO TID PRN PRN Reason: Anxiety Last Admin: 06/11/18 21:44 Dose: 2 mg Venlafaxine HCl (Effexor Xr) 75 mg PO DAILY [facility] Last Admin: 06/16/18 08:24 Dose: 75 mg Physical Exam Vital signs: Vital Signs 06/15/18 12:00 06/15/18 16:00 06/15/18 20:00 Temperature 97.8 F 98.1 F 98.1 F Pulse Rate 70 75 84 Respiratory Rate 20 20 18 Blood Pressure 105/56 L 126/60 140/83 Pulse Oximetry 99 98 95 06/15/18 20:30 06/15/18 21:12 06/16/18 00:00 Temperature 98.0 F Pulse Rate 68 83 Respiratory Rate 18 Blood Pressure 111/59 L Pulse Oximetry 96 95 06/16/18 00:30 06/16/18 04:00 06/16/18 04:51 Temperature 97.8 F Pulse Rate 72 70 Respiratory Rate 18 18 Blood Pressure 127/58 L Pulse Oximetry 96 06/16/18 06:00 06/16/18 08:00 Temperature 98.1 F Pulse Rate 69 117 H Respiratory Rate 20 Blood Pressure 130/85 Pulse Oximetry 92 L Intake & Output 06/15/18 06/16/18 06/16/18 18:59 06:59 18:59 Intake Total 620 / 620 Output Total 900 / 900 800 / 800 Balance -280 / -280 -800 / -800 Weight 68.5 kg Intake: Oral 620 / 620 Output: Urine 900 / 900 800 / 800 - Constitutional no acute distress - Routine HEENT Exam Head: Present: normocephalic Eye: Present: PERRL ENT: Present: mucous membranes moist - Routine Neck Exam Present: supple - Routine Respiratory Exam Present: CTA bilaterally - Routine Cardiovascular Exam Present: S1, S2, tachycardia, irregular rhythm. Absent: gallop, rubs Comments: Atrial fib with RVR. - Routine Abdominal Exam Present: normoactive bowel sounds - Routine Extremities Exam Present: edema, full ROM, pulses intact, normal capillary refill. Absent: cyanosis, clubbing - Routine Skin Exam Present: intact - Routine Neurological Exam Present: oriented X3 - Detailed Neurological Exam: Coma Scale Eye Opening: Spontaneous Verbal Response: Oriented Motor Response: Obey commands Genna Coma Scale Total: 15 - Routine Psychiatric Exam Present: normal affect Results 06/14/18 04:55 06/14/18 04:55 Intake and Output 06/15/18 06/16/18 06/16/18 22:59 06:59 14:59 Intake Total 620 / 620 Output Total 900 / 900 800 / 800 Balance -280 / -280 -800 / -800 Intake: Oral 620 / 620 Output: Urine 900 / 900 800 / 800 Other: Weight 68.5 kg Assessment and Plan - Assessment (1) Atrial fibrillation with RVR Code(s): I48.91 - Unspecified atrial fibrillation Status: Acute (2) Symptomatic bradycardia Code(s): R00.1 - Bradycardia, unspecified Status: Acute (3) Humeral fracture Code(s): S42.309A - Unspecified fracture of shaft of humerus, unspecified arm, initial encounter for closed fracture Status: Acute (4) Encephalopathy Code(s): G93.40 - Encephalopathy, unspecified Status: Acute (5) Toxic metabolic encephalopathy Code(s): G92 - Toxic encephalopathy Status: Acute (6) Gait disorder Code(s): R26.9 - Unspecified abnormalities of gait and mobility Status: Chronic (7) Tremor Code(s): R25.1 - Tremor, unspecified Status: Chronic (8) Acute UTI Code(s): N39.0 - Urinary tract infection, site not specified Status: Acute - Plan Patient currently in A. fib with rapid ventricular response, will reload with amiodarone for 5 more days with 400 mg twice daily. Recent fall which resulted in a right proximal humerus fracture. Echocardiogram 06-06-18 shows ejection fraction 65-70%, trace mitral regurgitation and mild tricuspid valve regurgitation. We will otherwise continue with current cardiac treatment plan. Increase activity as tolerated. We will continue to follow the patient during her hospitalization. Patient was seen and evaluated by Dr. Zimmer who participated in care, management and decision making. (3) Humeral fracture Qualifiers: Encounter type: subsequent encounter Humerus Location: proximal Fracture type: closed Fracture morphology: other fracture Fracture alignment: nondisplaced Laterality: right Fracture healing: with routine healing Qualified Code(s): S42.294D - Other nondisplaced fracture of upper end of right humerus, subsequent encounter for fracture with routine healing
--- NOTE | 2018-06-16 10:43 | P.PN ---
Subjective Interval history: Patient is seen sitting up in bed. She is getting ready for breakfast. Continues to be frustrated by not being able to use her right arm and is looking forward to working with occupational therapy. No new complaints. Nursing reports no adverse events overnight. Physical Exam Vital signs: Vital Signs 06/15/18 12:00 06/15/18 16:00 06/15/18 20:00 Temperature 97.8 F 98.1 F 98.1 F Pulse Rate 70 75 84 Respiratory Rate 20 20 18 Blood Pressure 105/56 L 126/60 140/83 Pulse Oximetry 99 98 95 06/15/18 20:30 06/15/18 21:12 06/16/18 00:00 Temperature 98.0 F Pulse Rate 68 83 Respiratory Rate 18 Blood Pressure 111/59 L Pulse Oximetry 96 95 06/16/18 00:30 06/16/18 04:00 06/16/18 04:51 Temperature 97.8 F Pulse Rate 72 70 Respiratory Rate 18 18 Blood Pressure 127/58 L Pulse Oximetry 96 06/16/18 06:00 06/16/18 08:00 Temperature 98.1 F Pulse Rate 69 117 H Respiratory Rate 20 Blood Pressure 130/85 Pulse Oximetry 92 L Intake & Output 06/15/18 06/16/18 06/16/18 18:59 06:59 18:59 Intake Total 620 / 620 Output Total 900 / 900 800 / 800 Balance -280 / -280 -800 / -800 Weight 68.5 kg Intake: Oral 620 / 620 Output: Urine 900 / 900 800 / 800 Other: Date of Last Bowel Movement 06/14/18 Narrative: GENERAL: Well-nourished, well-developed adult female in no apparent distress who appears older than stated age SKIN: Warm and dry. HEAD: Atraumatic. Normocephalic. EYES: Pupils equal and round. No scleral icterus. No injection or drainage. ENT: No nasal bleeding or discharge. Mucous membranes pink and moist. NECK: Trachea midline. No JVD. CARDIOVASCULAR: IRRegular rate and rhythm. RESPIRATORY: No accessory muscle use. Clear to auscultation. Breath sounds equal bilaterally. GASTROINTESTINAL: Abdomen soft, non-tender, nondistended. MUSCULOSKELETAL: Extremities without clubbing, cyanosis, or edema. No obvious deformities. Right upper extremity in sling NEUROLOGICAL: Awake and alert. No obvious cranial nerve deficits. Motor grossly within normal limits. 3 out of 5 muscle strength in the arms and legs. Normal speech. Right upper extremity is in sling PSYCHIATRIC: Talkative and pleasant; insight and judgment questionable. Results - Labs CBC & Chem 7: 06/14/18 04:55 06/14/18 04:55 - Procedures NONE Assessment and Plan - Plan Assessment: 58yF with paroxysmal afib and humerus fracture. non-operative management for humerus fracture per ortho. OOB with PT. 06/16: Stable. Continue current medical plan. Placement issue. NEURO: Dementia, Bipolar disorder Continue Aricept 10 mg p.o. daily Continue Depakote 500 mg p.o. 3 times daily. This may be for mood although indication is not entirely clear. Continue Zanaflex 2 mg p.o. 3 times daily. Continue Effexor ER 75 mg p.o. daily. Generalized weakness; Gait disorder; Multiple falls CT brainno acute abnormality. Small vessel ischemic changes. MRI/MRA brain and MRI C-spine negative. EEG 06/05moderate encephalopathy -Neurology following RESP: Nasal cannula wean as tolerated CV: Atrial fibrillation with RVR Bradycardia and hypotension immediately upon conversion to sinus rhythm on betablockers and calcium channel blockers. Received atropine 0.5 mg IV, glucagon 2.5 mg IV, and trial transcutaneous pacing. She remained hypotensive even with rate in 70s. Initiated dopamine which ultimately was titrated to 20 mcg/kg/min to maintain mean arterial pressure greater than 65. Holding beta blockers and calcium channel blockers. Continue aspirin 81 mg daily. Off pressors off amiodarone drip now on p.o. amiodarone -Cardio has cleared for DC; She may ultimately require backup pacemaker in order to tolerate rate control agents. Anemia -Stable; add iron supplement -FOBT ordered; uncollected as of 06/14 FEN/RENAL: Creatinine normal. Monitor intake and output and BMP. ID: UTI Urine culture 06/04 with Klebsiella. Blood culture from 06/04 remain negative. Treated with Rocephin; resolved ENDO: Hypoglycemia- resolved. Continue diet. cortisol appropriate. Hypothyroidism Continue [place] Thyroid 60 milligrams daily. TSH elevated, free T4 normal: Sick euthyroid. no changes needed to regimen. needs recheck in outpatient setting in 6 weeks-3 months. MSK: Subacute right proximal humerus fracture Upper extremity remains in a sling. plan for non-operative management per ortho. PROPH: Lovenox 40 mg subcu daily for DVT prophylaxis. Protonix 40 mg p.o. daily for stress ulcer prophylaxis. Code Status: FULL CODE Discussed Condition With: RN AND PT AND CM and Dr. Cornelius Discharge Planning: NEEDS PT AND OT DAILY COULD USE SNF IF ACCEPTED
[2018-06-16] MEDS: Enoxaparin Inj 40 MG/0.4 ML Syringe SQ SCH (17:09)
[2018-06-17] MEDS: Ferrous Sulfate 325 MG Tablet PO SCH (08:50)
[2018-06-17] MEDS: Venlafaxine XR 75 MG Capsule PO SCH (08:51)
[2018-06-17] MEDS: Amiodarone 200 MG Tablet PO SCH ×2 (08:51→21:07)
[2018-06-17] MEDS: Senna/Docusate Sodium 8.6/50 MG Tablet PO SCH ×2 (08:51→21:06)
[2018-06-17] MEDS: Thyroid 60 MG Tablet PO SCH (08:51)
[2018-06-17] MEDS: Divalproex 500 MG DR Tablet PO SCH ×3 (08:51→18:01)
--- NOTE | 2018-06-17 12:33 | P.PN ---
Subjective Interval history: Follow-up on patient with dementia, bipolar disorder, right humerus fracture. Patient seen and examined. Patient denies any complaints. Pain is currently well controlled right upper extremity. She denies any fever or chills. Denies any chest pain or shortness of breath. Denies any nausea, vomiting or abdominal pain. Physical Exam Vital signs: Vital Signs 06/16/18 16:00 06/16/18 17:08 06/16/18 18:00 Temperature 97.7 F Pulse Rate 70 70 Respiratory Rate 18 22 Blood Pressure 129/63 Pulse Oximetry 97 06/16/18 19:47 06/16/18 20:00 06/16/18 21:23 Temperature 98.4 F Pulse Rate 69 Respiratory Rate 18 19 Blood Pressure 129/59 L Pulse Oximetry 97 99 06/16/18 22:00 06/17/18 00:00 06/17/18 02:00 Temperature 98.2 F Pulse Rate 71 69 71 Respiratory Rate 19 Blood Pressure 116/60 Pulse Oximetry 96 06/17/18 04:00 06/17/18 06:00 06/17/18 08:00 Temperature 97.7 F 98.4 F Pulse Rate 66 64 61 Respiratory Rate 19 19 20 Blood Pressure 124/56 L 112/59 L Pulse Oximetry 97 96 06/17/18 10:13 06/17/18 11:05 Temperature Pulse Rate Respiratory Rate 20 Blood Pressure Pulse Oximetry 94 L Intake & Output 06/16/18 06/17/18 06/17/18 18:59 06:59 18:59 Intake Total 600 / 600 Balance 600 / 600 Weight 68.5 kg Intake: Oral 600 / 600 Other: # Voids 2 # Incontinent Voids 1 Date of Last Bowel Movement 06/16/18 06/16/18 06/16/18 # Bowel Movements 1 Narrative: GENERAL: Well-nourished, well-developed middle-aged female, in no apparent distress. Awake and alert. SKIN: Warm and dry. HEENT: Atraumatic. Normocephalic. Pupils equal and round. No scleral icterus. No injection or drainage. No nasal bleeding or discharge. Mucous membranes pink and moist. NECK: Trachea midline. CARDIOVASCULAR: Irregular rate and rhythm. RESPIRATORY: No accessory muscle use. Clear to auscultation anteriorly. Breath sounds equal bilaterally. GASTROINTESTINAL: Abdomen soft, non-tender, nondistended. MUSCULOSKELETAL: Extremities without clubbing, cyanosis, or edema. Right upper extremity in sling. Able to move all digits of the right hand. Neurovascular intact distally right upper extremity. NEUROLOGICAL: Awake and alert. No obvious cranial nerve deficits. 3 out of 5 muscle strength in the arms and legs. Normal speech. PSYCHIATRIC: Talkative and pleasant; insight and judgment questionable. Results - Labs CBC & Chem 7: 06/14/18 04:55 06/14/18 04:55 Laboratory Results - last 24 hr 06/16/18 06/17/18 13:19 11:26 POC Glucose 117 H 125 H - Procedures NONE Assessment and Plan - Plan 58yF with paroxysmal afib and humerus fracture. non-operative management for humerus fracture per ortho. OOB with PT. NEURO: Dementia, Bipolar disorder Continue Aricept 10 mg p.o. daily Continue Depakote 500 mg p.o. 3 times daily. This may be for mood although indication is not entirely clear. Continue Zanaflex 2 mg p.o. 3 times daily. Continue Effexor ER 75 mg p.o. daily. Generalized weakness; Gait disorder; Multiple falls CT brainno acute abnormality. Small vessel ischemic changes. MRI/MRA brain and MRI C-spine negative. EEG 06/05moderate encephalopathy -Neurology following RESP: Nasal cannula wean as tolerated CV: Atrial fibrillation with RVR Bradycardia and hypotension immediately upon conversion to sinus rhythm on betablockers and calcium channel blockers. Received atropine 0.5 mg IV, glucagon 2.5 mg IV, and trial transcutaneous pacing. She remained hypotensive even with rate in 70s. Initiated dopamine which ultimately was titrated to 20 mcg/kg/min to maintain mean arterial pressure greater than 65. -Holding beta blockers and calcium channel blockers. -continue on Amiodarone -HR controlled. Continue to monitor. Continue aspirin 81 mg daily. Off pressors off amiodarone drip now on p.o. amiodarone -Cardio has cleared for DC; She may ultimately require backup pacemaker in order to tolerate rate control agents. Anemia -Stable; iron supplement added -FOBT ordered; uncollected as of 06/14 FEN/RENAL: Creatinine normal. Monitor intake and output and BMP. ID: UTI Urine culture 06/04 with Klebsiella. Blood culture from 06/04 remain negative. Treated with Rocephin; resolved ENDO: Hypoglycemia- resolved. Continue diet. cortisol appropriate. Hypothyroidism Continue [place] Thyroid 60 milligrams daily and Levothyroxine 25mcg daily. TSH elevated, free T4 normal: Sick euthyroid. no changes needed to regimen. needs recheck in outpatient setting in 6 weeks-3 months. MSK: Subacute right proximal humerus fracture Upper extremity remains in a sling. plan for non-operative management per ortho. PROPH: Lovenox 40 mg subcu daily for DVT prophylaxis. Protonix 40 mg p.o. daily for stress ulcer prophylaxis. Code Status: FULL Discussed Condition With: patient, nursing staff
--- NOTE | 2018-06-17 14:54 | P.PNCA ---
Subjective Interval history: Patient denies any chest pain, pressure, palpitations, dizziness, edema or shortness of breath. Patient states that she is starting to feel better except for the right arm. Medications and Allergies Allergies Allergy/AdvReac Type Severity Reaction Status Date / Time No Known Allergies Allergy Verified 05/28/18 10:30 Home Medications Medication Instructions Recorded Confirmed Type allopurinol 100 mg PO BID 05/28/18 05/28/18 History aspirin 81 mg PO DAILY 05/28/18 05/28/18 History buspirone 5 mg PO TID 05/28/18 05/28/18 History calcium carbonate [Calcium 600] 600 mg PO BID 05/28/18 05/28/18 History divalproex [Depakote] 500 mg PO TID 05/28/18 05/28/18 History donepezil 10 mg PO DAILY 05/28/18 06/04/18 History hydrocodone-acetaminophen [[place]] 1 tab PO Q6H PRN 05/28/18 06/04/18 History levothyroxine 25 mcg PO DAILY 05/28/18 06/04/18 History oxybutynin chloride 5 mg PO BID 05/28/18 06/04/18 History sotalol 80 mg PO Q12H 05/28/18 06/04/18 History thyroid (pork) [[place] Thyroid] 60 mg PO DAILY 05/28/18 06/04/18 History tizanidine 2 mg PO TID PRN 05/28/18 06/04/18 History venlafaxine [Effexor XR] 75 mg PO DAILY 05/28/18 06/04/18 History Active Medications: Active Medications Acetaminophen (Tylenol) 650 mg PO Q4H PRN PRN Reason: Temp > 100.4 Last Admin: 06/05/18 08:09 Dose: 650 mg Hydrocodone Bitart/Acetaminophen ([place] 5/325) 1 tab PO Q4H PRN PRN Reason: PAIN 4-7 Last Admin: 06/10/18 03:47 Dose: 1 tab Hydrocodone Bitart/Acetaminophen ([place] 10/325) 1 tab PO Q4H PRN PRN Reason: PAIN 8-10 Last Admin: 06/17/18 11:05 Dose: 1 tab Al Hydroxide/Mg Hydroxide (Milk Of Magnesia Liq) 30 ml PO Q12H PRN PRN Reason: Mild Constipation Last Admin: 06/12/18 18:17 Dose: 30 ml Amiodarone HCl (Cordarone) 400 mg PO Q12HR [facility] Stop: 06/21/18 09:00 Last Admin: 06/17/18 08:51 Dose: 400 mg Aspirin (Aspirin Chew) 81 mg PO DAILY [facility] Last Admin: 06/17/18 08:50 Dose: 81 mg Bisacodyl (Dulcolax Supp) 10 mg RECTAL DAILY PRN PRN Reason: SEVERE CONSITIPATION Dextrose (D50w Vial) 50 ml IV.PUSH UNSCH PRN PRN Reason: PER HYPOGLYCEMIA PROTOCOL Last Admin: 06/06/18 06:00 Dose: 50 ml Divalproex Sodium (Depakote Dr) 500 mg PO TID [facility] Last Admin: 06/17/18 08:51 Dose: 500 mg Donepezil HCl (Aricept) 10 mg PO DAILY [facility] Last Admin: 06/17/18 08:51 Dose: 10 mg Enoxaparin Sodium (Lovenox Inj) 40 mg SQ Q24H [facility] Last Admin: 06/16/18 17:09 Dose: 40 mg Ferrous Sulfate (Ferosul) 325 mg PO DAILY [facility] Last Admin: 06/17/18 08:50 Dose: 325 mg Glucagon (Glucagon Inj) 1 mg OTHER PRN PRN PRN Reason: for Hypoglycemia Protocol Amiodarone HCl 450 mg/ (Dextrose) 250 mls @ 33.33 mls/hr IV.CONT TITRATE PRN; Protocol PRN Reason: Per Protocol Last Titration: 06/09/18 10:07 Dose: 0 mg/min, 0 mls/hr Phenylephrine HCl 40 mg/ (Dextrose) 500 mls @ 30 mls/hr IV.CONT TITRATE PRN; Protocol PRN Reason: Per Protocol Last Titration: 06/08/18 11:02 Dose: 0 mcg/min, 0 mls/hr Sodium Chloride (Ns Inj) 1,000 mls @ 0 mls/hr IV.SIG BOLUS [facility] Last Infusion: 06/12/18 02:23 Dose: Infused Lactulose (Lactulose Liq) 30 ml PO DAILY PRN PRN Reason: SEVERE CONSITIPATION Levothyroxine Sodium (Synthroid) 25 mcg PO DAILY@0600 [facility] Last Admin: 06/17/18 06:01 Dose: 25 mcg Miscellaneous (Pill Splitter) 1 each OTHER [facility] Ondansetron HCl (Zofran Inj) 4 mg IV.PUSH Q6H PRN PRN Reason: NAUSEA OR VOMITING Last Admin: 06/07/18 21:46 Dose: 4 mg Oxybutynin Chloride (Ditropan) 5 mg PO BID [facility] Last Admin: 06/17/18 08:51 Dose: 5 mg Pantoprazole Sodium (Protonix) 40 mg PO DAILY [facility] Last Admin: 06/17/18 08:50 Dose: 40 mg Senna/Docusate Sodium (Leena-Colace) 1 tab PO BID [facility] Last Admin: 06/17/18 08:51 Dose: 1 tab Sennosides (Senokot) 17.2 mg PO Q12H PRN PRN Reason: Moderate Constipation Sodium Chloride (Ns Flush) 2 ml IV.FLUSH BID [facility] Last Admin: 06/17/18 08:54 Dose: 2 ml Sodium Chloride (Ns Flush) 2 ml IV.FLUSH PRN PRN PRN Reason: FLUSH AFTER USING IV ACCESS Sotalol HCl (Betapace) 80 mg PO Q12HR [facility] Last Admin: 06/05/18 20:05 Dose: 80 mg Thyroid ([place] Thyroid) 60 mg PO DAILY [facility] Last Admin: 06/17/18 08:51 Dose: 60 mg Tizanidine HCl (Zanaflex) 2 mg PO TID PRN PRN Reason: Anxiety Last Admin: 06/11/18 21:44 Dose: 2 mg Venlafaxine HCl (Effexor Xr) 75 mg PO DAILY [facility] Last Admin: 06/17/18 08:51 Dose: 75 mg Physical Exam Vital signs: Vital Signs 06/16/18 16:00 06/16/18 17:08 06/16/18 18:00 Temperature 97.7 F Pulse Rate 70 70 Respiratory Rate 18 22 Blood Pressure 129/63 Pulse Oximetry 97 06/16/18 19:47 06/16/18 20:00 06/16/18 21:23 Temperature 98.4 F Pulse Rate 69 Respiratory Rate 18 19 Blood Pressure 129/59 L Pulse Oximetry 97 99 06/16/18 22:00 06/17/18 00:00 06/17/18 02:00 Temperature 98.2 F Pulse Rate 71 69 71 Respiratory Rate 19 Blood Pressure 116/60 Pulse Oximetry 96 06/17/18 04:00 06/17/18 06:00 06/17/18 08:00 Temperature 97.7 F 98.4 F Pulse Rate 66 64 61 Respiratory Rate 19 19 20 Blood Pressure 124/56 L 112/59 L Pulse Oximetry 97 96 06/17/18 10:13 06/17/18 11:05 06/17/18 12:00 Temperature 98.2 F Pulse Rate 118 H Respiratory Rate 20 20 Blood Pressure 147/88 H Pulse Oximetry 94 L 96 06/17/18 13:28 Temperature Pulse Rate Respiratory Rate 18 Blood Pressure Pulse Oximetry Intake & Output 06/16/18 06/17/18 06/17/18 18:59 06:59 18:59 Intake Total 600 / 600 Balance 600 / 600 Weight 68.5 kg Intake: Oral 600 / 600 Other: # Voids 2 # Incontinent Voids 1 Date of Last Bowel Movement 06/16/18 06/16/18 06/16/18 # Bowel Movements 1 - Constitutional no acute distress - Routine HEENT Exam Head: Present: normocephalic Eye: Present: PERRL ENT: Present: mucous membranes moist - Routine Neck Exam Present: supple - Routine Respiratory Exam Present: CTA bilaterally - Routine Cardiovascular Exam Present: S1, S2. Absent: murmur, gallop, rubs - Routine Abdominal Exam Present: normoactive bowel sounds - Routine Extremities Exam Present: full ROM, pulses intact, normal capillary refill. Absent: cyanosis, clubbing, edema Comments: Patient has right arm in a sling status post humerus fracture. - Routine Skin Exam Present: intact - Routine Neurological Exam Present: oriented X3 - Detailed Neurological Exam: Coma Scale Eye Opening: Spontaneous Verbal Response: Oriented Motor Response: Obey commands Genna Coma Scale Total: 15 - Routine Psychiatric Exam Present: normal affect Results 06/14/18 04:55 06/14/18 04:55 Intake and Output 06/16/18 06/17/18 06/17/18 22:59 06:59 14:59 Intake Total 600 / 600 Balance 600 / 600 Intake: Oral 600 / 600 Other: # Voids 2 # Incontinent Voids 1 Date of Last Bowel Movement 06/16/18 06/16/18 # Bowel Movements 1 Weight 68.5 kg Assessment and Plan - Assessment (1) Atrial fibrillation with RVR Code(s): I48.91 - Unspecified atrial fibrillation Status: Acute (2) Symptomatic bradycardia Code(s): R00.1 - Bradycardia, unspecified Status: Acute (3) Humeral fracture Code(s): S42.309A - Unspecified fracture of shaft of humerus, unspecified arm, initial encounter for closed fracture Status: Acute (4) Encephalopathy Code(s): G93.40 - Encephalopathy, unspecified Status: Acute (5) Toxic metabolic encephalopathy Code(s): G92 - Toxic encephalopathy Status: Acute (6) Gait disorder Code(s): R26.9 - Unspecified abnormalities of gait and mobility Status: Chronic (7) Tremor Code(s): R25.1 - Tremor, unspecified Status: Chronic (8) Acute UTI Code(s): N39.0 - Urinary tract infection, site not specified Status: Acute - Plan Patient in SR, continue with amiodarone loading for 5 days, then 200 mg daily. Recent fall which resulted in a right proximal humerus fracture. Echocardiogram 06-06-18 shows ejection fraction 65-70%, trace mitral regurgitation and mild tricuspid valve regurgitation. We will continue with current cardiac treatment plan. Increase activity as tolerated. We will continue to follow the patient during her hospitalization. Patient was seen and evaluated by Dr. Zimmer who participated in care, management and decision making. - Attending Attestation Patient seen and examined. I reviewed and agree with the evaluation and plan as presented. Continue amio reloading. Anticipate discharge soon. (3) Humeral fracture Qualifiers: Encounter type: subsequent encounter Humerus Location: proximal Fracture type: closed Fracture morphology: other fracture Fracture alignment: nondisplaced Laterality: right Fracture healing: with routine healing Qualified Code(s): S42.294D - Other nondisplaced fracture of upper end of right humerus, subsequent encounter for fracture with routine healing
[2018-06-17] MEDS: Enoxaparin Inj 40 MG/0.4 ML Syringe SQ SCH (18:01)
--- NOTE | 2018-06-18 07:20 | P.PN ---
Subjective Interval history: Follow-up on patient with dementia, bipolar disorder, right humerus fracture. Patient seen and examined. Patient is oriented however she repeatedly falls asleep in the middle of a sentence and is noted to have mild involuntary movements of the head and upper extremities. She does not appear confused upon waking. She tells me that she did not get much sleep last night. She denies any history of seizure disorder. She denies any fever or chills. Denies any chest pain or shortness of breath. Denies any nausea, vomiting or abdominal pain. She states that she was at home and attending outpatient physical therapy prior to her injury. She states that she does not want to go to a SNF facility but would rather go home with home health care. Physical Exam Vital signs: Vital Signs 06/17/18 07:53 06/17/18 08:00 06/17/18 10:13 Temperature 98.4 F Pulse Rate 57 L 61 Respiratory Rate 20 Blood Pressure 112/59 L Pulse Oximetry 96 94 L 06/17/18 10:43 06/17/18 11:05 06/17/18 12:00 Temperature 98.2 F Pulse Rate 171 H 118 H Respiratory Rate 20 20 Blood Pressure 147/88 H Pulse Oximetry 96 06/17/18 13:28 06/17/18 15:17 06/17/18 16:00 Temperature 98.6 F Pulse Rate 75 Respiratory Rate 18 18 20 Blood Pressure 140/79 Pulse Oximetry 96 06/17/18 16:15 06/17/18 20:00 06/17/18 21:06 Temperature 98.2 F Pulse Rate 135 H Respiratory Rate 18 18 8 L Blood Pressure 141/68 H Pulse Oximetry 95 06/17/18 22:00 06/18/18 00:00 06/18/18 01:20 Temperature 98.3 F Pulse Rate 81 136 H 78 Respiratory Rate 18 Blood Pressure 157/78 H Pulse Oximetry 95 06/18/18 04:38 Temperature Pulse Rate 75 Respiratory Rate Blood Pressure Pulse Oximetry Intake & Output 06/17/18 06/18/18 06/18/18 18:59 06:59 18:59 Intake Total 480 / 480 240 / 240 Output Total 4 / 4 Balance 476 / 476 240 / 240 Intake: Oral 480 / 480 240 / 240 Output: Urine 4 / 4 Other: # Voids 2 Date of Last Bowel Movement 06/16/18 Narrative: GENERAL: Well-nourished, well-developed middle-aged female, in no apparent distress. Lethargic, repetitively falling asleep during our conversation and even in the middle of her own sentences. No postictal confusion. SKIN: Warm and dry. No generalized rash. HEENT: Atraumatic. Normocephalic. Pupils equal and round. No scleral icterus. No injection or drainage. No nasal bleeding or discharge. Mucous membranes pink and moist. NECK: Trachea midline. CARDIOVASCULAR: Irregular rate and rhythm. RESPIRATORY: No accessory muscle use. Clear to auscultation anteriorly. Breath sounds equal bilaterally. GASTROINTESTINAL: Abdomen soft, non-tender, nondistended. MUSCULOSKELETAL: Extremities without clubbing, cyanosis, or edema. Right upper extremity in sling. Able to move all digits of the right hand. Neurovascular intact distally right upper extremity. NEUROLOGICAL: Awake, lethargic. Oriented to self, place and time. No obvious cranial nerve deficits. 3 out of 5 muscle strength in the arms and legs. Normal speech. PSYCHIATRIC: Cooperative. Results - Labs CBC & Chem 7: 06/14/18 04:55 06/14/18 04:55 Laboratory Results - last 24 hr 06/17/18 06/18/18 11:26 06:45 POC Glucose 125 H 122 H - Procedures NONE Assessment and Plan - Plan 58yF with paroxysmal afib and humerus fracture. non-operative management for humerus fracture per ortho. OOB with PT. NEURO: Dementia, Bipolar disorder Continue Aricept 10 mg p.o. daily Continue Depakote 500 mg p.o. 3 times daily. This may be for mood although indication is not entirely clear. Continue Zanaflex 2 mg p.o. 3 times daily. Continue Effexor ER 75 mg p.o. daily. Generalized weakness; Gait disorder; Multiple falls CT brainno acute abnormality. Small vessel ischemic changes. MRI/MRA brain and MRI C-spine negative. EEG 06/05moderate encephalopathy -Neurology following -will repeat EEG today due to witnessed episodes of LOC with involuntary movements. Likely secondary to oversedation, narcotic side effect. Will decrease dose of narcotic medication. Hold muscle relaxant for now. RESP: Nasal cannula wean as tolerated -satting 95% on RA CV: Atrial fibrillation with RVR Bradycardia and hypotension immediately upon conversion to sinus rhythm on betablockers and calcium channel blockers. Received atropine 0.5 mg IV, glucagon 2.5 mg IV, and trial transcutaneous pacing. She remained hypotensive even with rate in 70s. Initiated dopamine which ultimately was titrated to 20 mcg/kg/min to maintain mean arterial pressure greater than 65. -Holding beta blockers and calcium channel blockers. -continue ASA 81mg daily -continue on Amiodarone. DW Dr. Zimmer at the bedside, cleared from cardiology standpoint for discharge. Plan to decrease dose of amiodarone to 200 mg. She may ultimately require backup pacemaker in order to tolerate rate control agents. -HR controlled. Continue to monitor. Anemia -Stable; iron supplement added -FOBT ordered; uncollected as of 06/14 FEN/RENAL: Creatinine normal. Monitor intake and output and BMP. ID: UTI Urine culture 06/04 with Klebsiella. Blood culture from 06/04 remain negative. Treated with Rocephin; resolved ENDO: Hypoglycemia- resolved. Continue diet. cortisol appropriate. Hypothyroidism Continue [place] Thyroid 60 milligrams daily and Levothyroxine 25mcg daily. TSH elevated, free T4 normal: Sick euthyroid. no changes needed to regimen. needs recheck in outpatient setting in 6 weeks-3 months. MSK: Subacute right proximal humerus fracture Upper extremity remains in a sling. plan for non-operative management per ortho. PROPH: Lovenox 40 mg subcu daily for DVT prophylaxis. Protonix 40 mg p.o. daily for stress ulcer prophylaxis. Code Status: FULL Discussed Condition With: patient, nursing staff Discharge Planning: Patient may be discharged to SNF facility. Case management assisting with discharge planning.
[2018-06-18] MEDS: Amiodarone 200 MG Tablet PO SCH ×2 (08:22→20:24)
[2018-06-18] MEDS: Venlafaxine XR 75 MG Capsule PO SCH (08:22)
[2018-06-18] MEDS: Divalproex 500 MG DR Tablet PO SCH ×3 (08:22→17:59)
[2018-06-18] MEDS: Senna/Docusate Sodium 8.6/50 MG Tablet PO SCH ×2 (08:22→20:24)
[2018-06-18] MEDS: Ferrous Sulfate 325 MG Tablet PO SCH (08:23)
[2018-06-18] MEDS: Thyroid 60 MG Tablet PO SCH (08:25)
--- NOTE | 2018-06-18 09:57 | P.PNCA ---
Subjective Interval history: Patient denies any chest pain, pressure, dizziness, palpitations, edema or shortness of breath. Patient states that she is feeling much better. Physical therapy is in the room working with patient at this time. Medications and Allergies Allergies Allergy/AdvReac Type Severity Reaction Status Date / Time No Known Allergies Allergy Verified 05/28/18 10:30 Home Medications Medication Instructions Recorded Confirmed Type allopurinol 100 mg PO BID 05/28/18 05/28/18 History aspirin 81 mg PO DAILY 05/28/18 05/28/18 History buspirone 5 mg PO TID 05/28/18 05/28/18 History calcium carbonate [Calcium 600] 600 mg PO BID 05/28/18 05/28/18 History divalproex [Depakote] 500 mg PO TID 05/28/18 05/28/18 History donepezil 10 mg PO DAILY 05/28/18 06/04/18 History hydrocodone-acetaminophen [[place]] 1 tab PO Q6H PRN 05/28/18 06/04/18 History levothyroxine 25 mcg PO DAILY 05/28/18 06/04/18 History oxybutynin chloride 5 mg PO BID 05/28/18 06/04/18 History sotalol 80 mg PO Q12H 05/28/18 06/04/18 History thyroid (pork) [[place] Thyroid] 60 mg PO DAILY 05/28/18 06/04/18 History tizanidine 2 mg PO TID PRN 05/28/18 06/04/18 History venlafaxine [Effexor XR] 75 mg PO DAILY 05/28/18 06/04/18 History Active Medications: Active Medications Acetaminophen (Tylenol) 650 mg PO Q4H PRN PRN Reason: Temp > 100.4 Last Admin: 06/05/18 08:09 Dose: 650 mg Hydrocodone Bitart/Acetaminophen ([place] 5/325) 1 tab PO Q4H PRN PRN Reason: PAIN 4-7 Last Admin: 06/10/18 03:47 Dose: 1 tab Hydrocodone Bitart/Acetaminophen ([place] 10/325) 1 tab PO Q4H PRN PRN Reason: PAIN 8-10 Last Admin: 06/18/18 06:42 Dose: 1 tab Al Hydroxide/Mg Hydroxide (Milk Of Magnesia Liq) 30 ml PO Q12H PRN PRN Reason: Mild Constipation Last Admin: 06/12/18 18:17 Dose: 30 ml Amiodarone HCl (Cordarone) 400 mg PO Q12HR [facility] Stop: 06/21/18 09:00 Last Admin: 06/18/18 08:22 Dose: 400 mg Aspirin (Aspirin Chew) 81 mg PO DAILY [facility] Last Admin: 06/18/18 08:22 Dose: 81 mg Bisacodyl (Dulcolax Supp) 10 mg RECTAL DAILY PRN PRN Reason: SEVERE CONSITIPATION Dextrose (D50w Vial) 50 ml IV.PUSH UNSCH PRN PRN Reason: PER HYPOGLYCEMIA PROTOCOL Last Admin: 06/06/18 06:00 Dose: 50 ml Divalproex Sodium (Depakote Dr) 500 mg PO TID [facility] Last Admin: 06/18/18 08:22 Dose: 500 mg Donepezil HCl (Aricept) 10 mg PO DAILY [facility] Last Admin: 06/18/18 08:22 Dose: 10 mg Enoxaparin Sodium (Lovenox Inj) 40 mg SQ Q24H [facility] Last Admin: 06/17/18 18:01 Dose: 40 mg Ferrous Sulfate (Ferosul) 325 mg PO DAILY [facility] Last Admin: 06/18/18 08:23 Dose: 325 mg Glucagon (Glucagon Inj) 1 mg OTHER PRN PRN PRN Reason: for Hypoglycemia Protocol Amiodarone HCl 450 mg/ (Dextrose) 250 mls @ 33.33 mls/hr IV.CONT TITRATE PRN; Protocol PRN Reason: Per Protocol Last Titration: 06/09/18 10:07 Dose: 0 mg/min, 0 mls/hr Phenylephrine HCl 40 mg/ (Dextrose) 500 mls @ 30 mls/hr IV.CONT TITRATE PRN; Protocol PRN Reason: Per Protocol Last Titration: 06/08/18 11:02 Dose: 0 mcg/min, 0 mls/hr Sodium Chloride (Ns Inj) 1,000 mls @ 0 mls/hr IV.SIG BOLUS [facility] Last Infusion: 06/12/18 02:23 Dose: Infused Lactulose (Lactulose Liq) 30 ml PO DAILY PRN PRN Reason: SEVERE CONSITIPATION Levothyroxine Sodium (Synthroid) 25 mcg PO DAILY@0600 [facility] Last Admin: 06/18/18 06:42 Dose: 25 mcg Miscellaneous (Pill Splitter) 1 each OTHER [facility] Ondansetron HCl (Zofran Inj) 4 mg IV.PUSH Q6H PRN PRN Reason: NAUSEA OR VOMITING Last Admin: 06/07/18 21:46 Dose: 4 mg Oxybutynin Chloride (Ditropan) 5 mg PO BID [facility] Last Admin: 06/18/18 08:23 Dose: 5 mg Pantoprazole Sodium (Protonix) 40 mg PO DAILY [facility] Last Admin: 06/18/18 08:22 Dose: 40 mg Senna/Docusate Sodium (Leena-Colace) 1 tab PO BID [facility] Last Admin: 06/18/18 08:22 Dose: 1 tab Sennosides (Senokot) 17.2 mg PO Q12H PRN PRN Reason: Moderate Constipation Sodium Chloride (Ns Flush) 2 ml IV.FLUSH BID [facility] Last Admin: 06/18/18 08:23 Dose: 2 ml Sodium Chloride (Ns Flush) 2 ml IV.FLUSH PRN PRN PRN Reason: FLUSH AFTER USING IV ACCESS Sotalol HCl (Betapace) 80 mg PO Q12HR [facility] Last Admin: 06/05/18 20:05 Dose: 80 mg Thyroid ([place] Thyroid) 60 mg PO DAILY [facility] Last Admin: 06/18/18 08:25 Dose: 60 mg Tizanidine HCl (Zanaflex) 2 mg PO TID PRN PRN Reason: Anxiety Last Admin: 06/11/18 21:44 Dose: 2 mg Venlafaxine HCl (Effexor Xr) 75 mg PO DAILY [facility] Last Admin: 06/18/18 08:22 Dose: 75 mg Physical Exam Vital signs: Vital Signs 06/17/18 10:13 06/17/18 10:43 06/17/18 11:05 Temperature Pulse Rate 171 H Respiratory Rate 20 Blood Pressure Pulse Oximetry 94 L 06/17/18 12:00 06/17/18 13:28 06/17/18 15:17 Temperature 98.2 F Pulse Rate 118 H Respiratory Rate 20 18 18 Blood Pressure 147/88 H Pulse Oximetry 96 06/17/18 16:00 06/17/18 16:15 06/17/18 20:00 Temperature 98.6 F 98.2 F Pulse Rate 75 135 H Respiratory Rate 20 18 18 Blood Pressure 140/79 141/68 H Pulse Oximetry 96 95 06/17/18 21:06 06/17/18 22:00 06/18/18 00:00 Temperature 98.3 F Pulse Rate 81 136 H Respiratory Rate 8 L 18 Blood Pressure 157/78 H Pulse Oximetry 95 06/18/18 01:20 06/18/18 04:00 06/18/18 04:38 Temperature 98.1 F Pulse Rate 78 125 H 75 Respiratory Rate 18 Blood Pressure 131/76 Pulse Oximetry 94 L 06/18/18 07:50 Temperature Pulse Rate Respiratory Rate 20 Blood Pressure Pulse Oximetry Intake & Output 06/17/18 06/18/18 06/18/18 18:59 06:59 18:59 Intake Total 480 / 480 240 / 240 Output Total 4 / 4 Balance 476 / 476 240 / 240 Intake: Oral 480 / 480 240 / 240 Output: Urine 4 / 4 Other: # Voids 2 Date of Last Bowel Movement 06/16/18 - Constitutional no acute distress - Routine HEENT Exam Head: Present: normocephalic Eye: Present: PERRL ENT: Present: mucous membranes moist - Routine Neck Exam Present: supple - Routine Respiratory Exam Present: CTA bilaterally - Routine Cardiovascular Exam Present: S1, S2. Absent: murmur, gallop, rubs - Routine Abdominal Exam Present: normoactive bowel sounds - Routine Extremities Exam Present: full ROM, pulses intact, normal capillary refill. Absent: cyanosis, clubbing, edema Comments: Patient has right humerus fracture with moderate bruising, right arm is in a sling. - Routine Skin Exam Present: intact - Routine Neurological Exam Present: oriented X3 - Detailed Neurological Exam: Coma Scale Eye Opening: Spontaneous Verbal Response: Oriented Motor Response: Obey commands Genna Coma Scale Total: 15 - Routine Psychiatric Exam Present: normal affect Results 06/14/18 04:55 06/14/18 04:55 Intake and Output 06/17/18 06/18/18 06/18/18 22:59 06:59 14:59 Intake Total 240 / 240 Output Total 4 / 4 Balance -4 / -4 240 / 240 Intake: Oral 240 / 240 Output: Urine 4 / 4 Other: # Voids 2 Assessment and Plan - Assessment (1) Atrial fibrillation with RVR Code(s): I48.91 - Unspecified atrial fibrillation Status: Acute (2) Symptomatic bradycardia Code(s): R00.1 - Bradycardia, unspecified Status: Acute (3) Humeral fracture Code(s): S42.309A - Unspecified fracture of shaft of humerus, unspecified arm, initial encounter for closed fracture Status: Acute (4) Encephalopathy Code(s): G93.40 - Encephalopathy, unspecified Status: Acute (5) Toxic metabolic encephalopathy Code(s): G92 - Toxic encephalopathy Status: Acute (6) Gait disorder Code(s): R26.9 - Unspecified abnormalities of gait and mobility Status: Chronic (7) Tremor Code(s): R25.1 - Tremor, unspecified Status: Chronic (8) Acute UTI Code(s): N39.0 - Urinary tract infection, site not specified Status: Acute - Plan Patient is in sinus rhythm, continue with amiodarone loading for 5 days, then 200 mg daily. Recent fall which resulted in a right proximal humerus fracture. We will continue with current cardiac treatment plan. Continue to increase activity as tolerated. Patient is cleared for discharge from a cardiac standpoint. We will continue to follow the patient during her hospitalization. Patient was seen and evaluated by Dr. Zimmer who participated in care, management and decision making. - Attending Attestation Patient seen and examined. I reviewed and agree with the evaluation and plan as presented. Continue amio loading. Anticipate discharge to SNF soon. (3) Humeral fracture Qualifiers: Encounter type: subsequent encounter Humerus Location: proximal Fracture type: closed Fracture morphology: other fracture Fracture alignment: nondisplaced Laterality: right Fracture healing: with routine healing Qualified Code(s): S42.294D - Other nondisplaced fracture of upper end of right humerus, subsequent encounter for fracture with routine healing
--- NOTE | 2018-06-18 13:55 | MG ---
cc: Brendan Curry MD, PhD DATE OF STUDY: 06/18/2018 TEST NUMBER: [id number] TECHNIQUE: A 17-channel EEG. DESCRIPTION: The background rhythm shows symmetrical alpha frequency, 8-10 Hz. Amplitude is 10-20 microvolts. During drowsiness, there is slowing in the theta range. Some muscle artifact present. No lateralizing features are seen. Hyperventilation is not done. Photic is done with a fairly well-developed, symmetrical driving response. INTERPRETATION: Normal electroencephalogram. Brendan Curry MD, PhD SHAY/sv , 01:36 PM , 01:40 PM
[2018-06-18] MEDS: Enoxaparin Inj 40 MG/0.4 ML Syringe SQ SCH (17:59)
--- NOTE | 2018-06-19 07:20 | P.PN ---
Subjective Interval history: Follow-up on patient with dementia, bipolar disorder, right humerus fracture. Patient seen and examined. Patient more alert this morning. She is asking if she can be discharged to SNF facility. She states her told her that he does not think she is safe to come home and he cannot take care of her. She denies any fever or chills. She denies any chest pain or shortness of breath. She is upset that her breakfast is cold. Physical Exam Vital signs: Vital Signs 06/18/18 07:50 06/18/18 08:00 06/18/18 09:23 Temperature 98.1 F Pulse Rate 71 112 H Respiratory Rate 20 12 Blood Pressure 125/68 Pulse Oximetry 95 06/18/18 09:58 06/18/18 11:09 06/18/18 12:00 Temperature 98.3 F Pulse Rate 151 H 76 Respiratory Rate 18 12 Blood Pressure 104/57 L Pulse Oximetry 98 06/18/18 16:00 06/18/18 16:39 06/18/18 20:00 Temperature 98.5 F Pulse Rate 73 67 Respiratory Rate 12 18 Blood Pressure 124/62 Pulse Oximetry 98 06/18/18 22:12 06/19/18 00:00 06/19/18 04:00 Temperature Pulse Rate 64 71 Respiratory Rate Blood Pressure Pulse Oximetry 98 Intake & Output 06/18/18 06/19/18 06/19/18 18:59 06:59 18:59 Intake Total 980 / 980 Output Total 400 / 400 Balance 580 / 580 Intake: Oral 980 / 980 Output: Urine 400 / 400 Other: # Voids 2 Date of Last Bowel Movement 06/16/18 06/16/18 Narrative: GENERAL: Well-nourished, well-developed middle-aged female, in no apparent distress. Awake and alert. SKIN: Warm and dry. No generalized rash. HEENT: Atraumatic. Normocephalic. Pupils equal and round. No scleral icterus. No injection or drainage. No nasal bleeding or discharge. Mucous membranes pink and moist. NECK: Trachea midline. CARDIOVASCULAR: Irregular rate and rhythm. RESPIRATORY: No accessory muscle use. Clear to auscultation anteriorly. Breath sounds equal bilaterally. GASTROINTESTINAL: Abdomen soft, non-tender, nondistended. MUSCULOSKELETAL: Extremities without clubbing, cyanosis, or edema. Right upper extremity in sling. Able to move all digits of the right hand. Neurovascular intact distally right upper extremity. NEUROLOGICAL: Awake, lethargic. Oriented to self, place and time. No obvious cranial nerve deficits. 3 out of 5 muscle strength in the arms and legs. Normal speech. PSYCHIATRIC: Cooperative. Results - Labs CBC & Chem 7: 06/14/18 04:55 06/14/18 04:55 - Procedures NONE Assessment and Plan - Plan 58yF with paroxysmal afib and humerus fracture. non-operative management for humerus fracture per ortho. OOB with PT. NEURO: Dementia, Bipolar disorder Continue Aricept 10 mg p.o. daily Continue Depakote 500 mg p.o. 3 times daily. This may be for mood although indication is not entirely clear. Continue Zanaflex 2 mg p.o. 3 times daily. Continue Effexor ER 75 mg p.o. daily. Generalized weakness; Gait disorder; Multiple falls CT brainno acute abnormality. Small vessel ischemic changes. MRI/MRA brain and MRI C-spine negative. EEG 06/05moderate encephalopathy -Neurology following 06/19 more alert this morning. EEG negative. Continue to hold muscle relaxant. Continue on lower dose of [place]. RESP: Nasal cannula wean as tolerated -satting 95% on RA CV: Atrial fibrillation with RVR Bradycardia and hypotension immediately upon conversion to sinus rhythm on betablockers and calcium channel blockers. Received atropine 0.5 mg IV, glucagon 2.5 mg IV, and trial transcutaneous pacing. She remained hypotensive even with rate in 70s. Initiated dopamine which ultimately was titrated to 20 mcg/kg/min to maintain mean arterial pressure greater than 65. -Holding beta blockers and calcium channel blockers. -continue ASA 81mg daily -Patient going in and out of atrial fibrillation to sinus rhythm. Cardiology aware. Continue on Amiodarone loading. Plan to decrease dose of amiodarone to 200 mg in next several days. She may ultimately require backup pacemaker in order to tolerate rate control agents. Cleared for discharge from cardiac standpoint. Anemia -Stable; iron supplement added -FOBT ordered; uncollected as of 06/14 FEN/RENAL: Creatinine normal. Monitor intake and output and BMP. ID: UTI Urine culture 06/04 with Klebsiella. Blood culture from 06/04 remain negative. Treated with Rocephin; resolved ENDO: Hypoglycemia- resolved. Continue diet. cortisol appropriate. Hypothyroidism Continue [place] Thyroid 60 milligrams daily and Levothyroxine 25mcg daily. TSH elevated, free T4 normal: Sick euthyroid. no changes needed to regimen. needs recheck in outpatient setting in 6 weeks-3 months. MSK: Subacute right proximal humerus fracture Upper extremity remains in a sling. plan for non-operative management per ortho. -Repeat x-ray of the right shoulder 06/19 reveals near anatomic alignment and slight interval healing PROPH: Lovenox 40 mg subcu daily for DVT prophylaxis. Protonix 40 mg p.o. daily for stress ulcer prophylaxis. Code Status: FULL Discussed Condition With: patient, nursing staff Discharge Planning: Patient may be discharged to SNF facility. Case management assisting with discharge planning.
[2018-06-19] MEDS: Amiodarone 200 MG Tablet PO SCH ×2 (09:08→21:36)
[2018-06-19] MEDS: Thyroid 60 MG Tablet PO SCH (09:09)
[2018-06-19] MEDS: Venlafaxine XR 75 MG Capsule PO SCH (09:09)
[2018-06-19] MEDS: Divalproex 500 MG DR Tablet PO SCH ×3 (09:09→18:00)
[2018-06-19] MEDS: Senna/Docusate Sodium 8.6/50 MG Tablet PO SCH ×2 (09:09→21:36)
[2018-06-19] MEDS: Ferrous Sulfate 325 MG Tablet PO SCH (09:09)
--- NOTE | 2018-06-19 10:03 | P.PNCA ---
Subjective Interval history: Patient denies any CP, pressure, palpitations, dizziness, edema or SOB. Patient does complain of severe pain in the right arm due to fx. Medications and Allergies Allergies Allergy/AdvReac Type Severity Reaction Status Date / Time No Known Allergies Allergy Verified 05/28/18 10:30 Home Medications Medication Instructions Recorded Confirmed Type allopurinol 100 mg PO BID 05/28/18 05/28/18 History aspirin 81 mg PO DAILY 05/28/18 05/28/18 History buspirone 5 mg PO TID 05/28/18 05/28/18 History calcium carbonate [Calcium 600] 600 mg PO BID 05/28/18 05/28/18 History divalproex [Depakote] 500 mg PO TID 05/28/18 05/28/18 History donepezil 10 mg PO DAILY 05/28/18 06/04/18 History hydrocodone-acetaminophen [[place]] 1 tab PO Q6H PRN 05/28/18 06/04/18 History levothyroxine 25 mcg PO DAILY 05/28/18 06/04/18 History oxybutynin chloride 5 mg PO BID 05/28/18 06/04/18 History sotalol 80 mg PO Q12H 05/28/18 06/04/18 History thyroid (pork) [[place] Thyroid] 60 mg PO DAILY 05/28/18 06/04/18 History tizanidine 2 mg PO TID PRN 05/28/18 06/04/18 History venlafaxine [Effexor XR] 75 mg PO DAILY 05/28/18 06/04/18 History Active Medications: Active Medications Acetaminophen (Tylenol) 650 mg PO Q4H PRN PRN Reason: Temp > 100.4 Last Admin: 06/05/18 08:09 Dose: 650 mg Hydrocodone Bitart/Acetaminophen ([place] 5/325) 1 tab PO Q4H PRN PRN Reason: PAIN SCALE 1 TO 10 Last Admin: 06/19/18 09:08 Dose: 1 tab Al Hydroxide/Mg Hydroxide (Milk Of Magnesia Liq) 30 ml PO Q12H PRN PRN Reason: Mild Constipation Last Admin: 06/12/18 18:17 Dose: 30 ml Amiodarone HCl (Cordarone) 400 mg PO Q12HR NELLIE Stop: 06/21/18 09:00 Last Admin: 06/19/18 09:08 Dose: 400 mg Aspirin (Aspirin Chew) 81 mg PO DAILY [facility] Last Admin: 06/19/18 09:09 Dose: 81 mg Bisacodyl (Dulcolax Supp) 10 mg RECTAL DAILY PRN PRN Reason: SEVERE CONSITIPATION Dextrose (D50w Vial) 50 ml IV.PUSH UNSCH PRN PRN Reason: PER HYPOGLYCEMIA PROTOCOL Last Admin: 06/06/18 06:00 Dose: 50 ml Divalproex Sodium (Depakote Dr) 500 mg PO TID [facility] Last Admin: 06/19/18 09:09 Dose: 500 mg Donepezil HCl (Aricept) 10 mg PO DAILY [facility] Last Admin: 06/19/18 09:09 Dose: 10 mg Enoxaparin Sodium (Lovenox Inj) 40 mg SQ Q24H [facility] Last Admin: 06/18/18 17:59 Dose: 40 mg Ferrous Sulfate (Ferosul) 325 mg PO DAILY [facility] Last Admin: 06/19/18 09:09 Dose: 325 mg Glucagon (Glucagon Inj) 1 mg OTHER PRN PRN PRN Reason: for Hypoglycemia Protocol Amiodarone HCl 450 mg/ (Dextrose) 250 mls @ 33.33 mls/hr IV.CONT TITRATE PRN; Protocol PRN Reason: Per Protocol Last Titration: 06/09/18 10:07 Dose: 0 mg/min, 0 mls/hr Phenylephrine HCl 40 mg/ (Dextrose) 500 mls @ 30 mls/hr IV.CONT TITRATE PRN; Protocol PRN Reason: Per Protocol Last Titration: 06/08/18 11:02 Dose: 0 mcg/min, 0 mls/hr Sodium Chloride (Ns Inj) 1,000 mls @ 0 mls/hr IV.SIG BOLUS [facility] Last Infusion: 06/12/18 02:23 Dose: Infused Lactulose (Lactulose Liq) 30 ml PO DAILY PRN PRN Reason: SEVERE CONSITIPATION Levothyroxine Sodium (Synthroid) 25 mcg PO DAILY@0600 [facility] Last Admin: 06/19/18 05:06 Dose: 25 mcg Miscellaneous (Pill Splitter) 1 each OTHER UNSCH [facility] Ondansetron HCl (Zofran Inj) 4 mg IV.PUSH Q6H PRN PRN Reason: NAUSEA OR VOMITING Last Admin: 06/18/18 11:09 Dose: 4 mg Oxybutynin Chloride (Ditropan) 5 mg PO BID [facility] Last Admin: 06/19/18 09:08 Dose: 5 mg Pantoprazole Sodium (Protonix) 40 mg PO DAILY [facility] Last Admin: 06/19/18 09:09 Dose: 40 mg Senna/Docusate Sodium (Leena-Colace) 1 tab PO BID [facility] Last Admin: 06/19/18 09:09 Dose: 1 tab Sennosides (Senokot) 17.2 mg PO Q12H PRN PRN Reason: Moderate Constipation Sodium Chloride (Ns Flush) 2 ml IV.FLUSH BID [facility] Last Admin: 06/19/18 09:09 Dose: 2 ml Sodium Chloride (Ns Flush) 2 ml IV.FLUSH PRN PRN PRN Reason: FLUSH AFTER USING IV ACCESS Sotalol HCl (Betapace) 80 mg PO Q12HR [facility] Last Admin: 06/05/18 20:05 Dose: 80 mg Thyroid ([place] Thyroid) 60 mg PO DAILY [facility] Last Admin: 06/19/18 09:09 Dose: 60 mg Tizanidine HCl (Zanaflex) 2 mg PO TID PRN PRN Reason: Anxiety Last Admin: 06/11/18 21:44 Dose: 2 mg Venlafaxine HCl (Effexor Xr) 75 mg PO DAILY [facility] Last Admin: 06/19/18 09:09 Dose: 75 mg Physical Exam Vital signs: Vital Signs 06/18/18 09:58 06/18/18 11:09 06/18/18 12:00 Temperature 98.3 F Pulse Rate 151 H 76 Respiratory Rate 18 12 Blood Pressure 104/57 L Pulse Oximetry 98 06/18/18 16:00 06/18/18 16:39 06/18/18 20:00 Temperature 98.5 F Pulse Rate 73 67 Respiratory Rate 12 18 Blood Pressure 124/62 Pulse Oximetry 98 06/18/18 22:12 06/19/18 00:00 06/19/18 04:00 Temperature Pulse Rate 64 71 Respiratory Rate Blood Pressure Pulse Oximetry 98 Intake & Output 06/18/18 06/19/18 06/19/18 18:59 06:59 18:59 Intake Total 980 / 980 Output Total 400 / 400 Balance 580 / 580 Intake: Oral 980 / 980 Output: Urine 400 / 400 Other: # Voids 2 Date of Last Bowel Movement 06/16/18 06/16/18 - Constitutional no acute distress - Routine HEENT Exam Head: Present: normocephalic Eye: Present: PERRL ENT: Present: mucous membranes moist - Routine Neck Exam Present: supple - Routine Respiratory Exam Present: CTA bilaterally - Routine Cardiovascular Exam Present: S1, S2, irregular rhythm Comments: Going in and out of atrial fib. - Routine Abdominal Exam Present: normoactive bowel sounds - Routine Extremities Exam Present: pulses intact, normal capillary refill. Absent: cyanosis, clubbing, edema Comments: Limited movement of right arm due to fx. - Routine Skin Exam Present: intact - Routine Neurological Exam Present: oriented X3 - Detailed Neurological Exam: Coma Scale Eye Opening: Spontaneous Verbal Response: Oriented Motor Response: Obey commands Genna Coma Scale Total: 15 - Routine Psychiatric Exam Present: agitated Comments: due to pain. Results 06/14/18 04:55 06/14/18 04:55 Intake and Output 06/18/18 06/19/18 06/19/18 22:59 06:59 14:59 Intake Total 980 / 980 Output Total 400 / 400 Balance 580 / 580 Intake: Oral 980 / 980 Output: Urine 400 / 400 Other: # Voids 2 Date of Last Bowel Movement 06/16/18 Assessment and Plan - Assessment (1) Atrial fibrillation with RVR Code(s): I48.91 - Unspecified atrial fibrillation Status: Acute (2) Symptomatic bradycardia Code(s): R00.1 - Bradycardia, unspecified Status: Acute (3) Humeral fracture Code(s): S42.309A - Unspecified fracture of shaft of humerus, unspecified arm, initial encounter for closed fracture Status: Acute (4) Encephalopathy Code(s): G93.40 - Encephalopathy, unspecified Status: Acute (5) Toxic metabolic encephalopathy Code(s): G92 - Toxic encephalopathy Status: Acute (6) Gait disorder Code(s): R26.9 - Unspecified abnormalities of gait and mobility Status: Chronic (7) Tremor Code(s): R25.1 - Tremor, unspecified Status: Chronic (8) Acute UTI Code(s): N39.0 - Urinary tract infection, site not specified Status: Acute - Plan Going in and out of atrial fib to SR, continue with amiodarone loading. Increase activity as tolerated. Recent fall which resulted in a right proximal humerus fracture. We will continue with current cardiac treatment plan. Patient is cleared for discharge from a cardiac standpoint. We will continue to follow the patient during her hospitalization. Patient was seen and evaluated by Dr. Zimmer who participated in care, management and decision making. - Attending Attestation Patient seen and examined. I reviewed and agree with the evaluation and plan as presented. Continue current program. Increase activity. May be ready for discharge soon. (3) Humeral fracture Qualifiers: Encounter type: subsequent encounter Humerus Location: proximal Fracture type: closed Fracture morphology: other fracture Fracture alignment: nondisplaced Laterality: right Fracture healing: with routine healing Qualified Code(s): S42.294D - Other nondisplaced fracture of upper end of right humerus, subsequent encounter for fracture with routine healing
--- NOTE | 2018-06-19 11:11 | XR ---
EXAM DATE: 06/19/2018 12:00 AM EDT AGE/SEX: 58 years / Female INDICATIONS: Follow up right humerus fracture. CLINICAL DATA: This is the patient's subsequent encounter. Patient reports that signs and symptoms h ave been present for 3 weeks and indicates a pain score of 9/10. MEDICAL/SURGICAL HISTORY: None. None. COMPAR[place]: [facility] [place] 2V, 06/04/[place]. . FINDINGS: Multiple views of the right shoulder were obtained and again demonstrate a mildly comminuted fracture of right humeral neck. The fracture fragments are near-anatomic alignment and are unchanged in appea jv. The fracture lines are slightly less distinct and there is minimal apparent early callus forma tion. There is mild overlying soft tissue swelling. There is diffuse osteopenia. CONCLUSION: Slight interval healing. Electronically signed by: Ascencion Murdock MD 06/19/2018 11:10 AM EDT
--- NOTE | 2018-06-19 17:11 | P.DS ---
Date of admission: 06/04/18 17:46 Primary care physician: UNKNOWN Attending physician on discharge: Elliott Norris Brief History from admission: The patient is a 58-year-old female presenting with complaint of right shoulder pain after a fall. Per family and records it appears that the patient had some kind of a adverse event in the the facility several years ago and was either a stroke or a CODE BLUE. Since then the patient has been having multiple falls atrophy of the lower extremities, weakness, not being able to walk appropriately and falls almost on a daily basis distress she was advised to follow-up with orthopedic surgeon. She sustained a fall a few days ago resulting to a fracture of her right humerus. Today she was supposed to follow- up with her orthopedic surgeon but she fell again and was brought in by EMS. Patient is not able to provide much information. She appears confused but nontoxic. did not arrive until 2 hours after she was in the ED. Patient update on day of discharge: Patient seen and examined. Says she had a good night. Denies any new complaints. States pain in right shoulder is improving. DW nursing staff, no adverse events noted. DS: Diagnosis - Discharge Diagnosis (1) Humeral fracture Status: Acute (2) Encephalopathy Status: Acute (3) Atrial fibrillation with RVR Status: Acute DS: Medications - Discharge Medications Prescriptions: amiodarone [Pacerone] 200 mg PO DAILY #30 tab DS: Summary Hospital Course: Patient admitted with complaints of right shoulder pain status post a fall. Patient was confused but not appear toxic. Reportedly, patient had weakness with recurrent falls. CT the head revealed no acute intracranial abnormality. X-ray of the right shoulder revealed a comminuted fracture of the right humeral neck and proximal shaft. Patient was seen in consultation by orthopedics who decided on nonoperative management. Patient was also here in consultation by neurology. MRI brain was completed and was unremarkable for acute infarction, hemorrhage or fluid collection. She was started on Rocephin for Klebsiella urinary tract infection. She developed atrial fibrillation with RVR and was started on a Cardizem drip. She then converted to sinus bradycardia with rate in 30-40s and hypotension with BP of 64/35. She was transferred to the critical care service. She was treated with atropine, glucagon and trial of transcutaneous pacing. She was started on dopamine. Patient was seen in consultation by cardiology. She was weaned off dopamine and started on amiodarone infusion. She converted to sinus rhythm. She was started on oral amiodarone loading. She was transferred back to hospitalist service. Patient progressed with physical therapy and Occupational Therapy. Her medications were adjusted for oversedation. Amiodarone was titrated down by Cardiology to 200mg daily. She was cleared for discharge from a cardiac standpoint. Repeat x -ray of the right shoulder revealed near anatomic alignment with slight interval healing. Case management assisted with discharge planning to SNF facility. - Time Spent with Patient Total time spent providing and/or coordinating discharge services: Greater than 30 minutes - Quality: VTE Deep Vein Thrombosis/Pulmonary Embolism Present on Admission: No Exam Vital signs: Vital Signs 06/18/18 20:00 06/18/18 22:12 06/19/18 00:00 Temperature Pulse Rate 67 63 Respiratory Rate 18 Blood Pressure Pulse Oximetry 98 06/19/18 04:00 06/19/18 08:00 06/19/18 09:59 Temperature 98.5 F Pulse Rate 71 88 Respiratory Rate 18 Blood Pressure 120/58 L Pulse Oximetry 99 95 06/19/18 12:00 06/19/18 16:00 Temperature 98.0 F Pulse Rate 85 81 Respiratory Rate 18 Blood Pressure 131/81 Pulse Oximetry 100 Intake & Output 06/18/18 06/19/18 06/19/18 18:59 06:59 18:59 Intake Total 980 / 980 Output Total 400 / 400 500 / 500 Balance 580 / 580 -500 / -500 Intake: Oral 980 / 980 Output: Urine 400 / 400 500 / 500 Other: # Voids 2 Date of Last Bowel Movement 06/16/18 06/16/18 06/20/18 # Bowel Movements 2 Narrative: GENERAL: Well-nourished, well-developed middle-aged female, in no apparent distress. Awake and alert. SKIN: Warm and dry. No generalized rash. HEENT: Atraumatic. Normocephalic. Pupils equal and round. No scleral icterus. No injection or drainage. No nasal bleeding or discharge. Mucous membranes pink and moist. NECK: Trachea midline. CARDIOVASCULAR: Irregular rate and rhythm. RESPIRATORY: No accessory muscle use. Clear to auscultation anteriorly. Breath sounds equal bilaterally. GASTROINTESTINAL: Abdomen soft, non-tender, nondistended. MUSCULOSKELETAL: Extremities without clubbing, cyanosis, or edema. Right upper extremity in sling. Able to move all digits of the right hand. Neurovascular intact distally right upper extremity. NEUROLOGICAL: Awake, lethargic. Oriented to self, place and time. No obvious cranial nerve deficits. Able to move all extremities spontaneously. Normal speech. PSYCHIATRIC: Cooperative. Results Procedures completed during hospitalization: NONE - Impressions ITS Impressions Head CT 06/04/18 10:54 CONCLUSION: 1. No acute intracranial abnormality.. 2. Mild periventricular and subcortical white matter small vessel ischemic changes bilaterally. Humerus X-Ray 06/04/18 10:54 CONCLUSION: Oblique slightly comminuted fracture of the right humeral neck and proximal shaft Shoulder CT 06/04/18 14:02 CONCLUSION: 1. Impacted humeral neck fracture as described above. There are 2 small bone fragment adjacent to the greater tuberosity. Carotid Doppler Study 06/05/18 00:00 CONCLUSION: 1. Right Internal Carotid Artery: Findings indicate <50% stenosis. 2. Left Internal Carotid Artery: No significant stenosis or atherosclerotic plaque is visualized. Cervical Spine MRI 06/06/18 00:00 CONCLUSION: 1. Minimal circumferential spinal stenosis and mild bilateral foraminal narrowing at C3 3-4, C4-5, C5-6 and C6-7. Head MRI 06/06/18 07:13 CONCLUSION: 1. Cerebral atrophy. 2. Mild periventricular white matter small vessel ischemic changes bilaterally. 3. No acute infarct, acute hemorrhage, midline shift or extra-axial fluid collections. Head MRA 06/06/18 07:14 CONCLUSION: 1. Negative MRA of the brain Chest X-Ray 06/06/18 07:49 CONCLUSION: Right internal jugular central line has its tip in superior vena cava. There is no pneumothorax. Shoulder X-Ray 06/19/18 00:00 CONCLUSION: Slight interval healing. Discharge Plan - Discharge Disposition Patient Disposition: Discharge to SNF - Discharge Condition Condition: Stable - Discharge Order Discharge Orders: Discharge Order (Routine); Ordered 06/19/18 Ordered By: Harleen Elias - Discharge Details Anticipated Discharge Date: 06/19/18 - Physicians Team Primary Care Provider: UNKNOWN, Attending Provider: Elliott Norris Other Providers: Shai Blevins MD ; Yarely Amos MD ; Elda Zimmer MD ; Antolin Garcia MD ; [facility],[place] ; [facility] ,[place]
[2018-06-19] MEDS: Enoxaparin Inj 40 MG/0.4 ML Syringe SQ SCH (17:54)
[2018-06-20 00:13] LABS: Bilirubin,Urine Negative (Negative); Clarity,Urine Clear (Clear); Color,Urine Yellow (Yellw/Straw); Glucose,Urine (UA) Negative (Negative); Leukocyte Esterase,Urine Negative (Negative); Mucus,Urine Few /lpf (Occasional); Nitrite,Urine Negative (Negative); Specific Gravity,Urine 1.012 (1.002-1.035)
--- NOTE | 2018-06-20 07:25 | P.PN ---
Subjective Interval history: Follow-up on patient with dementia, bipolar disorder, right humerus fracture. Patient seen and examined. Patient encountered sitting up in her bed eating breakfast with assistance. Patient states she slept ok last night. She denies any chest pain or shortness of breath. She denies any N/V or abdominal pain. She continues to have pain in the right shoulder. Physical Exam Vital signs: Vital Signs 06/19/18 08:00 06/19/18 09:59 06/19/18 12:00 Temperature 98.5 F 98.0 F Pulse Rate 88 85 Respiratory Rate 18 18 Blood Pressure 120/58 L 131/81 Pulse Oximetry 99 95 100 06/19/18 16:00 06/19/18 20:00 06/20/18 00:00 Temperature 97.7 F 98.0 F 98.1 F Pulse Rate 68 70 64 Respiratory Rate 18 20 17 Blood Pressure 115/56 L 118/59 L 113/55 L Pulse Oximetry 99 98 97 06/20/18 02:20 06/20/18 04:00 Temperature 98.3 F Pulse Rate 69 70 Respiratory Rate 20 Blood Pressure 120/58 L Pulse Oximetry 95 Intake & Output 06/19/18 06/20/18 06/20/18 18:59 06:59 18:59 Intake Total 320 / 320 Output Total 500 / 500 800 / 800 Balance -500 / -500 -480 / -480 Intake: Oral 320 / 320 Output: Urine 500 / 500 800 / 800 Other: Date of Last Bowel Movement 06/20/18 # Bowel Movements 2 Narrative: GENERAL: Well-nourished, well-developed middle-aged female, in no apparent distress. Awake and alert. SKIN: Warm and dry. No generalized rash. HEENT: Atraumatic. Normocephalic. Pupils equal and round. No scleral icterus. No injection or drainage. No nasal bleeding or discharge. Mucous membranes pink and moist. NECK: Trachea midline. CARDIOVASCULAR: Irregular rate and rhythm. RESPIRATORY: No accessory muscle use. Clear to auscultation anteriorly. Breath sounds equal bilaterally. GASTROINTESTINAL: Abdomen soft, non-tender, nondistended. MUSCULOSKELETAL: Extremities without clubbing, cyanosis, or edema. Right upper extremity in sling. Able to move all digits of the right hand. Neurovascular intact distally right upper extremity. NEUROLOGICAL: Awake and alert. Oriented to self, place and time. No obvious cranial nerve deficits. 3 out of 5 muscle strength in the arms and legs. Normal speech. PSYCHIATRIC: Calm and cooperative. Results - Labs CBC & Chem 7: 06/20/18 06:49 06/20/18 06:49 Laboratory Results - last 24 hr 06/19/18 23:55 Urine Color Yellow Urine Clarity Clear Urine pH 6.0 Ur Specific [place] 1.012 Urine Protein Negative Urine Glucose (UA) Negative Urine Ketones Negative Urine Occult Blood Negative Urine Nitrate Negative Urine Bilirubin Negative Urine Urobilinogen 2.0 H Ur Leukocyte Esterase Negative Urine WBC Less than 1 Urine Mucus Few H Micro UA Comment Cath-culture not ind Ur Microscopic Review Not Reportable Urine Culture Comments Cath-cult not ind - Imaging Impressions Shoulder X-Ray 06/19/18 00:00 CONCLUSION: Slight interval healing. - Procedures NONE Assessment and Plan - Assessment (1) Humeral fracture Code(s): S42.309A - Unspecified fracture of shaft of humerus, unspecified arm, initial encounter for closed fracture Status: Acute (2) Encephalopathy Code(s): G93.40 - Encephalopathy, unspecified Status: Acute (3) Atrial fibrillation with RVR Code(s): I48.91 - Unspecified atrial fibrillation Status: Acute - Plan 58yF with paroxysmal afib and humerus fracture. non-operative management for humerus fracture per ortho. OOB with PT. 06/20 Patient is stable. She is afebrile. VSS. No acute events noted overnight. She denies any new medical complaints. NEURO: Dementia, Bipolar disorder Continue Aricept 10 mg p.o. daily Continue Depakote 500 mg p.o. 3 times daily. This may be for mood although indication is not entirely clear. Continue Zanaflex 2 mg p.o. 3 times daily. Continue Effexor ER 75 mg p.o. daily. Generalized weakness; Gait disorder; Multiple falls CT brainno acute abnormality. Small vessel ischemic changes. MRI/MRA brain and MRI C-spine negative. EEG 06/05moderate encephalopathy -Neurology following 06/19 more alert this morning. EEG negative. Continue to hold muscle relaxant. Continue on lower dose of [place]. RESP: Nasal cannula wean as tolerated -satting 95% on RA CV: Atrial fibrillation with RVR Bradycardia and hypotension immediately upon conversion to sinus rhythm on betablockers and calcium channel blockers. Received atropine 0.5 mg IV, glucagon 2.5 mg IV, and trial transcutaneous pacing. She remained hypotensive even with rate in 70s. Initiated dopamine which ultimately was titrated to 20 mcg/kg/min to maintain mean arterial pressure greater than 65. -Holding beta blockers and calcium channel blockers. -continue ASA 81mg daily -Patient going in and out of atrial fibrillation to sinus rhythm. Cardiology aware. Continue on Amiodarone loading. Plan to decrease dose of amiodarone to 200 mg in next several days. She may ultimately require backup pacemaker in order to tolerate rate control agents. Cleared for discharge from cardiac standpoint. Anemia -Stable; iron supplement added -Hgb up to 10.5. FEN/RENAL: Creatinine normal. Monitor intake and output and BMP. ID: UTI Urine culture 06/04 with Klebsiella. Blood culture from 06/04 negative. Treated with Rocephin; resolved ENDO: Hypoglycemia- resolved. Continue diet. cortisol appropriate. Hypothyroidism Continue [place] Thyroid 60 milligrams daily and Levothyroxine 25mcg daily. TSH elevated, free T4 normal: Sick euthyroid. no changes needed to regimen. needs recheck in outpatient setting in 6 weeks-3 months. MSK: Subacute right proximal humerus fracture Upper extremity remains in a sling. plan for non-operative management per ortho. -Repeat x-ray of the right shoulder 06/19 reveals near anatomic alignment and slight interval healing PROPH: Lovenox 40 mg subcu daily for DVT prophylaxis. Protonix 40 mg p.o. daily for stress ulcer prophylaxis. Code Status: FULL Discussed Condition With: patient, nursing staff Discharge Planning: Patient cleared for discharge to SNF facility/awaiting placement. Case management assisting with discharge planning. (1) Humeral fracture Qualifiers: Encounter type: subsequent encounter Humerus Location: proximal Fracture type: closed Fracture morphology: other fracture Fracture alignment: nondisplaced Laterality: right Fracture healing: with routine healing Qualified Code(s): S42.294D - Other nondisplaced fracture of upper end of right humerus, subsequent encounter for fracture with routine healing
[2018-06-20 07:27] LABS: Baso # (Auto) 0.1 th/mm3 (0.0-0.2); Baso % (Auto) 0.9 % (0.0-2.0); Eos # (Auto) 0.2 th/mm3 (0.0-0.4); Eos % (Auto) 3.4 % (0.0-4.0); Hematocrit 32.1 % (35.0-46.0); Hemoglobin 10.5 gm/dL (11.6-15.3); Lymph # (Auto) 1.4 th/mm3 (1.0-4.8); Lymph % (Auto) 22.2 % (9.0-44.0); Mean Corpuscular HGB Conc 32.8 % (32.0-36.0); Mean Corpuscular Hemoglobin 35.9 pg (27.0-34.0); Mean Corpuscular Volume 109.3 fL (80.0-100.0); Mean Platelet Volume 10.1 fL (7.0-11.0); Mono # (Auto) 0.8 th/mm3 (0.0-0.9); Mono % (Auto) 12.6 % (0.0-8.0); Neut # (Auto) 3.7 th/mm3 (1.8-7.7); Neut % (Auto) 60.9 % (16.0-70.0); Platelet Count 322 th/mm3 (150-450); Red Blood Count 2.94 mil/mm3 (4.00-5.30); Red Cell Distribution Width 15.6 % (11.6-17.2); White Blood Count 6.1 th/mm3 (4.0-11.0)
[2018-06-20 07:38] LABS: Albumin 2.1 g/dL (3.4-5.0); Anion Gap 6 meq/L (5-15); Aspartate Aminotransferase 22 U/L (15-37); Blood Urea Nitrogen 13 mg/dL (7-18); Calcium 8.3 mg/dL (8.5-10.1); Carbon Dioxide 33.1 meq/L (21.0-32.0); Chloride 104 meq/L (98-107); Glomerular Filtration Rate 59 mL/min (>89); Glucose,Random 83 mg/dL (74-106); Potassium 4.1 meq/L (3.5-5.1); Sodium 143 meq/L (136-145)
[2018-06-20 07:41] LABS: Alanine Aminotransferase 14 U/L (10-53); Alkaline Phosphatase 128 U/L (45-117); Total Protein 6.4 g/dL (6.4-8.2); Valproic Acid 52 mcg/mL (50-100)
[2018-06-20] MEDS: Divalproex 500 MG DR Tablet PO SCH ×3 (09:51→18:07)
[2018-06-20] MEDS: Ferrous Sulfate 325 MG Tablet PO SCH (09:52)
[2018-06-20] MEDS: Venlafaxine XR 75 MG Capsule PO SCH (09:52)
[2018-06-20] MEDS: Amiodarone 200 MG Tablet PO SCH ×2 (09:52→20:53)
[2018-06-20] MEDS: Senna/Docusate Sodium 8.6/50 MG Tablet PO SCH ×2 (09:52→20:54)
[2018-06-20] MEDS: Thyroid 60 MG Tablet PO SCH (09:52)
--- NOTE | 2018-06-20 15:27 | P.PNCA ---
Subjective Interval history: Patient denies any chest pain, pressure, palpitations, dizziness, edema or shortness of breath. Patient does complain of continuous right shoulder and right arm pain. Patient does state that it is getting better. Medications and Allergies Allergies Allergy/AdvReac Type Severity Reaction Status Date / Time No Known Allergies Allergy Verified 05/28/18 10:30 Home Medications Medication Instructions Recorded Confirmed Type allopurinol 100 mg PO BID 05/28/18 05/28/18 History aspirin 81 mg PO DAILY 05/28/18 05/28/18 History buspirone 5 mg PO TID 05/28/18 05/28/18 History calcium carbonate [Calcium 600] 600 mg PO BID 05/28/18 05/28/18 History divalproex [Depakote] 500 mg PO TID 05/28/18 05/28/18 History donepezil 10 mg PO DAILY 05/28/18 06/04/18 History hydrocodone-acetaminophen [[place]] 1 tab PO Q6H PRN 05/28/18 06/04/18 History levothyroxine 25 mcg PO DAILY 05/28/18 06/04/18 History oxybutynin chloride 5 mg PO BID 05/28/18 06/04/18 History sotalol 80 mg PO Q12H 05/28/18 06/04/18 History thyroid (pork) [[place] Thyroid] 60 mg PO DAILY 05/28/18 06/04/18 History tizanidine 2 mg PO TID PRN 05/28/18 06/04/18 History venlafaxine [Effexor XR] 75 mg PO DAILY 05/28/18 06/04/18 History Active Medications: Active Medications Acetaminophen (Tylenol) 650 mg PO Q4H PRN PRN Reason: Temp > 100.4 Last Admin: 06/05/18 08:09 Dose: 650 mg Hydrocodone Bitart/Acetaminophen ([place] 5/325) 1 tab PO Q4H PRN PRN Reason: PAIN SCALE 1 TO 10 Last Admin: 06/20/18 09:52 Dose: 1 tab Al Hydroxide/Mg Hydroxide (Milk Of [place]es[place] Liq) 30 ml PO Q12H PRN PRN Reason: Mild Constipation Last Admin: 06/12/18 18:17 Dose: 30 ml Amiodarone HCl (Cordarone) 400 mg PO Q12HR NELLIE Stop: 06/21/18 09:00 Last Admin: 06/20/18 09:52 Dose: 400 mg Aspirin (Aspirin Chew) 81 mg PO DAILY [facility] Last Admin: 06/20/18 09:52 Dose: 81 mg Bisacodyl (Dulcolax Supp) 10 mg RECTAL DAILY PRN PRN Reason: SEVERE CONSITIPATION Dextrose (D50w Vial) 50 ml IV.PUSH UNSCH PRN PRN Reason: PER HYPOGLYCEMIA PROTOCOL Last Admin: 06/06/18 06:00 Dose: 50 ml Divalproex Sodium (Depakote Dr) 500 mg PO TID [facility] Last Admin: 06/20/18 09:51 Dose: 500 mg Donepezil HCl (Aricept) 10 mg PO DAILY [facility] Last Admin: 06/20/18 09:51 Dose: 10 mg Enoxaparin Sodium (Lovenox Inj) 40 mg SQ Q24H [facility] Last Admin: 06/19/18 17:54 Dose: 40 mg Ferrous Sulfate (Ferosul) 325 mg PO DAILY [facility] Last Admin: 06/20/18 09:52 Dose: 325 mg Glucagon (Glucagon Inj) 1 mg OTHER PRN PRN PRN Reason: for Hypoglycemia Protocol Amiodarone HCl 450 mg/ (Dextrose) 250 mls @ 33.33 mls/hr IV.CONT TITRATE PRN; Protocol PRN Reason: Per Protocol Last Titration: 06/09/18 10:07 Dose: 0 mg/min, 0 mls/hr Phenylephrine HCl 40 mg/ (Dextrose) 500 mls @ 30 mls/hr IV.CONT TITRATE PRN; Protocol PRN Reason: Per Protocol Last Titration: 06/08/18 11:02 Dose: 0 mcg/min, 0 mls/hr Sodium Chloride (Ns Inj) 1,000 mls @ 0 mls/hr IV.SIG BOLUS [facility] Last Infusion: 06/12/18 02:23 Dose: Infused Lactulose (Lactulose Liq) 30 ml PO DAILY PRN PRN Reason: SEVERE CONSITIPATION Levothyroxine Sodium (Synthroid) 25 mcg PO DAILY@0600 [facility] Last Admin: 06/20/18 06:50 Dose: 25 mcg Miscellaneous (Pill Splitter) 1 each OTHER UNSCH [facility] Ondansetron HCl (Zofran Inj) 4 mg IV.PUSH Q6H PRN PRN Reason: NAUSEA OR VOMITING Last Admin: 06/18/18 11:09 Dose: 4 mg Oxybutynin Chloride (Ditropan) 5 mg PO BID [facility] Last Admin: 06/20/18 09:52 Dose: 5 mg Pantoprazole Sodium (Protonix) 40 mg PO DAILY [facility] Last Admin: 06/20/18 09:52 Dose: 40 mg Senna/Docusate Sodium (Leena-Colace) 1 tab PO BID [facility] Last Admin: 06/20/18 09:52 Dose: 1 tab Sennosides (Senokot) 17.2 mg PO Q12H PRN PRN Reason: Moderate Constipation Sodium Chloride (Ns Flush) 2 ml IV.FLUSH BID [facility] Last Admin: 06/20/18 09:53 Dose: 2 ml Sodium Chloride (Ns Flush) 2 ml IV.FLUSH PRN PRN PRN Reason: FLUSH AFTER USING IV ACCESS Sotalol HCl (Betapace) 80 mg PO Q12HR [facility] Last Admin: 06/05/18 20:05 Dose: 80 mg Thyroid ([place] Thyroid) 60 mg PO DAILY [facility] Last Admin: 06/20/18 09:52 Dose: 60 mg Tizanidine HCl (Zanaflex) 2 mg PO TID PRN PRN Reason: Anxiety Last Admin: 06/11/18 21:44 Dose: 2 mg Venlafaxine HCl (Effexor Xr) 75 mg PO DAILY [facility] Last Admin: 06/20/18 09:52 Dose: 75 mg Physical Exam Vital signs: Vital Signs 06/19/18 16:00 06/19/18 20:00 06/20/18 00:00 Temperature 97.7 F 98.0 F 98.1 F Pulse Rate 68 70 64 Respiratory Rate 18 20 17 Blood Pressure 115/56 L 118/59 L 113/55 L Pulse Oximetry 99 98 97 06/20/18 02:20 06/20/18 04:00 06/20/18 08:00 Temperature 98.3 F 97.8 F Pulse Rate 69 70 67 Respiratory Rate 20 19 Blood Pressure 120/58 L 107/60 Pulse Oximetry 95 95 06/20/18 12:00 Temperature 97.9 F Pulse Rate 72 Respiratory Rate 19 Blood Pressure 119/66 Pulse Oximetry 97 Intake & Output 06/19/18 06/20/18 06/20/18 18:59 06:59 18:59 Intake Total 320 / 320 Output Total 500 / 500 800 / 800 Balance -500 / -500 -480 / -480 Weight 63.6 kg Intake: Oral 320 / 320 Output: Urine 500 / 500 800 / 800 Other: Date of Last Bowel Movement 06/20/18 # Bowel Movements 2 - Constitutional no acute distress - Routine HEENT Exam Head: Present: normocephalic Eye: Present: PERRL ENT: Present: mucous membranes moist - Routine Neck Exam Present: supple - Routine Respiratory Exam Present: CTA bilaterally - Routine Cardiovascular Exam Present: S1, S2, irregular rhythm - Routine Abdominal Exam Present: normoactive bowel sounds - Routine Extremities Exam Present: pulses intact, normal capillary refill. Absent: cyanosis, clubbing, edema Comments: Right humerus fracture, right arm is in a sling. - Routine Skin Exam Present: intact - Routine Neurological Exam Present: oriented X3 - Detailed Neurological Exam: Coma Scale Eye Opening: Spontaneous Verbal Response: Oriented Motor Response: Obey commands [place] Coma Scale Total: 15 - Routine Psychiatric Exam Present: agitated Results 06/20/18 06:49 06/20/18 06:49 Cardiac Enzymes 06/20/18 Range/Units 06:49 AST 22 (15-37) U/L CBC 06/20/18 Range/Units 06:49 WBC 6.1 (4.0-11.0) th/mm3 RBC 2.94 L (4.00-5.30) mil/mm3 Hgb 10.5 L (11.6-15.3) gm/dL Hct 32.1 L (35.0-46.0) % Plt Count 322 (150-450) th/mm3 Neut # (Auto) 3.7 (1.8-7.7) th/mm3 Lymph # (Auto) 1.4 (1.0-4.8) th/mm3 [place] # (Auto) 0.8 (0.0-0.9) th/mm3 Eos # (Auto) 0.2 (0.0-0.4) th/mm3 Baso # (Auto) 0.1 (0.0-0.2) th/mm3 Comprehensive Metabolic Panel 06/20/18 Range/Units 06:49 Sodium 143 (136-145) meq/L Potassium 4.1 (3.5-5.1) meq/L Chloride 104 (98-107) meq/L Carbon Dioxide 33.1 H (21.0-32.0) meq/L BUN 13 (7-18) mg/dL Creatinine 0.97 (0.50-1.00) mg/dL Calcium 8.3 L (8.5-10.1) mg/dL AST 22 (15-37) U/L ALT 14 (10-53) U/L Alkaline Phosphatase 128 H (45-117) U/L Total Protein 6.4 (6.4-8.2) g/dL Albumin 2.1 L (3.4-5.0) g/dL Intake and Output 06/20/18 06/20/18 06/20/18 06:59 14:59 22:59 Intake Total 320 / 320 Output Total 800 / 800 Balance -480 / -480 Intake: Oral 320 / 320 Output: Urine 800 / 800 Other: Weight 63.6 kg - Imaging and Cardiology Imaging: Impressions Shoulder X-Ray 06/19/18 00:00 CONCLUSION: Slight interval healing. Assessment and Plan - Assessment (1) Atrial fibrillation with RVR Code(s): I48.91 - Unspecified atrial fibrillation Status: Acute (2) Symptomatic bradycardia Code(s): R00.1 - Bradycardia, unspecified Status: Acute (3) Humeral fracture Code(s): S42.309A - Unspecified fracture of shaft of humerus, unspecified arm, initial encounter for closed fracture Status: Acute (4) Encephalopathy Code(s): G93.40 - Encephalopathy, unspecified Status: Acute (5) Toxic metabolic encephalopathy Code(s): G92 - Toxic encephalopathy Status: Acute (6) Gait disorder Code(s): R26.9 - Unspecified abnormalities of gait and mobility Status: Chronic (7) Tremor Code(s): R25.1 - Tremor, unspecified Status: Chronic (8) Acute UTI Code(s): N39.0 - Urinary tract infection, site not specified Status: Acute - Plan We will decrease amiodarone to 200 mg daily starting tomorrow. Increase activity as tolerated. We will continue with current cardiac treatment plan. Patient is cleared for discharge from a cardiac standpoint. Discharge plans to a shelter facility are in progress. Patient was seen and evaluated by Dr. Zimmer who participated in care, management and decision making. - Attending Attestation Patient seen and examined. I reviewed and agree with the evaluation and plan as presented. Continue amiodarone 200 mg daily. Transfer to [facility] as planned. (3) Humeral fracture Qualifiers: Encounter type: subsequent encounter Humerus Location: proximal Fracture type: closed Fracture morphology: other fracture Fracture alignment: nondisplaced Laterality: right Fracture healing: with routine healing Qualified Code(s): S42.294D - Other nondisplaced fracture of upper end of right humerus, subsequent encounter for fracture with routine healing
[2018-06-20] MEDS: Enoxaparin Inj 40 MG/0.4 ML Syringe SQ SCH (18:07)
--- NOTE | 2018-06-21 07:18 | P.PN ---
Subjective Interval history: Follow-up on patient with dementia, bipolar disorder, right humerus fracture. Patient seen and examined. She says she had a pretty good night last night. She denies any new complaints. She says she feels like the right shoulder is getting better. She denies any fever or chills. She denies any chest pain or dyspnea. She denies any N/V or abdominal pain. She reports a good appetite. Physical Exam Vital signs: Vital Signs 06/20/18 08:00 06/20/18 12:00 06/20/18 16:00 Temperature 97.8 F 97.9 F 97.8 F Pulse Rate 67 65 65 Respiratory Rate 19 19 19 Blood Pressure 107/60 119/66 100/56 L Pulse Oximetry 95 97 98 06/20/18 17:30 06/20/18 20:00 06/21/18 00:00 Temperature 97.9 F 98.3 F Pulse Rate 70 64 Respiratory Rate 18 18 Blood Pressure 117/59 L 115/56 L Pulse Oximetry 98 98 96 06/21/18 04:00 Temperature 98.2 F Pulse Rate 118 H Respiratory Rate 18 Blood Pressure 125/79 Pulse Oximetry 97 Intake & Output 06/20/18 06/21/18 06/21/18 18:59 06:59 18:59 Intake Total 1200 / 1200 Output Total 350 / 350 Balance 1200 / 1200 -350 / -350 Weight 64.3 kg Intake: Oral 1200 / 1200 Output: Urine 350 / 350 Other: # Voids 4 2 # Incontinent Voids 3 Date of Last Bowel Movement 06/20/18 06/20/18 # Bowel Movements 1 Narrative: GENERAL: Well-nourished, well-developed middle-aged female, in no apparent distress. Awake and alert. Sitting up in bed eating breakfast with assistance. SKIN: Warm and dry. No generalized rash. HEENT: Atraumatic. Normocephalic. Pupils equal and round. No scleral icterus. No injection or drainage. No nasal bleeding or discharge. Mucous membranes pink and moist. NECK: Trachea midline. CARDIOVASCULAR: Irregular rate and rhythm. RESPIRATORY: No accessory muscle use. Clear to auscultation anteriorly. Breath sounds equal bilaterally. GASTROINTESTINAL: Abdomen soft, non-tender, nondistended. MUSCULOSKELETAL: Extremities without clubbing, cyanosis, or edema. Right upper extremity in sling. Able to move all digits of the right hand. Neurovascular intact distally right upper extremity. NEUROLOGICAL: Awake and alert. Oriented to self, place and time. No obvious cranial nerve deficits. Able to move all extremities spontaneously. Normal speech. PSYCHIATRIC: Calm and cooperative. Results - Labs CBC & Chem 7: 06/20/18 06:49 06/20/18 06:49 Laboratory Results - last 24 hr 06/20/18 06/20/18 06:49 06:49 WBC 6.1 RBC 2.94 L Hgb 10.5 L Hct 32.1 L MCV 109.3 H MCH 35.9 H MCHC 32.8 RDW 15.6 Plt Count 322 MPV 10.1 Neut % (Auto) 60.9 Lymph % (Auto) 22.2 [place] % (Auto) 12.6 H Eos % (Auto) 3.4 Baso % (Auto) 0.9 Neut # (Auto) 3.7 Lymph # (Auto) 1.4 [place] # (Auto) 0.8 Eos # (Auto) 0.2 Baso # (Auto) 0.1 WBC Differential . Differential Comment Auto diff final Sodium 143 Potassium 4.1 Chloride 104 Carbon Dioxide 33.1 H Anion Gap 6 BUN 13 Creatinine 0.97 Estimated GFR 59 L Random Glucose 83 Calcium 8.3 L Total Bilirubin 0.3 AST 22 ALT 14 Alkaline Phosphatase 128 H Total Protein 6.4 Albumin 2.1 L Valproic Acid 52 - Procedures NONE Assessment and Plan - Assessment (1) Humeral fracture Code(s): S42.309A - Unspecified fracture of shaft of humerus, unspecified arm, initial encounter for closed fracture Status: Acute (2) Encephalopathy Code(s): G93.40 - Encephalopathy, unspecified Status: Acute (3) Atrial fibrillation with RVR Code(s): I48.91 - Unspecified atrial fibrillation Status: Acute - Plan 58yF with paroxysmal afib and humerus fracture. non-operative management for humerus fracture per ortho. OOB with PT. 10 No interval change. She is afebrile. Her HR ranges from 57 to 118. Cardiology continues to follow patient, amiodarone dose decreased to 200mg daily. DW nursing staff, no adverse events noted overnight NEURO: Dementia, Bipolar disorder Continue Aricept 10 mg p.o. daily Continue Depakote 500 mg p.o. 3 times daily. This may be for mood although indication is not entirely clear. Continue Zanaflex 2 mg p.o. 3 times daily. Continue Effexor ER 75 mg p.o. daily. Generalized weakness; Gait disorder; Multiple falls CT brainno acute abnormality. Small vessel ischemic changes. MRI/MRA brain and MRI C-spine negative. EEG 06/05moderate encephalopathy -Neurology following 06/19 Episode of lethary with involuntary movements, suspect secondary to medication effect. Now more alert. EEG negative. Continue on lower dose of [place]. Muscle relaxant discontinued. RESP: Nasal cannula wean as tolerated -satting 95% on RA CV: Atrial fibrillation with RVR Bradycardia and hypotension immediately upon conversion to sinus rhythm on betablockers and calcium channel blockers. Received atropine 0.5 mg IV, glucagon 2.5 mg IV, and trial transcutaneous pacing. She remained hypotensive even with rate in 70s. Initiated dopamine which ultimately was titrated to 20 mcg/kg/min to maintain mean arterial pressure greater than 65. -Holding beta blockers and calcium channel blockers. -continue ASA 81mg daily -Patient going in and out of atrial fibrillation to sinus rhythm. Cardiology aware. Completed Amiodarone loading. Now on amiodarone 200 mg daily. She may ultimately require backup pacemaker in order to tolerate rate control agents. Cleared for discharge from cardiac standpoint. Anemia -Stable; iron supplement added -Hgb up to 10.5. FEN/RENAL: Creatinine normal. Monitor intake and output and BMP. ID: UTI Urine culture 06/04 with Klebsiella. Blood culture from 06/04 negative. Treated with Rocephin; resolved ENDO: Hypoglycemia- resolved. Continue diet. cortisol appropriate. Hypothyroidism Continue [place] Thyroid 60 milligrams daily and Levothyroxine 25mcg daily. TSH elevated, free T4 normal: Sick euthyroid. no changes needed to regimen. needs recheck in outpatient setting in 6 weeks-3 months. MSK: Subacute right proximal humerus fracture Upper extremity remains in a sling. plan for non-operative management per ortho. -Repeat x-ray of the right shoulder 06/19 reveals near anatomic alignment and slight interval healing -patient will need to followup with Ortho following discharge PROPH: Lovenox 40 mg subcu daily for DVT prophylaxis. Protonix 40 mg p.o. daily for stress ulcer prophylaxis. Code Status: FULL Discussed Condition With: patient, nursing staff Discharge Planning: Patient cleared for discharge to SNF facility/awaiting placement. Case management assisting with discharge planning. (1) Humeral fracture Qualifiers: Encounter type: subsequent encounter Humerus Location: proximal Fracture type: closed Fracture morphology: other fracture Fracture alignment: nondisplaced Laterality: right Fracture healing: with routine healing Qualified Code(s): S42.294D - Other nondisplaced fracture of upper end of right humerus, subsequent encounter for fracture with routine healing
[2018-06-21] MEDS: Divalproex 500 MG DR Tablet PO SCH ×3 (08:32→17:10)
[2018-06-21] MEDS: Thyroid 60 MG Tablet PO SCH (08:32)
[2018-06-21] MEDS: Venlafaxine XR 75 MG Capsule PO SCH (08:33)
[2018-06-21] MEDS: Ferrous Sulfate 325 MG Tablet PO SCH (08:33)
[2018-06-21] MEDS: Amiodarone 200 MG Tablet PO SCH (08:34)
[2018-06-21] MEDS: Senna/Docusate Sodium 8.6/50 MG Tablet PO SCH ×2 (08:35→21:24)
[2018-06-21] MEDS: Enoxaparin Inj 40 MG/0.4 ML Syringe SQ SCH (17:10)
--- NOTE | 2018-06-22 08:25 | P.PN ---
Subjective Interval history: Patient doing well overnight, tolerating PO. Patient has no concerns Physical Exam Vital signs: Vital Signs 06/21/18 12:00 06/21/18 13:08 06/21/18 16:00 Temperature 97.6 F 97.9 F Pulse Rate 57 L 71 Respiratory Rate 20 20 Blood Pressure 116/62 106/62 Pulse Oximetry 96 97 95 06/21/18 20:00 06/22/18 00:00 06/22/18 04:00 Temperature 98.5 F 98.6 F 98.4 F Pulse Rate 70 66 52 L Respiratory Rate 18 18 18 Blood Pressure 136/58 L 121/57 L 129/64 Pulse Oximetry 98 96 95 06/22/18 08:00 Temperature 97.6 F Pulse Rate 79 Respiratory Rate 19 Blood Pressure 145/87 H Pulse Oximetry 100 Intake & Output 06/21/18 06/22/18 06/22/18 18:59 06:59 18:59 Intake Total 180 / 180 240 / 240 Output Total 425 / 425 Balance 180 / 180 -425 / -425 240 / 240 Weight 64.3 kg Intake: Oral 180 / 180 240 / 240 Output: Urine 425 / 425 Other: # Voids 2 Date of Last Bowel Movement 06/21/18 # Bowel Movements 3 Narrative: GENERAL: well nourished female, in NAD, lying comfortably in bed SKIN: Warm and dry. HEAD: Normocephalic. No scleral icterus. No injection or drainage. MOM. NECK: Supple, trachea midline. No JVD or lymphadenopathy. CARDIOVASCULAR: Regular rate and rhythm without murmurs, gallops, or rubs. RESPIRATORY: Breath sounds equal bilaterally. No accessory muscle use. GASTROINTESTINAL: Abdomen soft, non-tender, nondistended. MUSCULOSKELETAL: No cyanosis, or edema. R sling in place, good capillary refill. BACK: Nontender without obvious deformity. No CVA tenderness. NEURO: AAOX3, pleasant, motor system grossly intact Results - Labs CBC & Chem 7: 06/20/18 06:49 06/20/18 06:49 - Procedures NONE Assessment and Plan - Assessment (1) Humeral fracture Code(s): S42.309A - Unspecified fracture of shaft of humerus, unspecified arm, initial encounter for closed fracture Status: Acute (2) Encephalopathy Code(s): G93.40 - Encephalopathy, unspecified Status: Resolved (3) Atrial fibrillation with RVR Code(s): I48.91 - Unspecified atrial fibrillation Status: Chronic - Plan This is a 58 y/o CF with PMhx of Dementia and BP Disoder admitted for IP mgmt of Paroxysmal A. Fib and humerus fracture, managed non-operatively per Ortho, HD #19 1. Dementia, Bipolar disorder Continue Aricept, Depakote, and Effexor 2. Generalized Weakness CT Head no acute abnormality. Small vessel ischemic changes. MRI/MRA brain and MRI C-spine negative. EEG 06/05moderate encephalopathy Neurology following 3. Atrial fibrillation with RVR, intermittent HR 75-129 overnight Cont. Amiodarone s/p atropine 0.5 mg IV, glucagon 2.5 mg IV, and trial transcutaneous pacing. Holding beta blockers and calcium channel blockers. Continue Amiodarone and ASA 81mg daily Cardiology managing, may ultimately require backup pacemaker in order to tolerate rate control agents. Cleared for discharge from cardiac standpoint 4. Anemia Hgb 10/5 on 06/20 Continue ferrous sulfate 5. UTI, resolved Urine culture 06/04 with Klebsiella s/p txt Blood culture from 06/04 negative. 6. Hypothyroidism Continue [place] Thyroid 60 milligrams daily and Levothyroxine 25mcg daily. Needs recheck in outpatient setting in 6 weeks-3 months. 7. Subacute right proximal humerus fracture Cont. sling, non-operative management per ortho Repeat x-ray of the right shoulder 06/19 reveals near anatomic alignment and slight interval healing Patient will need to followup with Ortho following discharge 8. DVT PPX: Lovenox 9. GERD: Cont. PPI 10. Incontinence Continue Oxybutynin 11. Disposition: Pending placement, patient stable and cleared by cardiology for discharge, labs within normal limits on 06/20 Code Status: full Discussed Condition With: patient, RN (1) Humeral fracture Qualifiers: Encounter type: subsequent encounter Humerus Location: proximal Fracture type: closed Fracture morphology: other fracture Fracture alignment: nondisplaced Laterality: right Fracture healing: with routine healing Qualified Code(s): S42.294D - Other nondisplaced fracture of upper end of right humerus, subsequent encounter for fracture with routine healing
[2018-06-22] MEDS: Amiodarone 200 MG Tablet PO SCH (09:04)
[2018-06-22] MEDS: Thyroid 60 MG Tablet PO SCH (09:05)
[2018-06-22] MEDS: Divalproex 500 MG DR Tablet PO SCH ×3 (09:08→18:07)
[2018-06-22] MEDS: Senna/Docusate Sodium 8.6/50 MG Tablet PO SCH ×2 (09:09→20:46)
[2018-06-22] MEDS: Venlafaxine XR 75 MG Capsule PO SCH (09:10)
[2018-06-22] MEDS: Ferrous Sulfate 325 MG Tablet PO SCH (09:10)
[2018-06-22] MEDS: Enoxaparin Inj 40 MG/0.4 ML Syringe SQ SCH (18:07)
[2018-06-23] MEDS: Thyroid 60 MG Tablet PO SCH (09:38)
[2018-06-23] MEDS: Ferrous Sulfate 325 MG Tablet PO SCH (09:38)
[2018-06-23] MEDS: Venlafaxine XR 75 MG Capsule PO SCH (09:39)
[2018-06-23] MEDS: Divalproex 500 MG DR Tablet PO SCH ×3 (09:39→18:31)
[2018-06-23] MEDS: Senna/Docusate Sodium 8.6/50 MG Tablet PO SCH ×2 (09:39→20:27)
[2018-06-23] MEDS: Amiodarone 200 MG Tablet PO SCH (09:39)
--- NOTE | 2018-06-23 12:15 | P.PN ---
Subjective Interval history: Follow-up visit dementia, bipolar, A. fib, generalized weakness. Patient seen and examined today. Reports she is doing well. Continues to have weakness. Denies pain and discomfort. Denies SOB/ dyspnea. Denies chest pain. Denies fevers, chills, n/v/d. Physical Exam Vital signs: Vital Signs 06/22/18 16:00 06/22/18 16:15 06/22/18 19:40 Temperature 98.7 F Pulse Rate 65 62 Respiratory Rate 19 Blood Pressure 109/61 Pulse Oximetry 98 96 06/22/18 20:00 06/22/18 20:02 06/23/18 00:00 Temperature 97.8 F 98.2 F Pulse Rate 88 91 H 67 Respiratory Rate 20 20 Blood Pressure 130/61 119/56 L Pulse Oximetry 96 96 06/23/18 00:03 06/23/18 04:00 06/23/18 04:32 Temperature 97.9 F Pulse Rate 72 86 107 H Respiratory Rate 20 Blood Pressure 138/82 Pulse Oximetry 96 06/23/18 08:00 06/23/18 12:02 Temperature 98.1 F Pulse Rate 132 H Respiratory Rate 20 Blood Pressure 135/80 Pulse Oximetry 94 L 97 Intake & Output 06/22/18 06/23/18 06/23/18 18:59 06:59 18:59 Intake Total 720 / 720 Output Total 401 / 401 Balance 319 / 319 Weight 64.2 kg Intake: Oral 720 / 720 Output: Urine 400 / 400 Stool / Other: Date of Last Bowel Movement 06/22/18 06/22/18 06/22/18 Narrative: GENERAL: well nourished female, in NAD, lying comfortably in bed SKIN: Warm and dry. HEAD: Normocephalic. No scleral icterus. No injection or drainage. MOM. NECK: Supple, trachea midline. CARDIOVASCULAR: Regular rate and rhythm without murmurs, gallops, or rubs. RESPIRATORY: Breath sounds equal bilaterally. No accessory muscle use. GASTROINTESTINAL: Abdomen soft, non-tender, nondistended. MUSCULOSKELETAL: No cyanosis, or edema. R sling in place, good capillary refill. BACK: Nontender without obvious deformity. No CVA tenderness. NEURO: Alert and oriented, pleasant, motor system grossly intact Results - Labs CBC & Chem 7: 06/20/18 06:49 06/20/18 06:49 - Procedures NONE Assessment and Plan - Assessment (1) Humeral fracture Code(s): S42.309A - Unspecified fracture of shaft of humerus, unspecified arm, initial encounter for closed fracture Status: Acute (2) Encephalopathy Code(s): G93.40 - Encephalopathy, unspecified Status: Resolved (3) Atrial fibrillation with RVR Code(s): I48.91 - Unspecified atrial fibrillation Status: Chronic - Plan 58 y/o CF with PMhx of Dementia and BP Disoder admitted for IP mgmt of Paroxysmal A. Fib and humerus fracture, managed non-operatively per Ortho Dementia, Bipolar disorder -Continue Aricept, Depakote, and Effexor Generalized Weakness -CT Head no acute abnormality. Small vessel ischemic changes. -MRI/MRA brain and MRI C-spine negative. -EEG 06/05moderate encephalopathy -Neurology following Atrial fibrillation with RVR, intermittent -Cont. Amiodarone -s/p atropine 0.5 mg IV, glucagon 2.5 mg IV, and trial transcutaneous pacing. -Holding beta blockers and calcium channel blockers. -Continue Amiodarone and ASA 81mg daily -Cardiology managing, may ultimately require backup pacemaker in order to tolerate rate control agents. -Cleared for discharge from cardiac standpoint Anemia -Hgb 06/20 on 06/20 -Continue ferrous sulfate UTI, resolved -Urine culture 06/04 with Klebsiella s/p txt -Blood culture from 06/04 negative. Hypothyroidism -Continue [place] Thyroid 60 milligrams daily and Levothyroxine 25mcg daily. -Needs recheck in outpatient setting in 6 weeks-3 months. Subacute right proximal humerus fracture -Cont. sling, non-operative management per ortho -Repeat x-ray of the right shoulder 06/19 reveals near anatomic alignment and slight interval healing -Patient will need to followup with Ortho following discharge -PT eval and treat Incontinence -Continue Oxybutynin DVT PPX: Lovenox GERD: Cont. PPI Code Status: Full code Discussed Condition With: Patient, nurse Discharge Planning: Pending placement, patient stable and cleared by cardiology for discharge, labs within normal limits on 06/20 (1) Humeral fracture Qualifiers: Encounter type: subsequent encounter Humerus Location: proximal Fracture type: closed Fracture morphology: other fracture Fracture alignment: nondisplaced Laterality: right Fracture healing: with routine healing Qualified Code(s): S42.294D - Other nondisplaced fracture of upper end of right humerus, subsequent encounter for fracture with routine healing
--- NOTE | 2018-06-23 14:46 | P.PNCA ---
Subjective Interval history: The patient denies any chest pain, pressure, palpitations, dizziness, edema or shortness of breath. Patient states that she feels pretty good and arm is slowly starting to feel better. Medications and Allergies Allergies Allergy/AdvReac Type Severity Reaction Status Date / Time No Known Allergies Allergy Verified 05/28/18 10:30 Home Medications Medication Instructions Recorded Confirmed Type allopurinol 100 mg PO BID 05/28/18 05/28/18 History aspirin 81 mg PO DAILY 05/28/18 05/28/18 History buspirone 5 mg PO TID 05/28/18 05/28/18 History calcium carbonate [Calcium 600] 600 mg PO BID 05/28/18 05/28/18 History divalproex [Depakote] 500 mg PO TID 05/28/18 05/28/18 History donepezil 10 mg PO DAILY 05/28/18 06/04/18 History hydrocodone-acetaminophen [[place]] 1 tab PO Q6H PRN 05/28/18 06/04/18 History levothyroxine 25 mcg PO DAILY 05/28/18 06/04/18 History oxybutynin chloride 5 mg PO BID 05/28/18 06/04/18 History sotalol 80 mg PO Q12H 05/28/18 06/04/18 History thyroid (pork) [[place] Thyroid] 60 mg PO DAILY 05/28/18 06/04/18 History tizanidine 2 mg PO TID PRN 05/28/18 06/04/18 History venlafaxine [Effexor XR] 75 mg PO DAILY 05/28/18 06/04/18 History Active Medications: Active Medications Acetaminophen (Tylenol) 650 mg PO Q4H PRN PRN Reason: Temp > 100.4 Last Admin: 06/05/18 08:09 Dose: 650 mg Hydrocodone Bitart/Acetaminophen ([place] 5/325) 1 tab PO Q4H PRN PRN Reason: PAIN SCALE 1 TO 10 Last Admin: 06/23/18 14:00 Dose: 1 tab Al Hydroxide/Mg Hydroxide (Milk Of Magnesia Liq) 30 ml PO Q12H PRN PRN Reason: Mild Constipation Last Admin: 06/12/18 18:17 Dose: 30 ml Amiodarone HCl (Cordarone) 200 mg PO DAILY [facility] Last Admin: 06/23/18 09:39 Dose: 200 mg Apixaban (Eliquis) 5 mg PO BID [facility] Bisacodyl (Dulcolax Supp) 10 mg RECTAL DAILY PRN PRN Reason: SEVERE CONSITIPATION Dextrose (D50w Vial) 50 ml IV.PUSH UNSCH PRN PRN Reason: PER HYPOGLYCEMIA PROTOCOL Last Admin: 06/06/18 06:00 Dose: 50 ml Divalproex Sodium (Depakote Dr) 500 mg PO TID [facility] Last Admin: 06/23/18 12:15 Dose: 500 mg Donepezil HCl (Aricept) 10 mg PO DAILY [facility] Last Admin: 06/23/18 09:38 Dose: 10 mg Ferrous Sulfate (Ferosul) 325 mg PO DAILY [facility] Last Admin: 06/23/18 09:38 Dose: 325 mg Glucagon (Glucagon Inj) 1 mg OTHER PRN PRN PRN Reason: for Hypoglycemia Protocol Phenylephrine HCl 40 mg/ (Dextrose) 500 mls @ 30 mls/hr IV.CONT TITRATE PRN; Protocol PRN Reason: Per Protocol Last Titration: 06/08/18 11:02 Dose: 0 mcg/min, 0 mls/hr Sodium Chloride (Ns Inj) 1,000 mls @ 0 mls/hr IV.SIG BOLUS [facility] Last Infusion: 06/12/18 02:23 Dose: Infused Lactulose (Lactulose Liq) 30 ml PO DAILY PRN PRN Reason: SEVERE CONSITIPATION Levothyroxine Sodium (Synthroid) 25 mcg PO DAILY@0600 [facility] Last Admin: 06/23/18 06:04 Dose: 25 mcg Miscellaneous (Pill Splitter) 1 each OTHER UNSCH [facility] Ondansetron HCl (Zofran Inj) 4 mg IV.PUSH Q6H PRN PRN Reason: NAUSEA OR VOMITING Last Admin: 06/18/18 11:09 Dose: 4 mg Oxybutynin Chloride (Ditropan) 5 mg PO BID [facility] Last Admin: 06/23/18 09:39 Dose: 5 mg Pantoprazole Sodium (Protonix) 40 mg PO DAILY [facility] Last Admin: 06/23/18 09:39 Dose: 40 mg Senna/Docusate Sodium (Leena-Colace) 1 tab PO BID [facility] Last Admin: 06/23/18 09:39 Dose: 1 tab Sennosides (Senokot) 17.2 mg PO Q12H PRN PRN Reason: Moderate Constipation Sodium Chloride (Ns Flush) 2 ml IV.FLUSH BID [facility] Last Admin: 06/23/18 09:41 Dose: 2 ml Sodium Chloride (Ns Flush) 2 ml IV.FLUSH PRN PRN PRN Reason: FLUSH AFTER USING IV ACCESS Thyroid ([place] Thyroid) 60 mg PO DAILY [facility] Last Admin: 06/23/18 09:38 Dose: 60 mg Venlafaxine HCl (Effexor Xr) 75 mg PO DAILY [facility] Last Admin: 06/23/18 09:39 Dose: 75 mg Physical Exam Vital signs: Vital Signs 06/22/18 16:00 06/22/18 16:15 06/22/18 19:40 Temperature 98.7 F Pulse Rate 65 62 Respiratory Rate 19 Blood Pressure 109/61 Pulse Oximetry 98 96 06/22/18 20:00 06/22/18 20:02 06/23/18 00:00 Temperature 97.8 F 98.2 F Pulse Rate 88 91 H 67 Respiratory Rate 20 20 Blood Pressure 130/61 119/56 L Pulse Oximetry 96 96 06/23/18 00:03 06/23/18 04:00 06/23/18 04:32 Temperature 97.9 F Pulse Rate 72 86 107 H Respiratory Rate 20 Blood Pressure 138/82 Pulse Oximetry 96 06/23/18 08:00 06/23/18 12:00 06/23/18 12:02 Temperature 98.1 F 97.4 F L Pulse Rate 132 H 86 Respiratory Rate 20 22 Blood Pressure 135/80 133/84 Pulse Oximetry 94 L 95 97 Intake & Output 06/22/18 06/23/18 06/23/18 18:59 06:59 18:59 Intake Total 720 / 720 Output Total 401 / 401 Balance 319 / 319 Weight 64.2 kg Intake: Oral 720 / 720 Output: Urine 400 / 400 Stool Other: Date of Last Bowel Movement 06/22/18 06/22/18 06/22/18 - Constitutional no acute distress - Routine HEENT Exam Head: Present: normocephalic Eye: Present: PERRL ENT: Present: mucous membranes moist - Routine Neck Exam Present: supple - Routine Respiratory Exam Present: CTA bilaterally - Routine Cardiovascular Exam Present: S1, S2, irregular rhythm. Absent: murmur, gallop, rubs - Routine Abdominal Exam Present: normoactive bowel sounds - Routine Extremities Exam Present: pulses intact, normal capillary refill. Absent: cyanosis, clubbing, edema Comments: Right arm in a sling due to right humerus fracture - Routine Skin Exam Present: intact - Routine Neurological Exam Present: oriented X3 - Detailed Neurological Exam: Coma Scale Eye Opening: Spontaneous Verbal Response: Oriented Motor Response: [place] commands [place] Coma Scale Total: 15 - Routine Psychiatric Exam Present: normal affect Results 06/20/18 06:49 06/20/18 06:49 Intake and Output 06/22/18 06/23/18 06/23/18 22:59 06:59 14:59 Intake Total 240 / 240 Output Total 200 / 200 Balance 40 / 40 Intake: Oral 240 / 240 Output: Urine 200 / 200 Other: Date of Last Bowel Movement 06/22/18 06/22/18 Weight 64.2 kg Assessment and Plan - Assessment (1) Atrial fibrillation with RVR Code(s): I48.91 - Unspecified atrial fibrillation Status: Chronic (2) Symptomatic bradycardia Code(s): R00.1 - Bradycardia, unspecified Status: Acute (3) Humeral fracture Code(s): S42.309A - Unspecified fracture of shaft of humerus, unspecified arm, initial encounter for closed fracture Status: Acute (4) Encephalopathy Code(s): G93.40 - Encephalopathy, unspecified Status: Resolved (5) Toxic metabolic encephalopathy Code(s): G92 - Toxic encephalopathy Status: Acute (6) Gait disorder Code(s): R26.9 - Unspecified abnormalities of gait and mobility Status: Chronic (7) Tremor Code(s): R25.1 - Tremor, unspecified Status: Chronic (8) Acute UTI Code(s): N39.0 - Urinary tract infection, site not specified Status: Acute - Plan Patient still having episodes of atrial fib with RVR, she is on amiodarone 200 mg daily. We will add Metoprolol 25mg BID for better rate control. We will place patient on Eliquis 5 mg twice daily. Continue to increase activity as tolerated. Patient is cleared for discharge from a cardiac standpoint. Discharge plans to a snf facility are in progress. Patient was seen and evaluated by Dr. Zimmer who participated in care, management and decision making. - Attending Attestation Patient seen and examined. I reviewed and agree with the evaluation and plan as presented. Titrate rate control. Add Eliquis for anticoagulation. Discharge as planned. (3) Humeral fracture Qualifiers: Encounter type: subsequent encounter Humerus Location: proximal Fracture type: closed Fracture morphology: other fracture Fracture alignment: nondisplaced Laterality: right Fracture healing: with routine healing Qualified Code(s): S42.294D - Other nondisplaced fracture of upper end of right humerus, subsequent encounter for fracture with routine healing
[2018-06-23] MEDS: Metoprolol Tartrate 25 MG Tablet PO SCH (20:27)
[2018-06-24] MEDS: Venlafaxine XR 75 MG Capsule PO SCH (08:29)
[2018-06-24] MEDS: Senna/Docusate Sodium 8.6/50 MG Tablet PO SCH ×2 (08:29→20:18)
[2018-06-24] MEDS: Thyroid 60 MG Tablet PO SCH (08:29)
[2018-06-24] MEDS: Metoprolol Tartrate 25 MG Tablet PO SCH ×2 (08:29→20:18)
[2018-06-24] MEDS: Ferrous Sulfate 325 MG Tablet PO SCH (08:29)
[2018-06-24] MEDS: Amiodarone 200 MG Tablet PO SCH (08:30)
[2018-06-24] MEDS: Divalproex 500 MG DR Tablet PO SCH ×3 (08:30→17:48)
--- NOTE | 2018-06-24 10:07 | P.PN ---
Subjective Interval history: Follow-up visit dementia, bipolar, A. fib, generalized weakness, anxiety. Patient seen and examined today. Reports she is is this morning that triggered her nausea/vomiting. Continues to have weakness. Denies pain and discomfort. Denies SOB/ dyspnea. Denies chest pain. Denies fevers, chills. As per nursing had episode of A. fib with RVR short-term this morning when patient started to show signs and symptoms of severe anxiety. Physical Exam Vital signs: Vital Signs 06/23/18 12:00 06/23/18 12:02 06/23/18 16:00 Temperature 97.4 F L 98.0 F Pulse Rate 86 79 Respiratory Rate 22 20 Blood Pressure 133/84 125/67 Pulse Oximetry 95 97 99 06/23/18 20:00 06/23/18 23:56 06/24/18 00:00 Temperature 97.8 F 98.1 F Pulse Rate 71 121 H 108 H Respiratory Rate 18 18 Blood Pressure 141/111 H 103/75 Pulse Oximetry 96 95 06/24/18 03:54 06/24/18 04:00 06/24/18 08:00 Temperature 98.2 F 98.4 F Pulse Rate 129 H 86 135 H Respiratory Rate 18 17 Blood Pressure 115/87 124/74 Pulse Oximetry 95 95 Intake & Output 06/23/18 06/24/18 06/24/18 18:59 06:59 18:59 Output Total 800 / 800 800 / 800 Balance -800 / -800 -800 / -800 Weight 65 kg Output: Urine 800 / 800 800 / 800 Other: # Incontinent Voids 1 Date of Last Bowel Movement 06/22/18 06/23/18 06/24/18 # Bowel Movements 1 Narrative: GENERAL: well nourished female, in NAD, lying comfortably in bed SKIN: Warm and dry. HEAD: Normocephalic. No scleral icterus. No injection or drainage. MOM. NECK: Supple, trachea midline. CARDIOVASCULAR: Regular rate and rhythm without murmurs, gallops, or rubs. RESPIRATORY: Breath sounds equal bilaterally. No accessory muscle use. GASTROINTESTINAL: Abdomen soft, non-tender, nondistended. MUSCULOSKELETAL: No cyanosis, or edema. R sling in place, good capillary refill. BACK: Nontender without obvious deformity. No CVA tenderness. 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 Fib and humerus fracture, managed non-operatively per Ortho Dementia, Bipolar disorder Severe anxiety -Continue Aricept, Depakote, and Effexor -We will start with clonazepam low-dose twice daily. Hydroxyzine as needed. Generalized Weakness -CT Head no acute abnormality. Small vessel ischemic changes. -MRI/MRA brain and MRI C-spine negative. -EEG 06/05moderate encephalopathy -Neurology following Atrial fibrillation with RVR, intermittent -Cont. Amiodarone -s/p atropine 0.5 mg IV, glucagon 2.5 mg IV, and trial transcutaneous pacing. -Holding beta blockers and calcium channel blockers. -Continue Amiodarone and ASA 81mg daily -Cardiology managing, may ultimately require backup pacemaker in order to tolerate rate control agents. -Cleared for discharge from cardiac standpoint Anemia -Hgb / on 06/20 -Continue ferrous sulfate UTI, resolved -Urine culture 06/04 with Klebsiella s/p txt -Blood culture from 06/04 negative. Hypothyroidism -Continue [place] Thyroid 60 milligrams daily and Levothyroxine 25mcg daily. -Needs recheck in outpatient setting in 6 weeks-3 months. Subacute right proximal humerus fracture -Cont. sling, non-operative management per ortho -Repeat x-ray of the right shoulder 06/19 reveals near anatomic alignment and slight interval healing -Patient will need to followup with Ortho following discharge -PT eval and treat Incontinence -Continue Oxybutynin DVT PPX: Lovenox GERD: Cont. PPI Full code Discussed with patient, nursing Discharge Planning: Pending placement, patient stable and cleared by cardiology for discharge, labs within normal limits on 06/20 (1) Humeral fracture Qualifiers: Encounter type: subsequent encounter Humerus Location: proximal Fracture type: closed Fracture morphology: other fracture Fracture alignment: nondisplaced Laterality: right Fracture healing: with routine healing Qualified Code(s): S42.294D - Other nondisplaced fracture of upper end of right humerus, subsequent encounter for fracture with routine healing
[2018-06-24] MEDS: clonazePAM 0.5 MG Tablet PO SCH ×2 (12:09→20:18)
--- NOTE | 2018-06-24 13:15 | P.PNCA ---
Subjective Interval history: Patient denies any chest pain, pressure, palpitations, dizziness, edema or SOB. Patient does complain of mild right arm pain that is improving. Medications and Allergies Allergies Allergy/AdvReac Type Severity Reaction Status Date / Time No Known Allergies Allergy Verified 05/28/18 10:30 Home Medications Medication Instructions Recorded Confirmed Type allopurinol 100 mg PO BID 05/28/18 05/28/18 History aspirin 81 mg PO DAILY 05/28/18 05/28/18 History buspirone 5 mg PO TID 05/28/18 05/28/18 History calcium carbonate [Calcium 600] 600 mg PO BID 05/28/18 05/28/18 History divalproex [Depakote] 500 mg PO TID 05/28/18 05/28/18 History donepezil 10 mg PO DAILY 05/28/18 06/04/18 History hydrocodone-acetaminophen [[place]] 1 tab PO Q6H PRN 05/28/18 06/04/18 History levothyroxine 25 mcg PO DAILY 05/28/18 06/04/18 History oxybutynin chloride 5 mg PO BID 05/28/18 06/04/18 History sotalol 80 mg PO Q12H 05/28/18 06/04/18 History thyroid (pork) [[place] Thyroid] 60 mg PO DAILY 05/28/18 06/04/18 History tizanidine 2 mg PO TID PRN 05/28/18 06/04/18 History venlafaxine [Effexor XR] 75 mg PO DAILY 05/28/18 06/04/18 History Active Medications: Active Medications Acetaminophen (Tylenol) 650 mg PO Q4H PRN PRN Reason: Temp > 100.4 Last Admin: 06/05/18 08:09 Dose: 650 mg Hydrocodone Bitart/Acetaminophen ([place] 5/325) 1 tab PO Q4H PRN PRN Reason: PAIN SCALE 1 TO 10 Last Admin: 06/24/18 12:09 Dose: 1 tab Al Hydroxide/Mg Hydroxide (Milk Of Magnesia Liq) 30 ml PO Q12H PRN PRN Reason: Mild Constipation Last Admin: 06/12/18 18:17 Dose: 30 ml Amiodarone HCl (Cordarone) 200 mg PO DAILY [facility] Last Admin: 06/24/18 08:30 Dose: 200 mg Apixaban (Eliquis) 5 mg PO BID [facility] Last Admin: 06/24/18 08:30 Dose: 5 mg Bisacodyl (Dulcolax Supp) 10 mg RECTAL DAILY PRN PRN Reason: SEVERE CONSITIPATION Clonazepam (Klonopin) 0.5 mg PO Q12HR [facility] Last Admin: 06/24/18 12:09 Dose: 0.5 mg Dextrose (D50w Vial) 50 ml IV.PUSH UNSCH PRN PRN Reason: PER HYPOGLYCEMIA PROTOCOL Last Admin: 06/06/18 06:00 Dose: 50 ml Divalproex Sodium (Depakote Dr) 500 mg PO TID [facility] Last Admin: 06/24/18 12:09 Dose: 500 mg Donepezil HCl (Aricept) 10 mg PO DAILY [facility] Last Admin: 06/24/18 08:29 Dose: 10 mg Ferrous Sulfate (Ferosul) 325 mg PO DAILY [facility] Last Admin: 06/24/18 08:29 Dose: 325 mg Glucagon (Glucagon Inj) 1 mg OTHER PRN PRN PRN Reason: for Hypoglycemia Protocol Hydroxyzine HCl (Atarax) 10 mg PO Q6H PRN PRN Reason: Anxiety, Pruritis. Phenylephrine HCl 40 mg/ (Dextrose) 500 mls @ 30 mls/hr IV.CONT TITRATE PRN; Protocol PRN Reason: Per Protocol Last Titration: 06/08/18 11:02 Dose: 0 mcg/min, 0 mls/hr Sodium Chloride (Ns Inj) 1,000 mls @ 0 mls/hr IV.SIG BOLUS [facility] Last Infusion: 06/12/18 02:23 Dose: Infused Lactulose (Lactulose Liq) 30 ml PO DAILY PRN PRN Reason: SEVERE CONSITIPATION Levothyroxine Sodium (Synthroid) 25 mcg PO DAILY@0600 [facility] Last Admin: 06/24/18 05:31 Dose: 25 mcg Metoprolol Tartrate (Lopressor) 25 mg PO BID [facility] Last Admin: 06/24/18 08:29 Dose: 25 mg Miscellaneous (Pill Splitter) 1 each OTHER UNSCH [facility] Ondansetron HCl (Zofran Inj) 4 mg IV.PUSH Q6H PRN PRN Reason: NAUSEA OR VOMITING Last Admin: 06/18/18 11:09 Dose: 4 mg Oxybutynin Chloride (Ditropan) 5 mg PO BID [facility] Last Admin: 06/24/18 08:29 Dose: 5 mg Pantoprazole Sodium (Protonix) 40 mg PO DAILY [facility] Last Admin: 06/24/18 08:29 Dose: 40 mg Senna/Docusate Sodium (Leena-Colace) 1 tab PO BID [facility] Last Admin: 06/24/18 08:29 Dose: 1 tab Sennosides (Senokot) 17.2 mg PO Q12H PRN PRN Reason: Moderate Constipation Sodium Chloride (Ns Flush) 2 ml IV.FLUSH BID [facility] Last Admin: 06/24/18 08:30 Dose: 2 ml Sodium Chloride (Ns Flush) 2 ml IV.FLUSH PRN PRN PRN Reason: FLUSH AFTER USING IV ACCESS Thyroid ([place] Thyroid) 60 mg PO DAILY [facility] Last Admin: 06/24/18 08:29 Dose: 60 mg Venlafaxine HCl (Effexor Xr) 75 mg PO DAILY [facility] Last Admin: 06/24/18 08:29 Dose: 75 mg Physical Exam Vital signs: Vital Signs 06/23/18 16:00 06/23/18 20:00 06/23/18 23:56 Temperature 98.0 F 97.8 F Pulse Rate 79 71 121 H Respiratory Rate 20 18 Blood Pressure 125/67 141/111 H Pulse Oximetry 99 96 06/24/18 00:00 06/24/18 03:54 06/24/18 04:00 Temperature 98.1 F 98.2 F Pulse Rate 108 H 129 H 86 Respiratory Rate 18 18 Blood Pressure 103/75 115/87 Pulse Oximetry 95 95 06/24/18 08:00 06/24/18 12:00 Temperature 98.4 F 97.2 F L Pulse Rate 135 H 56 L Respiratory Rate 17 16 Blood Pressure 124/74 138/68 Pulse Oximetry 95 98 Intake & Output 06/23/18 06/24/18 06/24/18 18:59 06:59 18:59 Output Total 800 / 800 800 / 800 Balance -800 / -800 -800 / -800 Weight 65 kg Output: Urine 800 / 800 800 / 800 Other: # Incontinent Voids 1 Date of Last Bowel Movement 06/22/18 06/23/18 06/24/18 # Bowel Movements 1 - Constitutional no acute distress - Routine HEENT Exam Head: Present: normocephalic Eye: Present: PERRL ENT: Present: mucous membranes moist - Routine Neck Exam Present: full ROM - Routine Respiratory Exam Present: CTA bilaterally - Routine Cardiovascular Exam Present: S1, S2. Absent: murmur, gallop, rubs - Routine Abdominal Exam Present: normoactive bowel sounds - Routine Extremities Exam Present: full ROM, pulses intact, normal capillary refill. Absent: cyanosis, clubbing, edema - Routine Skin Exam Present: intact - Routine Neurological Exam Present: oriented X3 - Detailed Neurological Exam: Coma Scale Eye Opening: Spontaneous Verbal Response: Oriented Motor Response: Obey commands [place] Coma Scale Total: 15 - Routine Psychiatric Exam Present: normal affect Results 06/20/18 06:49 06/20/18 06:49 Intake and Output 06/23/18 06/24/18 06/24/18 22:59 06:59 14:59 Output Total 800 / 800 800 / 800 Balance -800 / -800 -800 / -800 Output: Urine 800 / 800 800 / 800 Other: # Incontinent Voids 1 Date of Last Bowel Movement 06/23/18 06/24/18 # Bowel Movements 1 Weight 65 kg Assessment and Plan - Assessment (1) Atrial fibrillation with RVR Code(s): I48.91 - Unspecified atrial fibrillation Status: Chronic (2) Symptomatic bradycardia Code(s): R00.1 - Bradycardia, unspecified Status: Acute (3) Humeral fracture Code(s): S42.309A - Unspecified fracture of shaft of humerus, unspecified arm, initial encounter for closed fracture Status: Acute (4) Encephalopathy Code(s): G93.40 - Encephalopathy, unspecified Status: Resolved (5) Toxic metabolic encephalopathy Code(s): G92 - Toxic encephalopathy Status: Acute (6) Gait disorder Code(s): R26.9 - Unspecified abnormalities of gait and mobility Status: Chronic (7) Tremor Code(s): R25.1 - Tremor, unspecified Status: Chronic (8) Acute UTI Code(s): N39.0 - Urinary tract infection, site not specified Status: Acute - Plan Patient is currently back in SR. We will continue amiodarone and metoprolol. Continue anticoagulation with Eliquis 5 mg twice daily for atrial fibrillation. Continue to increase activity as tolerated. Patient is cleared for discharge from a cardiac standpoint. Discharge plans to a alf facility are in progress. Patient was seen and evaluated by Dr. Zimmer who participated in care, management and decision making. - Attending Attestation Patient seen and examined. I reviewed and agree with the evaluation and plan as presented. Continue amio and metoprolol. Discharge plans in progress. (3) Humeral fracture Qualifiers: Encounter type: subsequent encounter Humerus Location: proximal Fracture type: closed Fracture morphology: other fracture Fracture alignment: nondisplaced Laterality: right Fracture healing: with routine healing Qualified Code(s): S42.294D - Other nondisplaced fracture of upper end of right humerus, subsequent encounter for fracture with routine healing
[2018-06-25 05:33] VITALS: RESP 18
[2018-06-25] MEDS: Ferrous Sulfate 325 MG Tablet PO SCH (08:42)
[2018-06-25] MEDS: Senna/Docusate Sodium 8.6/50 MG Tablet PO SCH (08:42)
[2018-06-25] MEDS: Metoprolol Tartrate 25 MG Tablet PO SCH (08:42)
[2018-06-25] MEDS: Divalproex 500 MG DR Tablet PO SCH ×2 (08:43→12:19)
[2018-06-25] MEDS: Venlafaxine XR 75 MG Capsule PO SCH (08:43)
[2018-06-25] MEDS: Amiodarone 200 MG Tablet PO SCH (08:43)
[2018-06-25] MEDS: clonazePAM 0.5 MG Tablet PO SCH (08:43)
[2018-06-25] MEDS: Thyroid 60 MG Tablet PO SCH (08:43)
--- NOTE | 2018-06-25 09:21 | P.PNCA ---
Subjective Interval history: Patient denies any CP, pressure, palpitations, dizziness, edema or SOB. Patient still having mild right arm pain. Medications and Allergies Allergies Allergy/AdvReac Type Severity Reaction Status Date / Time No Known Allergies Allergy Verified 05/28/18 10:30 Home Medications Medication Instructions Recorded Confirmed Type allopurinol 100 mg PO BID 05/28/18 05/28/18 History aspirin 81 mg PO DAILY 05/28/18 05/28/18 History buspirone 5 mg PO TID 05/28/18 05/28/18 History calcium carbonate [Calcium 600] 600 mg PO BID 05/28/18 05/28/18 History divalproex [Depakote] 500 mg PO TID 05/28/18 05/28/18 History donepezil 10 mg PO DAILY 05/28/18 06/04/18 History hydrocodone-acetaminophen [[place]] 1 tab PO Q6H PRN 05/28/18 06/04/18 History levothyroxine 25 mcg PO DAILY 05/28/18 06/04/18 History oxybutynin chloride 5 mg PO BID 05/28/18 06/04/18 History sotalol 80 mg PO Q12H 05/28/18 06/04/18 History thyroid (pork) [[place] Thyroid] 60 mg PO DAILY 05/28/18 06/04/18 History tizanidine 2 mg PO TID PRN 05/28/18 06/04/18 History venlafaxine [Effexor XR] 75 mg PO DAILY 05/28/18 06/04/18 History Active Medications: Active Medications Acetaminophen (Tylenol) 650 mg PO Q4H PRN PRN Reason: Temp > 100.4 Last Admin: 06/05/18 08:09 Dose: 650 mg Hydrocodone Bitart/Acetaminophen ([place] 5/325) 1 tab PO Q4H PRN PRN Reason: PAIN SCALE 1 TO 10 Last Admin: 06/25/18 08:49 Dose: 1 tab Al Hydroxide/Mg Hydroxide (Milk Of Magnesia Liq) 30 ml PO Q12H PRN PRN Reason: Mild Constipation Last Admin: 06/12/18 18:17 Dose: 30 ml Amiodarone HCl (Cordarone) 200 mg PO DAILY [facility] Last Admin: 06/25/18 08:43 Dose: 200 mg Apixaban (Eliquis) 5 mg PO BID [facility] Last Admin: 06/25/18 08:42 Dose: 5 mg Bisacodyl (Dulcolax Supp) 10 mg RECTAL DAILY PRN PRN Reason: SEVERE CONSITIPATION Clonazepam (Klonopin) 0.5 mg PO Q12HR [facility] Last Admin: 06/25/18 08:43 Dose: 0.5 mg Dextrose (D50w Vial) 50 ml IV.PUSH UNSCH PRN PRN Reason: PER HYPOGLYCEMIA PROTOCOL Last Admin: 06/06/18 06:00 Dose: 50 ml Divalproex Sodium (Depakote Dr) 500 mg PO TID [facility] Last Admin: 06/25/18 08:43 Dose: 500 mg Donepezil HCl (Aricept) 10 mg PO DAILY [facility] Last Admin: 06/25/18 08:43 Dose: 10 mg Ferrous Sulfate (Ferosul) 325 mg PO DAILY [facility] Last Admin: 06/25/18 08:42 Dose: 325 mg Glucagon (Glucagon Inj) 1 mg OTHER PRN PRN PRN Reason: for Hypoglycemia Protocol Hydroxyzine HCl (Atarax) 10 mg PO Q6H PRN PRN Reason: Anxiety, Pruritis. Phenylephrine HCl 40 mg/ (Dextrose) 500 mls @ 30 mls/hr IV.CONT TITRATE PRN; Protocol PRN Reason: Per Protocol Last Titration: 06/08/18 11:02 Dose: 0 mcg/min, 0 mls/hr Sodium Chloride (Ns Inj) 1,000 mls @ 0 mls/hr IV.SIG BOLUS [facility] Last Infusion: 06/12/18 02:23 Dose: Infused Lactulose (Lactulose Liq) 30 ml PO DAILY PRN PRN Reason: SEVERE CONSITIPATION Levothyroxine Sodium (Synthroid) 25 mcg PO DAILY@0600 [facility] Last Admin: 06/25/18 05:39 Dose: 25 mcg Metoprolol Tartrate (Lopressor) 25 mg PO BID [facility] Last Admin: 06/25/18 08:42 Dose: 25 mg Miscellaneous (Pill Splitter) 1 each OTHER UNSCH [facility] Ondansetron HCl (Zofran Inj) 4 mg IV.PUSH Q6H PRN PRN Reason: NAUSEA OR VOMITING Last Admin: 06/18/18 11:09 Dose: 4 mg Oxybutynin Chloride (Ditropan) 5 mg PO BID [facility] Last Admin: 06/25/18 08:42 Dose: 5 mg Pantoprazole Sodium (Protonix) 40 mg PO DAILY [facility] Last Admin: 06/25/18 08:42 Dose: 40 mg Senna/Docusate Sodium (Leena-Colace) 1 tab PO BID [facility] Last Admin: 06/25/18 08:42 Dose: 1 tab Sennosides (Senokot) 17.2 mg PO Q12H PRN PRN Reason: Moderate Constipation Sodium Chloride (Ns Flush) 2 ml IV.FLUSH BID [facility] Last Admin: 06/25/18 08:44 Dose: 2 ml Sodium Chloride (Ns Flush) 2 ml IV.FLUSH PRN PRN PRN Reason: FLUSH AFTER USING IV ACCESS Thyroid (Points Thyroid) 60 mg PO DAILY [facility] Last Admin: 06/25/18 08:43 Dose: 60 mg Venlafaxine HCl (Effexor Xr) 75 mg PO DAILY [facility] Last Admin: 06/25/18 08:43 Dose: 75 mg Physical Exam Vital signs: Vital Signs 06/24/18 12:00 06/24/18 16:00 06/24/18 20:00 Temperature 97.2 F L 98.5 F 97.8 F Pulse Rate 56 L 90 64 Respiratory Rate 16 15 18 Blood Pressure 138/68 105/61 147/72 H Pulse Oximetry 98 96 98 06/25/18 00:00 06/25/18 03:49 06/25/18 04:00 Temperature 97.6 F 97.7 F Pulse Rate 68 102 H Respiratory Rate 18 16 18 Blood Pressure 140/70 106/72 Pulse Oximetry 97 96 06/25/18 04:09 Temperature Pulse Rate 109 H Respiratory Rate Blood Pressure Pulse Oximetry Intake & Output 06/24/18 06/25/18 06/25/18 18:59 06:59 18:59 Intake Total 720 / 720 Output Total 300 / 300 400 / 400 Balance 420 / 420 -400 / -400 Weight 62.9 kg Intake: Oral 720 / 720 Output: Urine 300 / 300 400 / 400 Other: Date of Last Bowel Movement 06/24/18 06/24/18 # Bowel Movements 2 # Incontinent Bowel Movements 2 1 - Constitutional no acute distress - Routine HEENT Exam Head: Present: normocephalic Eye: Present: PERRL ENT: Present: mucous membranes moist - Routine Neck Exam Present: full ROM - Routine Respiratory Exam Present: CTA bilaterally - Routine Cardiovascular Exam Present: S1, S2. Absent: murmur, gallop, rubs, S3, S4 - Routine Abdominal Exam Present: normoactive bowel sounds - Routine Extremities Exam Present: full ROM, pulses intact, normal capillary refill. Absent: cyanosis, clubbing, edema Comments: Right arm is in a sling s/p right humerus fx. - Routine Skin Exam Present: intact - Routine Neurological Exam Present: oriented X3 - Detailed Neurological Exam: Coma Scale Eye Opening: Spontaneous Verbal Response: Oriented Motor Response: Obey commands [place] Coma Scale Total: 15 - Routine Psychiatric Exam Present: normal affect Results 06/20/18 06:49 06/20/18 06:49 Intake and Output 06/24/18 06/25/18 06/25/18 22:59 06:59 14:59 Intake Total 720 / 720 Output Total 300 / 300 400 / 400 Balance 420 / 420 -400 / -400 Intake: Oral 720 / 720 Output: Urine 300 / 300 400 / 400 Other: Date of Last Bowel Movement 06/24/18 # Bowel Movements 2 # Incontinent Bowel Movements 2 1 Weight 62.9 kg Assessment and Plan - Assessment (1) Atrial fibrillation with RVR Code(s): I48.91 - Unspecified atrial fibrillation Status: Chronic (2) Symptomatic bradycardia Code(s): R00.1 - Bradycardia, unspecified Status: Acute (3) Humeral fracture Code(s): S42.309A - Unspecified fracture of shaft of humerus, unspecified arm, initial encounter for closed fracture Status: Acute (4) Encephalopathy Code(s): G93.40 - Encephalopathy, unspecified Status: Resolved (5) Toxic metabolic encephalopathy Code(s): G92 - Toxic encephalopathy Status: Acute (6) Gait disorder Code(s): R26.9 - Unspecified abnormalities of gait and mobility Status: Chronic (7) Tremor Code(s): R25.1 - Tremor, unspecified Status: Chronic (8) Acute UTI Code(s): N39.0 - Urinary tract infection, site not specified Status: Acute - Plan No new cardiac issues, remains stable from cardiac standpoint. She stays in SR with a few episodes of atrial fib. Continue amio and Metoprolol. We will continue anticoagulation with Eliquis 5 mg twice daily for atrial fibrillation. Continue to increase activity as tolerated, PT. Patient is cleared for discharge from a cardiac standpoint. Discharge plans to a correction facility are in progress. Patient was seen and evaluated by Dr. Zimmer who participated in care, management and decision making. - Attending Attestation Patient seen and examined. I reviewed and agree with the evaluation and plan as presented. Continue current program. Stable from cardiac standpoint. Discharge to SNF as planned. (3) Humeral fracture Qualifiers: Encounter type: subsequent encounter Humerus Location: proximal Fracture type: closed Fracture morphology: other fracture Fracture alignment: nondisplaced Laterality: right Fracture healing: with routine healing Qualified Code(s): S42.294D - Other nondisplaced fracture of upper end of right humerus, subsequent encounter for fracture with routine healing
--- NOTE | 2018-06-25 09:30 | P.PN ---
Subjective Interval history: Follow-up visit dementia, bipolar, A. fib, generalized weakness, anxiety. Patient seen and examined today. Reports feeling a lot better. Continues to have weakness. Denies pain and discomfort. Denies SOB/ dyspnea. Denies chest pain. Denies fevers, chills. Physical Exam Vital signs: Vital Signs 06/24/18 12:00 06/24/18 16:00 06/24/18 20:00 Temperature 97.2 F L 98.5 F 97.8 F Pulse Rate 56 L 90 64 Respiratory Rate 16 15 18 Blood Pressure 138/68 105/61 147/72 H Pulse Oximetry 98 96 98 06/25/18 00:00 06/25/18 03:49 06/25/18 04:00 Temperature 97.6 F 97.7 F Pulse Rate 68 102 H Respiratory Rate 18 16 18 Blood Pressure 140/70 106/72 Pulse Oximetry 97 96 06/25/18 04:09 06/25/18 08:00 Temperature Pulse Rate 109 H 139 H Respiratory Rate Blood Pressure Pulse Oximetry Intake & Output 06/24/18 06/25/18 06/25/18 18:59 06:59 18:59 Intake Total 720 / 720 Output Total 300 / 300 400 / 400 Balance 420 / 420 -400 / -400 Weight 62.9 kg Intake: Oral 720 / 720 Output: Urine 300 / 300 400 / 400 Other: Date of Last Bowel Movement 06/24/18 06/24/18 # Bowel Movements 2 # Incontinent Bowel Movements 2 1 Narrative: GENERAL: well nourished female, in NAD, lying comfortably in bed SKIN: Warm and dry. HEAD: Normocephalic. No scleral icterus. No injection or drainage. MOM. NECK: Supple, trachea midline. CARDIOVASCULAR: Regular rate and rhythm without murmurs, gallops, or rubs. RESPIRATORY: Breath sounds equal bilaterally. No accessory muscle use. GASTROINTESTINAL: Abdomen soft, non-tender, nondistended. MUSCULOSKELETAL: No cyanosis, or edema. R sling in place, good capillary refill. BACK: Nontender without obvious deformity. No CVA tenderness. 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 Fib and humerus fracture, managed non-operatively per Ortho Dementia, Bipolar disorder Severe anxiety -Continue Aricept, Depakote, and Effexor -We will start with clonazepam low-dose twice daily. Hydroxyzine as needed. Generalized Weakness -CT Head no acute abnormality. Small vessel ischemic changes. -MRI/MRA brain and MRI C-spine negative. -EEG 06/05moderate encephalopathy -Neurology following Atrial fibrillation with RVR, intermittent -Cont. Amiodarone -s/p atropine 0.5 mg IV, glucagon 2.5 mg IV, and trial transcutaneous pacing. -Holding beta blockers and calcium channel blockers. -Continue Amiodarone and Eliquis BID -Cardiology managing, may ultimately require backup pacemaker in order to tolerate rate control agents. -Cleared for discharge from cardiac standpoint Anemia -Hgb 06/20 on 06/20 -Continue ferrous sulfate UTI, resolved -Urine culture 06/04 with Klebsiella s/p txt -Blood culture from 06/04 negative. Hypothyroidism -Continue [place] Thyroid 60 milligrams daily and Levothyroxine 25mcg daily. -Needs recheck in outpatient setting in 6 weeks-3 months. Subacute right proximal humerus fracture -Cont. sling, non-operative management per ortho -Repeat x-ray of the right shoulder 06/19 reveals near anatomic alignment and slight interval healing -Patient will need to followup with Ortho following discharge -PT eval and treat Incontinence -Continue Oxybutynin DVT PPX: Lovenox GERD: Cont. PPI Full code Discussed with patient, nursing Discharge Planning: Pending placement, patient stable and cleared by cardiology for discharge, labs within normal limits on 06/20 (1) Humeral fracture Qualifiers: Encounter type: subsequent encounter Humerus Location: proximal Fracture type: closed Fracture morphology: other fracture Fracture alignment: nondisplaced Laterality: right Fracture healing: with routine healing Qualified Code(s): S42.294D - Other nondisplaced fracture of upper end of right humerus, subsequent encounter for fracture with routine healing
[2018-06-25 09:43] VITALS: BP 119/70; PULSE 64; TEMP 98; O2SAT 98
--- NOTE | 2018-06-25 14:11 | P.DS ---
Date of admission: 06/04/18 17:46 Primary care physician: UNKNOWN Attending physician on discharge: Abdifatah Morales Anticipated date of discharge: 06/25/18 Brief History from admission: The patient is a 58-year-old female presenting with complaint of right shoulder pain after a fall. Per family and records it appears that the patient had some kind of a adverse event in the the facility several years ago and was either a stroke or a CODE BLUE. Since then the patient has been having multiple falls atrophy of the lower extremities, weakness, not being able to walk appropriately and falls almost on a daily basis distress she was advised to follow-up with orthopedic surgeon. She sustained a fall a few days ago resulting to a fracture of her right humerus. Today she was supposed to follow- up with her orthopedic surgeon but she fell again and was brought in by EMS. Patient is not able to provide much information. She appears confused but nontoxic. did not arrive until 2 hours after she was in the ED. Patient update on day of discharge: Follow-up visit dementia, bipolar, A. fib, generalized weakness, anxiety. Patient seen and examined today. Reports feeling a lot better. Continues to have weakness. Denies pain and discomfort. Denies SOB/ dyspnea. Denies chest pain. Denies fevers, chills. DS: Diagnosis - Discharge Diagnosis (1) Humeral fracture Status: Acute (2) Encephalopathy Status: Resolved (3) Atrial fibrillation with RVR Status: Chronic DS: Medications - Discharge Medications Prescriptions: amiodarone [Pacerone] 200 mg PO DAILY #30 tab apixaban [Eliquis] 5 mg PO BID #60 tab clonazepam [Klonopin] 0.5 mg PO Q12HR #10 tab hydroxyzine HCl 10 mg PO Q6H PRN #30 tab PRN Reason: Anxiety, Pruritis. metoprolol tartrate 25 mg PO BID #60 tab DS: Summary Hospital Course: 58 y/o CF with PMhx of Dementia and BP Disoder admitted for IP mgmt of Paroxysmal A. Fib and humerus fracture, managed non-operatively per Ortho. Rosacea was complicated with atrial fibrillation with RVR intermittently.S/p atropine 0.5 mg IV, glucagon 2.5 mg IV, and trial transcutaneous pacing. Patient started on amiodarone and Eliquis twice daily. Cardiology has been following the patient and continues to recommend amiodarone and Eliquis. He patient has dementia, bipolar disorder and severe anxiety. She needs to continue Aricept, Depakote and Effexor. Patient was started on clonazepam low- dose twice a day yesterday and hydroxyzine as needed which patient has been saying it helped her a lot. Continues to have slightly elevated heart rate but low 100s however it has been improved since yesterday she has 130s heart rate prior. Patient has anemia, MRSA has been ordered. She will continue to be managed with his home dose of thyroid medication. Her subacute right proximal humerus fracture will be manage nonoperatively. She will need intensive physical therapy and occupational therapy. Patient has met maximal benefits of hospitalization. Clinically stable for discharge to inpatient rehabilitation unit. - Time Spent with Patient Total time spent providing and/or coordinating discharge services: Less than 30 minutes - Quality: VTE Deep Vein Thrombosis/Pulmonary Embolism Present on Admission: No Exam Vital signs: Vital Signs 06/24/18 16:00 06/24/18 20:00 06/25/18 00:00 Temperature 98.5 F 97.8 F 97.6 F Pulse Rate 90 64 68 Respiratory Rate 15 18 18 Blood Pressure 105/61 147/72 H 140/70 Pulse Oximetry 96 98 97 06/25/18 03:49 06/25/18 04:00 06/25/18 04:09 Temperature 97.7 F Pulse Rate 102 H 109 H Respiratory Rate 16 18 Blood Pressure 106/72 Pulse Oximetry 96 06/25/18 08:00 Temperature 98.0 F Pulse Rate 64 Respiratory Rate 18 Blood Pressure 119/70 Pulse Oximetry 98 Intake & Output 06/24/18 06/25/18 06/25/18 18:59 06:59 18:59 Intake Total 720 / 720 Output Total 300 / 300 400 / 400 Balance 420 / 420 -400 / -400 Weight 62.9 kg Intake: Oral 720 / 720 Output: Urine 300 / 300 400 / 400 Other: Date of Last Bowel Movement 06/24/18 06/24/18 # Bowel Movements 2 # Incontinent Bowel Movements 2 1 Narrative: GENERAL: well nourished female, in NAD, lying comfortably in bed SKIN: Warm and dry. HEAD: Normocephalic. No scleral icterus. No injection or drainage. MOM. NECK: Supple, trachea midline. CARDIOVASCULAR: Regular rate and rhythm without murmurs, gallops, or rubs. RESPIRATORY: Breath sounds equal bilaterally. No accessory muscle use. GASTROINTESTINAL: Abdomen soft, non-tender, nondistended. MUSCULOSKELETAL: No cyanosis, or edema. R sling in place, good capillary refill. BACK: Nontender without obvious deformity. No CVA tenderness. NEURO: Alert and oriented, anxious, motor system grossly intact Results Procedures completed during hospitalization: NONE - Impressions ITS Impressions Head CT 06/04/18 10:54 CONCLUSION: 1. No acute intracranial abnormality.. 2. Mild periventricular and subcortical white matter small vessel ischemic changes bilaterally. Humerus X-Ray 06/04/18 10:54 CONCLUSION: Oblique slightly comminuted fracture of the right humeral neck and proximal shaft Shoulder CT 06/04/18 14:02 CONCLUSION: 1. Impacted humeral neck fracture as described above. There are 2 small bone fragment adjacent to the greater tuberosity. Carotid Doppler Study 06/05/18 00:00 CONCLUSION: 1. Right Internal Carotid Artery: Findings indicate <50% stenosis. 2. Left Internal Carotid Artery: No significant stenosis or atherosclerotic plaque is visualized. Cervical Spine MRI 06/06/18 00:00 CONCLUSION: 1. Minimal circumferential spinal stenosis and mild bilateral foraminal narrowing at C3 3-4, C4-5, C5-6 and C6-7. Head MRI 06/06/18 07:13 CONCLUSION: 1. Cerebral atrophy. 2. Mild periventricular white matter small vessel ischemic changes bilaterally. 3. No acute infarct, acute hemorrhage, midline shift or extra-axial fluid collections. Head MRA 06/06/18 07:14 CONCLUSION: 1. Negative MRA of the brain Chest X-Ray 06/06/18 07:49 CONCLUSION: Right internal jugular central line has its tip in superior vena cava. There is no pneumothorax. Shoulder X-Ray 06/19/18 00:00 CONCLUSION: Slight interval healing. Discharge Plan - Discharge Disposition Patient Disposition: /Home Health Service - Discharge Condition Condition: Stable - Discharge Order Discharge Orders: Discharge Order (Routine); Ordered 06/19/18 Ordered By: Harleen Elias - Discharge Details Anticipated Discharge Date: 06/19/18 - Physicians Team Primary Care Provider: UNKNOWN, Attending Provider: Abdifatah Morales Other Providers: Shai Bleivns MD ; Yarely Amos MD ; Elda Zimmer MD ; Antolin Garcia MD ; [facility] ; [facility]
== END 2018-06-25 12:58 | disposition home health service (06) ==
LOC: NEPC 10:36 → NEDA 17:46 → N06 19:47 → HIMC 06-05 17:26 → N05 06-12 11:51
PROVIDERS: ADMIT Physical Medicine & Rehabilitation; ATTEND Hospitalist